=== PATIENT | male | born 1975 | race Caucasian/White ===

== ENCOUNTER 2024-02-27 18:34 | Observation (INO) | payer OTHER, SELFPAY ==
[2024-02-27] VITALS (42 sets, daily range): BP systolic 120–154; BP diastolic 74–106; PULSE 84–116; TEMP 36.8–38.3; O2SAT 2–100; BMI 23.1; BMI 23.2
--- NOTE | 2024-02-27 18:37 | ECG_ITS ---
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
--- NOTE | 2024-02-27 18:37 | XR_ITS ---
The [address] [address] Patient Name: ELLEN HA MRN: [id number] date: 1975 Sex: M Assigned Patient Location: ER Current Patient Location: ED.MAIN Accession/Order Number: [id number] Exam Date: 02/27/2024 19:33 Report Date: 02/27/2024 20:27 At the request of: GEOFF PHELPS Procedure: XR chest 1V CXR HISTORY: Psychiatric clearance COMPARISON: None. TECHNIQUE: 1 view chest submitted for review. FINDINGS: The lungs are adequately expanded without evidence of acute infiltrate or effusion. The cardiac silhouette measures within normal. Pulmonary vascularity is unremarkable. Osseous structures do not demonstrate any acute abnormality. XR/XR chest 1V IMPRESSION: No plain film evidence for acute cardiopulmonary disease. Electronically authenticated by: PROMISE MURRAY Date: 02/27/2024 20:27
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
[2024-02-27 18:50] LABS: Basophils Absolute Auto 0.1 10^3/uL (0.0-0.1); Basophils Percent Auto 0.7 % (0.2-2.0); Eosinophils Absolute Auto 0.1 10^3/uL (0.0-0.7); Eosinophils Percent Auto 1.1 % (0.9-7.0); Hematocrit 42.7 % (42.0-54.0); Hemoglobin 15.2 g/dL (14.0-18.0); Immature Granulocytes Abs Auto 0.04 10^3/uL (0.00-0.03); Immature Granulocytes Pct Auto 0.4 % (0.0-0.5); Lymphocytes Absolute Auto 1.4 10^3/uL (1.2-3.8); Lymphocytes Percent Auto 13.3 % (20.5-60.0); Mean Corpuscular HGB Conc 35.6 g/dL (29.9-35.2); Mean Corpuscular Hemoglobin 31.4 pg (25.9-34.0); Mean Corpuscular Volume 88.2 fL (80.0-94.0); Mean Platelet Volume 9.8 fL (9.5-13.5); Monocytes Absolute Auto 0.8 10^3/uL (0.3-0.8); Monocytes Percent Auto 7.7 % (1.7-12.0); Neutrophils Percent Auto 76.8 % (43.0-75.0); Platelet Count 290 10^3/uL (150-450); Red Blood Count 4.84 10^6/uL (4.70-6.10); Red Cell Distribution Width 12.6 % (11.0-15.0); White Blood Count 10.4 10^3/uL (4.0-11.0)
[2024-02-27 18:59] LABS: Bilirubin Urine NEGATIVE (NEGATIVE); Blood Urine SMALL (NEGATIVE); Clarity Urine CLEAR (CLEAR); Color Urine YELLOW (YELLOW); Glucose Urine UA NEGATIVE (NEGATIVE); Ketones Urine NEGATIVE (NEGATIVE); Leukocyte Esterase Urine NEGATIVE (NEGATIVE); Nitrite Urine NEGATIVE (NEGATIVE); Protein Urine 30 mg/dL (NEG/TRACE); Specific Gravity Urine >=1.030 (1.005-1.025); Urobilinogen Urine 0.2 EU/dL (0.2-1.0)
[2024-02-27] MEDS: ACETAMINOPHEN 650 MG RECTAL SUPPOSITORY PR (19:00)
[2024-02-27] MEDS: 0.9 % SODIUM CHLORIDE 1,000 ML 200 ML IV (19:00)
[2024-02-27] MEDS: ONDANSETRON PF 4 MG/2 ML VIAL IV (19:00)
[2024-02-27 19:07] LABS: Bacteria Urine NONE SEEN #/HPF (NONE SEEN); Cast Seen? SEEN #/LPF (NONE SEEN); Crystals Seen? None Seen #/HPF (None Seen); Hyaline Casts Urine FEW; Mucus Urine MODERATE (NONE SEEN); RBC Urine 0-2 #/HPF (0-2); Squamous Epithelial Cell Urine RARE #/LPF (NONE/RARE); Transitional Epi Cells Urine FEW #/LPF (NONE SEEN)
[2024-02-27 19:08] LABS: Sperm Urine SEEN; Urine Culture Indicated YES
[2024-02-27 19:14] LABS: Amphetamine Screen Urine POSITIVE (NEGATIVE); Barbiturates Screen Urine NEGATIVE (NEGATIVE); Benzodiazepines Screen Urine NEGATIVE (NEGATIVE); Buprenorphine Screen Urine POSITIVE (NEGATIVE); Cannabinoid Screen Urine NEGATIVE (NEGATIVE); Cocaine Screen Urine NEGATIVE (NEGATIVE); Methadone Screen Urine NEGATIVE (NEGATIVE); Methamphetamines Screen Urine POSITIVE (NEGATIVE); Opiate Screen Urine NEGATIVE (NEGATIVE); Oxycodone Screen Urine NEGATIVE (NEGATIVE); Phencyclidine Screen Urine NEGATIVE (NEGATIVE); Tricyclic Antidepressant Urine NEGATIVE (NEGATIVE)
[2024-02-27 19:24] LABS: Alanine Aminotransferase 74 U/L (16-63); Albumin Globulin Ratio 1.1; Alkaline Phosphatase 104 U/L (46-116); Aspartate Amino Transferase 53 U/L (15-37); BUN Creatinine Ratio 16.4; Bilirubin Direct 0.3 mg/dL (0.0-0.2); Bilirubin Total 1.2 mg/dL (0.2-1.0); Calcium 9.5 mg/dL (8.5-10.1); Carbon Dioxide 26.3 mmol/L (21.0-32.0); Chloride 106 mmol/L (98-107); Estimated GFR (African America >60 (>=60); Estimated GFR (Non-African Ame 57 (>=60); Globulin 3.5 g/dL; Glucose 99 mg/dL (74-106); Potassium 3.3 mmol/L (3.5-5.1); Salicylate <2.8 mg/dL (<=19.9); Sodium 141 mmol/L (136-145); Total Protein 7.5 g/dL (6.4-8.2)
[2024-02-27 19:26] LABS: Acetaminophen <2.0 ug/mL (10.0-30.0); Ethanol <3 mg/dL
--- NOTE | 2024-02-27 22:14 | PC.NURSE ---
Patient admitted from the ED department and brought up to the ICU with [address] While moving the patient over into ICU bed he was calm and cooperative. Not answering many questions but following some commands. He does not appear to be a threat to himself or others at this time. Robert, the senior information security architect stated he has been calm for a few hrs now. RN explained to patient that the restraints will be removed for now but if he becomes aggressive or combative the restraints will be reapplied. He said he understood. Removed the nonrebreather and applied 2 lts NC for now, SPO2 @ 99%. Bilat lungs clear. Patient is only alert to name. He denies knowing why he is here and what brought him to the hospital. Reoriented. He will not answer any of my admission questions. His eyes are dilated, equal and reactive. Has weak hand grasp bilaterally. No sores noted on body, covered in tattoos. Jaime in place. IV fluids infusing from ED at 200ml/hr. Call light at hand. bed alarm on. Will continue to monitor. Notified Ruth Alexander NP of current behavior and the removal of 4 point restrains.
[2024-02-27] MEDS: POTASSIUM CHLORIDE IN WATER 10 MEQ/100 ML PREMIX 100 MEQ IV ×2 (22:44→23:50)
[2024-02-28] VITALS (54 sets, daily range): BP systolic 127–134; BP diastolic 68–86; PULSE 69–108; TEMP 36.8–37.2; O2SAT 91–99
[2024-02-28] MEDS: 0.9 % SODIUM CHLORIDE 1,000 ML 200 ML IV ×2 (00:16→05:13)
[2024-02-28 06:27] LABS: Basophils Absolute Auto 0.1 10^3/uL (0.0-0.1); Basophils Percent Auto 0.6 % (0.2-2.0); Eosinophils Absolute Auto 0.2 10^3/uL (0.0-0.7); Hematocrit 39.4 % (42.0-54.0); Hemoglobin 13.6 g/dL (14.0-18.0); Immature Granulocytes Abs Auto 0.03 10^3/uL (0.00-0.03); Immature Granulocytes Pct Auto 0.4 % (0.0-0.5); Lymphocytes Absolute Auto 1.7 10^3/uL (1.2-3.8); Lymphocytes Percent Auto 21.1 % (20.5-60.0); Mean Corpuscular HGB Conc 34.5 g/dL (29.9-35.2); Mean Corpuscular Hemoglobin 31.6 pg (25.9-34.0); Mean Corpuscular Volume 91.6 fL (80.0-94.0); Monocytes Absolute Auto 0.8 10^3/uL (0.3-0.8); Monocytes Percent Auto 9.5 % (1.7-12.0); Neutrophils Absolute Auto 5.2 10^3/uL (1.4-6.5); Neutrophils Percent Auto 66.4 % (43.0-75.0); Platelet Count 226 10^3/uL (150-450); Red Cell Distribution Width 12.9 % (11.0-15.0); White Blood Count 7.9 10^3/uL (4.0-11.0)
[2024-02-28 06:44] LABS: Alanine Aminotransferase 65 U/L (16-63); Albumin Globulin Ratio 1.1; Albumin Level 3.2 g/dL (3.4-5.0); Alkaline Phosphatase 90 U/L (46-116); Anion Gap 12.2; Aspartate Amino Transferase 68 U/L (15-37); BUN Creatinine Ratio 17.2; Bilirubin Total 1.3 mg/dL (0.2-1.0); Calcium 8.4 mg/dL (8.5-10.1); Carbon Dioxide 24.2 mmol/L (21.0-32.0); Chloride 107 mmol/L (98-107); Estimated GFR (African America >60 (>=60); Estimated GFR (Non-African Ame >60 (>=60); Glucose 112 mg/dL (74-106); Magnesium 2.5 mg/dL (1.8-2.4); Potassium 3.4 mmol/L (3.5-5.1); Sodium 140 mmol/L (136-145); Total Protein 6.2 g/dL (6.4-8.2)
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
--- NOTE | 2024-02-28 10:42 | PC.NURSE ---
pt aware of discharge order. iv's discontinued, tolerated well. pt stated he does not have transportation. attempted to call taxi, pt does not have [place] funds to pay for transport. pt stated he does not have his phone and does not recall and friends/family phone numbers. pt ambulated to shower, supplies given. supervisor packing room made aware of having no transportation.
--- OUTSIDE RECORDS SUMMARY | 2024-03-01 08:59 | XMS_ITS | CCD ---
Author Organization [facility] Care Team Providers Care Flower Stripper Name Role Phone No, Physician Unavailable Unavailable JACOB PENG Unavailable Unavailciara mendoza NO, PHYSICIAN Unavailable Unavailable [facility] ([facility] [place]), Other Unav ailable RYNE TAN MD Primary Care Physicia n PROVIDER, UNKNOWN Attending Unavailable PROVIDER, UNKNOWN Admitting Unavailable PAY, DR ARZOLA Attending Unavailable PAY, DR ARZOLA Consulting Unavailable PAY, DR ARZOLA Admitting Unavailable MISC, DR AIKEN Primary Care Unavailable Unavailable Primary Care Provider UnavailTOMASA Khan Attending Unavailable NONE, XXXX Primary Care Physician Unavailab Scooby Gore Attending Unavailable STEPHANE, Scooby Thacker Attending Unavailable Scooby CALDERÓN Attending Unavailable SANNA TAN Admitting Unavailable SANNA TAN Attending Unavailable [facility] ([facility] [place]), Other Prim ollie Care Provider EMILY FENG Attending Unavailable [facility] ([facility] [place] OTHER Prim ollie Care Unavailable RYNE TAN MD Attending Unava ilRYNE Cui MD Primary Care Unava RYNE Woo MD Primary Care Unava ilRYNE Cui MD Attending Unava ilable Allergies Allergy Classification Reported Allergen(s) Allergy Type Date of Onset Reaction(s) Facility (2 sources) *[facility] - FOOD ALLERGY Propensity to adverse reactions to drug 5 Shortness of Breath [facility] Work Phone: (1 source) Food Propensity to adverse reactions to drug 5 Shortness Of Breath [facility] Medications Current Medications Medication Drug Class(es) Dates Sig (Normalized) Sig (Original) amitriptyline hydrochloride 100 mg oral tablet (3 sources) Tricyclic Antidepressant amitriptyline 100 MG Tab Take 50 mg by mouth At bedtime. Active take 1 tablet by mouth once zena y amitriptyline (ELAVIL) 100 MG tablet Take 100 mg by mouth nightly 0 Active betamethasone 0.5 mg/ml / clotrimazole 10 mg/ml topical cream (2 sources) Azole Antifungal, Corticosteroid Start: 03-16-2022 betamethasone-clotrimazole Top 0.05%-1% Crm 15 gram 1 glen, Topical, BID, 45 gram, Refill(s) 0, [email or web address], 185.4, cm, 12/25/21 14:39:00 EDT, Height/Length Dosing, 76.3, kg, 12/25/21 14:39:00 EDT, Weight Dosing Start Date: 03/16/22 Status: Ordered cetirizine hydrochloride 10 mg oral tablet (1 source) Histamine-1 Receptor Antagonist Start: 04-05-2022 take 1 tablet by mouth at bedtime cetirizine 10 mg Tab 10 mg = 1 tab(s), Oral, Bedtime, # 30 tab(s), Refills(s) 0, Pharmacy: [email or web address], 185.4, cm, 12/25/21 14:39:00 EDT, Height/Length Dosing, 76.3, kg, 12/25/21 14:39:00 EDT, Weight Dosing Start Date: 04/05/22 Status: Ordered clobetasol propionate 0.0005 mg/mg topical ointment (2 sources) Corticosteroid Start: 12-29-2021 clobetasol propionate 0.05% top oint 1 glen, Topical, BID, 45 gram, Refill(s) 0, [facility], 185.4, cm, 12/25/21 14:39:00 EDT, Height/Length Dosing, 76.3, kg, 12/25/21 14:39:00 EDT, Weight Dosing Start Date: 12/29/21 Status: Ordered coal tar 0.02 mg/mg topical ointment (2 sources) Start: 04-22-2022 coal tar topical 2% ointment 1 glen, Topical, BID, 120 gram, Refill(s) 0, Apply thin layer to affected are of skin, [facility], 185.4, cm, 12/25/21 14:39:00 EDT, Height/Length Dosing, 76.3, kg, 12/25/21 14:39:00 EDT, Weight Dosing Start Date: 04/22/22 Status: Ordered coal tar (T/GEL) 1 % Sham Apply topically. Active cobicistat 150 mg / elvitegravir 150 mg / emtricitabine 200 mg / tenofovir disoproxil fumarate 300 mg oral tablet (2 sources) Human Immunodeficiency Virus Nucleoside Analog Reverse Transcriptase Inhibitor, Hepatitis B Virus Nucleoside Analog Reverse Transcriptase Inhibitor, Human Immunodeficiency Virus Integrase Strand Transfer Inhibitor, Cytochrome P450 3A Inhibitor take 1 tablet by mouth once daily fdqioocmtqcj-rmqhbxpkpy-aozadaiclnkyd-te nofovir (STRIBILD) [phone] MG tablet Take 1 tablet by mouth daily 0 Active cyclopentolate hydrochloride 10 mg/ml ophthalmic solution (1 source) S t a r t : 0 6 - 1 5 - 2 0 1 6 take 1 drop(s) into the eye(s) twice daily cyclopentolate (CYCLOGYL) 1 % Solution 1 drop by Right Eye route 2 times daily. 1 Bottle 0 11/22/2015 Active darunavir 400 mg oral tablet (3 sources) Protease Inhibitor take 2 tablets by mouth at mealtim e darunavir 400 MG Tab take 800 mg by mout h. take with food Active DARUNAVIR ETHANO LATE PO Take 800 mg by mouth 0 Active dolutegravir 50 mg oral tablet (4 sources) Human Immunodeficiency Virus Integrase Strand Transfer Inhibitor Start: 03-25-2022 take 1 tablet by mouth once daily Tivicay 50 mg oral tablet 50 mg, Oral, Daily, # 30 tab(s), Refills(s) 3, Pharmacy: [facility]/pharmacy #[id number], 185.4, cm, 12/25/21 14:39:00 EDT, Height/Length Dosing, 76.3, kg, 12/25/21 14:39:00 EDT, Weight Dosing Start Date: 03/25/22 Status: Ordered Start: 12-25-2021 take 50 mg by mouth once daily Tivicay 50 mg, Oral, Daily, Refills(s) 0 Start Date: 12/25/21 Status: Ordered take 1 tablet by sha th every twenty-four hours Dolutegravir 50 MG tablet Take 1 tablet by mouth every 24 hours. Active DULoxetine 20 mg delayed release oral capsule (1 source) Serotonin and Norepinephrine Reuptake Inhibitor Start: 03-06-2022 DULoxetine 20 mg Cap-EC See Instructions, 1 cap daily for 7 days then increase to BID., # 60 tab(s), Refills(s) 0, Pharmacy: [email or web address], 185.4, cm, 12/25/21 14:39:00 EDT, Height/Length Dosing, 76.3, kg, 12/25/21 14:39:00 EDT, Weight Dosing Start Date: 03/06/22 Status: Ordered DULoxetine 20 mg Cap-EC (1 source) Start: 03-06-2022 DULoxetine 20 mg Cap-EC See Instructions, 1 cap daily for 7 days then increase to BID., # 60 tab(s), Refills(s) 0, Pharmacy: [email or web address], 185.4, cm, 12/25/21 14:39:00 EDT, Height/Length Dosing, 76.3, kg, 12/25/21 14:39:00 EDT, Weight Dosing Start Date: 03/06/22 Status: Ordered emtricitabine 200 mg / tenofovir alafenamide 25 mg oral tablet (4 sources) Human Immunodeficiency Virus Nucleoside Analog Reverse Transcriptase Inhibitor Start: 03-25-2022 Descovy 200 mg-25 mg oral tablet 1 tab(s), Oral, Daily, 30 tab(s), Refill(s) 3, [facility]/pharmacy #[id number], 185.4, cm, 12/25/21 14:39:00 EDT, Height/Length Dosing, 76.3, kg, 12/25/21 14:39:00 EDT, Weight Dosing Start Date: 03/25/22 Status: Ordered Start: 12-25-2021 take 1 tablet by sha th once daily Descovy 200 mg-25 mg oral tablet 1 tab(s), Oral, Daily, Refill(s) 0 Start Date: 12/25/21 Status: Ordered emtricitabine 200 mg / tenofovir disoproxil fumarate 300 mg oral tablet (2 sources) Human Immunodeficiency Virus Nucleoside Analog Reverse Transcriptase Inhibitor take 1 tablet by mouth once daily emtricitabine-tenofovir (TRUVADA) 200-300 MG per tablet Take 1 tablet by mouth daily 0 Active erythromycin 0.005 mg/mg ophthalmic ointment (2 sources) Macrolide, Macrolide Antimicrobial Start : 11-21 erythromycin 5 MG/GM Ointment Apply to suture line QID 1 Tube 0 11/22/2015 Active erythromycin 5 M G/GM Ointment 1 Application every evening at 6 PM. Active fluocinonide 0.5 mg/ml topical solution (2 sources) Corticosteroid fluocinonide (LI DEX) 0.05 % external solution Apply topically 2 times daily 0 Active FLUoxetine 20 mg oral capsule (2 sources) Serotonin Reuptake Inhibitor take 1 capsule by mouth once daily FLUoxetine (PROZAC) 20 MG capsule Take 20 mg by mouth daily 0 Active hydroxychloroquine sulfate 200 mg oral tablet (3 sources) Antimalarial, Antirheumatic Agent Start: 2021 take 1 tablet by mouth twice daily hydroxychloroquine 200 mg Tab 200 mg = 1 tab(s), Oral, BID, # 60 tab(s), Refills(s) 0, Pharmacy: [email or web address], 185.4, cm, 12/25/21 14:39:00 EDT, Height/Length Dosing, 76.3, kg, 12/25/21 14:39:00 EDT, Weight Dosing Start Date: 03/25/22 Status: Ordered take 1 tablet by mouth once zena y hydroxychloroquine (PLAQUENIL) 200 MG tablet Take 1 tablet by mouth daily 0 Active omeprazole 20 mg delayed release oral capsule (1 source) Proton Pump Inhibitor Start: 04-05-2022 take 1 capsule by mouth once daily omeprazole 20 mg Cap-DR 20 mg = 1 cap(s), Oral, Daily, # 30 cap(s), Refills(s) 0, Pharmacy: [email or web address], 185.4, cm, 12/25/21 14:39:00 EDT, Height/Length Dosing, 76.3, kg, 12/25/21 14:39:00 EDT, Weight Dosing Start Date: 04/05/22 Status: Ordered prednisoLONE acetate 10 mg/ml ophthalmic suspension (1 source) Corticosteroid Start: 12-01-2015 prednisOLOne (PRED FORTE) 1 % Suspension 2 drops by Right Eye route 4 times daily. 4x/day right eye for 1 week, 3x/day for 1 week, 2x/day for 1 week, 1x/day for one week 10 mL 0 12/01/2015 Active predniSONE 20 mg oral tablet (1 source) Start: 04-12-2022 take 3 tablets by mouth once daily, then take 2 tablets by mouth once daily, then take 1 tablet by mouth once daily, then take 0.5 tablet by mouth once daily predniSONE 20 mg Tab See Instructions, 3 PO daily for 5 days, 2 PO daily for 5 days 1 PO daily for 5 days, 1/2 tab PO daily for 6 days, # 33 tab(s), Refills(s) 0, Pharmacy: [email or web address], 185.4, cm, 12/25/21 14:39:00 EDT, Height/Length Dosing, 76.3, kg, 12/25/21 14:39:00 EDT,... Start Date: 04/12/22 Status: Ordered propranolol hydrochloride 20 mg oral tablet (5 sources) beta-Adrenergic Franco Start: 01-23-2022 take 1 tablet by mouth twice daily propranolol 20 mg Tab 20 mg = 1 tab(s), Oral, BID, # 60 tab(s), Refills(s) 0, Pharmacy: [email or web address], 185.4, cm, 12/25/21 14:39:00 EDT, Height/Length Dosing, 76.3, kg, 12/25/21 14:39:00 EDT, Weight Dosing Start Date: 01/23/22 Status: Ordered take 1 tablet by mouth twice chacha ly propranolol (INDERAL) 80 MG tablet Take 80 mg by mouth 2 times daily 0 Active ritonavir 100 mg oral tablet (2 sources) Protease Inhibitor, Cytochrome P450 3A Inhibitor take 1 tablet by mouth twice daily ritonavir (NORVIR) 100 MG tablet Take 100 mg by mouth 2 times daily 0 Active sertraline 50 mg oral tablet (2 sources) Serotonin Reuptake Inhibitor take 1 tablet by mouth once daily sertraline (ZOLOFT) 50 MG tablet Take 50 mg by mouth daily 0 Active Completed/Discontinued Medications Medication Drug Class(es) Dates Sig (Normalized) Sig (Original) Vicodin (1 source) Opioid Agonist Start: 11-13-2008 End: 11-18-2008 Vicodin 1 tab(s), PO, q4hr, 30 tab(s), 0, 0 Start Date: 11/13/08 Stop Date: 11/18/08 Status: Ordered Penicillin (1 source) Start: 11-13-2008 End: 11-20-2008 penicillin 500 mg, PO, TID, 21 tab(s), 0, 0 Start Date: 11/13/08 Stop Date: 11/20/08 Status: Ordered 50 ml sodium chloride 9 mg/ml injection (1 source) Start: 12-21-2021 End: 12-21-2021 0.9 % sodium chloride bolus Problems Active Problems Problem Classification Problem Date Documented Date Episodic/Chronic Anxiety disorders (7 sources) Anxiety disorder, unspecified; Translations: [Other specified anxiety disorders] Onset: 11-02-2021 Chronic Hepatitis (1 source) Chronic hepatitis C Chronic Hepatitis (4 sources) Unspecified viral hepatitis C without hepatic coma; Translations: [Viral hepatitis C] Onset: 11-06-2021 12-25-2021 Episodic HIV infection (7 sources) Human immunodeficiency virus infection; Translations: [Human immunodeficiency virus [HIV] disease] Onset: 11-06-2021 Chronic Other aftercare (1 source) Other chcf (current) drug therapy; Translations: [OTH ALF CURRENT DRUG THERAPY] Onset: 11-06-2021 Episodic Other connective tissue disease (2 sources) Prepatellar bursitis, left knee; Translations: [Prepatellar bursitis, left knee] Onset: 10-13-2017 Episodic Other non-traumatic joint disorders (2 sources) Pain in unspecified knee; Translations: [Pain in unspecified knee] Onset: 10-13-2017 Episodic Other skin disorders (1 source) Disorder of skin; Translations: [Disorder of the skin and subcutaneous tissue, unspecified] Onset: 03-16-2022 Episodic Other skin disorders (2 sources) Skin lesion 03-16-2022 Episodic Poisoning by other medications and drugs (1 source) Sympathomimetic overdose; Translations: [Poisoning by unspecified drugs primarily affecting the autonomic nervous system, undetermined, initial encounter] Episodic Substance-related disorders (2 sources) Opioid dependence, uncomplicated; Translations: [Nicotine dependence, cigarettes, uncomplicated] Onset: 11-06-2021 Chronic Substance-related disorders (1 source) Other psychoactive substance use, unspecified, uncomplicated; Translations: [OTH PSYCHOACTIVE SBSTNC UNS UNCOMP] Onset: 11-06-2021 Episodic Past or Other Problems Problem Classification Problem Date Documented Da te Episodic/Chronic Inflammation; infection of eye (except that caused by tuberculosis or sexually transmitteddisease) (2 sources) Unspecified iridocyclitis; Translations: [Traumatic iritis] Onset: 11-23-2015 11-23-2015 Episodic Open wounds of head; neck; and trunk (2 sources) Laceration of eyelid; Translations: [Laceration of right eyelid] Onset: 11-23-2015 11-23-2015 Episodic Residual codes; unclassified (1 source) History of cholecystectomy; Translations: [Status post cholecystectomy] Onset: 01-13-2015 01-13-2015 Episodic Skull and face fractures (2 sources) Fracture of orbit; Translations: [Fracture of orbit, unspecified, subsequent encounter for fracture with routine healing] Onset: 11-23-2015 11-23-2015 Episodic Superficial injury; contusion (2 sources) Injury of conjunctiva and corneal abrasion without foreign body, right eye, initial encounter; Translations: [Abrasion of cornea of right eye] Onset: 11-23-2015 11-23-2015 Episodic Results Test Name Value Interpretation Reference Range [address] 02-20-2024 % B Cells 16 % Normal 5-25 AP [facility] Comment on above: Performed By: #### A SONJA, RPR, [id number], CBC, CMP, TRIG, CHOL, GFR, ADIFF #### [address] [address] % CD4 Cells 30 % Normal 30-61 AP [facility] Comment on above: Performed By: #### A SONJA, RPR, [id number], CBC, CMP, TRIG, CHOL, GFR, ADIFF #### [facility] [address] [place] [address] % CD56+/16+ 8 % Normal 5-30 AP [facility] Comment on above: Performed By: #### A SONJA, RPR, [id number], CBC, CMP, TRIG, CHOL, GFR, ADIFF #### [address] [address] % CD8 Cells 45 % High 12-42 AP [facility] Comment on above: Performed By: #### A SONJA, RPR, [id number], CBC, CMP, TRIG, CHOL, GFR, ADIFF #### [address] [address] % T Cells 76 % Normal 52-84 AP [facility] Comment on above: Performed By: #### A SONJA, RPR, [id number], CBC, CMP, TRIG, CHOL, GFR, ADIFF #### [address] [address] B Cells (CD 19) 243 /uL Normal 71-567 AP [facility] Comment on above: Performed By: #### A SONJA, RPR, 132963, CBC, CMP, TRIG, CHOL, GFR, ADIFF #### [address] [address] CD4 Cells 575 /uL Normal 401-1532 AP [facility] Comment on above: Performed By: #### A SONJA, RPR, [id number], CBC, CMP, TRIG, CHOL, GFR, ADIFF #### [address] [address] CD4/CD8 Ratio 0.68 ratio Low 0.88-3.84 AP [facility] Comment on above: Performed By: #### A SONJA, RPR, 781069, CBC, CMP, TRIG, CHOL, GFR, ADIFF #### [address] [address] CD56+/16+ NK Cells 120 /uL Normal 80-597 AULTMA N [facility] Comment on above: Performed By: #### A SONJA, RPR, 656878, CBC, CMP, TRIG, CHOL, GFR, ADIFF #### [address] [address] CD8 Cells 850 /uL High 152-838 AP [facility] Comment on above: Performed By: #### A SONJA, RPR, 425734, CBC, CMP, TRIG, CHOL, GFR, ADIFF #### [address] [address] Lymphocytes (Bld) [#/Vol] 1.676 10*3/uL Normal 660-4600 AP [facility] Comment on above: Performed By: #### A SONJA, RPR, 608178, CBC, CMP, TRIG, CHOL, GFR, ADIFF #### [place] [id number] T Cells 1313 /uL Normal 582-1992 [facility] Comment on above: Performed By: #### A SONJA, RPR, 538560, CBC, CMP, TRIG, CHOL, GFR, ADIFF #### [place] [address] HIVLDon 02-18-2024 HIV 1 RNA PCR <20 Normal [facility] Comment on above: Result Comment: HIV- 1 RNA not detected The reportable range for this assay is 20 to 10,000,000 copies HIV-1 RNA/mL. Performed By: #### A SONJA, RPR, [id number], CBC, CMP, TRIG, CHOL, GFR, ADIFF #### [place] [address] log10 HIV1 RNA COMMENT Normal [facility] Comment on above: Result Comment: Unab le to calculate result since non-numeric result obtained for component test. Performed At: [address] [id number] Iván Gaspar MD Ph:[phone] Performed By: #### A SONJA, RPR, [id number], CBC, CMP, TRIG, CHOL, GFR, ADIFF #### [place] [address] TCANCon 02-18-2024 Test cancelled: HELP1 Normal [facility] Comment on above: Order Comment: No al iquot received for HELP1 testing. Performed By: #### T CANC #### [place] [address] RPRon 02-17-2024 Reagin Ab RPR Ql (S) Non-Reactive Normal Non-Reactive [facility] Comment on above: Result Comment: The RPR test is a non-treponemal assay useful as an aid in the diagnosis of primary and secondary syphilis. It converts to positive generally within 2 weeks after the appearance of a lesion. This test is also useful for monitoring response to antibiotic therapy. A positive RPR screening test will be followed by the FTA ABS test. False positive RPR tests may occur in 1) patients with underlying autoimmune disorders, 2) elderly patients, 3) , and 4) other conditions with abnormal serum globulins. Performed By: #### A SONJA, RPR, [id number], CBC, CMP, TRIG, CHOL, GFR, ADIFF #### [address] [address] .Auto Diffon 02-16-2024 Basophil, Absolute 0.1 10 3/mcL Normal 0.0-0.3 [facility]AND[facility] Comment on above: Performed By: #### A SONJA, RPR, 134450, CBC, CMP, TRIG, CHOL, GFR, ADIFF #### [place] [address] Basophils/100 WBC (Bld) 1.1 % Normal 0.0-2.5 [facility] Comment on above: Performed By: #### A SONJA, RPR, 765167, CBC, CMP, TRIG, CHOL, GFR, ADIFF #### [address] [address] Eosinophil, Absolute 0.4 10 3/mcL Normal 0.0-0.7 AU LTMAN [facility] Comment on above: Performed By: #### A SONJA, RPR, 213607, CBC, CMP, TRIG, CHOL, GFR, ADIFF #### [address] [address] Eosinophils/100 WBC (Bld) 8.6 % High 0.0-6.0 [facility] Comment on above: Performed By: #### A SONJA, RPR, 252231, CBC, CMP, TRIG, CHOL, GFR, ADIFF #### [address] [address] Lymphocyte, Absolute 1.5 10 3/mcL Normal 0.9-4.3 AU LTMAN [facility] Comment on above: Performed By: #### A SONJA, RPR, [id number], CBC, CMP, TRIG, CHOL, GFR, ADIFF #### [address] [address] Lymphocytes/100 WBC (Bld) 31.5 % Normal 20.0-40.0 AP [facility] Comment on above: Performed By: #### A SONJA, RPR, 476190, CBC, CMP, TRIG, CHOL, GFR, ADIFF #### [facility] [address] [place] [address] Monocyte, Absolute 0.4 10 3/mcL Normal 0.1-1.4 [facility] Comment on above: Performed By: #### A SONJA, RPR, 530959, CBC, CMP, TRIG, CHOL, GFR, ADIFF #### [place] [id number] [address] [place] [address] Monocytes/100 WBC (Bld) 9.1 % Normal 2.0-13.0 AP [facility] Comment on above: Performed By: #### A SONJA, RPR, 756055, CBC, CMP, TRIG, CHOL, GFR, ADIFF #### [place] [address]30 [address] [place] [address] Neutrophils/100 WBC (Bld) 49.7 % Low 50.0-75.0 [facility] Comment on above: Performed By: #### A SONJA, RPR, 545963, CBC, CMP, TRIG, CHOL, GFR, ADIFF #### [address] [address] .GFRon 02-16-2024 GFR >60 Normal [facility] Comment on above: Result Comment: GFR Population mean for , Non- Americans Ages 20-29 = 116 mL/min/1.73 sq.m. Ages 30-39 = 107 mL/min/1.73 sq.m. Ages 40-49 = 99 mL/min/1.73 sq.m. Ages 50-59 = 93 mL/min/1.73 sq.m. Ages 60-69 = 85 mL/min/1.73 sq.m. Ages 70+ = 75 mL/min/1.73 sq.m. Chronic Kidney Disease: Less than 60 mL/min/1.73 square meters End Stage Renal Disease: Less than 15 mL/min/1.73 square meters Performed By: #### A SONJA, RPR, 392733, CBC, CMP, TRIG, CHOL, GFR, ADIFF #### [address] [address] GFR Non- >60 Normal [facility] Comment on above: Result Comment: GFR Population mean for , Non- Americans Ages 20-29 = 116 mL/min/1.73 sq.m. Ages 30-39 = 107 mL/min/1.73 sq.m. Ages 40-49 = 99 mL/min/1.73 sq.m. Ages 50-59 = 93 mL/min/1.73 sq.m. Ages 60-69 = 85 mL/min/1.73 sq.m. Ages 70+ = 75 mL/min/1.73 sq.m. Chronic Kidney Disease: Less than 60 mL/min/1.73 square meters End Stage Renal Disease: Less than 15 mL/min/1.73 square meters Performed By: #### A SONJA, RPR, 061890, CBC, CMP, TRIG, CHOL, GFR, ADIFF #### [address] [address] .NEUABSon 02-16-2024 Neutrophil, Absolute 2.4 10 3/mcL Normal 2.3-8.1 AU LTMAN [facility] Comment on above: Performed By: #### A SONJA, RPR, 105340, CBC, CMP, TRIG, CHOL, GFR, ADIFF #### [address] [address] CBCon 02-16-2024 Erythrocyte distribution width (RBC) [Ratio] 13.8 % Normal 11.5-15.5 AP [facility] Comment on above: Performed By: #### A SONJA, RPR, 809107, CBC, CMP, TRIG, CHOL, GFR, ADIFF #### [address] [address] Hematocrit (Bld) [Volume fraction] 46.1 % Normal 40.0-52.0 AP [facility] Comment on above: Performed By: #### A SONJA, RPR, 241243, CBC, CMP, TRIG, CHOL, GFR, ADIFF #### [address] [address] Hgb 15.3 G/dL Normal 13.0-17.5 [facility] Comment on above: Performed By: #### A SONJA, RPR, 385000, CBC, CMP, TRIG, CHOL, GFR, ADIFF #### [place] [address] MCH (RBC) [Entitic mass] 31.6 pg Normal 27.0-33.0 AP [facility] Comment on above: Performed By: #### A SONJA, RPR, 293032, CBC, CMP, TRIG, CHOL, GFR, ADIFF #### [place] [address] MCHC 33.3 G/dL Normal 32.0-36.0 [facility] Comment on above: Performed By: #### A SONJA, RPR, 260669, CBC, CMP, TRIG, CHOL, GFR, ADIFF #### [place] [address] MCV (RBC) [Entitic vol] 95.0 fL Normal 81.0-100.0 AP [facility] Comment on above: Performed By: #### A SONJA, RPR, 578907, CBC, CMP, TRIG, CHOL, GFR, ADIFF #### [place] [address] Platelet 209 10 3/mcL Normal 150-450 AP [facility] Comment on above: Performed By: #### A SONJA, RPR, 207291, CBC, CMP, TRIG, CHOL, GFR, ADIFF #### [place] [address] Platelet mean volume (Bld) [Entitic vol] 8.5 fL Normal 6.4-10.5 AP [facility] Comment on above: Performed By: #### A SONJA, RPR, 961372, CBC, CMP, TRIG, CHOL, GFR, ADIFF #### [place] [address] RBC 4.86 10 6/mcL Normal 4.50-6.00 AP [facility] Comment on above: Performed By: #### A SONJA, RPR, 606971, CBC, CMP, TRIG, CHOL, GFR, ADIFF #### [address] [address] WBC 4.9 10 3/mcL Normal 4.5-10.8 AP [facility] Comment on above: Performed By: #### A SONJA, RPR, 600212, CBC, CMP, TRIG, CHOL, GFR, ADIFF #### [address] [address] CHOLon 02-16-2024 Cholesterol [Mass/Vol] 130 mg/dL Normal 50-199 [facility] Comment on above: Result Comment: Chol esterol Reference Interval: Less than 200 Desirable 200-239 Borderline high risk 240 and above High risk Performed By: #### A SONJA, RPR, 970834, CBC, CMP, TRIG, CHOL, GFR, ADIFF #### [address] [address] CMPon 02-16-2024 Albumin Level 3.8 G/dL Normal 3.2-4.8 AP [facility] Comment on above: Performed By: #### A SONJA, RPR, 930139, CBC, CMP, TRIG, CHOL, GFR, ADIFF #### [address] [address] Albumin/Globulin [Mass ratio] 1.3 {ratio} Normal 0.9-1.6 [facility] Comment on above: Performed By: #### A SONJA, RPR, 659851, CBC, CMP, TRIG, CHOL, GFR, ADIFF #### [address] [address] ALP [Catalytic activity/Vol] 106 U/L Normal 38-126 AP [facility] Comment on above: Performed By: #### A SONJA, RPR, 705898, CBC, CMP, TRIG, CHOL, GFR, ADIFF #### [address] [address] ALT [Catalytic activity/Vol] 69 U/L High 12-55 [facility] Comment on above: Performed By: #### A SONJA, RPR, 737047, CBC, CMP, TRIG, CHOL, GFR, ADIFF #### [address] [address] AST [Catalytic activity/Vol] 36 U/L High 8-34 AP [facility] Comment on above: Performed By: #### A SONJA, RPR, 377776, CBC, CMP, TRIG, CHOL, GFR, ADIFF #### [address] [address] Bili Total 0.40 mg/dL Normal 0.20-1.20 AP [facility] Comment on above: Result Comment: Use of this assay is not recommended for patients undergoing treatment with eltrombopag due to the potential for falsely elevated results. Performed By: #### A SONJA, RPR, 276935, CBC, CMP, TRIG, CHOL, GFR, ADIFF #### [place] [id number] BUN/Creatinine Ratio 17.7 ratio Normal 10.0-22.0 [facility] Comment on above: Performed By: #### A SONJA, RPR, 235918, CBC, CMP, TRIG, CHOL, GFR, ADIFF #### [address] [address] Calcium [Mass/Vol] 9.8 mg/dL Normal 8.7-10.4 AULTMA N [facility] Comment on above: Performed By: #### A SONJA, RPR, 052984, CBC, CMP, TRIG, CHOL, GFR, ADIFF #### [address] [address] Chloride [Moles/Vol] 107 mmol/L Normal 98-110 BRANDIN MAN MASSILLON Comment on above: Performed By: #### A SONJA, RPR, [id number], CBC, CMP, TRIG, CHOL, GFR, ADIFF #### [address] [address] CO2 [Moles/Vol] 30 mmol/L Normal 22-32 AP MASSILLON Comment on above: Performed By: #### A SONJA, RPR, [id number], CBC, CMP, TRIG, CHOL, GFR, ADIFF #### [address] [address] Creatinine [Mass/Vol] 0.96 mg/dL Normal 0.60-1.40 AUL TMAN MASSILLON Comment on above: Result Comment: Test ing performed on [email or web address] analyzer using enzymatic creatinine methodology. Performed By: #### A SONJA, RPR, [id number], CBC, CMP, TRIG, CHOL, GFR, ADIFF #### [address] [address] Electrolyte Balance 6.0 mEq/L Normal 4.0-15.0 AULTM AN MASSILLON Comment on above: Performed By: #### A SONJA, RPR, [id number], CBC, CMP, TRIG, CHOL, GFR, ADIFF #### [address] [address] Globulin 3.0 G/dL Normal 1.5-3.8 AP MASSILLON Comment on above: Performed By: #### A SONJA, RPR, [id number], CBC, CMP, TRIG, CHOL, GFR, ADIFF #### [address] [address] Glucose [Mass/Vol] 88 mg/dL Normal 70-110 AULTMA N MASSILLON Comment on above: Performed By: #### A SONJA, RPR, 129083, CBC, CMP, TRIG, CHOL, GFR, ADIFF #### [address] [address] Potassium [Moles/Vol] 4.4 mmol/L Normal 3.5-5.0 AUL TMAN MASSILLON Comment on above: Performed By: #### A SONJA, RPR, 129426, CBC, CMP, TRIG, CHOL, GFR, ADIFF #### [address] [address] Sodium [Moles/Vol] 143 mmol/L Normal 136-145 AULTMA N MASSILLON Comment on above: Performed By: #### A SONJA, RPR, [id number], CBC, CMP, TRIG, CHOL, GFR, ADIFF #### [address] [address] Total Protein 6.8 G/dL Normal 5.7-8.2 AP MASSILLON Comment on above: Result Comment: No te - New Reference Range in effect 19 Performed By: #### A SONJA, RPR, 739340, CBC, CMP, TRIG, CHOL, GFR, ADIFF #### [address] [address] Urea nitrogen [Mass/Vol] 17.0 mg/dL Normal 8.0-22.0 AP MASSILLON Comment on above: Performed By: #### A SONJA, RPR, 620817, CBC, CMP, TRIG, CHOL, GFR, ADIFF #### [address] [address] TRIGon 02-16-2024 Triglyceride [Mass/Vol] 93 mg/dL Normal 3-149 AP MASSILLON Comment on above: Performed By: #### A SONJA, RPR, 254010, CBC, CMP, TRIG, CHOL, GFR, ADIFF #### [address] [address] 36on 02-10-2024 36 Received a message from patient. He indicated that he was not coming to this area and cancelled his appointment with Yoanna for Feb 16. Senior Pl Sql Developer contacted Ava Kilgore, Community Linkage Coordinator at [facility] to make her aware. She will follow up with the patient. Normal [facility] Telephoneon 02-10-2024 Telephone [id number] [place] 1975 M Date Provider Department Center 02/10/2024 LUNA MEADOWS [facility] Chart Close Cosign Required by: Yoanna Wilkinson NP[[id number]] No family history on file Normal [facility] Orders Onlyon 01-23-2024 Orders Only [id number] [place] 1975 M Date Provider Department Center 01/23/2024 77435-GOINNEW WERNER [facility] No family history on file Normal [facility] URINE DRUG SCREEN 10Ordered By: Simran Will on 12-06-2023 Amphetamine+Methamphe tamine Screen (U) [Mass/Vol] Positive Abnormal Cutoff: 500 ng/mL [facility] Barbiturates Ql (U) Not detected Cutoff: 200 ng/mL [facility] Benzodiazepines Ql (U) Not detected Cutoff: 200 ng/mL [facility] Buprenorphine Ql (U) Not detected Cutoff: 5 ng/mL [facility] Cannabinoids Screen Ql (U) Not detected Cutoff: 50 ng/mL [facility] Cocaine Ql (U) Not detected Cutoff: 150 ng/mL [facility] fentaNYL Ql (U) Not detected Cutoff: 1 ng/mL [facility] Interpretation and review of laboratory results Abnormal [facility] Methadone Ql (U) Not detected Cutoff: 300 ng/mL [facility] Opiates Ql (U) Not detected Cutoff: 300 ng/mL [facility] oxyCODONE Ql (U) Not detected Cutoff: 100 ng/mL [facility] For medical purposes only. Positive results are unconfirmed unless otherwise noted. [facility] URINE DRUG SCREEN 12-05 Amphetamine/Methamphe tamine Positive Abnormal Cutoff: 500 ng/mL [facility] Comment on above: Order Comment: For edical purposes only. Positive results are unconfirmed unless otherwise noted. Performed By: #### 1 0DRUG #### [facility] (DEFAULT) [address] [address] Barbiturates Not detected Normal Cutoff: 200 ng/mL [facility] Comment on above: Order Comment: For edical purposes only. Positive results are unconfirmed unless otherwise noted. Performed By: #### 1 0DRUG #### [facility] (DEFAULT) [address] [address] Benzodiazepines Not detected Normal Cutoff: 200 ng/mL [facility] Comment on above: Order Comment: For m edical purposes only. Positive results are unconfirmed unless otherwise noted. Performed By: #### 1 0DRUG #### [facility] (DEFAULT) [address] [address] Buprenorphine Not detected Normal Cutoff: 5 ng/mL [facility] Comment on above: Order Comment: For m edical purposes only. Positive results are unconfirmed unless otherwise noted. Performed By: #### 1 0DRUG #### [facility] (DEFAULT) [address] [address] Cannabinoids Screen Ql (U) Not detected Normal Cutoff: 50 ng/mL [facility] Comment on above: Order Comment: For m edical purposes only. Positive results are unconfirmed unless otherwise noted. Performed By: #### 1 0DRUG #### [facility] (DEFAULT) [address] [address] Cocaine Not detected Normal Cutoff: 150 ng/mL [facility] Comment on above: Order Comment: For m edical purposes only. Positive results are unconfirmed unless otherwise noted. Performed By: #### 1 0DRUG #### [facility] (DEFAULT) [address] [address] Fentanyl Not detected Normal Cutoff: 1 ng/mL [facility] Comment on above: Order Comment: For m edical purposes only. Positive results are unconfirmed unless otherwise noted. Performed By: #### 1 0DRUG #### [facility] (DEFAULT) [address] [address] Methadone Not detected Normal Cutoff: 300 ng/mL [facility] Comment on above: Order Comment: For m edical purposes only. Positive results are unconfirmed unless otherwise noted. Performed By: #### 1 0DRUG #### [facility] (DEFAULT) [address] [address] Opiates Not detected Normal Cutoff: 300 ng/mL [facility] Comment on above: Order Comment: For m edical purposes only. Positive results are unconfirmed unless otherwise noted. Performed By: #### 1 0DRUG #### [facility] (DEFAULT) [address] [address] Oxycodone Not detected Normal Cutoff: 100 ng/mL [facility] Comment on above: Order Comment: For m edical purposes only. Positive results are unconfirmed unless otherwise noted. Performed By: #### 1 0DRUG #### [facility] (DEFAULT) [address] [place] [address] CBC AND ELECTRONIC DIFFon Basophils (Bld) [#/Vol] K/uL 0.00 - 0.09 K/uL [facility] Basophils/100 WBC (Bld) 0.4 % [facility] Differential cell count method Nom (Bld) Electronic Differential [facility] Eosinophils (Bld) [#/Vol] 0.06 10*3/uL 0.00 - 0.48 K/uL [facility] Eosinophils/100 WBC (Bld) 0.8 % [facility] Erythrocyte distribution width (RBC) [Ratio] 13.7 % 10.9 - 14.3 % [facility] Hematocrit (Bld) [Volume fraction] 42.4 % 39.6 - 48.8 % [facility] Hemoglobin (Bld) [Mass/Vol] 14.9 g/dL 13.4 - 16.8 g/dL [facility] Immature granulocytes (Bld) [#/Vol] K/uL NINF - 0.07 K/uL [facility] Immature granulocytes/100 WBC (Bld) 0.3 % [facility] Lymphocytes (Bld) [#/Vol] 2.43 10*3/uL 0.83 - 3.57 K/uL [facility] Lymphocytes/100 WBC (Bld) 31.4 % [facility] MCH (RBC) [Entitic mass] 31.6 pg 26.1 - 33.3 pg [facility] MCHC (RBC) [Mass/Vol] 35.1 g/dL 31.9 - 36.5 g/dL [facility] MCV (RBC) [Entitic vol] 89.8 fL 79.0 - 94.5 fL [facility] Monocytes (Bld) [#/Vol] 0.57 10*3/uL 0.24 - 0.93 K/uL [facility] Monocytes/100 WBC (Bld) 7.4 % [facility] Neutrophils (Bld) [#/Vol] 4.62 10*3/uL 1.57 - 6.19 K/uL [facility] Nucleated RBC/100 WBC (Bld) [Ratio] 0.0 % NINF [facility] Platelet mean volume (Bld) [Entitic vol] 9.3 fL 8.7 - 12.3 fL [facility] Platelets (Bld) [#/Vol] 218 10*3/uL 146 - 337 K/uL [facility] RBC (Bld) [#/Vol] 4.72 10*6/uL [facility] Segmented neutrophils/100 WBC (Bld) 59.7 % [facility] WBC (Bld) [#/Vol] 7.73 10*3/uL 3.73 - 10. 10 K/uL [facility] Abs Baso Auto < Normal 0.00-0.09 [facility] Comment on above: Performed By: #### L [id number] #### [facility] (DEFAULT) [address] [address] Basophils/100 WBC (Bld) 0.4 % Normal [facility] Comment on above: Performed By: #### L [id number] #### [facility] (DEFAULT) [address] [address] DIFF STATUS Electronic Differential Normal [facility] Comment on above: Performed By: #### L [id number] #### [facility] (DEFAULT) [address] [address] Eosinophils (Bld) [#/Vol] 0.06 10*3/uL Normal 0.00-0.48 [facility] Comment on above: Performed By: #### L [id number] #### [facility] (DEFAULT) [address] [address] Eosinophils/100 WBC (Bld) 0.8 % Normal [facility] Comment on above: Performed By: #### L [id number] #### [facility] (DEFAULT) [address] [address] Hematocrit (Bld) [Volume fraction] 42.4 % Normal 39.6-48.8 [facility] Comment on above: Performed By: #### L [id number] #### [facility] (DEFAULT) [address] [address] Hemoglobin (Bld) [Mass/Vol] 14.9 g/dL Normal 13.4-16.8 [facility] Comment on above: Performed By: #### L [id number] #### [facility] (DEFAULT) [address] [address] Immature Grans % 0.3 % Normal [facility] Comment on above: Performed By: #### L [id number] #### [facility] (DEFAULT) [address] [address] Immature Grans Absolute < Normal <=0.07 [facility] Comment on above: Performed By: #### L [id number] #### [facility] (DEFAULT) [address] [address] Lymphocytes (Bld) [#/Vol] 2.43 10*3/uL Normal 0.83-3.57 [facility] Comment on above: Performed By: #### L [id number] #### [facility] (DEFAULT) [address] [address] Lymphocytes/100 WBC (Bld) 31.4 % Normal [facility] Comment on above: Performed By: #### L [id number] #### [facility] (DEFAULT) [address] [address] MCV (RBC) [Entitic vol] 89.8 fL Normal 79.0-94.5 [facility] Comment on above: Performed By: #### L AB980 #### [facility] (DEFAULT) [address] [address] Mean Cell Hgb 31.6 pg Normal 26.1-33.3 [facility] Comment on above: Performed By: #### L AB980 #### [place] (DEFAULT) [address] [address] Mean Cell Hgb Conc 35.1 g/dL Normal 31.9-36.5 [facility] Comment on above: Performed By: #### L AB980 #### [facility] (DEFAULT) [address] [address] Monocytes (Bld) [#/Vol] 0.57 10*3/uL Normal 0.24-0.93 [facility] Comment on above: Performed By: #### L AB980 #### [facility] (DEFAULT) [address] [address] Monocytes/100 WBC (Bld) 7.4 % Normal [facility] Comment on above: Performed By: #### L [id number] #### [facility] (DEFAULT) [address] [address] Nucleated RBC 0.0 /100 WBC Normal <=0.2 [facility] Comment on above: Performed By: #### L [id number] #### [facility] (DEFAULT) [address] [place] [address] Platelet mean volume (Bld) [Entitic vol] 9.3 fL Normal 8.7-12.3 [facility] Comment on above: Performed By: #### L [id number] #### [facility] (DEFAULT) [address] [address] Platelets (Bld) [#/Vol] 218 10*3/uL Normal 146-337 [facility] Comment on above: Performed By: #### L [id number] #### [facility] (DEFAULT) [address] [address] RBC (Bld) [#/Vol] 4.72 10*6/uL Normal 4.38-5.83 [facility] Comment on above: Performed By: #### L [id number] #### [facility] (DEFAULT) [address] [place] [address] RBC Distribution 13.7 % Normal 10.9-14.3 [facility] Comment on above: Performed By: #### L [id number] #### [facility] (DEFAULT) [address] [place] [address] Segs + Bands Auto 59.7 % Normal [facility] Comment on above: Performed By: #### L [id number] #### [facility] (DEFAULT) [address] [place] [address] Segs + Bands,Absolute Auto 4.62 K/uL Normal 1.57-6.19 [facility] Comment on above: Performed By: #### L [id number] #### [facility] (DEFAULT) [address] [address] WBC (Bld) [#/Vol] 7.73 10*3/uL Normal 3.73-10.10 [facility] Comment on above: Performed By: #### L [id number] #### [facility] (DEFAULT) [address] [place] [address] [facility] 7 - EDon 12-05-2023 Anion gap [Moles/Vol] 15 mmol/L 7 - 17 mmol/L [facility] Chloride [Moles/Vol] 108 mmol/L 98 - 10 8 mmol/L [facility] CO2 [Moles/Vol] 21 mmol/L 21 - 31 mmol/L [facility] Creatinine [Mass/Vol] 1.09 mg/dL 0.70 - 1.30 mg/dL [facility] eGFR, CKD-EPI, Male 84 - PINF [facility] Comment on above: Reported eGFR is bas ed on the CKD-EPI 2020 equation using creatinine, age, and sex. Glucose [Mass/Vol] 100 mg/dL High 70 - 99 mg/dL [facility] Interpretation and review of laboratory results Abnormal [facility] Osmolality Calc [Osmolality] 293 [facility] Potassium [Moles/Vol] 4.3 mmol/L 3.5 - 5.0 mmol/L [facility] Sodium [Moles/Vol] 140 mmol/L 135 - 145 mmol/L [facility] Urea nitrogen [Mass/Vol] 13 mg/dL 7 - 25 mg/dL [facility] Urea nitrogen/Creatinine [Mass ratio] 12 mg/mg [facility] Anion gap [Moles/Vol] 15 mmol/L Normal 7-17 [facility] Comment on above: Performed By: #### C 7ED #### [facility] (DEFAULT) [address] [place] [address] Chloride [Moles/Vol] 108 mmol/L Normal 98-108 [facility] Comment on above: Performed By: #### C 7ED #### [facility] (DEFAULT) [address] [place] [address] CO2 [Moles/Vol] 21 mmol/L Normal 21-31 [facility] Comment on above: Performed By: #### C 7ED #### [facility] (DEFAULT) [address] [place] [address] Creatinine [Mass/Vol] 1.09 mg/dL Normal 0.70-1.30 [facility] Comment on above: Performed By: #### C 7ED #### [facility] (DEFAULT) [address] [place] [address] GFR/1.73 sq M.predicted among non-blacks MDRD (S/P/Bld) [Vol rate/Area] 84 mL/min/{1.73_m2} Normal >=60 [facility] Comment on above: Result Comment: Repo rted eGFR is based on the CKD-EPI 2020 equation using creatinine, age, and sex. Performed By: #### C 7ED #### [facility] (DEFAULT) [address] [place] [address] Glucose [Mass/Vol] 100 mg/dL High 70-99 [facility] Comment on above: Performed By: #### C 7ED #### [facility] (DEFAULT) [address] [place] [address] Osmolality [Osmolality] 293 mosm/kg Normal 278-305 [facility] Comment on above: Performed By: #### C 7ED #### [facility] (DEFAULT) [address] [place] [address] Potassium [Moles/Vol] 4.3 mmol/L Normal 3.5-5.0 [facility] Comment on above: Performed By: #### C 7ED #### [facility] (DEFAULT) [address] [place] [address] Sodium [Moles/Vol] 140 mmol/L Normal 135-145 [facility] Comment on above: Performed By: #### C 7ED #### [facility] (DEFAULT) [address] [place] [address] Urea nitrogen [Mass/Vol] 13 mg/dL Normal 7-25 [facility] Comment on above: Performed By: #### C 7ED #### [facility] (DEFAULT) [address] [place] [address] Urea nitrogen/Creatinine [Mass ratio] 12 mg/mg Normal [facility] Comment on above: Performed By: #### C 7ED #### [facility] (DEFAULT) [address] [place] [address] HIGH SENSITIVITY TROPONIN I - SINGLE ORDERon 12-05-2023 Interpretation and review of laboratory results Normal [facility] Troponin I.cardiac High sensitivity method [Mass/Vol] 48 ng/L NINF - 53 ng/L [facility] hs-Troponin I 48 ng/L Normal <53 [facility] Comment on above: Order Comment: Acute Coronary Syndrome (ACS): Initial Evaluation and Management: [email or web address] Performed By: #### L [id number] #### [facility] (DEFAULT) [address] [place] [address] Custodial Documentson 06-25-2022 Custodial Documents [id number] #[id number]:[id number] Normal [facility] .HCV RT-PCR, Quant (Non-Grap h)on 05-08-2022 Diagnostic impression [employer] Tony (Unsp spec) [Interp] COMMENT Invalid Interpretation Code [facility] Comment on above: Result Comment: Test not performed. Insufficient specimen to perform or complete analysis. contacted Merary at your facility on 05-08-2022 Performed at: [facility] [id number] MD Iván Gaspar Performed By: #### 1 [id number], [id number], [id number], [id number], [id number], [id number], [id number], [id number], [id number] #### [facility] [address] [place] [address] HCV RNA RAFAELA+probe Qn COMMENT Invalid Interpretation Code [facility] Comment on above: Result Comment: Test not performed. Insufficient specimen to perform or complete analysis. contacted Merary at your facility on 05-08-2022 Performed By: #### 1 [id number], [id number], [id number], [id number], [id number], [id number], [id number], [id number], [id number] #### [facility] [address] [place] [address] Reference Lab Test Reference Range Comment Invalid Interpretation Code [facility] Comment on above: Result Comment: The quantitative range of this assay is 15 IU/mL to 100 million IU/mL. Performed By: #### 1 [id number], [id number], [id number], [id number], [id number], [id number], [id number], 34210731, 7287250 #### [facility] [address] [place] [address] HCV Antibody RFX to Quant PC David 05-08-2022 HCV Ab Signal/Cutoff IA [Rel units/Vol] {ratio} High 0.0-0.9 [facility] Comment on above: Result Comment: Perf ormed at: [address] [id number] PhD Jaleesa Perez Performed By: #### 1 [id number], [id number], [id number], [id number], [id number], [id number], [id number], [id number], [id number] #### [facility] [address] [place] [address] SPEC. STATUS REPORTon 2021 Specimen Status Report COMMENT Invalid Interpretation Code [facility] Comment on above: Result Comment: Test not performed. Insufficient specimen to perform or complete analysis. TEST: [id number] Hepatitis C Quantitation Panel: [id number] Interpretation: Panel: [id number] adan Reagan at your facility on 05-08-2022 Performed at: [address] [id number] PhD Jaleesa Perez Performed By: #### 1 [id number] #### [facility] [address] [place] [address] Lab Miscellaneous-LCon 05-04 Lab Miscellaneous COMMENT Invalid Interpretation Code [facility] Comment on above: Result Comment: Test Ordered: 000066 RNA, Real Time PCR (Graph) HIV-1 RNA by PCR 40 BN Units of Measure: copies/mL The reportable range for this assay is 20 to 10,000,000 copies HIV-1 RNA/mL. log10 HIV-1 RNA 1.602 BN Units of Measure: shv93hbjx/mL Performed at: [address] [id number] PhD Jaleesa Perez Performed By: #### 1 [id number] #### [facility] [address] [place] [address] .HCV RNA (International Unit s)on 05-03-2022 HCV RNA RAFAELA+probe [Log units/Vol] 7.064 Invalid Interpretation Code [facility] Comment on above: Result Comment: Perf ormed at: [address] [place] [id number] MD Iván Gaspar Performed By: #### 1 [id number], [id number], [id number], [id number], [id number], 68739972, [id number], 52156015, 8690601 #### [facility] [address] [place] [address] HCV RNA RAFAELA+probe Qn [id number] International_Unit/m L Invalid Interpretation Code [facility] Comment on above: Performed By: #### 1 [id number], [id number], [id number], 7299227, [id number], [id number], [id number], 40389589, 1207886 #### [facility] [address] [place] [address] Coding Summary.on 05-03-2022 Coding Summary. CD:[id number] Gh0bWw+PGhlYWQ+PE1FV QQwY28udMUpvQ7XX0yGQ P5IIAYOFLCWLP5DUJ1rw HH4WTccX6YwhoKh AoxrxZQcQJ92ZNg6GZW3 oUiyQTucfB2kaCPlE0n8 BuNcLN83oO61EDqxEECp PzL3GrFjlmfmrKXm L7ajMpIehZOiCfz+PHRh YmxlIHdpZHRoPScxMDAl SfZdlWsjVT4vVh5gQHBb LWNvbGxhcHNlOiBj q0poIXBnHRldMR9tmOka C9LolUX1YYXnl4e7Cp82 dHI+JPEgAPV2lTwvYYed q619IgNsf3auHDQ6 dKAxXSjbMSU0C38vd9M2 CAFuFTDcNSY9vNV4qB4r hGveimtvA7YmdPWtMhB1 DID7mWWvyJ9daEih emeokI5lUab+U57DEG2F OXVXYN7BRtc0F3SuOemc dHI+UP15DUJoDQ84pXIl uOJmd4maiRw2MzGk IMKaAHG6gQziHPent6Wt ZYZwX48zrBXqb6X5ECVb kBmuwJFcTpQagOL7jC8n TOddqagbt4xramia Hjdgl8flus89cX15B29y YXhxLHRsWAI0QWEgHLXq iUnuxh3coV3aQd4+IDxj w1hfm1unsJd2CiOy YXDuyyIftBhtPDI7i7Dv Tm47P6ChtXvps3XxXgt5 rb08sLEpc5R7hZT5JFax XJEmsM5pPZrhZbH1 DWGdMpOqlF26vMJiFQoa Si8mlJeboCgyQH8oHODg jazoHOSaxT7oBYAwqWDy qKgyQN8zJZWoilmw f391McWePJV7FHMvnXYe W8KudQ3aFuCfXNQxGMOq R4BqsKCvDOpsV322FGbw YeW1VGDeaxNhB8Pe PGGavVwbTwA3u2Q8Ua5R w2WmfkhtAHW9PZhoMYRg LhG0FlNaDqI5O5YrOvh5 LFCkhMgeHV7dY4Zp MHSoveyrplmwlNZ5ELHo JIOtgW52bVFdKQitAj9x z2U6t028YFZaRXQpdF39 Md9wwKweIASmfLTW xF4uurbiv8frmuenBvGd OBAdGBq7CWz5IAYmvUmx WhFpHZA5OtB3EEB5yDIv oS5urRsdeansmZ1d Oyc+O46weD0fSRQ0ZTA6 uebsKWEfvwZzAL28YG39 C4UhTozctWCwaFW+PGRp ubTteHimMQ1jDfKr n3rnw2IbJBlmU6YrAXMq SVkgTxm0TLUkBKE4kWU0 bG7bBXQyOYatl2D9oGO0 I9FvmmNupw4ea1iz DNMiDRhfN20vgHBpi2W5 KSNbuVR6SQNyyLiwKmJh hM39Jkm+MTEdlDtec1Hv Xwzpb7uub3ctiDp7 IjMwJSIgdmFsaWduPSJ0 o9LhCr56Y07uMJukZSYe EXZsQJFzYKVauGxovz2m sN9uJv2+PGNvbCB3 hON8sD3lRKRcPwW0WLkf O768ZoQfcXNrAzxpo1lr y8xsuTf2VrCaNYXdyrSu vYsqPJI5t1WoOb47 C27aYBgePDZvGILzGDPk AKMcuDfgzi6rhA7fAv6+ HZ3vp1zevd19tF73oSV+ ANJgBHS8mWfgDNhf DPYwmH2dYMtbErP8GGZr JsImeZ05sYUaVDrhXp5m lVffzZagYZ3bPMPeqnwa k905TlMjt1ybFUCu hAOjXCfwJHA4D75op1C3 VVXyVPMqJRS8hHD1iT8c bGlnbjogbGVmdDsgdmVy jCauVRoiPKstP433 IHRvcDsnPlBhdGllbnQg QcWrCNc4W8AwYed4NACw zHjlDU6thHWgFHueJb3w oOchoBhoHA2xJIXj rsqtq367VkJke9ivEJUu uECbEPecNBZ0E55tz4M7 KFEvBKPuGRL9pWH1vI0x bGlnbjogbGVmdDsg bcZqeQfuWSwbJThaW753 IHRvcDsnPkJpcnRoIERh dJO9UJ83ED90wEBba9Z3 bAY9R5IaUEQvttre mtnwhAH2MMAoJPCcrD62 Ws3zcIrgGc1zDXHiZEP9 QWVtyNLmA6EelO3rNbNo CFUkGLBdX2YjcQLe OCrnH348FKeaRsZ6WUJd urSgA0FnXHBoeXytPsY3 v5B3Sf4JS3K4YG08CB64 mNNeg7A8yBT3W1Dd NCTcdvbxkplprST6VLJz FUIqtN49Ip1wmCpaAp8w KRImLNC9LBXhcRRrN5Xo pQ4sAfIpBPFhONUb W5AdrASvALqeU169VLhh BeU7JVWnleBxR2YcDBDv sPcvBbX4n2Z4Uu7SPAq6 WF24TY67eOXze9G9 qIR0I1PrZUEnnwbucgyx nYR8RGMrEGZejW16Aw5j oBpcOd5cGEIoDWJ1EMZj yLIuR4IanT7bPrFf TWFdDZYcR0EskFGjQWjl K987IPbyQmY3QIFvxsGj I9JiHMAmgEwlKjT9i6R6 Lx5ZTIQpYW62FIT5 qLT9FY85TB10L0FvRgxl dGFibGU+PHRhYmxlIHdp ZHRoPScxMDAlJyBzdHls LP8mLg1tKEOsEFCk bWtojKRbHpZdd6tcFIQj JRsdWE6ubMuwZ1BvvYK5 BJVzg0s8Tg62L81mZ9Xr dXA+EWJaqPJ8bGE7 zX6vMcBrCuV0CQmaM202 EvAfqOAlStwlp7hei4ca fPc0JeR9OYArxbIgdHdx RXK5y0FnDj45J95a IHdpZHRoPSIxNSUiIHZh nGgcyb2jtT0kXl4+PGNv vAZ8mIV8uI7yGqUtXzV8 CGsiJ725UvYlyCLv Lbmdt4pcx9ehlZd8MiEm QKLleeUitOeiMLG6n5Xc Jg95Z4QuoDxep8YgEhd9 uh01vVRzk9I0jAP1 D5VbSCLwiohnsJWumTyg VN5cWWHiscamITOjvF2h CXAoT0s2EwZhJjP1VPhx W7NotmP6DIVqyXKr HDsdLAV2E52sr1R3QVNz VWYqPLQ7oRV4wK1xqXyu bjogbGVmdDsgdmVydGlj CPyyHFxwZ843QIXd iNzkHZHguA9wTHYfbMNn jGahZO9pHYTdenwvSfkQ Y0ZETMpuPJZNVkBSYN31 NZ23oQOvc4E4qSP0 Z3XmKOInkyrcuicprVF3 FDSkUWLwiX38gOItLLjl Ez6po4E9f679GWSuIAQf dO47Ha9mdYkyNNEw wFIZzM8skeqma7ftixrl UfPaIEDpNNe4YBx1RUVl uWnjBqCqRCL2NmV8VLV3 xULivE0atZkxwccn dX6sEfx+MDIvMjQvMTk3 NjwvdGQ+HQUpKLH7uBlv DYfoRDJlmU1wDBMhW8y6 CxPsLgK1FAtdX1Fq QEKifopoTg19jY1aZzUy NuD3EBczH0VftqI2ICLn iYQbNUtwWRU3U52tx6Q5 UKHhFCNxKDW3jAG5 fL6dtRatvmbvtYDysIwx lrVomOyrVWsjCSnjJ323 RIQruQnqOuZ1TRbuBUHm LQ13NT79cPXym3X2 xQO1C1KdIFZrsqwhmotf uPB3GBZvGELzjJ27jJEr JMayBn9wj5J4j543LCUw GCZnuN65Qk8ruXgr AVUhiKXUbU1vkohjk0ct vivcCtGfGJYtMVx9DOb0 XZYsrIssIxUrDAH0NjZ8 BKD6fYMsbY4ntXfo whczrW9qSri+TWFsZTwv dGQ+HEUlTND8nJstZGoa CTMuyV4mUPEuM1o9NjKt WuC6JHpbF4AzJTPr nnthHb97lH3qVcNcTyT6 XNjjD9UdrrW9DLCigEUo NPdiXAR6U13md8Z1AYDg UQMnRAT9hEX8xU9a bGlnbjogbGVmdDsgdmVy gMouBDcbOIsyE632OGYv yRbkRc56nLCkaDyzyyS8 Z6DiYhokkRS+PC90 MEDrHD35kMLroHRge1an yVc5GxLeXDTkDHL9rRft AWulj4YuTUMlQ08zkXUz a1Z3GNCsdVtxlDCx DuStsYQ3tD1pUDhsgsij u2zlpjwtRuzlk5azmg93 lD19B09yNKwuWNOfQBQa CXSoGOQyaFhwto2i cH0oCc6+CEOhmII2lXB8 lP6oYnYrSeW7UAloJ292 XcWngVZpZzihj6yze7ez sHo6GuPvTVCsroZy mZyeABG8b4WwQp09F22k IHdpZHRoPSIyMCUiIHZh yJthwl3bbB0oPv8+PC9j m3rsad87qO85zQW+ XNKbRLL3sJkzGYghEABz dO2xQFisVkJ9FJTnLgPw gP92yGPdBPkgSs8uwYfd gPbiVK5eRIDeqryq h881SzLco9ezDGWcjMRv PLliYXX1L06lu9X6IPLw EGQoMCS1xTW4cI4jiByx bjogbGVmdDsgdmVy aUezABxuGIdhB028HFOp zXidEpPrdARuC1xlnnTJ AD3qJsqvqCA+PHRkIHN0 eGuuHPraQHLxwP2d BKLhV7n9ArDlXrT7NWjb J5IgvjK0OTZqhXKfQJSr pPMOuW1yflehm2zwmerw FdRaJYUtOKk5XCx0 VXVauZbpAxVvZDS6RkY1 NGR4rQKmyU5odLgzcmly uU0bOou+RklOOjwvdGQ+ YKPbCPT9bSyyVEuk NJKvrX0jMIEbK9j4HcVt RuR1SQpgV4EwfhR1DKCd cXDcRAYbwZCMsW7fpjlr g4kggemfZlBjOOYl GVo0IHl9XDKjxAkmVpDs DZL0RnX0DXE0nVKtbH7q jGibqjsagA2pAfd+TVJO OjwvdGQ+PHRkIHN0 kVzsKJcbOSYpyB1tGUGr N1v4YeBhHtF3DWjgE4Wc qhX0GFLkjYKmIAJooWVK zL7jxobat7qkfobb GnMcHBHkSTe8QYd4HXHf nPlwHcHsJXZ7CjQ8LYW4 nWYzrC3mtFerogyyvB4w Oyc+VLC3YJH7HK15 TD22U5LaMycbvRNimGO+ PHRhYmxlIHdpZHRoPScx UUYbKlGdyPhbZD4qVm2d ZGVyLWNvbGxhcHNl OiBj (more content not included)... Normal [facility] HCV RNA by PCR, n x Genjacob n 05-03-2022 HCV genotype RAFAELA+probe Nom Comment Invalid Interpretation Code [facility] Comment on above: Result Comment: To b e performed on this specimen. Performed at: [address] [id number] MD Iván Gaspar Performed By: #### 1 [id number], [id number], [id number], 0031542, 7220823714, 24500975, 4195120934, 90012886, 4702062 #### [facility] [address] [place] [address] Laboratory comment Tony (Report) Comment Invalid Interpretation Code [facility] Comment on above: Result Comment: The quantitative range of this assay is 15 IU/mL to 100 million IU/mL. Performed By: #### 1 [id number], [id number], [id number], 9803851, 6029562178, 59576609, 7933030822, 51420497, 6754074 #### [facility] [address] [place] [address] HCV RNA RAFAELA+probe Qn See Final Results Invalid Interpretation Code [facility] Comment on above: Result Comment: Perf ormed at: [address] [id number] MD Iván Gaspar Performed By: #### 1 [id number], [id number], 5344038259, 9016155, 7007162302, 72560304, 3270902384, 08561583, 9022457 #### [facility] [address] [place] [address] Hepatitis C Genotypeon 05-03 HCV genotype RAFAELA+probe Nom 1a Invalid Interpretation Code [facility] Comment on above: Performed By: #### 1 [id number], [id number], 7478551508, 8882884, 9074656460, 19701955, 1972026397, 21258978, 7773617 #### [facility] [address] [place] [address] Laboratory comment Tony (Report) Comment Invalid Interpretation Code [facility] Comment on above: Result Comment: This test was developed and its performance characteristics determined by [facility]. It has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 DP, TSHX, SALI, CP, TROPI #### [facility] [address] [place] [address] Endoscopy Support Specialist: Ramon Amor MD Eosinophils/100 WBC (Bld) 0 % Normal 0-5 [facility] Comment on above: Performed By: #### C DP, TSHX, SALI, CP, TROPI #### [facility] [address] [place] [address] Endoscopy Support Specialist: Ramon Amor MD Erythrocyte distribution width (RBC) [Ratio] 15.1 % Normal 12.1-15.2 [facility] Comment on above: Performed By: #### C DP, TSHX, SALI, CP, TROPI #### [facility] [address] [place] [phone] Endoscopy Support Specialist: Ramon Amor MD Hematocrit (Bld) [Volume fraction] 47.6 % Normal 41-53 [facility] Comment on above: Performed By: #### C DP, TSHX, SALI, CP, TROPI #### [facility] [address] [place] [phone] Endoscopy Support Specialist: Ramon Amor MD Hemoglobin (Bld) [Mass/Vol] 16.0 g/dL Normal 13.5-17.5 [facility] Comment on above: Performed By: #### C DP, TSHX, SALI, CP, TROPI #### [facility] [address] [place] [address] Endoscopy Support Specialist: Ramon Amor MD Lymphocytes (Bld) [#/Vol] 1.50 10*3/uL Normal 1.0-4.8 [facility] Comment on above: Performed By: #### C DP, TSHX, SALI, CP, TROPI #### [facility] [address] [place] [address] Endoscopy Support Specialist: Ramon Amor MD Lymphocytes/100 WBC (Bld) 11 % Low 13-44 [facility] Comment on above: Performed By: #### C DP, TSHX, SALI, CP, TROPI #### [facility] [address] [place] [address] Endoscopy Support Specialist: Ramon Amor MD MCH (RBC) [Entitic mass] 29.0 pg Normal 26-34 [facility] Comment on above: Performed By: #### C DP, TSHX, SALI, CP, TROPI #### [facility] [address] [place] [phone] Endoscopy Support Specialist: Ramon Amor MD MCHC (RBC) [Mass/Vol] 33.6 g/dL Normal 31-37 [facility] Comment on above: Performed By: #### C DP, TSHX, SALI, CP, TROPI #### [facility] [address] [place] [address] Endoscopy Support Specialist: Ramon Amor MD MCV (RBC) [Entitic vol] 86.4 fL Normal 80-100 [facility] Comment on above: Performed By: #### C DP, TSHX, SALI, CP, TROPI #### [facility] [address] [place] [phone] Endoscopy Support Specialist: Ramon Amor MD Monocytes (Bld) [#/Vol] 0.80 10*3/uL Normal 0.0-1.0 [facility] Comment on above: Performed By: #### C DP, TSHX, SALI, CP, TROPI #### [facility] [address] [place], [place] [phone] Endoscopy Support Specialist: Ramon Amor MD Monocytes/100 WBC (Bld) 6 % Normal 5-9 [facility] Comment on above: Performed By: #### C DP, TSHX, SALI, CP, TROPI #### [facility] [address] [place] [address] Endoscopy Support Specialist: Ramon Amor MD Neutrophil (Seg) 83 % High 39-75 [facility] Comment on above: Performed By: #### C DP, TSHX, SALI, CP, TROPI #### [facility] [address] [place] [phone] Endoscopy Support Specialist: Ramon Amor MD Platelets (Bld) [#/Vol] 341 10*3/uL Normal 140-450 [facility] Comment on above: Performed By: #### C DP, TSHX, SALI, CP, TROPI #### [facility] [address] [place], [place] [phone] Endoscopy Support Specialist: Ramon Amor MD RBC (Bld) [#/Vol] 5.51 10*6/uL Normal 4.5-5.9 [facility] Comment on above: Performed By: #### C DP, TSHX, SALI, CP, TROPI #### [facility] [address] [place], [place] [phone] Endoscopy Support Specialist: Ramon Amor MD WBC (Bld) [#/Vol] 14.3 10*3/uL High 3.5-11.0 [facility] Comment on above: Performed By: #### C DP, TSHX, SALI, CP, TROPI #### [facility] [address] [place] [phone] Endoscopy Support Specialist: Ramon Amor MD Comp Metabolic Profon 2021 Albumin [Mass/Vol] 5.0 g/dL Normal 3.5-5.2 [facility] Comment on above: Performed By: #### C DP, TSHX, SALI, CP, TROPI #### [facility] [address] [place] [phone] Endoscopy Support Specialist: Ramon Amor MD Alkaline Phos 137 U/L High 40-129 [facility] Comment on above: Performed By: #### C DP, TSHX, SALI, CP, TROPI #### [facility] [address] [place] [address] Endoscopy Support Specialist: Ramon Amor MD ALT [Catalytic activity/Vol] 69 U/L High 5-41 [facility] Comment on above: Performed By: #### C DP, TSHX, SALI, CP, TROPI #### [facility] [address] [place] [phone] Endoscopy Support Specialist: Ramon Amor MD Anion gap [Moles/Vol] 32 mmol/L High 9-17 [facility] Comment on above: Performed By: #### C DP, TSHX, SALI, CP, TROPI #### [facility] [address] [place] [address] Endoscopy Support Specialist: Ramon Amor MD AST [Catalytic activity/Vol] 68 U/L High <40 [facility] Comment on above: Performed By: #### C DP, TSHX, SALI, CP, TROPI #### [facility] [address] [place] [phone] Endoscopy Support Specialist: Ramon Amor MD Bilirubin [Mass/Vol] 0.84 mg/dL Normal 0.30-1.20 [facility] Comment on above: Performed By: #### C DP, TSHX, SALI, CP, TROPI #### [facility] [address] [place] [address] Endoscopy Support Specialist: Ramon Amor MD Calcium [Mass/Vol] 10.6 mg/dL High 8.6-10.4 [facility] Comment on above: Performed By: #### C DP, TSHX, SALI, CP, TROPI #### [facility] [address] [place] [address] Endoscopy Support Specialist: Ramon Amor MD Chloride [Moles/Vol] 97 mmol/L Low 98-107 [facility] Comment on above: Performed By: #### C DP, TSHX, SALI, CP, TROPI #### [facility] [address] [place] [address] Endoscopy Support Specialist: Ramon Amor MD CO2 [Moles/Vol] 14 mmol/L Low 20-31 [facility] Comment on above: Performed By: #### C DP, TSHX, SALI, CP, TROPI #### [facility] [address] [place] [address] Endoscopy Support Specialist: Ramon Amor MD Creatinine [Mass/Vol] 1.82 mg/dL High 0.70-1.20 [facility] Comment on above: Performed By: #### C DP, TSHX, SALI, CP, TROPI #### [facility] [address] [place] [address] Endoscopy Support Specialist: Ramon Amor MD GFR, Amer 49 mL/min Low >60 [facility] Comment on above: Performed By: #### C DP, TSHX, SALI, CP, TROPI #### [facility] [address] [place] [address] Endoscopy Support Specialist: Ramon Amor MD GFR,non Amer 40 mL/min Low >60 [facility] Comment on above: Performed By: #### C DP, TSHX, SALI, CP, TROPI #### [facility] [address] [place], [place] [phone] Endoscopy Support Specialist: Ramon Amor MD Glucose [Mass/Vol] 164 mg/dL High 70-99 [facility] Comment on above: Performed By: #### C DP, TSHX, SALI, CP, TROPI #### [facility] [address] [place], [place] [phone] Endoscopy Support Specialist: Ramon Amor MD Potassium [Moles/Vol] 3.4 mmol/L Low 3.7-5.3 [facility] Comment on above: Performed By: #### C DP, TSHX, SALI, CP, TROPI #### [facility] [address] [place], [place] [phone] Endoscopy Support Specialist: Ramon Aomr MD Protein [Mass/Vol] 8.5 g/dL High 6.4-8.3 [facility] Comment on above: Performed By: #### C DP, TSHX, SALI, CP, TROPI #### [facility] [address] [place], [place] [phone] Endoscopy Support Specialist: Ramon Amor MD Sodium [Moles/Vol] 143 mmol/L Normal 135-144 [facility] Comment on above: Performed By: #### C DP, TSHX, SALI, CP, TROPI #### [facility] [address] [place], [place] [phone] Endoscopy Support Specialist: Ramon Amor MD Urea nitrogen [Mass/Vol] 20 mg/dL Normal 6-20 [facility] Comment on above: Performed By: #### C DP, TSHX, SALI, CP, TROPI #### [facility] [address] [place], [place] [phone] Endoscopy Support Specialist: Ramon Amor MD (cont.) [facility] Comment on above: Result Comment: Aver age GFR for 40-49 years old: 99 mL/min/1.73sq m Chronic Kidney Disease: <60 mL/min/1.73sq m Kidney failure: <15 mL/min/1.73sq m eGFR calculated using average adult body mass. Additional eGFR calculator available at: http://www.[employer]/multiple_crcl_2012.htm Performed By: #### C DP, TSHX, SALI, CP, TROPI #### [facility] [address] [place], [place] [address] Endoscopy Support Specialist: Ramon Amor MD Ethanol Alcoholon 12-21-2021 Ethanol [Mass/Vol] mg/dL Normal <10 [facility] Comment on above: Performed By: #### A LCB, ACET #### [facility] [address] [place], [place] [phone] Endoscopy Support Specialist: Ramon Amor MD Ethanol percent <0.010 Normal [facility] Comment on above: Performed By: #### A LCB, ACET #### [facility] [address] [place], [place] [phone] Endoscopy Support Specialist: Ramon Amor MD Salicylateon 12-21-2021 Salicylate <1 Low 3-10 [facility] Comment on above: Performed By: #### C DP, TSHX, SALI, CP, TROPI #### [facility] [address] [place], [place] [phone] Endoscopy Support Specialist: Ramon Amor MD TSH w/reflex to FT4on 2021 Thyroid Stim. Horm. 1.79 uIU/mL Normal 0.30-5.00 [facility] Comment on above: Performed By: #### C DP, TSHX, SALI, CP, TROPI #### [facility] [address] [place], [place] [phone] Endoscopy Support Specialist: Ramon Amor MD Troponinon 12-21-2021 Troponin, High Sens 33 ng/L High 0-22 [facility] Comment on above: Result Comment: High Sensitivity Troponin values cannot be compared with other Troponin methodologies. Patients with high levels of Biotin oral intake (i.e >5mg/day) may have falsely decreased Troponin levels. Samples collected within 8 hours of biotin intake may require additional information for diagnosis. Performed By: #### C DP, SAMMY, DARSHANA KAUFFMAN, [place] #### [facility] [address] [place] [address] Endoscopy Support Specialist: Ramon Amor MD Acetaminophen Levelon 2021 Acetaminophen Level <5 Low 10 - 30 ug/mL [facility] Interpretation and review of laboratory results Abnormal [facility] CBC with Auto Differentialon 12-20-2021 Absolute Eos # 0.00 [facility] Absolute Lymph # 1.50 [facility] Absolute [place] # 0.80 [facility] Basophils (Bld) [#/Vol] 0.00 10*3/uL [facility] Basophils/100 WBC (Bld) 0 % 0 - 2 % [facility] Differential Type YES [facility] Eosinophils/100 WBC (Bld) 0 % 0 - 5 % [facility] Hematocrit (Bld) [Volume fraction] 47.6 % 41 - 53 % [facility] Hemoglobin (Bld) [Mass/Vol] 16.0 g/dL 13.5 - 17.5 g/dL [facility] Interpretation and review of laboratory results Abnormal [facility] Lymphocytes/100 WBC (Bld) 11 % Low 13 - 44 % [facility] MCH (RBC) [Entitic mass] 29.0 pg 26 - 34 pg [facility] MCHC (RBC) [Mass/Vol] 33.6 g/dL 31 - 37 g/dL B ON [facility] MCV (RBC) [Entitic vol] 86.4 fL 80 - 100 fL [facility] Monocytes/100 WBC (Bld) 6 % 5 - 9 % [facility] Platelet distribution width (Bld) [Ratio] 15.1 % 12.1 - 15.2 % [facility] Platelets (Bld) [#/Vol] 341 10*3/uL [facility] RBC (Bld) [#/Vol] 5.51 10*6/uL 4.5 - 5.9 m/uL [facility] Segmented neutrophils/100 WBC (Bld) 83 % High 39 - 75 % [facility] Segs Absolute 11.90 High [facility] WBC (Bld) [#/Vol] 14.3 10*3/uL High [facility] CMPon 12-20-2021 Albumin [Mass/Vol] 5 g/dL 3.5 - 5.2 g/dL [facility] ALP (Bld) [Catalytic activity/Vol] 137 U/L High 40 - 129 U/L [facility] ALT [Catalytic activity/Vol] 69 U/L High 5 - 41 U/L [facility] Anion gap [Moles/Vol] 32 mmol/L High 9 - 17 mmol/L [facility] AST [Catalytic activity/Vol] 68 U/L High NINF - 40 U/L [facility] Bilirubin [Mass/Vol] 0.84 mg/dL 0.3 - 1 .2 mg/dL [facility] Calcium [Mass/Vol] 10.6 mg/dL High 8.6 - 10. 4 mg/dL [facility] Chloride [Moles/Vol] 97 mmol/L Low 98 - 10 7 mmol/L [facility] CO2 [Moles/Vol] 14 mmol/L Low 20 - 31 mmol/L [facility] Creatinine [Mass/Vol] 1.82 mg/dL High 0.7 - 1.2 mg/dL [facility] Free PSA/Total PSA [Mass fraction] 8.5 g/dL High 6.4 - 8.3 g/dL [facility] GFR 49 mL/min Low 60 - PI NF mL/min [facility] GFR Non- 40 mL/min Low 60 - PINF mL/min [facility] GFR/1.73 sq M.predicted MDRD (S/P/Bld) [Vol rate/Area] [facility] Comment on above: Average GFR for 40-4 9 years old: 99 mL/min/1.73sq m Chronic Kidney Disease: <60 mL/min/1.73sq m Kidney failure: <15 mL/min/1.73sq m eGFR calculated using average adult body mass. Additional eGFR calculator available at: http://www.[employer]/multiple_crcl_2012.htm Glucose [Mass/Vol] 164 mg/dL High 70 - 99 mg/dL [facility] Potassium [Moles/Vol] 3.4 mmol/L Low 3.7 - 5.3 mmol/L [facility] Sodium [Moles/Vol] 143 mmol/L 135 - 144 mmol/L [facility] Urea nitrogen (BldV) [Mass/Vol] 20 mg/dL 6 - 20 mg/dL [facility] EKG Rhythm Stripon 2 QRS 0.10 [facility] ETOHon 12-20-2021 Ethanol [Mass/Vol] mg/dL NINF - 10 mg/dL [facility] Ethanol percent <0.010 % [facility] No Panel Informationon 12-20 Interpretation and review of laboratory results Abnormal [facility] Salicylateon 12-20-2021 Salicylate Lvl mg/dL Low 3 - 10 mg/dL [facility] TSH with Reflexon 12-20-2021 TSH Qn 1.79 m[IU]/L [facility] Troponinon 12-20-2021 Interpretation and review of laboratory results Abnormal [facility] Troponin, High Sensitivity 33 ng/L High 0 - 22 ng/L [facility] Comment on above: High Sensitivity Troponin values cannot be compared with other Troponin methodologies. Patients with high levels of Biotin oral intake (i.e >5mg/day) may have falsely decreased Troponin levels. Samples collected within 8 hours of biotin intake may require additional information for diagnosis. [facility] .Auto Diffon 10-01-2021 Basophil, Absolute 0.00 10 3/mcL Normal 0.00-0.27 [facility] ([place]) Comment on above: Performed By: #### P RO, CMP, GFR, RPR, CBC, ADIFF, ANEU, HIVRNA, HELP1, HCQPCR, HEPGEN #### [address] [address] Basophils/100 WBC (Bld) 0.6 % Normal 0.0-2.5 [facility] ([place]) Comment on above: Performed By: #### P RO, CMP, GFR, RPR, CBC, ADIFF, ANEU, HIVRNA, HELP1, HCQPCR, HEPGEN #### [address] [address] Eosinophil, Absolute 0.40 10 3/mcL Normal 0.00-0.65 [facility] ([place]) Comment on above: Performed By: #### P RO, CMP, GFR, RPR, CBC, ADIFF, ANEU, HIVRNA, HELP1, HCQPCR, HEPGEN #### [address] [address] Eosinophils/100 WBC (Bld) 7.5 % High 0.0-6.0 [facility] ([place]) Comment on above: Performed By: #### P RO, CMP, GFR, RPR, CBC, ADIFF, ANEU, HIVRNA, HELP1, HCQPCR, HEPGEN #### [address] [address] Lymphocyte, Absolute 2.50 10 3/mcL Normal 0.90-4.32 [facility] ([place]) Comment on above: Performed By: #### P RO, CMP, GFR, RPR, CBC, ADIFF, ANEU, HIVRNA, HELP1, HCQPCR, HEPGEN #### [address] [address] Lymphocytes/100 WBC (Bld) 43.9 % High 20.0-40.0 [facility] ([place]) Comment on above: Performed By: #### P RO, CMP, GFR, RPR, CBC, ADIFF, ANEU, HIVRNA, HELP1, HCQPCR, HEPGEN #### [address] [address] Monocyte, Absolute 0.40 10 3/mcL Normal 0.09-1.40 [facility] ([place]) Comment on above: Performed By: #### P RO, CMP, GFR, RPR, CBC, ADIFF, ANEU, HIVRNA, HELP1, HCQPCR, HEPGEN #### [address] [address] Monocytes/100 WBC (Bld) 6.5 % Normal 2.0-13.0 [facility] ([place]) Comment on above: Performed By: #### P RO, CMP, GFR, RPR, CBC, ADIFF, ANEU, HIVRNA, HELP1, HCQPCR, HEPGEN #### [address] [address] Neutrophils/100 WBC (Bld) 41.5 % Low 50.0-75.0 [facility] ([place]) Comment on above: Performed By: #### P RO, CMP, GFR, RPR, CBC, ADIFF, ANEU, HIVRNA, HELP1, HCQPCR, HEPGEN #### [address] [address] .GFRon 10-01-2021 GFR >60 Normal [facility] ([place]) Comment on above: Result Comment: GFR Population mean for , Non- Americans Ages 20-29 = 116 mL/min/1.73 sq.m. Ages 30-39 = 107 mL/min/1.73 sq.m. Ages 40-49 = 99 mL/min/1.73 sq.m. Ages 50-59 = 93 mL/min/1.73 sq.m. Ages 60-69 = 85 mL/min/1.73 sq.m. Ages 70+ = 75 mL/min/1.73 sq.m. Chronic Kidney Disease: Less than 60 mL/min/1.73 square meters End Stage Renal Disease: Less than 15 mL/min/1.73 square meters Performed By: #### P RO, CMP, GFR, RPR, CBC, ADIFF, ANEU, HIVRNA, HELP1, HCQPCR, HEPGEN #### [address] [address] GFR Non- >60 Normal [facility] ([place]) Comment on above: Result Comment: GFR Population mean for , Non- Americans Ages 20-29 = 116 mL/min/1.73 sq.m. Ages 30-39 = 107 mL/min/1.73 sq.m. Ages 40-49 = 99 mL/min/1.73 sq.m. Ages 50-59 = 93 mL/min/1.73 sq.m. Ages 60-69 = 85 mL/min/1.73 sq.m. Ages 70+ = 75 mL/min/1.73 sq.m. Chronic Kidney Disease: Less than 60 mL/min/1.73 square meters End Stage Renal Disease: Less than 15 mL/min/1.73 square meters Performed By: #### P RO, CMP, GFR, RPR, CBC, ADIFF, ANEU, HIVRNA, HELP1, HCQPCR, HEPGEN #### [address] [address] .NEUABSon 10-01-2021 Neutrophil, Absolute 2.40 10 3/mcL Normal 2.25-8.10 [facility] [facility] ([place]) Comment on above: Performed By: #### P RO, CMP, GFR, RPR, CBC, ADIFF, ANEU, HIVRNA, HELP1, HCQPCR, HEPGEN #### [place] [address] CBCon 10-01-2021 Erythrocyte distribution width (RBC) [Ratio] 13.6 % Normal 11.5-15.5 [facility] ([place]) Comment on above: Performed By: #### P RO, CMP, GFR, RPR, CBC, ADIFF, ANEU, HIVRNA, HELP1, HCQPCR, HEPGEN #### [place] [address] Hematocrit (Bld) [Volume fraction] 46.3 % Normal 40.0-52.0 [facility] ([place]) Comment on above: Performed By: #### P RO, CMP, GFR, RPR, CBC, ADIFF, ANEU, HIVRNA, HELP1, HCQPCR, HEPGEN #### [place] [address] Hgb 15.6 G/dL Normal 13.0-17.5 [facility] ([place]) Comment on above: Performed By: #### P RO, CMP, GFR, RPR, CBC, ADIFF, ANEU, HIVRNA, HELP1, HCQPCR, HEPGEN #### [place] [id number] MCH (RBC) [Entitic mass] 29.3 pg Normal 27.0-33.0 [facility] ([place]) Comment on above: Performed By: #### P RO, CMP, GFR, RPR, CBC, ADIFF, ANEU, HIVRNA, HELP1, HCQPCR, HEPGEN #### [place] [address] MCHC 33.7 G/dL Normal 32.0-36.0 [facility] ([place]) Comment on above: Performed By: #### P RO, CMP, GFR, RPR, CBC, ADIFF, ANEU, HIVRNA, HELP1, HCQPCR, HEPGEN #### [place] [address] MCV (RBC) [Entitic vol] 86.9 fL Normal 81.0-100.0 [facility] ([place]) Comment on above: Performed By: #### P RO, CMP, GFR, RPR, CBC, ADIFF, ANEU, HIVRNA, HELP1, HCQPCR, HEPGEN #### [place] [address] Platelet 234 10 3/mcL Normal 150-450 [facility] ([place]) Comment on above: Performed By: #### P RO, CMP, GFR, RPR, CBC, ADIFF, ANEU, HIVRNA, HELP1, HCQPCR, HEPGEN #### [place] [address] Platelet mean volume (Bld) [Entitic vol] 7.9 fL Normal 6.4-10.5 [facility] ([place]) Comment on above: Performed By: #### P RO, CMP, GFR, RPR, CBC, ADIFF, ANEU, HIVRNA, HELP1, HCQPCR, HEPGEN #### [place] [address] RBC 5.33 10 6/mcL Normal 4.50-6.00 [facility] ([place]) Comment on above: Performed By: #### P RO, CMP, GFR, RPR, CBC, ADIFF, ANEU, HIVRNA, HELP1, HCQPCR, HEPGEN #### [place] [id number] WBC 5.70 10 3/mcL Normal 4.50-10.80 [facility] ([place]) Comment on above: Performed By: #### P RO, CMP, GFR, RPR, CBC, ADIFF, ANEU, HIVRNA, HELP1, HCQPCR, HEPGEN #### [place] [address] CMPon 10-01-2021 Albumin Level 3.9 G/dL Normal 3.2-4.8 [facility] ([place]) Comment on above: Performed By: #### P RO, CMP, GFR, RPR, CBC, ADIFF, ANEU, HIVRNA, HELP1, HCQPCR, HEPGEN #### [place] [phone] Albumin/Globulin [Mass ratio] 1.3 {ratio} Normal 0.9-1.6 [facility] ([place]) Comment on above: Performed By: #### P RO, CMP, GFR, RPR, CBC, ADIFF, ANEU, HIVRNA, HELP1, HCQPCR, HEPGEN #### [address] [address] ALP [Catalytic activity/Vol] 137 U/L High 38-126 [facility] ([place]) Comment on above: Performed By: #### P RO, CMP, GFR, RPR, CBC, ADIFF, ANEU, HIVRNA, HELP1, HCQPCR, HEPGEN #### [address] [address] ALT [Catalytic activity/Vol] 61 U/L High 12-55 [facility] ([place]) Comment on above: Performed By: #### P RO, CMP, GFR, RPR, CBC, ADIFF, ANEU, HIVRNA, HELP1, HCQPCR, HEPGEN #### [address] [address] AST [Catalytic activity/Vol] 55 U/L High 8-34 [facility] ([place]) Comment on above: Performed By: #### P RO, CMP, GFR, RPR, CBC, ADIFF, ANEU, HIVRNA, HELP1, HCQPCR, HEPGEN #### [address] [address] Bili Total 0.50 mg/dL Normal 0.20-1.20 [facility] ([place]) Comment on above: Result Comment: Use of this assay is not recommended for patients undergoing treatment with eltrombopag due to the potential for falsely elevated results. Performed By: #### P RO, CMP, GFR, RPR, CBC, ADIFF, ANEU, HIVRNA, HELP1, HCQPCR, HEPGEN #### [address] [address] BUN/Creatinine Ratio 15.5 ratio Normal 10.0-22.0 [facility] ([place]) Comment on above: Performed By: #### P RO, CMP, GFR, RPR, CBC, ADIFF, ANEU, HIVRNA, HELP1, HCQPCR, HEPGEN #### [address] [address] Calcium [Mass/Vol] 9.8 mg/dL Normal 8.7-10.4 [facility] ([place]) Comment on above: Result Comment: No te - New Reference Range in effect 19 Performed By: #### P RO, CMP, GFR, RPR, CBC, ADIFF, ANEU, HIVRNA, HELP1, HCQPCR, HEPGEN #### [address] [address] Chloride [Moles/Vol] 110 mmol/L Normal 98-110 [facility] ([place]) Comment on above: Performed By: #### P RO, CMP, GFR, RPR, CBC, ADIFF, ANEU, HIVRNA, HELP1, HCQPCR, HEPGEN #### [address] [address] CO2 [Moles/Vol] 29 mmol/L Normal 22-32 [facility] ([place]) Comment on above: Performed By: #### P RO, CMP, GFR, RPR, CBC, ADIFF, ANEU, HIVRNA, HELP1, HCQPCR, HEPGEN #### [address] [address] Creatinine [Mass/Vol] 1.03 mg/dL Normal 0.60-1.40 [facility] ([place]) Comment on above: Performed By: #### P RO, CMP, GFR, RPR, CBC, ADIFF, ANEU, HIVRNA, HELP1, HCQPCR, HEPGEN #### [address] [address] Electrolyte Balance 0.0 mEq/L Low 4.0-15.0 [facility] ([place]) Comment on above: Performed By: #### P RO, CMP, GFR, RPR, CBC, ADIFF, ANEU, HIVRNA, HELP1, HCQPCR, HEPGEN #### [address] [address] Globulin 3.0 G/dL Normal 1.5-3.8 [facility] ([place]) Comment on above: Performed By: #### P RO, CMP, GFR, RPR, CBC, ADIFF, ANEU, HIVRNA, HELP1, HCQPCR, HEPGEN #### [address] [address] Glucose [Mass/Vol] 94 mg/dL Normal 70-110 [facility] ([place]) Comment on above: Performed By: #### P RO, CMP, GFR, RPR, CBC, ADIFF, ANEU, HIVRNA, HELP1, HCQPCR, HEPGEN #### [address] [address] Potassium [Moles/Vol] 3.7 mmol/L Normal 3.5-5.0 [facility] ([place]) Comment on above: Performed By: #### P RO, CMP, GFR, RPR, CBC, ADIFF, ANEU, HIVRNA, HELP1, HCQPCR, HEPGEN #### [address] [address] Sodium [Moles/Vol] 139 mmol/L Normal 136-145 [facility] ([place]) Comment on above: Performed By: #### P RO, CMP, GFR, RPR, CBC, ADIFF, ANEU, HIVRNA, HELP1, HCQPCR, HEPGEN #### [place] [id number] [address] [place] [address] Total Protein 6.9 G/dL Normal 5.7-8.2 [facility] ([place]) Comment on above: Result Comment: No te - New Reference Range in effect 19 Performed By: #### P RO, CMP, GFR, RPR, CBC, ADIFF, ANEU, HIVRNA, HELP1, HCQPCR, HEPGEN #### [facility] [address] [place] [address] Urea nitrogen [Mass/Vol] 16.0 mg/dL Normal 8.0-22.0 [facility] ([place]) Comment on above: Performed By: #### P RO, CMP, GFR, RPR, CBC, ADIFF, ANEU, HIVRNA, HELP1, HCQPCR, HEPGEN #### [place] [id number] [address] [place] [address] LABORATORYOrdered By: SYSTEM SYSTEM on 10-01-2021 Albumin BCP dye [Mass/Vol] 3.9 G/dL Invalid Interpretation Code 3.2 - 4.8 G/dL ADM SS Albumin/Globulin [Mass ratio] 1.3 {ratio} Invalid Interpretation Code 0.9 - 1.6 ratio AH ADM SS ALP [Catalytic activity/Vol] 137 U/L Invalid Interpretation Code 38 - 126 U/L ADM SS ALT No additional P-5'-P [Catalytic activity/Vol] 61 U/L Invalid Interpretation Code 12 - 55 U/L AH ADM SS AST [Catalytic activity/Vol] 55 U/L Invalid Interpretation Code 8 - 34 U/L AH ADM SS Basophils (Bld) [#/Vol] 0.00 103/mcL Invalid Interpretation Code 0.00 - 0.27 10^3/mcL AH Remisol SS Basophils/100 WBC (Bld) 0.6 % Invalid Interpretation Code 0.0 - 2.5 % AH Remisol SS Bilirubin [Mass/Vol] 0.50 mg/dL Invalid Interpretation Code 0.20 - 1.20 mg/dL AH ADM SS Calcium [Mass/Vol] 9.8 mg/dL Invalid Interpretation Code 8.7 - 10.4 mg/dL AH ADM SS Chloride [Moles/Vol] 110 mmol/L Invalid Interpretation Code 98 - 110 mEq/L AH ADM SS CO2 [Moles/Vol] 29 mmol/L Invalid Interpretation Code 22 - 32 mEq/L AH ADM SS Creatinine [Mass/Vol] 1.03 mg/dL Invalid Interpretation Code 0.60 - 1.40 mg/dL AH ADM SS Electrolyte Balance 0.0 mEq/L Invalid Interpretation Code 4.0 - 15.0 mEq/L AH ADM SS Eosinophils (Bld) [#/Vol] 0.40 103/mcL Invalid Interpretation Code 0.00 - 0.65 10^3/mcL AH Remisol SS Eosinophils/100 WBC (Bld) 7.5 % Invalid Interpretation Code 0.0 - 6.0 % AH Remisol SS Erythrocyte distribution width (RBC) [Ratio] 13.6 % Invalid Interpretation Code 11.5 - 15.5 % AH Remisol SS GFR/1.73 sq M.predicted among blacks MDRD (S/P/Bld) [Vol rate/Area] ml/min/1.73sqm Invalid Interpretation Code AH Chemistry S GFR/1.73 sq M.predicted among non-blacks MDRD (S/P/Bld) [Vol rate/Area] ml/min/1.73sqm Invalid Interpretation Code Chemistry S Globulin 3.0 G/dL Invalid Interpretation Code 1.5 - 3.8 G/dL AH ADM SS Glucose [Mass/Vol] 94 mg/dL Invalid Interpretation Code 70 - 110 mg/dL AH ADM SS Hematocrit (Bld) [Volume fraction] 46.3 % Invalid Interpretation Code 40.0 - 52.0 % AH Remisol SS Hemoglobin (Bld) [Mass/Vol] 15.6 G/dL Invalid Interpretation Code 13.0 - 17.5 G/dL AH Remisol SS Lymphocytes (Bld) [#/Vol] 2.50 103/mcL Invalid Interpretation Code 0.90 - 4.32 10^3/mcL AH Remisol SS Lymphocytes/100 WBC (Bld) 43.9 % Invalid Interpretation Code 20.0 - 40.0 % AH Remisol SS MCH (RBC) [Entitic mass] 29.3 pg Invalid Interpretation Code 27.0 - 33.0 pg AH Remisol SS MCHC (RBC) [Mass/Vol] 33.7 G/dL Invalid Interpretation Code 32.0 - 36.0 G/dL AH Remisol SS MCV (RBC) [Entitic vol] 86.9 fL Invalid Interpretation Code 81.0 - 100.0 fL AH Remisol SS Monocytes (Bld) [#/Vol] 0.40 103/mcL Invalid Interpretation Code 0.09 - 1.40 10^3/mcL AH Remisol SS Monocytes/100 WBC (Bld) 6.5 % Invalid Interpretation Code 2.0 - 13.0 % AH Remisol SS Neutrophils (Bld) [#/Vol] 2.40 103/mcL Invalid Interpretation Code 2.25 - 8.10 10^3/mcL AH Remisol SS Neutrophils/100 WBC (Bld) 41.5 % Invalid Interpretation Code 50.0 - 75.0 % AH Remisol SS Platelet mean volume (Bld) [Entitic vol] 7.9 fL Invalid Interpretation Code 6.4 - 10.5 fL AH Remisol SS Platelets (Bld) [#/Vol] 234 103/mcL Invalid Interpretation Code 150 - 450 10^3/mcL AH Remisol SS Potassium [Moles/Vol] 3.7 mmol/L Invalid Interpretation Code 3.5 - 5.0 mEq/L AH ADM SS Protein [Mass/Vol] 6.9 G/dL Invalid Interpretation Code 5.7 - 8.2 G/dL AH ADM SS RBC (Bld) [#/Vol] 5.33 106/mcL Invalid Interpretation Code 4.50 - 6.00 10^6/mcL AH Remisol SS Sodium [Moles/Vol] 139 mmol/L Invalid Interpretation Code 136 - 145 mEq/L AH ADM SS Urea nitrogen [Mass/Vol] 16.0 mg/dL Invalid Interpretation Code 8.0 - 22.0 mg/dL AH ADM SS Urea nitrogen/Creatinine [Mass ratio] 15.5 ratio Invalid Interpretation Code 10.0 - 22.0 ratio AH ADM SS WBC (Bld) [#/Vol] 5.70 103/mcL Invalid Interpretation Code 4.50 - 10.80 10^3/mcL AH Remisol SS Fibrosureon 09-18-2021 Alpha2 Macroglobulin 295 mg/dL High 106-279 [facility] ([place]) Comment on above: Performed By: #### P RO, CMP, GFR, RPR, CBC, ADIFF, ANEU, HIVRNA, HELP1, HCQPCR, HEPGEN #### [place] [address] ALT [Catalytic activity/Vol] 69 U/L High 9-46 [facility] ([place]) Comment on above: Performed By: #### P RO, CMP, GFR, RPR, CBC, ADIFF, ANEU, HIVRNA, HELP1, HCQPCR, HEPGEN #### [place] [address] Apolipoprotein A1 127 mg/dL Normal 94-176 [facility] ([place]) Comment on above: Performed By: #### P RO, CMP, GFR, RPR, CBC, ADIFF, ANEU, HIVRNA, HELP1, HCQPCR, HEPGEN #### [place] [address] Bilirubin [Mass/Vol] 0.6 mg/dL Normal 0.2-1.2 [facility] ([place]) Comment on above: Performed By: #### P RO, CMP, GFR, RPR, CBC, ADIFF, ANEU, HIVRNA, HELP1, HCQPCR, HEPGEN #### [place] [address] Fibrosis Interp SEE NOTE Normal [facility] ([place]) Comment on above: Result Comment: mini [facility] fibrosis Fibro Test Score (f) Metavir Score f>=0 and f<=0.21 : F0 (no fibrosis) f>0.21 and f<=0.27 : F0-F1 (no fibrosis) f>0.27 and f<=0.31 : F1 (minimal fibrosis) f>0.31 and f<=0.48 : F1-F2 (minimal fibrosis) f>0.48 and f<=0.58 : F2 (moderate fibrosis) f>0.58 and f<=0.72 : F3 (advanced fibrosis) f>0.72 and f<=0.74 : F3-F4 (advanced fibrosis) f>0.74 and f<=1.00 : F4 (severe fibrosis) Performed By: #### P RO, CMP, GFR, RPR, CBC, ADIFF, ANEU, HIVRNA, HELP1, HCQPCR, HEPGEN #### [place] [address] Fibrosis Score 0.41 Normal [facility] ([place]) Comment on above: Performed By: #### P RO, CMP, GFR, RPR, CBC, ADIFF, ANEU, HIVRNA, HELP1, HCQPCR, HEPGEN #### [facility] [address] [place] [address] Fibrosis Stage F1-F2 Normal [facility] ([place]) Comment on above: Performed By: #### P RO, CMP, GFR, RPR, CBC, ADIFF, ANEU, HIVRNA, HELP1, HCQPCR, HEPGEN #### [facility] [address] [place] [address] Footnote SEE NOTE Normal [facility] ([place]) Comment on above: Result Comment: The reliability of results is dependent on compliance with the preanalytical and analytical conditions recommended by [employer]. The tests have to be deferred for: acute hemolysis, acute hepatitis, acute inflammation, extra hepatic cholestasis. The advice of a specialist should be sought for interpretation in chronic hemolysis and Gilbert's syndrome. The test interpretation is not validated in liver transplant patients. Isolated extreme values of one of the components should lead to caution in interpreting the results. In case of discordance between a biopsy result and a test, it is recommended to seek the advice of a specialist. The causes of these discordances could be due to a flaw of the test or to a flaw in the biopsy: i.e. a liver biopsy has a 33% variability rate for one fibrosis stage. FibroTest is interpretable for chronic hepatitis B and C, alcoholic and non alcoholic steatosis. ActiTest is interpretable for chronic hepatitis B and C. The performance characteristics have been determined by [facility]. It has not been cleared or approved by the U.S. Food and Drug Administration. Performance characteristics refer to the analytical performance of the test. [employer] the associated logo, [employer] and all associated [employer] ro[employer]z are the registered trademarks of [employer]. All third green party rodriguez - (R) and (TM) - are the property of their respective owners. (C) [id number] [employer]. All rights reserved. TEST PERFORMED AT: [id number] [employer] [address] [facility] [place] [address] Sanitary Napkin Machine Tender: Mili Sullivan MD, PhD, CYN Performed By: #### P RO, CMP, GFR, RPR, CBC, ADIFF, ANEU, HIVRNA, HELP1, HCQPCR, HEPGEN #### [place] [address] GGT Lvl 16 U/L Normal 3-95 [facility] ([place]) Comment on above: Performed By: #### P RO, CMP, GFR, RPR, CBC, ADIFF, ANEU, HIVRNA, HELP1, HCQPCR, HEPGEN #### [place] [address] Haptoglobin Lvl 98 mg/dL Normal 43-212 [facility] ([place]) Comment on above: Performed By: #### P RO, CMP, GFR, RPR, CBC, ADIFF, ANEU, HIVRNA, HELP1, HCQPCR, HEPGEN #### [place] [address] NecroinflamAct Grade A1-A2 Normal [facility] ([place]) Comment on above: Performed By: #### P RO, CMP, GFR, RPR, CBC, ADIFF, ANEU, HIVRNA, HELP1, HCQPCR, HEPGEN #### [place] [address] NecroinflamAct Score 0.45 Normal [facility] ([place]) Comment on above: Performed By: #### P RO, CMP, GFR, RPR, CBC, ADIFF, ANEU, HIVRNA, HELP1, HCQPCR, HEPGEN #### [place] [address] Necroinflamm Interp SEE NOTE Normal [facility] ([place]) Comment on above: Result Comment: mini mal activity ActiTest Score (a) Metavir Score a>=0 and a<=0.17 : A0 (no activity) a>0.17 and a<=0.29 : A0-A1 (no activity) a>0.29 and a<=0.36 : A1 (minimal activity) a>0.36 and a<=0.52 : A1-A2 (minimal activity) a>0.52 and a<=0.60 : A2 (significant activity) a>0.60 and a<=0.62 : A2-A3 (significant activity) a>0.62 and a<=1.00 : A3 (severe activity) Performed By: #### P RO, CMP, GFR, RPR, CBC, ADIFF, ANEU, HIVRNA, HELP1, HCQPCR, HEPGEN #### [place] [address] Reference ID [id number] Normal [facility] ([place]) Comment on above: Performed By: #### P RO, CMP, GFR, RPR, CBC, ADIFF, ANEU, HIVRNA, HELP1, HCQPCR, HEPGEN #### [place] [address] HCGENon 09-04-2021 Hepatitis C Genotype Genotype 1a Abnormal [facility] ([place]) Comment on above: Result Comment: Perf ormed By: [facility] [address] [place] [address] Endoscopy Support Specialist: Lizzy Sun III#: [id number] Performed By: #### P RO, CMP, GFR, RPR, CBC, ADIFF, ANEU, HIVRNA, HELP1, HCQPCR, HEPGEN #### [place] [address] .Auto Diffon 08-29-2021 Basophil, Absolute 0.10 10 3/mcL Normal 0.00-0.27 [facility] ([place]) Comment on above: Performed By: #### P RO, CMP, GFR, RPR, CBC, ADIFF, ANEU, HIVRNA, HELP1, HCQPCR, HEPGEN #### [place] [address] Basophils/100 WBC (Bld) 0.8 % Normal 0.0-2.5 [facility] ([place]) Comment on above: Performed By: #### P RO, CMP, GFR, RPR, CBC, ADIFF, ANEU, HIVRNA, HELP1, HCQPCR, HEPGEN #### [facility] [address] [place], [place] [address] Eosinophil, Absolute 0.80 10 3/mcL High 0.00-0.65 A [facility] ([place]) Comment on above: Performed By: #### P RO, CMP, GFR, RPR, CBC, ADIFF, ANEU, HIVRNA, HELP1, HCQPCR, HEPGEN #### [address] [address] Eosinophils/100 WBC (Bld) 10.6 % High 0.0-6.0 [facility] ([place]) Comment on above: Performed By: #### P RO, CMP, GFR, RPR, CBC, ADIFF, ANEU, HIVRNA, HELP1, HCQPCR, HEPGEN #### [address] [address] Lymphocyte, Absolute 2.30 10 3/mcL Normal 0.90-4.32 A [facility] ([place]) Comment on above: Performed By: #### P RO, CMP, GFR, RPR, CBC, ADIFF, ANEU, HIVRNA, HELP1, HCQPCR, HEPGEN #### [address] [address] Lymphocytes/100 WBC (Bld) 31.3 % Normal 20.0-40.0 [facility] ([place]) Comment on above: Performed By: #### P RO, CMP, GFR, RPR, CBC, ADIFF, ANEU, HIVRNA, HELP1, HCQPCR, HEPGEN #### [address] [address] Monocyte, Absolute 0.40 10 3/mcL Normal 0.09-1.40 [facility] ([place]) Comment on above: Performed By: #### P RO, CMP, GFR, RPR, CBC, ADIFF, ANEU, HIVRNA, HELP1, HCQPCR, HEPGEN #### [address] [address] Monocytes/100 WBC (Bld) 5.1 % Normal 2.0-13.0 [facility] ([place]) Comment on above: Performed By: #### P RO, CMP, GFR, RPR, CBC, ADIFF, ANEU, HIVRNA, HELP1, HCQPCR, HEPGEN #### [address] [address] Neutrophils/100 WBC (Bld) 52.2 % Normal 50.0-75.0 [facility] ([place]) Comment on above: Performed By: #### P RO, CMP, GFR, RPR, CBC, ADIFF, ANEU, HIVRNA, HELP1, HCQPCR, HEPGEN #### [address] [address] .NEUABSon 08-29-2021 Neutrophil, Absolute 52.20 10 3/mcL High 2.25-8.10 [facility] ([place]) Comment on above: Performed By: #### P RO, CMP, GFR, RPR, CBC, ADIFF, ANEU, HIVRNA, HELP1, HCQPCR, HEPGEN #### [address] [address] CBCon 08-29-2021 Erythrocyte distribution width (RBC) [Ratio] 13.7 % Normal 11.5-15.5 [facility] ([place]) Comment on above: Performed By: #### P RO, CMP, GFR, RPR, CBC, ADIFF, ANEU, HIVRNA, HELP1, HCQPCR, HEPGEN #### [place] [id number] Hematocrit (Bld) [Volume fraction] 44.5 % Normal 40.0-52.0 [facility] ([place]) Comment on above: Performed By: #### P RO, CMP, GFR, RPR, CBC, ADIFF, ANEU, HIVRNA, HELP1, HCQPCR, HEPGEN #### [address] [address] Hgb 15.3 G/dL Normal 13.0-17.5 [facility] ([place]) Comment on above: Performed By: #### P RO, CMP, GFR, RPR, CBC, ADIFF, ANEU, HIVRNA, HELP1, HCQPCR, HEPGEN #### [address] [address] MCH (RBC) [Entitic mass] 29.8 pg Normal 27.0-33.0 [facility] ([place]) Comment on above: Performed By: #### P RO, CMP, GFR, RPR, CBC, ADIFF, ANEU, HIVRNA, HELP1, HCQPCR, HEPGEN #### [place] [id number] MCHC 34.4 G/dL Normal 32.0-36.0 [facility] ([place]) Comment on above: Performed By: #### P RO, CMP, GFR, RPR, CBC, ADIFF, ANEU, HIVRNA, HELP1, HCQPCR, HEPGEN #### [place] [address] MCV (RBC) [Entitic vol] 86.5 fL Normal 81.0-100.0 [facility] ([place]) Comment on above: Performed By: #### P RO, CMP, GFR, RPR, CBC, ADIFF, ANEU, HIVRNA, HELP1, HCQPCR, HEPGEN #### [place] [address] Platelet 276 10 3/mcL Normal 150-450 [facility] ([place]) Comment on above: Performed By: #### P RO, CMP, GFR, RPR, CBC, ADIFF, ANEU, HIVRNA, HELP1, HCQPCR, HEPGEN #### [place] [id number] Platelet mean volume (Bld) [Entitic vol] 8.4 fL Normal 6.4-10.5 [facility] ([place]) Comment on above: Performed By: #### P RO, CMP, GFR, RPR, CBC, ADIFF, ANEU, HIVRNA, HELP1, HCQPCR, HEPGEN #### [place] [id number] RBC 5.15 10 6/mcL Normal 4.50-6.00 [facility] ([place]) Comment on above: Performed By: #### P RO, CMP, GFR, RPR, CBC, ADIFF, ANEU, HIVRNA, HELP1, HCQPCR, HEPGEN #### [place] [address] WBC 7.30 10 3/mcL Normal 4.50-10.80 [facility] ([place]) Comment on above: Performed By: #### P RO, CMP, GFR, RPR, CBC, ADIFF, ANEU, HIVRNA, HELP1, HCQPCR, HEPGEN #### [address] [address] HCQPCRon 08-29-2021 HCQPCR Quant Log Value 6.60 LogCopies/mL [facility] ([place]) Comment on above: Result Comment: The Linear Range of this assay is 15 IU/ml to 100,000,000 IU/ml Performed By: [place] [id number] Endoscopy Support Specialist: Corky Guzman III, M.D. CLIA#: [id number] Performed By: #### P RO, CMP, GFR, RPR, CBC, ADIFF, ANEU, HIVRNA, HELP1, HCQPCR, HEPGEN #### [place] [address] HCV RNA (IU/mL) [id number] IU/mL [facility] ([place]) Comment on above: Result Comment: Perf ormed By: [place] [address] Endoscopy Support Specialist: Corky Guzman III, M.D. CLIA#: [id number] Performed By: #### P RO, CMP, GFR, RPR, CBC, ADIFF, ANEU, HIVRNA, HELP1, HCQPCR, HEPGEN #### [place] [address] Hepatitis C RNA Detected Abnormal See Comment [facility] ([place]) Comment on above: Result Comment: Perf ormed By: [place] [id number] Endoscopy Support Specialist: Corky Guzman III, M.D. CLIA#: [id number] Reference Range: HCV RNA not detected by PCR. Performed By: #### P RO, CMP, GFR, RPR, CBC, ADIFF, ANEU, HIVRNA, HELP1, HCQPCR, HEPGEN #### [address] [address] THGO4vg 08-29-2021 % B Cells 23 % Normal 5-25 [facility] ([place]) Comment on above: Performed By: #### P RO, CMP, GFR, RPR, CBC, ADIFF, ANEU, HIVRNA, HELP1, HCQPCR, HEPGEN #### [address] [address] % CD4 Cells 31 % Normal 30-61 [facility] ([place]) Comment on above: Performed By: #### P RO, CMP, GFR, RPR, CBC, ADIFF, ANEU, HIVRNA, HELP1, HCQPCR, HEPGEN #### [address] [address] % CD56+/16+ 4 % Low 5-30 [facility] ([place]) Comment on above: Performed By: #### P RO, CMP, GFR, RPR, CBC, ADIFF, ANEU, HIVRNA, HELP1, HCQPCR, HEPGEN #### [address] [address] % CD8 Cells 42 % Normal 12-42 [facility] ([place]) Comment on above: Performed By: #### P RO, CMP, GFR, RPR, CBC, ADIFF, ANEU, HIVRNA, HELP1, HCQPCR, HEPGEN #### [address] [address] % T Cells 74 % Normal 52-84 [facility] ([place]) Comment on above: Performed By: #### P RO, CMP, GFR, RPR, CBC, ADIFF, ANEU, HIVRNA, HELP1, HCQPCR, HEPGEN #### [address] [address] B Cells (CD 19) 456 /uL Normal 71-567 [facility] ([place]) Comment on above: Performed By: #### P RO, CMP, GFR, RPR, CBC, ADIFF, ANEU, HIVRNA, HELP1, HCQPCR, HEPGEN #### [address] [address] CD4 Cells 630 /uL Normal 401-1532 [facility] ([place]) Comment on above: Performed By: #### P RO, CMP, GFR, RPR, CBC, ADIFF, ANEU, HIVRNA, HELP1, HCQPCR, HEPGEN #### [address] [address] CD4/CD8 Ratio 0.75 ratio Low 0.88-3.84 [facility] ([place]) Comment on above: Performed By: #### P RO, CMP, GFR, RPR, CBC, ADIFF, ANEU, HIVRNA, HELP1, HCQPCR, HEPGEN #### [address] [address] CD56+/16+ NK Cells 86 /uL Normal 80-597 [facility] ([place]) Comment on above: Performed By: #### P RO, CMP, GFR, RPR, CBC, ADIFF, ANEU, HIVRNA, HELP1, HCQPCR, HEPGEN #### [address] [address] CD8 Cells 838 /uL Normal 152-838 [facility] ([place]) Comment on above: Performed By: #### P RO, CMP, GFR, RPR, CBC, ADIFF, ANEU, HIVRNA, HELP1, HCQPCR, HEPGEN #### [address] [address] Lymphocytes (Bld) [#/Vol] 2.03 10*3/uL Normal 660-4600 [facility] ([place]) Comment on above: Performed By: #### P RO, CMP, GFR, RPR, CBC, ADIFF, ANEU, HIVRNA, HELP1, HCQPCR, HEPGEN #### [address] [address] T Cells 1488 /uL Normal 582-1992 [facility] ([place]) Comment on above: Performed By: #### P RO, CMP, GFR, RPR, CBC, ADIFF, ANEU, HIVRNA, HELP1, HCQPCR, HEPGEN #### [address] [address] HIVLDon 08-29-2021 HIV RNA (log copies/mL) 1.45 LogCopies/mL High [facility] ([place]) Comment on above: Result Comment: Line ar range of assay: 20 copies/mL to 10,000,000 copies/mL. HIV Information: [place] Rev. Code 3701.243(E): This information has been disclosed to you from confidential records protected from disclosure by state law. You shall make no further disclosure of this information without the specific, written, and informed release of the individual to whom it pertains, or as otherwise permitted by state law. A general authorization for the release of medical or other information is not sufficient for the purpose of the release of HIV test results or diagnoses. Performed By: [place] [address] Endoscopy Support Specialist: Corky Guzman III, M.D. CLIA#: [id number] Performed By: #### P RO, CMP, GFR, RPR, CBC, ADIFF, ANEU, HIVRNA, HELP1, HCQPCR, HEPGEN #### [place] [address] HIV RNA Detection Quantitative 28.2 COPIES/ML [facility] ([place]) Comment on above: Result Comment: Posi tive for HIV-1 RNA by PCR Performed By: [place] [address] Endoscopy Support Specialist: Corky Guzman III, M.D. CLIA#: [id number] Performed By: #### P RO, CMP, GFR, RPR, CBC, ADIFF, ANEU, HIVRNA, HELP1, HCQPCR, HEPGEN #### [place] [id number] HIV RNA Qual Detected Abnormal See Comment [facility] ([place]) Comment on above: Result Comment: Perf ormed By: [facility] Flotype [address] [place] [address] Endoscopy Support Specialist: Corky Guzman III, M.D. CLIA#: [id number] Reference Range: HIV-1 RNA not detected by PCR. Performed By: #### P RO, CMP, GFR, RPR, CBC, ADIFF, ANEU, HIVRNA, HELP1, HCQPCR, HEPGEN #### [place] [id number] .GFRon 08-28-2021 GFR >60 Normal [facility] ([place]) Comment on above: Result Comment: GFR Population mean for , Non- Americans Ages 20-29 = 116 mL/min/1.73 sq.m. Ages 30-39 = 107 mL/min/1.73 sq.m. Ages 40-49 = 99 mL/min/1.73 sq.m. Ages 50-59 = 93 mL/min/1.73 sq.m. Ages 60-69 = 85 mL/min/1.73 sq.m. Ages 70+ = 75 mL/min/1.73 sq.m. Chronic Kidney Disease: Less than 60 mL/min/1.73 square meters End Stage Renal Disease: Less than 15 mL/min/1.73 square meters Performed By: #### P RO, CMP, GFR, RPR, CBC, ADIFF, ANEU, HIVRNA, HELP1, HCQPCR, HEPGEN #### [address] [address] GFR Non- >60 Normal [facility] ([place]) Comment on above: Result Comment: GFR Population mean for , Non- Americans Ages 20-29 = 116 mL/min/1.73 sq.m. Ages 30-39 = 107 mL/min/1.73 sq.m. Ages 40-49 = 99 mL/min/1.73 sq.m. Ages 50-59 = 93 mL/min/1.73 sq.m. Ages 60-69 = 85 mL/min/1.73 sq.m. Ages 70+ = 75 mL/min/1.73 sq.m. Chronic Kidney Disease: Less than 60 mL/min/1.73 square meters End Stage Renal Disease: Less than 15 mL/min/1.73 square meters Performed By: #### P RO, CMP, GFR, RPR, CBC, ADIFF, ANEU, HIVRNA, HELP1, HCQPCR, HEPGEN #### [address] [address] [facility] Albumin Level 3.7 G/dL Normal 3.2-4.8 [facility] ([place]) Comment on above: Performed By: #### P RO, CMP, GFR, RPR, CBC, ADIFF, ANEU, HIVRNA, HELP1, HCQPCR, HEPGEN #### [address] [address] Albumin/Globulin [Mass ratio] 1.3 {ratio} Normal 0.9-1.6 [facility] ([place]) Comment on above: Performed By: #### P RO, CMP, GFR, RPR, CBC, ADIFF, ANEU, HIVRNA, HELP1, HCQPCR, HEPGEN #### [address] [address] ALP [Catalytic activity/Vol] 102 U/L Normal 38-126 [facility] ([place]) Comment on above: Performed By: #### P RO, CMP, GFR, RPR, CBC, ADIFF, ANEU, HIVRNA, HELP1, HCQPCR, HEPGEN #### [address] [address] ALT [Catalytic activity/Vol] 94 U/L High 12-55 [facility] ([place]) Comment on above: Performed By: #### P RO, CMP, GFR, RPR, CBC, ADIFF, ANEU, HIVRNA, HELP1, HCQPCR, HEPGEN #### [address] [address] AST [Catalytic activity/Vol] 74 U/L High 8-34 [facility] ([place]) Comment on above: Performed By: #### P RO, CMP, GFR, RPR, CBC, ADIFF, ANEU, HIVRNA, HELP1, HCQPCR, HEPGEN #### [address] [address] Bili Total 0.40 mg/dL Normal 0.20-1.20 [facility] ([place]) Comment on above: Result Comment: Use of this assay is not recommended for patients undergoing treatment with eltrombopag due to the potential for falsely elevated results. Performed By: #### P RO, CMP, GFR, RPR, CBC, ADIFF, ANEU, HIVRNA, HELP1, HCQPCR, HEPGEN #### [address] [address] BUN/Creatinine Ratio 19.5 ratio Normal 10.0-22.0 [facility] ([place]) Comment on above: Performed By: #### P RO, CMP, GFR, RPR, CBC, ADIFF, ANEU, HIVRNA, HELP1, HCQPCR, HEPGEN #### [address] [address] Calcium [Mass/Vol] 9.5 mg/dL Normal 8.7-10.4 [facility] ([place]) Comment on above: Result Comment: No te - New Reference Range in effect 19 Performed By: #### P RO, CMP, GFR, RPR, CBC, ADIFF, ANEU, HIVRNA, HELP1, HCQPCR, HEPGEN #### [address] [address] Chloride [Moles/Vol] 108 mmol/L Normal 98-110 [facility] ([place]) Comment on above: Performed By: #### P RO, CMP, GFR, RPR, CBC, ADIFF, ANEU, HIVRNA, HELP1, HCQPCR, HEPGEN #### [address] [address] CO2 [Moles/Vol] 26 mmol/L Normal 22-32 [facility] ([place]) Comment on above: Performed By: #### P RO, CMP, GFR, RPR, CBC, ADIFF, ANEU, HIVRNA, HELP1, HCQPCR, HEPGEN #### [address] [address] Creatinine [Mass/Vol] 1.23 mg/dL Normal 0.60-1.40 [facility] ([place]) Comment on above: Performed By: #### P RO, CMP, GFR, RPR, CBC, ADIFF, ANEU, HIVRNA, HELP1, HCQPCR, HEPGEN #### [address] [address] Electrolyte Balance 6.0 mEq/L Normal 4.0-15.0 [facility] ([place]) Comment on above: Performed By: #### P RO, CMP, GFR, RPR, CBC, ADIFF, ANEU, HIVRNA, HELP1, HCQPCR, HEPGEN #### [address] [address] Globulin 2.9 G/dL Normal 1.5-3.8 [facility] ([place]) Comment on above: Performed By: #### P RO, CMP, GFR, RPR, CBC, ADIFF, ANEU, HIVRNA, HELP1, HCQPCR, HEPGEN #### [address] [address] Glucose [Mass/Vol] 83 mg/dL Normal 70-110 [facility] ([place]) Comment on above: Performed By: #### P RO, CMP, GFR, RPR, CBC, ADIFF, ANEU, HIVRNA, HELP1, HCQPCR, HEPGEN #### [address] [address] Potassium [Moles/Vol] 4.5 mmol/L Normal 3.5-5.0 [facility] ([place]) Comment on above: Result Comment: Spec imen slightly hemolyzed. Performed By: #### P RO, CMP, GFR, RPR, CBC, ADIFF, ANEU, HIVRNA, HELP1, HCQPCR, HEPGEN #### [address] [address] Sodium [Moles/Vol] 140 mmol/L Normal 136-145 [facility] ([place]) Comment on above: Performed By: #### P RO, CMP, GFR, RPR, CBC, ADIFF, ANEU, HIVRNA, HELP1, HCQPCR, HEPGEN #### [address] [address] Total Protein 6.6 G/dL Normal 5.7-8.2 [facility] ([place]) Comment on above: Result Comment: No te - New Reference Range in effect 19 Performed By: #### P RO, CMP, GFR, RPR, CBC, ADIFF, ANEU, HIVRNA, HELP1, HCQPCR, HEPGEN #### [address] [address] Urea nitrogen [Mass/Vol] 24.0 mg/dL High 8.0-22.0 [facility] ([place]) Comment on above: Performed By: #### P RO, CMP, GFR, RPR, CBC, ADIFF, ANEU, HIVRNA, HELP1, HCQPCR, HEPGEN #### [place] [id number] [address] [place] [address] RPRon 08-28-2021 Reagin Ab RPR Ql (S) Non-Reactive Normal Non-Reactive [facility] ([place]) Comment on above: Result Comment: The RPR test is a non-treponemal assay useful as an aid in the diagnosis of primary and secondary syphilis. It converts to positive generally within 2 weeks after the appearance of a lesion. This test is also useful for monitoring response to antibiotic therapy. A positive RPR screening test will be followed by the FTA ABS test. False positive RPR tests may occur in 1) patients with underlying autoimmune disorders, 2) elderly patients, 3) , and 4) other conditions with abnormal serum globulins. Performed By: #### P RO, CMP, GFR, RPR, CBC, ADIFF, ANEU, HIVRNA, HELP1, HCQPCR, HEPGEN #### [address] [address] PROon 08-27-2021 INR Coag (PPP) [Relative time] 1.0 {INR} Normal [facility] ([place]) Comment on above: Result Comment: The [employer] (CHEST, 1992, 102:312S-25S) recommended therapeutic range for oral anticoagulant therapy is: LOW RISK: Prophylaxis of venous thrombosis INR: 2.0-3.0 Treatment of pulmonary embolism 2.0-3.0 Prevention of systemic embolism 2.0-3.0 HIGH RISK: Mechanical prosthetic valves 2.5-3.5 Performed By: #### P RO, CMP, GFR, RPR, CBC, ADIFF, ANEU, HIVRNA, HELP1, HCQPCR, HEPGEN #### [facility] [address] [place] [address] PT Coag (PPP) [Time] 11.8 s Normal 9.0-14.9 [facility] ([place]) Comment on above: Result Comment: Effe ctive 12/22/07, Protime results may be affected by some antibiotics (i.e. Ciprofloxacin, Azithromycin, Bactrim) which may potentiate the action of oral anticoagulants, with further increases in Protime/INR. Performed By: #### P RO, CMP, GFR, RPR, CBC, ADIFF, ANEU, HIVRNA, HELP1, HCQPCR, HEPGEN #### [place] [id number] [address] [place] [address] Lavender Topon 10-13-2017 Extra Tube Hold for add-ons. Invalid Interpretation Code [facility] [place] Drawon 10-13-2017 Creatinine The following orders were created for panel order [place] Draw. Procedure Abnormality Status --------- ------ Lavender Top[[id number]] Final result Mint Green Top[[id number]] Final result Gold Top[[id number]] Final result Light Blue Top[[id number]] Final result Please view results for these tests on the individual orders. Invalid Interpretation Code [facility] US DUPLEX VENOUS LEG LEFTon 10-13-2017 US DUPLEX VENOUS LEG LEFT EXAMINATION:US DUPLEX VENOUS LEG LEFTHISTORY:Left lower extremity pain.COMPARISON:None .TECHNIQUE:Venous duplex examination performed using B-mode, color flow and spectral analysis.FINDINGS:Ap propriate venous waveforms, compressibility and augmentation with compression are noted within the left lower extremity venous system.No evidence of DVT within the left lower extremity.[employer] kstation ID: [id number] Normal [facility] US DUPLEX VENOUS LEG LEFT EXAMINATION:US DUPLEX VENOUS LEG LEFTHISTORY:Left lower extremity pain.COMPARISON:None .TECHNIQUE:Venous duplex examination performed using B-mode, color flow and spectral analysis.FINDINGS:Ap propriate venous waveforms, compressibility and augmentation with compression are noted within the left lower extremity venous system.IMPRESSION:No evidence of DVT within the left lower extremity.[employer] kstation ID: [id number] ed by: HAI BUNN on FriOctober 13, 2017 4:17:00 PM EDTTranscribed by: SHILPI AGUILA IN [employer] on FriOctober 13, 2017 4:26:43 PM EDTFinalized by: HAI BUNN on FriOctober 13, 2017 4:26:43 PM EDT Normal [facility] Ultrasound Duplex Venous Leg LEFTon 10-13-2017 Ultrasound Duplex Venous Leg LEFT No evidence of DVT within the left lower extremity. [employer] Workstation ID: [id number] Invalid Interpretation Code [facility] Ultrasound Duplex Venous Leg LEFT EXAMINATION: US DUPLEX VENOUS LEG LEFT HISTORY: Left lower extremity pain. COMPARISON: None. TECHNIQUE: Venous duplex examination performed using B-mode, color flow and spectral analysis. FINDINGS: Appropriate venous waveforms, compressibility and augmentation with compression are noted within the left lower extremity venous system. Invalid Interpretation Code [facility] Ultrasound Duplex Venous Leg LEFT Interface, Rad In Billy Speechq - 10/13/2017 4:29 PM EDT EXAMINATION: US DUPLEX VENOUS LEG LEFT HISTORY: Left lower extremity pain. COMPARISON: None. TECHNIQUE: Venous duplex examination performed using B-mode, color flow and spectral analysis. FINDINGS: Appropriate venous waveforms, compressibility and augmentation with compression are noted within the left lower extremity venous system. IMPRESSION: No evidence of DVT within the left lower extremity. TJL/jcw Workstation ID: [id number] Invalid Interpretation Code [facility] XR KNEE LEFT 2 VIEWS ([address] RD)on 10-13-2017 XR KNEE LEFT 2 VIEWS (STANDARD) EXAMINATION:XR KNEE LEFT 2 VIEWS (STANDARD)HISTORY:OR DERING SYSTEM PROVIDED HISTORY: left knee pain, TECHNOLOGIST PROVIDED HISTORY: Reason for exam: lt knee pain and swelling x 3 weeksInjury/TraumaCa ncer History: nSurgery, RadiationHistory: nEncounter Type: InitialMechanism of injury: hurt playing ballCOMPARISON:None. FINDINGS:AP and cross-table lateral views of the left knee were obtained. No acute fracture or dislocation. Osseous structures are well mineralized. No suprapatellar joint effusion. There is mild prepatellar soft tissue swelling.IMPRESSION: 1. No acute fracture or dislocation.2. Mild prepatellar soft tissue swelling may indicate prepatellar bursitis.RPS/trwWork station ID: [id number] by: DANG HERNANDEZ on FriOctober 13, 2017 3:15:53 PM EDTTranscribed by: GAMA GREENE on FriOctober 13, 2017 3:32:09 PM EDTFinalized by: DANG HERNANDEZ on FriOctober 13, 2017 10:34:04 PM EDT Normal [facility] Comment on above: Order Comment: Reaso n for exam?:lt knee pain and swelling x 3 weeksInjury/Trauma or Illness?:Injury/TraumaHow long have you had these symptoms (acute/chronic)?:AcuteHistory of cancer?:nSurgeries, chemotherapy, or radiation?:nType of Exam?:InitialMechanism of injury?:hurt playing ball Vital Signs Date Time Vital Sign Value Performing Clinician Silvestre long 12-05-2023 23:00-0400 Diastolic blood pressure 88 mm[Hg] Jasson Abernathy MD Work Phone: [facility] 12-05-2023 23:00-0400 Heart rate 79 /min Jasson Abernathy MD Work Phone: [facility] 12-05-2023 23:00-0400 SaO2% (BldA) [Mass fraction] 100 % Jasson Abernathy MD Work Phone: [facility] 12-05-2023 23:00-0400 Systolic blood pressure 147 mm[Hg] Jasson Abernathy MD Work Phone: [facility] 12-05-2023 18:02-0400 Body height 188 cm Jasson Abernathy MD Work Phone: [facility] 12-05-2023 18:01-0400 Body temperature 99.81 [degF] Jasson Abernathy MD Work Phone: [facility] 12-05-2023 18:01-0400 Respiratory rate 16 /min Jasson Abernathy MD Work Phone: [facility] 03-16-2022 11:51-0400 Body temperature 97.34 [degF] Scooby CALDERÓN [facility] 03-16-2022 11:51-0400 Diastolic blood pressure 86 mm[Hg] Scooby CALDERÓN [facility] 03-16-2022 11:51-0400 Heart rate 55 /min Scooby CALDERÓN [facility] 03-16-2022 11:51-0400 Mean blood pressure 97 mm[Hg] Scooby CALDERÓN [facility] 03-16-2022 11:51-0400 SaO2% (BldA) [Mass fraction] 96 % Scooby CALDERÓN [facility] 03-16-2022 11:51-0400 Systolic blood pressure 119 mm[Hg] Scooby CALDERÓN [facility] 12-25-2021 14:37-0400 Blood Pressure Location Scooby CALDERÓN [facility] 12-25-2021 14:37-0400 Body temperature 97.16 [degF] [facility] 12-25-2021 14:37-0400 Diastolic blood pressure 83 mm[Hg] Scooby CALDERÓN [facility] 12-25-2021 14:37-0400 Heart rate 77 /min cSooby CALDERÓN [facility] 12-25-2021 14:37-0400 Respiratory rate 14 /min Scooby CALDERÓN [facility] 12-25-2021 14:37-0400 SaO2% (BldA) [Mass fraction] 99 % Scooby CALDERÓN [facility] 12-25-2021 14:37-0400 Systolic blood pressure 115 mm[Hg] Scooby CALDERÓN [facility] 12-21-2021 01:39-0400 Body temperature 98.91 [degF] Tomasa Deleon MD Work Phone: [facility] 12-21-2021 01:39-0400 Diastolic blood pressure 74 mm[Hg] Tomasa Deleon MD Work Phone: [facility] 12-21-2021 01:39-0400 Heart rate 100 /min Tomasa Deleon MD Work Phone: [facility] 12-21-2021 01:39-0400 Respiratory rate 20 /min Tomasa Deleon MD Work Phone: [facility] 12-21-2021 01:39-0400 SaO2% (BldA) [Mass fraction] 96 % Tomasa Deleon MD Work Phone: [facility] 12-21-2021 01:39-0400 Systolic blood pressure 120 mm[Hg] Tomasa Deleon MD Work Phone: [facility] 12-20-2021 22:44-0400 Body height 182.9 cm Tomasa Deleon MD Work Phone: [facility] 12-20-2021 22:44-0400 Body mass index (BMI) [Ratio] 23.06 kg/m2 Tomasa Deleon MD Work Phone: [facility] 12-20-2021 22:44-0400 Body weight 77.11 kg Tomasa Deleon MD Work Phone: [email or web address]ENTER[facility]ov[facility]hel[facility] 10-13-2017 16:00-0400 BP Diastolic 80 mm[Hg] Jacob Peng [facility] 10-13-2017 16:00-0400 BP Systolic 123 mm[Hg] Jacob Peng [facility] 10-13-2017 16:00-0400 Pulse (Heart Rate) 54 /min Jacob Peng [facility] 10-13-2017 16:00-0400 Pulse Oximetry 97 % Jacob Peng [facility] 10-13-2017 16:00-0400 Respiratory Rate 18 /min Jacob Peng [facility] 10-13-2017 14:25-0400 BMI (Body Mass Index) 23.06 kg/m2 Jacob Peng [facility] 10-13-2017 14:25-0400 Body Temperature 98.2 [degF] Jacob Peng [facility] 10-13-2017 14: Height 182.9 cm Jacob Peng [facility] 10-13-2017 14: Weight 77.11 kg Jacob Peng [facility] Encounters Encounter Date Encounter Type Care Provider Facility Start: 02-19-2024 End: 02-19-2024 ambulatory RYNE TAN MD Facility:A Start: 02-16-2024 End: 02-16-2024 ambulatory RYNE TAN MD Facility:A Start: 12-05-2023 End: 12-06-2023 Emergency department patient visit Jasson Abernathy MD Work Phone: [facility] Start: 04-30-2022 End: 05-01-2022 ambulatory SANNA TAN Facility:[facility] [place] [place] Start: 04-30-2022 End: 04-30-2022 Patient encounter procedure SANNA TAN [facility] Start: 04-05-2022 End: 04-06-2022 ambulatory Scooby CALDERÓN Facility[facility] Start: 03-16-2022 End: 03-17-2022 ambulatory Scooby CALDERÓN Facility:[facility] Start: 03-16-2022 End: 03-16-2022 Off-Site Sc[facility] CALDER[facility]N [facility] Start: 12-25-2021 End: 12-26-2021 ambulatory Scooby CALDERÓN Facility:[facility] Start: 12-25-2021 End: 12-25-2021 Off-Site Scooby CALDERÓN [facility] Start: 12-21-2021 ambulatory Scooby CALDERÓN Facility:[facility] Start: 12-21-2021 End: 12-21-2021 Emergency department patient visit TOMASA DELEON [facility] Start: 12-20-2021 End: 12-21-2021 Emergency department patient visit Tomasa Deleon MD Work Phone: [facility] ED Comment on above: Overdose of sympatho mimetic agent, undetermined intent, initial encounter (Primary Dx); History of HIV infection (HCC) Start: 11-02-2021 End: 11-02-[address] DARIUSZ HOLGUIN Facility: Start: 10-24-2021 End: 10-25-2021 ambulatory UNKNOWN PROVIDER Facility:[facility] Start: 10-01-2021 End: 10-01-2021 Patient encounter procedure CYNTHIA DUPREE PA-C [facility] Start: 04-29-2018 End: 04-29-2018 Office outpatient visit 25 minutes Piotr Nava Work Phone: [facility] Comment on above: HIV (human immunodef iciency virus infection) (Primary Dx); Hep C w/o coma, chronic Start: 10-13-2017 End: 10-13-2017 Emergency department patient visit JACOB UGARTEEN PENG [facility] Start: 10-13-2017 End: 10-13-2017 Emergency department patient visit Jacob Peng Work Phone: [facility] Emergency Department Procedures Date Procedure Procedure Detail Performing Clinician Start: 12-06-2023 Drug tst prsmv instrmnt chem analyzers pr date Linwood Givens MD Work Phone: Start: 12-05-2023 CBC AND ELECTRONIC DIFF Linwood merlos MD Work Phone: Start: 12-05-2023 Complete blood count with white cell differential, automated Linwood Givens MD Work Phone: Start: 12-05-2023 Creatinine blood Linwood Givens MD Work Phone: Start: 12-20-2021 Assay of acetaminophen Tomasa ricketts MD Work Phone: Start: 12-20-2021 Assay of ethanol Tomasa Deleon MD Work Phone: Start: 12-20-2021 Assay of salicylate Tomasa Deleon MD Work Phone: Start: 12-20-2021 Comprehensive metabolic panel Tomasa Deleon MD Work Phone: Start: 12-20-2021 End: 12-20-2021 Ecg routine ecg w/least 12 lds w/i&r Tomasa Deleon MD Work Phone: Start: 01-13-2015 History of cholecystectomy Status post cholecystectomy Jasson Abernathy MD Work Phone: Plan of Treatment Date Care Activity Detail Author Start: 02-08-2024 Influenza vaccination INFLUENZ A VACCINE (Season Ended) [facility] Start: 02-07-2022 Influenza vaccination Flu vaccine (# 1) [facility] Start: 2020 Screening for malign ant neoplasm of colon COLORECTAL CANCER SCREENING DISCUSSION [facility] Start: 02-07-2018 Influenza vaccination [facility] Start: 2015 Fasting lipid profile LIPID SCREENIN [facility] Work Phone: Start: 2015 Lipid panel LIPID SCREENING [facility] Start: 1994 DTaP/Tdap/Td vaccine (1 - Tdap) DTaP/Tdap/Td vaccine (1 - Tdap) [facility] Start: 1994 Hepatitis B vaccination HEP B VACCINE (1 of 3 - 19+ 3-dose series) [facility] Start: 1994 Third diphtheria, tetanus and acellular pertussis (DTaP) vaccination TDAP (ADULT) [facility] Start: 1994 Zoster vaccine hzv l rocael for subcutaneous use ZOSTER (SHINGLES) VACCINE (1 of 2) [facility] Start: 1993 Tetanus vaccination TETANUS [facility] Work Phone: Start: 1981 PNEUMOCOCCAL VACCINE SERIES (1 of 2 - PCV) PNEUMOCOCCAL VACCINE SERIES (1 of 2 - PCV) [facility] Start: 1980 COVID-19 Vaccine (#1) COVID-19 Vacci ne (#1) [facility] Start: 1975 Hepatitis C screening HEPATITI S C VIRUS SCREENING [facility] Start: 1975 Tetanus vaccination [facility] End: 12-20-2021 Drug screen multi urine Drug screen multi urine Lab STAT One Time for 1 Occurrences starting 12/20/2021 until 12/20/2021 [employer] Phone: Comment on above: One Time for 1 Occur rences starting 12/20/2021 until 12/20/2021 EKG 12 Lead EKG 12 Lead ECG STAT 12/20/2021 10:52 PM EDT [employer] Work Phone: End: 12-20-2021 Oxygen therapy [Minimum Data Set] Initiate Oxygen Therapy Protocol Respiratory Care STAT One Time for 1 Occurrences starting 12/20/2021 until 12/20/2021 [employer] Phone: Comment on above: One Time for 1 Occur rences starting 12/20/2021 until 12/20/2021 End: 12-05-2023 Standard ECG [facility] Comment on above: One Time for 1 Occur rences starting 12/05/2023 until 12/05/2023 XR Knee Left 2 Views (Standard) XR Knee Left 2 Views (Standard) AILEEN 10/13/2017 3:04 PM EDT [facility] Immunizations Immunization Date Immunization Notes Care Provider Maryanne pina 03-08-2021 influenza virus vaccine, unspecified formulation Scooby CALDERÓN [facility] 10-10-2020 SARS-CoV-2 (COVID-19 ) mRNA-1273 vaccine Scooby CALDERÓN [facility] 09-04-2020 SARS-CoV-2 (COVID-19 ) mRNA-1273 vaccine Scooby CALDERÓN [facility] Payers Date Payer Category Payer Unknown [id number] 2022 Unknown [id number] 1975 Unknown [id number] 1975 Unknown [id number] 1975 Unknown [id number] 1975 Unknown [id number] 1975 Unknown [id number] 1975 Unknown [id number] 1975 Unknown [id number] 1959 Medicaid [id number] Unknown [facility] [id number] Effective for all dates [phone] [facility] [address] [place] [address] [id number] Unknown [id number] Social History Date Type Detail Facility Start: 11-22-2015 End: 10-13-2017 Tobacco smoking status MNIS Former smoker [facility] Start: 1975 [facility] End: 06-15-2014 History of tobacco use Current smoker [facility] Work Phone: End: 06-15-2014 History of tobacco use Cigarette Smoker [facility] Work Phone: Start: 12-01-2015 End: 12-05-2023 Cigarettes smoked current (pack per day) - Reported [facility] Work Phone: Sex Assigned At [facility] Start: 12-20-2021 Tobacco smoking stat [facility] Tobacco smoking consumption unknown [facility] Work Phone: Start: 12-10-2021 End: 12-21-2021 Exposure to SARS-CoV-2 (event) Unable to assess ASHLIE DUTTA [employer] Work Phone: Start: 12-25-2021 Tobacco smoking status [facility] t [facility] (finding[facility] Comment on above: STATES HE QUIT FOR 9 YEARS DUE TO BEING IN DETENTION AND HAS BEEN SMOKING AGAIN FOR THE PAST 4 MONTHS Start: 12-05-2023 Sex Assigned At Male [facility] [employer] Start: 12-05-2023 Alcoholic beverage intake Current non-drinker of alcohol (finding) [facility] Start: 07-11-2017 Gender identity Identifies as male gender (finding) [facility] Functional Status Date Assessment Result Facility 12-25-2021 Functional Status N/A [facility] Custodial Clinical Notes 12-21-2021 to 12-06-2023 Starr Hodge, DO - 12/06/2023 2:34 AM Radha Hodge, DO - 12/06/2023 2:34 AM Claudette Abernathy MD - 12/05/2023 10:53 PM Rah Givens MD - 12/05/2023 9:31 PM EDTRadiology Note Date & Type Note Facility 12-06-2023 Physician Emergency department Note ED Interval Note: The patient received in sign-out from the outgoing ED resident. This is a 40-year-old man with past medical history for schizophrenia, PTSD, and underlying mood disorder who presents with multiple panic attacks. Currently, we will be waiting for lab results to determine if any underlying medical issue. The patient has been taking antipsychotic at facility per prior ED resident. Laboratory results with no significant abnormalities. UDS noted to be positive for amphetamines. UDS would indicate recent usage of medications and possible explanation for underlying increased anxiety/panic attacks. No current signs of intoxication or elevated sympathetic tone. Would continue taking psychiatric medication at facility and would be appropriate for discharge back to facility. Impression: -Anxiety -Possible Amphetamine Use Disposition: -Discharge Starr Hodge DO Resident 12/06/236 [facility] 12-06-2023 Emergency department Note ED Interval Note: The patient received in sign-out from the outgoing ED resident. This is a 40-year-old man with past medical history for schizophrenia, PTSD, and underlying mood disorder who presents with multiple panic attacks. Currently, we will be waiting for lab results to determine if any underlying medical issue. The patient has been taking antipsychotic at facility per prior ED resident. Laboratory results with no significant abnormalities. UDS noted to be positive for amphetamines. UDS would indicate recent usage of medications and possible explanation for underlying increased anxiety/panic attacks. No current signs of intoxication or elevated sympathetic tone. Would continue taking psychiatric medication at facility and would be appropriate for discharge back to facility. Impression: -Anxiety -Possible Amphetamine Use Disposition: -Discharge Starr Hodge DO Resident 12/06/23235 ED Attending Chief Complaint Patient presents with Anxiety Past Medical History: Diagnosis Date Depressive disorder, not elsewhere classified Hepatitis HIV (human immunodeficiency virus infection) Orbit fracture Rigoberto Ha Jr. is a 48 y.o. male. Concern for panic vs poisoning [facility]; no other inmates with sx's; missed psych meds. BP 160/89 Pulse 90 Temp 99.8 F (37.7 C) (Oral) Resp 16 Ht 1.88 m (6' 2 ) SpO2 96% Smoking Status Former Nad;nontoxic; cta; rrr; no toxidrome. Medical Decision Making Amount and/or Complexity of Data Reviewed Labs: ordered. ECG/medicine tests: ordered. On 12/05/2023 I saw and examined the patient. I discussed the history and examination with the resident and agree with the plan of care. Jasson Abernathy MD 12/05/23 7173 EMERGENCY DEPARTMENT ENCOUNTER CHIEF COMPLAINT Chief Complaint Patient presents with Anxiety HPI Rigoberto Ha Jr. is a 48 y.o. male with history significant for schizophrenia, PTSD who presents with panic attack. Patient states around 1600 this afternoon he was getting a drink of water when he had thoughts that someone may have poisoned his water and he developed sudden onset of tachycardia, tachypnea, and feelings of impending doom. He states this lasted approximately 10 minutes before resolving without intervention. A little while later, he was offered water by the credit control officer and again had similar thoughts. He developed another brief 5-10 minute episode of rapid heart rate, tachypnea, and feelings of impending doom. No meds given. No prior history of panic attacks. He does endorse a history of schizophrenia, PTSD and has been admitted for it. He states he is currently taking Risperdal and bupropion. He states that he did miss his last 2 days of doses. He does endorse worsening paranoia and intrusive thoughts that has worsened since he stopped taking his medication. No SI or HI. REVIEW OF SYSTEMS Negative except as noted above in HPI. PAST MEDICAL HISTORY Past Medical History: Diagnosis Date Depressive disorder, not elsewhere classified Hepatitis HIV (human immunodeficiency virus infection) Orbit fracture SURGICAL HISTORY No past surgical history on file. CURRENT MEDICATIONS Current Outpatient Medications Medication Sig amitriptyline 100 MG Tab Take 50 mg by mouth At bedtime. darunavir 400 MG Tab take 800 mg by mouth. take with food Dolutegravir 50 MG tablet Take 1 tablet by mouth every 24 hours. emtricitabine-tenofovir AF 200-25 MG tablet Take 1 tablet by mouth daily. Propranolol 20 MG tablet Take 1 tablet by mouth at bedtime. ALLERGIES Allergies Allergen Reactions Peas [*Peas - Food Allergy] Shortness of Breath FAMILY HISTORY History reviewed. No pertinent family history. SOCIAL HISTORY Social History Socioeconomic History Marital status: Single Spouse name: Not on file Number of children: Not on file Years of education: Not on file Highest education level: Not on file Occupational History Not on file Tobacco Use Smoking status: Former Current packs/day: 0.00 Types: Cigarettes Quit date: 06/15/2014 Years since quittin.4 Smokeless tobacco: Not on file Substance and Sexual Activity Alcohol use: No Drug use: No Sexual activity: Not on file Other Topics Concern Not on file Social History Narrative Merged History Encounter Social Determinants of Health Financial Resource Strain: Not on file Food Insecurity: Not on file Transportation Needs: Not on file Physical Activity: Not on file Stress: Not on file Social Connections: Not on file Intimate Partner Violence: Not on file Housing Stability: Not on file PHYSICAL EXAM Vital Signs:BP 160/89 Pulse 90 Temp 99.8 F (37.7 C) (Oral) Resp 16 Ht 1.88 m (6' 2 ) SpO2 96% Smoking Status Former Physical Exam Constitutional: General: He is not in acute distress. Appearance: Normal appearance. He is normal weight. He is not ill-appearing, toxic-appearing or diaphoretic. HENT: Head: Normocephalic and atraumatic. Right Ear: External ear normal. Left Ear: External ear normal. Nose: Nose normal. Mouth/Throat: Mouth: Mucous membranes are moist. Pharynx: Oropharynx is clear. Eyes: General: Right eye: No discharge. Left eye: No discharge. Extraocular Movements: Extraocular movements intact. Conjunctiva/sclera: Conjunctivae normal. Pupils: Pupils are equal, round, and reactive to light. Cardiovascular: Rate and Rhythm: Normal rate and regular rhythm. Pulses: Normal pulses. Heart sounds: Normal heart sounds. No murmur heard. No friction rub. No gallop. Pulmonary: Effort: Pulmonary effort is normal. No respiratory distress. Breath sounds: No wheezing, rhonchi or rales. Abdominal: General: Abdomen is flat. There is no distension. Palpations: Abdomen is soft. Tenderness: There is no abdominal tenderness. There is no guarding or rebound. Musculoskeletal: Right lower leg: No edema. Left lower leg: No edema. Skin: General: Skin is warm and dry. Neurological: General: No focal deficit present. Mental Status: He is alert. Mental status is at baseline. Cranial Nerves: No cranial nerve deficit. Sensory: No sensory deficit. Motor: No weakness. Psychiatric: Attention and Perception: Attention normal. He does not perceive auditory or visual hallucinations. Mood and Affect: Mood and affect normal. Speech: Speech normal. Behavior: Behavior normal. Behavior is not agitated or aggressive. Behavior is cooperative. Thought Content: Thought content is paranoid. Thought content does not include homicidal or suicidal ideation. Thought content does not include homicidal or suicidal plan. ECG: NSR, no ST changes c/f acute ischemia. No prior to compare. Labs: No results found for this visit on 12/05/23. Radiology: No orders to display ED COURSE & MEDICAL DECISION MAKING Assessment: Rigoberto Ha Jr. is a 48 y.o. male who presents with paranoia and panic attack. DDx includes but not limited to: Schizophrenia, paranoia, medication noncompliance, substance use or withdrawal, electrolyte abnormality, dysrhythmia ED Course: MDM: At this time, patient hemodynamically stable, afebrile, non tachypneic and saturating well on room air. I reviewed previous records, examined and spoke to the patient, and ordered the above labs, imaging, therapeutics, and consultations. I have discussed the patient with the attending physician and they agree with the work up and plan. Overall, this appears to be consistent with schizophrenia due to ongoing paranoid thoughts that are worsened after missing several medication doses. He has not have any other medical history that might point towards significant cardiac problem. We will obtain a EKG, tropes, electrolytes to evaluate for possible electrolyte derangement or dysrhythmia. We will also obtain a UDS. Anticipate discharge back to facility and recommendations that he continued to take his psychiatric medications. Medical Decision Making Amount and/or Complexity of Data Reviewed Labs: ordered. ECG/medicine tests: ordered. Impression: Panic attack, paranoia Disposition: Discharge pending at signout This note was dictated with M-Modal dictation software. Every effort was made to correct edits but please excuse any incorrections. I discussed the patient with the attending physician, Dr. Abernathy. Linwood Givens MD Resident 12/05/23 5243 C/o panic attack. Per pt, had panic attack then drank water, then had another panic attack due to believing someone put something in the water. Pt has had similar beliefs in the past. Per report pt has multiple mental health Dx. RR even/unlabored at this time. NAD noted. Patient is coming from [facility] for anxiety. Per RN patient is having a panic attack. documented in this encounter [facility] 12-06-2023 Hospital Discharg e instructions Starr Hodge DO - 12/06/2023 2:34 AM EDT You were seen & underwent evaluation in the ED. Symptoms appear to be underlying panic attack & increased anxiety. Next Step: -Would continue prescribed medication at facility Please return to the ED if change in mentation, focal neurological changes, fever, or worsening psychosis as you may need further work-up & mangement documented in this encounter [facility] 12-05-2023 Note Acute Coronary Syndr ome (ACS): Initial Evaluation and Management: [email or web address] [facility] 12-05-2023 Physician Emergency department Note ED Attending Chief Complaint Patient presents with Anxiety Past Medical History: Diagnosis Date Depressive disorder, not elsewhere classified Hepatitis HIV (human immunodeficiency virus infection) Orbit fracture Rigoberto Ha Jr. is a 48 y.o. male. Concern for panic vs poisoning [facility] at [facility]; no other inmates with sx's; missed psych meds. BP 160/89 Pulse 90 Temp 99.8 F (37.7 C) (Oral) Resp 16 Ht 1.88 m (6' 2 ) SpO2 96% Smoking Status Former Nad;nontoxic; cta; rrr; no toxidrome. Medical Decision Making Amount and/or Complexity of Data Reviewed Labs: ordered. ECG/medicine tests: ordered. On 12/05/2023 I saw and examined the patient. I discussed the history and examination with the resident and agree with the plan of care. Jasson Abernathy MD 12/05/23 2006 [facility] Work Phone: 12-05-2023 Physician Emergency department Note EMERGENCY DEPARTMENT ENCOUNTER CHIEF COMPLAINT Chief Complaint Patient presents with Anxiety HPI Rigoberto Ha Jr. is a 48 y.o. male with history significant for schizophrenia, PTSD who presents with panic attack. Patient states around 1600 this afternoon he was getting a drink of water when he had thoughts that someone may have poisoned his water and he developed sudden onset of tachycardia, tachypnea, and feelings of impending doom. He states this lasted approximately 10 minutes before resolving without intervention. A little while later, he was offered water by the credit control officer and again had similar thoughts. He developed another brief 5-10 minute episode of rapid heart rate, tachypnea, and feelings of impending doom. No meds given. No prior history of panic attacks. He does endorse a history of schizophrenia, PTSD and has been admitted for it. He states he is currently taking Risperdal and bupropion. He states that he did miss his last 2 days of doses. He does endorse worsening paranoia and intrusive thoughts that has worsened since he stopped taking his medication. No SI or HI. REVIEW OF SYSTEMS Negative except as noted above in HPI. PAST MEDICAL HISTORY Past Medical History: Diagnosis Date Depressive disorder, not elsewhere classified Hepatitis HIV (human immunodeficiency virus infection) Orbit fracture SURGICAL HISTORY No past surgical history on file. CURRENT MEDICATIONS Current Outpatient Medications Medication Sig amitriptyline 100 MG Tab Take 50 mg by mouth At bedtime. darunavir 400 MG Tab take 800 mg by mouth. take with food Dolutegravir 50 MG tablet Take 1 tablet by mouth every 24 hours. emtricitabine-tenofovir AF 200-25 MG tablet Take 1 tablet by mouth daily. Propranolol 20 MG tablet Take 1 tablet by mouth at bedtime. ALLERGIES Allergies Allergen Reactions Peas [*Peas - Food Allergy] Shortness of Breath FAMILY HISTORY History reviewed. No pertinent family history. SOCIAL HISTORY Social History Socioeconomic History Marital status: Single Spouse name: Not on file Number of children: Not on file Years of education: Not on file Highest education level: Not on file Occupational History Not on file Tobacco Use Smoking status: Former Current packs/day: 0.00 Types: Cigarettes Quit date: 06/15/2014 Years since quittin.4 Smokeless tobacco: Not on file Substance and Sexual Activity Alcohol use: No Drug use: No Sexual activity: Not on file Other Topics Concern Not on file Social History Narrative Merged History Encounter Social Determinants of Health Financial Resource Strain: Not on file Food Insecurity: Not on file Transportation Needs: Not on file Physical Activity: Not on file Stress: Not on file Social Connections: Not on file Intimate Partner Violence: Not on file Housing Stability: Not on file PHYSICAL EXAM Vital Signs:BP 160/89 Pulse 90 Temp 99.8 F (37.7 C) (Oral) Resp 16 Ht 1.88 m (6' 2 ) SpO2 96% Smoking Status Former Physical Exam Constitutional: General: He is not in acute distress. Appearance: Normal appearance. He is normal weight. He is not ill-appearing, toxic-appearing or diaphoretic. HENT: Head: Normocephalic and atraumatic. Right Ear: External ear normal. Left Ear: External ear normal. Nose: Nose normal. Mouth/Throat: Mouth: Mucous membranes are moist. Pharynx: Oropharynx is clear. Eyes: General: Right eye: No discharge. Left eye: No discharge. Extraocular Movements: Extraocular movements intact. Conjunctiva/sclera: Conjunctivae normal. Pupils: Pupils are equal, round, and reactive to light. Cardiovascular: Rate and Rhythm: Normal rate and regular rhythm. Pulses: Normal pulses. Heart sounds: Normal heart sounds. No murmur heard. No friction rub. No gallop. Pulmonary: Effort: Pulmonary effort is normal. No respiratory distress. Breath sounds: No wheezing, rhonchi or rales. Abdominal: General: Abdomen is flat. There is no distension. Palpations: Abdomen is soft. Tenderness: There is no abdominal tenderness. There is no guarding or rebound. Musculoskeletal: Right lower leg: No edema. Left lower leg: No edema. Skin: General: Skin is warm and dry. Neurological: General: No focal deficit present. Mental Status: He is alert. Mental status is at baseline. Cranial Nerves: No cranial nerve deficit. Sensory: No sensory deficit. Motor: No weakness. Psychiatric: Attention and Perception: Attention normal. He does not perceive auditory or visual hallucinations. Mood and Affect: Mood and affect normal. Speech: Speech normal. Behavior: Behavior normal. Behavior is not agitated or aggressive. Behavior is cooperative. Thought Content: Thought content is paranoid. Thought content does not include homicidal or suicidal ideation. Thought content does not include homicidal or suicidal plan. ECG: NSR, no ST changes c/f acute ischemia. No prior to compare. Labs: No results found for this visit on 12/05/23. Radiology: No orders to display ED COURSE & MEDICAL DECISION MAKING Assessment: Rigoberto Ha Jr. is a 48 y.o. male who presents with paranoia and panic attack. DDx includes but not limited to: Schizophrenia, paranoia, medication noncompliance, substance use or withdrawal, electrolyte abnormality, dysrhythmia ED Course: MDM: At this time, patient hemodynamically stable, afebrile, non tachypneic and saturating well on room air. I reviewed previous records, examined and spoke to the patient, and ordered the above labs, imaging, therapeutics, and consultations. I have discussed the patient with the attending physician and they agree with the work up and plan. Overall, this appears to be consistent with schizophrenia due to ongoing paranoid thoughts that are worsened after missing several medication doses. He has not have any other medical history that might point towards significant cardiac problem. We will obtain a EKG, tropes, electrolytes to evaluate for possible electrolyte derangement or dysrhythmia. We will also obtain a UDS. Anticipate discharge back to facility and recommendations that he continued to take his psychiatric medications. Medical Decision Making Amount and/or Complexity of Data Reviewed Labs: ordered. ECG/medicine tests: ordered. Impression: Panic attack, paranoia Disposition: Discharge pending at signout This note was dictated with M-Modal dictation software. Every effort was made to correct edits but please excuse any incorrections. I discussed the patient with the attending physician, Dr. Abernathy. Linwood Givens MD Resident 12/05/23 0062 [facility] Work Phone: 12-05-2023 Emergency department Note C/o panic attack. Per pt, had panic attack then drank water, then had another panic attack due to believing someone put something in the water. Pt has had similar beliefs in the past. Per report pt has multiple mental health Dx. RR even/unlabored at this time. NAD noted. [facility] 12-05-2023 Emergency department Note Patient is coming from [facility] for anxiety. Per RN patient is having a panic attack. [facility] 04-30-2022 Evaluation + Plan note Diagnostic Tests PendingHCV RNA by PCR, Qn Rfx Hetal 04/30/22HCV Antibody RFX to Quant PCR 04/30/22 [facility] 12-21-2021 History of Presen t illness Narrative Patient in bed with eyes open, takes oral fluids without c/o, talking in full sentences Patient resting with eyes closed, resp regular and unlabored documented in this encounter [email or web address] Phone: Evaluation + Plan note Future Appointments Appointment Date:10/11/2021 10:00:00 AM Scheduled Provider: Location:[facility] Appointment Type:US Elastography Liver w/ABD Complete Diagnostic Tests PendingTB Quantiferon, Incubated 10/01/21 Future Scheduled TestsUS Elastography Liver w/ABD Complete 09/20/21 [facility] Evaluation note Diagnosis Overdose of sympathomimetic agent, undetermined intent, initial encounter- Primary History of HIV infection (HCC) Personal history of other infectious and parasitic disease documented in this encounter [email or web address] Phone: evaluation note* Diagnosis Anxiety- Primary Anxiety state, unspecified [facility] N[facility] No data available for this section [facility] Hospital Discharge instructions No data available for this section [facility] Progress note No data available for this section [facility] Discharge Instructions The following attachments cannot be sent through Care Everywhere. * Knee Pain or Injury (Bots[place]an) * Bursitis ([place]an) * Kneecap Bursitis ([place]an) in this encounter Assessments Diagnosis Prepatellar bursitis of left knee - Primary Knee pain, unspecified chron icity, unspecified laterality Diagnosis HIV (human immunodeficiency virus infection) - Primary Asymptomatic human immunodeficiency virus (HIV) infection status Hep C w/o coma, chronic Chronic hepatitis C without mention of hepatic coma Summary Purpose Family History No Family History Records FoundNo Family History Records FoundNo Family History Records FoundNo Family History Records FoundNo Family History Records FoundNo Family History Records FoundNo Family History Records FoundNo Family History Records FoundNo Family History Records Found Advance Directives No Advanced Directives Records FoundNo Advanced Directives Records FoundNo Advanced Directives Records FoundNo Advanced Directives Records FoundNo Advanced Directives Records FoundNo Advanced Directives Records FoundNo Advanced Directives Records FoundNo Advanced Directives Records FoundNo Advanced Directives Records Found History of Present Illness * Piotr Nava MD, PhD - 04/29/2018 1:45 PM EST This patient is being seen as a follow up patient for HIV infection in [facility]. Pt was last seen by Dr. Nava in October 2017 and HIV antiretroviral therapy (ART) is genvoya switched from truvada + shade/r in early August. He stopped ART about 4 weeks ago because he doesn't feel good on it and he thinks it may be contributing to his rash. Pts latest CD4 count was 375 (26.8%) (Apr-2018) with viral load of 5050. Pt has worsenign psoriatic like rash on multiple parts of body. Wasstarted on methotrexate about a week ago. Has not seen Derm or Rheum. The pt has no other complaints and his multisystem 13-point ROS are unremarkable. Pt appears well on camera. PE: as performed per nursing staff. VS: Stable Afebrile HEENT: unremarkable Chest: clear CV: normal S1S2 Abdomen: soft, nontender Ext: unremarkable Skin: no rash. Tattoos. Psoriatic like patches on legs back arms and buttocks. Neuro: no focal findings Labs: as above, WBC-4.5 ALT/AST-86/63 Cr-1.12 IMP: 1) HIV now off of ART, 2) Hep C, 3) rash (looks like psoriasis) Plan: -Continue ART; urged him to continue. -Pt needs a Derm and or Rheum consult for management of what looks like psoriasis. -Repeat CBC, chemistry 6 panel, hepatic panel, HIV viral load, CD4 counts, and fasting lipids in 2-3 months -Return to [facility] telemedicine clinic in 4-5 months with labs available at least one day prior to appt. in this encounter Reason for Referral Specialty Diagnoses / Procedures Referred By Contac t Referred To Contact Procedures ECG Jasson Abernathy MD [address] [place] [address] Referral ID Status Reason Start Date Expiration Date V isits Requested Visits Authorized [id number] New Request 12/05/2023 12/29/2024 1 1 Additional Source Comments ED Notes - Valerie Singh RN - 10/13/2017 2:21 PM EDTED Notes - Simran Meza RN - 10/13/2017 2:21 PM EDT Miscellaneous Notes (unrecog nized section and content) Patient arrived via van with CO from [facility]. Patient states he fell a few weeks ago and his leg has been hurting since. Patient had a D-Dimer drawn on Friday and it was elevated so [employer]BER wanted him seen to R/O blood clot. Bed: 16 Expected date: Expected time: Means of arrival: Comments: mciin this encounter (unrecognized sect ion and content) No Status Records FoundNo Status Records FoundNo Status Records FoundNo Status Records FoundNo Status Records FoundNo Status Records FoundNo Status Records FoundNo Status Records FoundNo Status Records Found INFORMATION SOURCE (unrecogn ized section and content) DATE CREATED AUTHOR 11/27/2017 [facility] DATE CREATED AUTHOR AUTHOR'S ORGANIZ ATION 10/04/2021 [facility] ([place]) DATE CREATED AUTHOR AUTHOR'S ORGANIZ ATION 10/26/2021 [facility] DATE CREATED AUTHOR AUTHOR'S ORGANIZ ATION 11/06/2021 [facility] DATE CREATED AUTHOR AUTHOR'S ORGANIZ ATION 12/27/2021 [facility] DATE CREATED AUTHOR AUTHOR'S ORGANIZ ATION 06/26/2022 Lenard Nolasco [facility] DATE CREATED AUTHOR AUTHOR'S ORGANIZ ATION 12/11/2023 [facility] DATE CREATED AUTHOR AUTHOR'S ORGANIZ ATION 02/11/2024 [facility] DATE CREATED AUTHOR AUTHOR'S ORGANIZ ATION 02/22/2024 APJOSÉ REDJASON El Reason for Visit (unrecogniz ed section and content) Reason Comments [facility] Reason Comments Drug Overdose EMS is called out to night for patient c/o chest pain and having aggressive behavior at [place]. Patient arrives in ambulance combative and spitting in EMS face. Patient is physically restrained by 3 EMS, 1 police justice, and 2 healthcare providers. Aggressive Behavior Reason Comments Anxiety Care Team (unrecognized sect ion and content) Flower Stripper Relationship Specialty Start Date End Date [facility] Other [address] [place] [address] PCP - General Other 01/13/15 Scheduled Active and Recently Administ ered Medications (unrecognized section and content) Medication Order 12/19/2021 12/20/2021 12/21/2021 0.9 % sodium chloride bolus (COMPLETED) 1,000 mL (13 mL/kg), IntraVENous, at 983.6 mL/hr, Administer over 61 Minutes, ONCE, On Fri12/21/21 at 0100, For 1 dose 0056 (New Bag - Prov ider: Matt Esteban RN)0155 (Stopped - Provider: Rakan Vera RN) FOR RECORDS PERTAINING TO PATIENTS WHO ARE OR HAVE BEEN ENROLLED IN A CHEMICAL DEPENDENCY/SUBSTANCEABUSE PROGRAM, SOME INFORMATION MAY BE OMITTED. This clinical summary was aggregated from multiple sources. Caution should be exercised in using it in the provision of clinical care. This summary normalizes information from multiple sources, and as a consequence, information in this document may materially change the coding, format and clinical context of patient data. In addition, data may be omitted in some cases. CLINICAL DECISIONS SHOULD BE BASED ON THE PRIMARY CLINICAL RECORDS. [facility] [employer] [facility]. provides no warranty or guarantee of the accuracy or completeness of information in this document.
--- NOTE | 2024-03-01 13:49 | CM.DCFOLLOWU ---
phone number is disconnected, no other number listed 03/01/24
== END 2024-02-28 12:11 | disposition home or self-care (01) ==
LOC: ER 20:12 → ICU 21:49
PROVIDERS: Emergency Medicine; Registered Nurse; Admitting Provider Internal Medicine; Emergency Provider Internal Medicine; Visit Provider Internal Medicine
DX: F15.951 Other stimulant use, unspecified with stimulant-induced psychotic disorder with hallucinations (principal); F20.0 Paranoid schizophrenia; F11.91 Opioid use, unspecified, in remission; L40.9 Psoriasis, unspecified; R74.01 Elevation of levels of liver transaminase levels; B18.2 Chronic viral hepatitis C; Z79.899 Other long term (current) drug therapy; F17.200 Nicotine dependence, unspecified, uncomplicated
CPT/HCPCS: 36415; 51702; 71045; 80048; 80053; 80076; 80179; 80307; 80320; 80329; 81001; 83735; 85025; 87086; 93005; 94761; 96365; 96366; 96375; 99285; G0378; J2405; J3480

== ENCOUNTER 2024-03-03 04:28 | Emergency (ER) | payer OTHER, SELFPAY ==
[2024-03-03 04:28] VITALS: BP 160/100; PULSE 100; TEMP 37.2; O2SAT 96; BMI 22.5
--- NOTE | 2024-03-03 04:41 | ECG_ITS ---
[facility] Test Date: 2024-03-03 Pat Name: ELLEN HA Department: Room: - Gender: Male [employer] Developer: : 1975 Requested By: [id number] Order Number: [id number] Reading MD: MELONY BARBER Measurements Intervals Evangeline Rate: 98 P: 68 UT: 128 QRS: 85 QRSD: 94 T: 52 QT: 352 QTc: 407 Interpretive Statements 1100 Sinus rhythm 4068 Nonspecific Twave abnormality 9130 borderline ECG Compared to ECG 02/27/2024 18:47:43 Sinus tachycardia no longer present Electronically Signed On 03-03-2024 6:48:26 EDT by MELONY BARBER
--- NOTE | 2024-03-03 04:44 | ED.GENADUL1 ---
HPI HPI - General Adult General Chief complaint: Psychiatric Symptoms Stated complaint: other Time Seen by Provider: 03/03/24 04:36 Source: patient Mode of arrival: ambulance Limitations: altered mental status History of Present Illness HPI narrative: 48-year-old male presented to the emergency department for evaluation. He does not seem to have any physical complaints now. He reports that he was doing drugs all day, specifically methamphetamine. Apparently he called the paramedics but when they arrived he was not there. Eventually he was located and he was transported here by police and paramedics he has no chest pain and has had no trauma. He is not short of breath. He complains of a pain on the left side of his abdomen but gives no trauma. Related Data Home Medications ?Medication ?Instructions ?Recorded ?Confirmed risperidone 2 mg tablet (Risperdal) 2 mg PO DAILY 03/03/24 03/03/24 Previous Rx's ?Medication ?Instructions ?Recorded buspirone 15 mg tablet 15 mg PO BID #60 tabs 02/28/24 triamcinolone acetonide 0.1 % 1 applic topical BID #15 grams 02/28/24 topical cream Allergies Allergy/AdvReac Type Severity Reaction Status Date / Time No Known Drug Allergies Allergy Verified 03/03/24 04:35 Opioid HPI Opioid Management Most Recent Opioid Data: Last Pain Assessment 02/28/24 11:00 Last ORT Total Score 4 02/27/24 21:58 Last ORT Risk Category Moderate Risk 02/27/24 21:58 Ur Phencyclidine Scrn Negative (NEGATIVE) 02/27/24 18:50 Review of Systems ROS Narrative A ten point review of systems is negative except as noted above. [facility] Medical History (Updated 03/03/24 @ 05:02 by Brayden Barrientos MD) Psoriasis ?L40.9 - Psoriasis, unspecified (ICD-10) Paranoid type schizophrenia ?F20.0 - Paranoid schizophrenia (ICD-10) Opioid use disorder in remission ?F11.91 - Opioid use, unspecified, in remission (ICD-10) Released from shelter Schizo-affective schizophrenia, chronic condition ?F25.9 - Schizoaffective disorder, unspecified (ICD-10) Bipolar 1 disorder, depressed ?F31.9 - Bipolar disorder, unspecified (ICD-10) Hep C w/o coma, chronic ?B18.2 - Chronic viral hepatitis C (ICD-10) HIV (human immunodeficiency virus infection) ?Z21 - Asymptomatic human immunodeficiency virus [HIV] infection status (ICD-10) Panic attack ?F41.0 - Panic disorder [episodic paroxysmal anxiety] (ICD-10) Social History (Updated 02/28/24 @ 11:04 by Shaikh Naren MD) Within the past year, how often did you have a drink containing alcohol: monthly or less Within the past year, how many standard drinks containing alcohol did you have on a typical day: 1 or 2 Within the past year, how often did you have six or more drinks on one occasion: never Total score: 0 Score interpretation: A score less than 4 is consistent with normal alcohol consumption. Smoking status: Current every day smoker Non-prescribed substance use: former substance user Exam Narrative Exam Narrative: Nurses note and vital signs reviewed and patient is not hypoxic. General: The patient appears in no apparent distress. Patient is resting comfortably on cart. Skin: Warm, dry, no pallor noted. There is no rash noted. Head: Normocephalic, atraumatic Eye: Normal conjunctiva, no drainage Ears, Nose, Mouth, and Throat: oral mucosa is moist. Nares patent. Cardiovascular: Regular Rate and Rhythm Respiratory: Patient is in no distress, no accessory muscle use, lungs are clear to auscultation, no wheezing, rales or rhonchi Back: non-tender GI: no tenderness to palpation except in a small focal area on the left side of his abdomen laterally. No bruise or rash in that area., no masses appreciated. No rebound, guarding, or rigidity noted. Musculoskeletal: The patient has no evidence of calf tenderness, no pitting edema, symmetrical pulses noted bilaterally Neurological: A&O x4, normal speech Psychiatric: Cooperative, does not make eye contact Constitutional Vital Signs, click to edit/add: Last Vital Signs Temp 98.9 F 03/03/24 04:28 Pulse 100 H 03/03/24 04:28 Resp 20 03/03/24 04:28 BP 160/100 H 03/03/24 04:28 Pulse Ox 96 03/03/24 04:28 O2 Del Method Room Air 03/03/24 04:28 Course Vital Signs Vital signs: Vital Signs Temperature 98.9 F 03/03/24 04:28 Pulse Rate 100 H 03/03/24 04:28 Respiratory Rate 20 03/03/24 04:28 Blood Pressure 160/100 H 03/03/24 04:28 Pulse Oximetry 96 03/03/24 04:28 Oxygen Delivery Method Room Air 03/03/24 04:28 Temperature 98.9 F 03/03/24 04:28 Pulse Rate 100 H 03/03/24 04:28 Respiratory Rate 20 03/03/24 04:28 Blood Pressure 160/100 H 03/03/24 04:28 Pulse Oximetry 96 03/03/24 04:28 Oxygen Delivery Method Room Air 03/03/24 04:28 Medical Decision Making MDM Narrative Medical decision making narrative: The intention was to run a series of tests on the patient but he is refusing to have blood drawn or to have an x-ray performed. An EKG was done which is normal. He does not want any more treatment and he is being discharged. He is not suicidal and he is fully able to make medical decisions for himself. Differential Diagnosis Differential Diagnosis: Substance abuse, paranoia ECG Data Attestation: I personally reviewed and interpreted this ECG as follows: (EKG on my interpretation shows sinus rhythm with a rate of 98 and no acute findings.) Discharge Plan Discharge Chief Complaint: Psychiatric Symptoms Clinical Impression: Substance abuse Patient Disposition: Home, Self-Care Time of Disposition Decision: 05:01 Condition: Good Mode of Transportation: Private Vehicle Prescriptions / Home Meds: No Action buspirone 15 mg tablet 15 mg PO BID Qty: 60 0RF triamcinolone acetonide 0.1 % cream 1 applic topical BID Qty: 15 0RF risperidone [Risperdal] 2 mg tablet 2 mg PO DAILY Print Language: Slovak Instructions: Polysubstance Use Disorder (ED) Referrals: Physician,Non-Staff, MD [Primary Care Provider] - 1 week
--- OUTSIDE RECORDS SUMMARY | 2024-03-03 05:02 | XMS_ITS | CCD ---
Author Organization [facility] Care Team Providers Care Crts Name Role Phone No, Physician Unavailable Unavailable JACOB PENG Unavailable Unavailciara mendoza NO, PHYSICIAN Unavailable Unavailable [facility] ([facility]), Other Unav ailable RYNE TAN MD Primary [...] TAN Admitting Unavailable SANNA TAN Attending Unavailable [facility] ([facility]), Other Prim ollie Care Provider EMILY FENG Attending Unavailable [facility] [place] [place] OTHER Prim ollie Care Unavailable RYNE TAN MD Attending Unava ilRYNE Cui MD Primary Care Unava RYNE Woo MD Primary Care Unava ilRYNE Cui MD Attending Unava ilable Allergies Allergy Classification Reported Allergen(s) Allergy Type Date of Onset Reaction(s) Facility (2 sources) *PEAS - FOOD ALLERGY Propensity to adverse reactions to drug 5 Shortness of Breath [facility] Work Phone: (1 source) Food Propensity to adverse reactions to drug 5 Shortness Of Breath [facility] Medications Current Medications Medication Drug Class(es) Dates [...] glen, Topical, BID, 45 gram, Refill(s) 0, [facility], 185.4, cm, 12/25/21 14:39:00 EDT, Height/Length Dosing, 76.3, kg, 12/25/21 14:39:00 EDT, Weight Dosing Start Date: 03/16/22 Status: Ordered cetirizine hydrochloride 10 mg oral tablet (1 source) Histamine-1 Receptor Antagonist Start: 04-05-2022 take 1 tablet by mouth at bedtime cetirizine 10 mg Tab 10 mg = 1 tab(s), Oral, Bedtime, # 30 tab(s), Refills(s) 0, Pharmacy: [facility], 185.4, cm, 12/25/21 14:39:00 EDT, Height/Length Dosing, 76.3, kg, 12/25/21 14:39:00 EDT, Weight Dosing Start Date: 04/05/22 Status: Ordered clobetasol propionate 0.0005 mg/mg topical ointment (2 sources) Corticosteroid Start: 12-29-2021 clobetasol propionate 0.05% top oint 1 glen, Topical, BID, 45 gram, Refill(s) 0, [facility], 185.4, cm, 12/25/21 14:39:00 EDT, Height/Length Dosing, 76.3, kg, 12/25/21 14:39:00 EDT, Weight Dosing Start Date: 12/29/21 Status: Ordered coal tar 0.02 mg/mg topical ointment (2 sources) Start: 04-22-2022 coal tar topical 2% ointment 1 glen, Topical, BID, 120 gram, Refill(s) 0, Apply thin layer to affected are of skin, [facility], 185.4, cm, 12/25/21 14:39:00 [...] take 1 tablet by mouth once daily szbqpeviuxup-fkrzydtsuu-vxinecactytsz-te nofovir (STRIBILD) [id number] MG tablet Take 1 tablet by mouth [...] Daily, # 30 tab(s), Refills(s) 3, Pharmacy: [facility]/pharmacy #[id number], 185.4, cm, 12/25/21 14:39:00 EDT, Height/Length [...] BID., # 60 tab(s), Refills(s) 0, Pharmacy: [facility], 185.4, cm, 12/25/21 14:39:00 EDT, Height/Length Dosing, 76.3, kg, 12/25/21 14:39:00 EDT, Weight Dosing Start Date: 03/06/22 Status: Ordered DULoxetine 20 mg Cap-EC (1 source) Start: 03-06-2022 DULoxetine 20 mg Cap-EC See Instructions, 1 cap daily for 7 days then increase to BID., # 60 tab(s), Refills(s) 0, Pharmacy: [facility], 185.4, cm, 12/25/21 14:39:00 EDT, Height/Length Dosing, 76.3, kg, 12/25/21 14:39:00 EDT, Weight Dosing Start Date: 03/06/22 Status: Ordered emtricitabine 200 mg / tenofovir alafenamide 25 mg oral tablet (4 sources) Human Immunodeficiency Virus Nucleoside Analog Reverse Transcriptase Inhibitor Start: 03-25-2022 Descovy 200 mg-25 mg oral tablet 1 tab(s), Oral, Daily, 30 tab(s), Refill(s) 3, [facility]/pharmacy #[id number], 185.4, cm, 12/25/21 14:39:00 EDT, Height/Length [...] BID, # 60 tab(s), Refills(s) 0, Pharmacy: [facility], 185.4, cm, 12/25/21 14:39:00 EDT, Height/Length Dosing, [...] Daily, # 30 cap(s), Refills(s) 0, Pharmacy: [facility], 185.4, cm, 12/25/21 14:39:00 EDT, Height/Length Dosing, [...] days, # 33 tab(s), Refills(s) 0, Pharmacy: [facility], 185.4, cm, 12/25/21 14:39:00 EDT, Height/Length Dosing, 76.3, kg, 12/25/21 14:39:00 EDT,... Start Date: 04/12/22 Status: Ordered propranolol hydrochloride 20 mg oral tablet (5 sources) beta-Adrenergic Franco Start: 01-23-2022 take 1 tablet by mouth twice daily propranolol 20 mg Tab 20 mg = 1 tab(s), Oral, BID, # 60 tab(s), Refills(s) 0, Pharmacy: [facility], 185.4, cm, 12/25/21 14:39:00 EDT, Height/Length Dosing, [...] 11-06-2021 Chronic Other aftercare (1 source) Other nursing home (current) drug therapy; Translations: [OTH [facility] CURRENT DRUG THERAPY] Onset: 11-06-2021 Episodic Other [...] Results Test Name Value Interpretation Reference Range [address] 02-20-2024 % B Cells 16 % Normal 5-25 [facility] Comment on above: Performed By: #### A SONJA, RPR, [id number], CBC, CMP, TRIG, CHOL, GFR, ADIFF #### [address] [address] % CD4 Cells 30 % Normal 30-61 [facility] Comment on above: Performed By: #### A SONJA, RPR, [id number], CBC, CMP, TRIG, CHOL, GFR, ADIFF #### [facility] [address] [place] [address] % CD56+/16+ 8 % Normal 5-30 [facility] Comment on above: Performed By: #### A SONJA, RPR, 891045, CBC, CMP, TRIG, CHOL, GFR, ADIFF #### [address] [address] % CD8 Cells 45 % High 12-42 [facility] Comment on above: Performed By: #### A SONJA, RPR, 945118, CBC, CMP, TRIG, CHOL, GFR, ADIFF #### [address] [address] % T Cells 76 % Normal 52-84 [facility] Comment on above: Performed By: #### A SONJA, RPR, 211372, CBC, CMP, TRIG, CHOL, GFR, ADIFF #### [address] [address] B Cells (CD 19) 243 /uL Normal 71-567 [facility] Comment on above: Performed By: #### A SONJA, RPR, 918084, CBC, CMP, TRIG, CHOL, GFR, ADIFF #### [address] [address] CD4 Cells 575 /uL Normal 401-1532 [facility] Comment on above: Performed By: #### A SONJA, RPR, 803798, CBC, CMP, TRIG, CHOL, GFR, ADIFF #### [address] [address] CD4/CD8 Ratio 0.68 ratio Low 0.88-3.84 [facility] Comment on above: Performed By: #### A SONJA, RPR, 300349, CBC, CMP, TRIG, CHOL, GFR, ADIFF #### [address] [address] CD56+/16+ NK Cells 120 /uL Normal 80-597 AULTMA N [facility] Comment on above: Performed By: #### A SONJA, RPR, 175121, CBC, CMP, TRIG, CHOL, GFR, ADIFF #### [address] [address] CD8 Cells 850 /uL High 152-838 [facility] Comment on above: Performed By: #### A SONJA, RPR, 693880, CBC, CMP, TRIG, CHOL, GFR, ADIFF #### [address] [address] Lymphocytes (Bld) [#/Vol] 1.676 10*3/uL Normal 660-4600 [facility] Comment on above: Performed By: #### A SONJA, RPR, 574303, CBC, CMP, TRIG, CHOL, GFR, ADIFF #### [place] [id number] T Cells 1313 /uL Normal 582-1992 [facility] Comment on above: Performed By: #### A SONJA, RPR, 140186, CBC, CMP, TRIG, CHOL, GFR, ADIFF #### [place] [address] HIVLDon 02-18-2024 HIV 1 RNA PCR <20 Normal [facility] Comment on above: Result Comment: HIV- 1 RNA not detected The reportable range for this assay is 20 to 10,000,000 copies HIV-1 RNA/mL. Performed By: #### A SONJA, RPR, 236073, CBC, CMP, TRIG, CHOL, GFR, ADIFF #### [place] [address] log10 HIV1 RNA COMMENT Normal [facility] Comment on above: Result Comment: Unab le to calculate result since non-numeric result obtained for component test. Performed At: [address] [id number] Iván Gaspar MD Ph:[phone] Performed By: #### A SONJA, RPR, 410773, CBC, CMP, TRIG, CHOL, GFR, ADIFF #### [place] [address] TCANCon 02-18-2024 Test cancelled: HELP1 Normal [facility] Comment on above: Order Comment: No al iquot received for HELP1 testing. Performed By: #### T CANC #### [place] [address] RPRon 02-17-2024 Reagin Ab RPR Ql (S) Non-Reactive Normal Non-Reactive [facility] Comment on above: Result Comment: The [...] globulins. Performed By: #### A SONJA, RPR, 369686, CBC, CMP, TRIG, CHOL, GFR, ADIFF #### [address] [address] .Auto Diffon 02-16-2024 Basophil, Absolute 0.1 10 3/mcL Normal 0.0-0.3 BRANDIN MAN [facility] Comment on above: Performed By: #### A SONJA, RPR, 591140, CBC, CMP, TRIG, CHOL, GFR, ADIFF #### [place] [address] Basophils/100 WBC (Bld) 1.1 % Normal 0.0-2.5 [facility] Comment on above: Performed By: #### A SONJA, RPR, 557171, CBC, CMP, TRIG, CHOL, GFR, ADIFF #### [address] [address] Eosinophil, Absolute 0.4 10 3/mcL Normal 0.0-0.7 AU LTMAN [facility] Comment on above: Performed By: #### A SONJA, RPR, 089259, CBC, CMP, TRIG, CHOL, GFR, ADIFF #### [address] [address] Eosinophils/100 WBC (Bld) 8.6 % High 0.0-6.0 [facility] Comment on above: Performed By: #### A SONJA, RPR, 192777, CBC, CMP, TRIG, CHOL, GFR, ADIFF #### [address] [address] Lymphocyte, Absolute 1.5 10 3/mcL Normal 0.9-4.3 AU LTMAN [facility] Comment on above: Performed By: #### A SONJA, RPR, 593911, CBC, CMP, TRIG, CHOL, GFR, ADIFF #### [address] [address] Lymphocytes/100 WBC (Bld) 31.5 % Normal 20.0-40.0 [facility] Comment on above: Performed By: #### A SONJA, RPR, 168580, CBC, CMP, TRIG, CHOL, GFR, ADIFF #### [facility] [address] [place] [address] Monocyte, Absolute 0.4 10 3/mcL Normal 0.1-1.4 [facility] Comment on above: Performed By: #### A SONJA, RPR, 615004, CBC, CMP, TRIG, CHOL, GFR, ADIFF #### [place] [address] [place] [address] Monocytes/100 WBC (Bld) 9.1 % Normal 2.0-13.0 [facility] Comment on above: Performed By: #### A SONJA, RPR, 522010, CBC, CMP, TRIG, CHOL, GFR, ADIFF #### [place] [address] [place] [address] Neutrophils/100 WBC (Bld) 49.7 % Low 50.0-75.0 [facility] Comment on above: Performed By: #### A SONJA, RPR, 930287, CBC, CMP, TRIG, CHOL, GFR, ADIFF #### [address] [address] .GFRon 02-16-2024 GFR >60 Normal BRANDIN MAN [...] meters Performed By: #### A SONJA, RPR, 705442, CBC, CMP, TRIG, CHOL, GFR, ADIFF #### [address] [address] GFR Non- >60 Normal [facility] Comment [...] meters Performed By: #### A SONJA, RPR, 250590, CBC, CMP, TRIG, CHOL, GFR, ADIFF #### [address] [address] .NEUABSon 02-16-2024 Neutrophil, Absolute 2.4 10 3/mcL Normal 2.3-8.1 AU LTMAN [facility] Comment on above: Performed By: #### A SONJA, RPR, 544450, CBC, CMP, TRIG, CHOL, GFR, ADIFF #### [address] [address] CBCon 02-16-2024 Erythrocyte distribution width (RBC) [Ratio] 13.8 % Normal 11.5-15.5 [facility] Comment on above: Performed By: #### A SONJA, RPR, 441132, CBC, CMP, TRIG, CHOL, GFR, ADIFF #### [address] [address] Hematocrit (Bld) [Volume fraction] 46.1 % Normal 40.0-52.0 [facility] Comment on above: Performed By: #### A SONJA, RPR, 873105, CBC, CMP, TRIG, CHOL, GFR, ADIFF #### [address] [address] Hgb 15.3 G/dL Normal 13.0-17.5 [facility] Comment on above: Performed By: #### A SONJA, RPR, 961146, CBC, CMP, TRIG, CHOL, GFR, ADIFF #### [place] [address] MCH (RBC) [Entitic mass] 31.6 pg Normal 27.0-33.0 [facility] Comment on above: Performed By: #### A SONJA, RPR, 212881, CBC, CMP, TRIG, CHOL, GFR, ADIFF #### [place] [address] MCHC 33.3 G/dL Normal 32.0-36.0 [facility] Comment on above: Performed By: #### A SONJA, RPR, 983786, CBC, CMP, TRIG, CHOL, GFR, ADIFF #### [place] [address] MCV (RBC) [Entitic vol] 95.0 fL Normal 81.0-100.0 [facility] Comment on above: Performed By: #### A SONJA, RPR, 658899, CBC, CMP, TRIG, CHOL, GFR, ADIFF #### [place] [address] Platelet 209 10 3/mcL Normal 150-450 [facility] Comment on above: Performed By: #### A SONJA, RPR, 970242, CBC, CMP, TRIG, CHOL, GFR, ADIFF #### [place] [address] Platelet mean volume (Bld) [Entitic vol] 8.5 fL Normal 6.4-10.5 [facility] Comment on above: Performed By: #### A SONJA, RPR, 593284, CBC, CMP, TRIG, CHOL, GFR, ADIFF #### [place] [address] RBC 4.86 10 6/mcL Normal 4.50-6.00 [facility] Comment on above: Performed By: #### A SONJA, RPR, 474125, CBC, CMP, TRIG, CHOL, GFR, ADIFF #### [address] [address] WBC 4.9 10 3/mcL Normal 4.5-10.8 [facility] Comment on above: Performed By: #### A SONJA, RPR, 817152, CBC, CMP, TRIG, CHOL, GFR, ADIFF #### [address] [address] CHOLon 02-16-2024 Cholesterol [Mass/Vol] 130 mg/dL Normal 50-199 [facility] Comment on above: Result Comment: Chol esterol Reference Interval: Less than 200 Desirable 200-239 Borderline high risk 240 and above High risk Performed By: #### A SONJA, RPR, 347616, CBC, CMP, TRIG, CHOL, GFR, ADIFF #### [address] [address] CMPon 02-16-2024 Albumin Level 3.8 G/dL Normal 3.2-4.8 [facility] Comment on above: Performed By: #### A SONJA, RPR, 614740, CBC, CMP, TRIG, CHOL, GFR, ADIFF #### [address] [address] Albumin/Globulin [Mass ratio] 1.3 {ratio} Normal 0.9-1.6 [facility] Comment on above: Performed By: #### A SONJA, RPR, 960115, CBC, CMP, TRIG, CHOL, GFR, ADIFF #### [address] [address] ALP [Catalytic activity/Vol] 106 U/L Normal 38-126 [facility] Comment on above: Performed By: #### A SONJA, RPR, 490927, CBC, CMP, TRIG, CHOL, GFR, ADIFF #### [address] [address] ALT [Catalytic activity/Vol] 69 U/L High 12-55 [facility] Comment on above: Performed By: #### A SONJA, RPR, 386186, CBC, CMP, TRIG, CHOL, GFR, ADIFF #### [address] [address] AST [Catalytic activity/Vol] 36 U/L High 8-34 [facility] Comment on above: Performed By: #### A SONJA, RPR, 208270, CBC, CMP, TRIG, CHOL, GFR, ADIFF #### [address] [address] Bili Total 0.40 mg/dL Normal 0.20-1.20 [facility] Comment on above: Result Comment: Use of this assay is not recommended for patients undergoing treatment with eltrombopag due to the potential for falsely elevated results. Performed By: #### A SONJA, RPR, 762326, CBC, CMP, TRIG, CHOL, GFR, ADIFF #### [place] [id number] BUN/Creatinine Ratio 17.7 ratio Normal 10.0-22.0 BR[facility] Comment on above: Performed By: #### A SONJA, RPR, 727096, CBC, CMP, TRIG, CHOL, GFR, ADIFF #### [address] [address] Calcium [Mass/Vol] 9.8 mg/dL Normal 8.7-10.4 AULTMA N [facility] Comment on above: Performed By: #### A SONJA, RPR, 274305, CBC, CMP, TRIG, CHOL, GFR, ADIFF #### [address] [address] Chloride [Moles/Vol] 107 mmol/L Normal 98-110 BRANDIN MAN [facility] Comment on above: Performed By: #### A SONJA, RPR, 994023, CBC, CMP, TRIG, CHOL, GFR, ADIFF #### [address] [address] CO2 [Moles/Vol] 30 mmol/L Normal 22-32 [facility] Comment on above: Performed By: #### A SONJA, RPR, 480700, CBC, CMP, TRIG, CHOL, GFR, ADIFF #### [address] [address] Creatinine [Mass/Vol] 0.96 mg/dL Normal 0.60-1.40 AUL TMAN [facility] Comment on above: Result Comment: Test ing performed on [employer] analyzer using enzymatic creatinine methodology. Performed By: #### A SONJA, RPR, 235972, CBC, CMP, TRIG, CHOL, GFR, ADIFF #### [address] [address] Electrolyte Balance 6.0 mEq/L Normal 4.0-15.0 AULTM AN [facility] Comment on above: Performed By: #### A SONJA, RPR, 411251, CBC, CMP, TRIG, CHOL, GFR, ADIFF #### [address] [address] Globulin 3.0 G/dL Normal 1.5-3.8 [facility] Comment on above: Performed By: #### A SONJA, RPR, 620141, CBC, CMP, TRIG, CHOL, GFR, ADIFF #### [address] [address] Glucose [Mass/Vol] 88 mg/dL Normal 70-110 AULTMA N [facility] Comment on above: Performed By: #### A SONJA, RPR, 385077, CBC, CMP, TRIG, CHOL, GFR, ADIFF #### [address] [address] Potassium [Moles/Vol] 4.4 mmol/L Normal 3.5-5.0 AUL TMAN [facility] Comment on above: Performed By: #### A SONJA, RPR, 403581, CBC, CMP, TRIG, CHOL, GFR, ADIFF #### [address] [address] Sodium [Moles/Vol] 143 mmol/L Normal 136-145 AULTMA N [facility] Comment on above: Performed By: #### A SONJA, RPR, 952654, CBC, CMP, TRIG, CHOL, GFR, ADIFF #### [address] [address] Total Protein 6.8 G/dL Normal 5.7-8.2 [facility] Comment on above: Result Comment: No te - New Reference Range in effect 19 Performed By: #### A SONJA, RPR, 788228, CBC, CMP, TRIG, CHOL, GFR, ADIFF #### [address] [address] Urea nitrogen [Mass/Vol] 17.0 mg/dL Normal 8.0-22.0 [facility] Comment on above: Performed By: #### A SONJA, RPR, 691104, CBC, CMP, TRIG, CHOL, GFR, ADIFF #### [address] [address] TRIGon 02-16-2024 Triglyceride [Mass/Vol] 93 mg/dL Normal 3-149 [facility] Comment on above: Performed By: #### A SONJA, RPR, 384015, CBC, CMP, TRIG, CHOL, GFR, ADIFF #### [address] [address] 36on 02-10-2024 36 Received a message from patient. He indicated that he was not coming to this area and cancelled his appointment with Yoanna for Feb 16. Stull Installer contacted Ava Kilgore, Community Linkage Coordinator at [facility] to make her aware. She will follow up with the patient. Normal [facility] Telephoneon 02-10-2024 Telephone [phone] [place]ro[place] 1975 M Date Provider Department Center 02/10/2024 LUNA MEADOWS [facility] Chart Close Cosign Required by: Yoanna Wilkinson NP[[id number]] No family history on file Normal [facility] Orders Onlyon 01-23-2024 Orders Only [id number] ChinyereSeabrook 1975 M Date Provider Department Center 01/23/2024 [id number] WERNER [facility] No family history on file Normal [facility] URINE DRUG SCREEN 10Ordered By: Simran Will on 12-06-2023 Amphetamine+Methamphe tamine Screen (U) [Mass/Vol] Positive Abnormal Cutoff: 500 ng/mL [facility] Barbiturates Ql (U) Not detected Cutoff: 200 ng/mL [facility] Benzodiazepines Ql (U) Not detected Cutoff: 200 ng/mL [facility] Buprenorphine Ql (U) Not detected Cutoff: 5 ng/mL [facility] Cannabinoids Screen Ql (U) Not detected Cutoff: 50 ng/mL [facility] Cocaine Ql (U) Not detected Cutoff: 150 ng/mL [facility] fentaNYL Ql (U) Not detected Cutoff: 1 ng/mL [facility] Interpretation and review of laboratory results Abnormal [facility] Methadone Ql (U) Not detected Cutoff: 300 ng/mL [facility] Opiates Ql (U) Not detected Cutoff: 300 ng/mL [facility] oxyCODONE Ql (U) Not detected Cutoff: 100 ng/mL [facility] For medical purposes only. Positive results are unconfirmed unless otherwise noted. [facility] URINE DRUG SCREEN 12-05 Amphetamine/Methamphe tamine Positive Abnormal Cutoff: 500 ng/mL [facility] Comment on above: Order Comment: For edical purposes only. Positive results are unconfirmed unless otherwise noted. Performed By: #### 1 0DRUG #### [facility] (DEFAULT) [address] [address] Barbiturates Not detected Normal Cutoff: 200 ng/mL [facility] Comment on above: Order Comment: For edical purposes only. Positive results are unconfirmed unless otherwise noted. Performed By: #### 1 0DRUG #### [facility] (DEFAULT) [address] [address] Benzodiazepines Not detected Normal Cutoff: 200 ng/mL [facility] Comment on above: Order Comment: For m edical purposes only. Positive results are unconfirmed unless otherwise noted. Performed By: #### 1 0DRUG #### [facility] (DEFAULT) [address] [address] Buprenorphine Not detected Normal Cutoff: 5 ng/mL [facility] Comment on above: Order Comment: For m edical purposes only. Positive results are unconfirmed unless otherwise noted. Performed By: #### 1 0DRUG #### [facility] (DEFAULT) [address] [address] Cannabinoids Screen Ql (U) Not detected Normal Cutoff: 50 ng/mL [facility] Comment on above: Order Comment: For m edical purposes only. Positive results are unconfirmed unless otherwise noted. Performed By: #### 1 0DRUG #### [facility] (DEFAULT) [address] [address] Cocaine Not detected Normal Cutoff: 150 ng/mL [facility] Comment on above: Order Comment: For m edical purposes only. Positive results are unconfirmed unless otherwise noted. Performed By: #### 1 0DRUG #### [facility] (DEFAULT) [address] [address] Fentanyl Not detected Normal Cutoff: 1 ng/mL [facility] Comment on above: Order Comment: For m edical purposes only. Positive results are unconfirmed unless otherwise noted. Performed By: #### 1 0DRUG #### [facility] (DEFAULT) [address] [address] Methadone Not detected Normal Cutoff: 300 ng/mL [facility] Comment on above: Order Comment: For m edical purposes only. Positive results are unconfirmed unless otherwise noted. Performed By: #### 1 0DRUG #### [facility] (DEFAULT) [address] [address] Opiates Not detected Normal Cutoff: 300 ng/mL [facility] Comment on above: Order Comment: For m edical purposes only. Positive results are unconfirmed unless otherwise noted. Performed By: #### 1 0DRUG #### [facility] (DEFAULT) [address] [address] Oxycodone Not detected Normal Cutoff: 100 ng/mL [facility] Comment on above: Order Comment: For m edical purposes only. Positive results are unconfirmed unless otherwise noted. Performed By: #### 1 0DRUG #### [facility] (DEFAULT) [address] [place] [address] CBC AND ELECTRONIC DIFFon Basophils (Bld) [#/Vol] K/uL 0.00 - 0.09 K/uL [facility] Basophils/100 WBC (Bld) 0.4 % [facility] Differential cell count method Nom (Bld) Electronic Differential [facility] Eosinophils (Bld) [#/Vol] 0.06 10*3/uL 0.00 - 0.48 K/uL [facility] Eosinophils/100 WBC (Bld) 0.8 % [facility] Erythrocyte distribution width (RBC) [Ratio] 13.7 % 10.9 - 14.3 % [facility] Hematocrit (Bld) [Volume fraction] 42.4 % 39.6 - 48.8 % [facility] Hemoglobin (Bld) [Mass/Vol] 14.9 g/dL 13.4 - 16.8 g/dL [facility] Immature granulocytes (Bld) [#/Vol] K/uL NINF - 0.07 K/uL [facility] Immature granulocytes/100 WBC (Bld) 0.3 % [facility] Lymphocytes (Bld) [#/Vol] 2.43 10*3/uL 0.83 - 3.57 K/uL [facility] Lymphocytes/100 WBC (Bld) 31.4 % [facility] MCH (RBC) [Entitic mass] 31.6 pg 26.1 - 33.3 pg [facility] MCHC (RBC) [Mass/Vol] 35.1 g/dL 31.9 - 36.5 g/dL [facility] MCV (RBC) [Entitic vol] 89.8 fL 79.0 - 94.5 fL [facility] Monocytes (Bld) [#/Vol] 0.57 10*3/uL 0.24 - 0.93 K/uL [facility] Monocytes/100 WBC (Bld) 7.4 % [facility] Neutrophils (Bld) [#/Vol] 4.62 10*3/uL 1.57 - 6.19 K/uL [facility] Nucleated RBC/100 WBC (Bld) [Ratio] 0.0 % NINF [facility] Platelet mean volume (Bld) [Entitic vol] 9.3 fL 8.7 - 12.3 fL [facility] Platelets (Bld) [#/Vol] 218 10*3/uL 146 - 337 K/uL [facility] RBC (Bld) [#/Vol] 4.72 10*6/uL [facility] Segmented neutrophils/100 WBC (Bld) 59.7 % [facility] WBC (Bld) [#/Vol] 7.73 10*3/uL 3.73 - 10. 10 K/uL [facility] Abs Baso Auto < Normal 0.00-0.09 [facility] Comment on above: Performed By: #### L [id number] #### [facility] (DEFAULT) [address] [address] Basophils/100 WBC (Bld) 0.4 % Normal [facility] Comment on above: Performed By: #### L [id number] #### [facility] (DEFAULT) [address] [address] DIFF STATUS Electronic Differential Normal [facility] Comment on above: Performed By: #### L [id number] #### [facility] (DEFAULT) [address] [address] Eosinophils (Bld) [#/Vol] 0.06 10*3/uL Normal 0.00-0.48 [facility] Comment on above: Performed By: #### L [id number] #### [facility] (DEFAULT) [address] [address] Eosinophils/100 WBC (Bld) 0.8 % Normal [facility] Comment on above: Performed By: #### L [id number] #### [facility] (DEFAULT) [address] [address] Hematocrit (Bld) [Volume fraction] 42.4 % Normal 39.6-48.8 [facility] Comment on above: Performed By: #### L [id number] #### [facility] (DEFAULT) [address] [address] Hemoglobin (Bld) [Mass/Vol] 14.9 g/dL Normal 13.4-16.8 [facility] Comment on above: Performed By: #### L [id number] #### [facility] (DEFAULT) [address] [address] Immature Grans % 0.3 % Normal [facility] Comment on above: Performed By: #### L [id number] #### [facility] [facility] (DEFAULT) [address] [address] Immature Grans Absolute < Normal <=0.07 [facility] Comment on above: Performed By: #### L [id number] #### [facility] (DEFAULT) [address] [address] Lymphocytes (Bld) [#/Vol] 2.43 10*3/uL Normal 0.83-3.57 [facility] Comment on above: Performed By: #### L [id number] #### [facility] (DEFAULT) [address] [address] Lymphocytes/100 WBC (Bld) 31.4 % Normal [facility] Comment on above: Performed By: #### L [id number] #### [facility] (DEFAULT) [address] [address] MCV (RBC) [Entitic vol] 89.8 fL Normal 79.0-94.5 [facility] Comment on above: Performed By: #### L [id number] #### [facility] (DEFAULT) [address] [address] Mean Cell Hgb 31.6 pg Normal 26.1-33.3 [facility] Comment on above: Performed By: #### L [id number] #### [facility] (DEFAULT) [address] [address] Mean Cell Hgb Conc 35.1 g/dL Normal 31.9-36.5 [facility] Comment on above: Performed By: #### L [id number] #### [facility] (DEFAULT) [address] [address] Monocytes (Bld) [#/Vol] 0.57 10*3/uL Normal 0.24-0.93 [facility] Comment on above: Performed By: #### L [id number] #### [facility] (DEFAULT) [address] [address] Monocytes/100 WBC (Bld) 7.4 % Normal [facility] Comment on above: Performed By: #### L [id number] #### [facility] (DEFAULT) [address] [address] Nucleated RBC 0.0 /100 WBC Normal <=0.2 [facility] Comment on above: Performed By: #### L [id number] #### [facility] (DEFAULT) [address] [place] [address] Platelet mean volume (Bld) [Entitic vol] 9.3 fL Normal 8.7-12.3 [facility] Comment on above: Performed By: #### L [id number] #### [facility] (DEFAULT) [address] [address] Platelets (Bld) [#/Vol] 218 10*3/uL Normal 146-337 [facility] Comment on above: Performed By: #### L [id number] #### [facility] (DEFAULT) [address] [address] RBC (Bld) [#/Vol] 4.72 10*6/uL Normal 4.38-5.83 [facility] Comment on above: Performed By: #### L [id number] #### [facility] (DEFAULT) [address] [place] [address] RBC Distribution 13.7 % Normal 10.9-14.3 [facility] Comment on above: Performed By: #### L AB980 #### [facility] (DEFAULT) [address] [place] [address] Segs + Bands Auto 59.7 % Normal [facility] Comment on above: Performed By: #### L [id number] #### [facility] (DEFAULT) [address] [place] [address] Segs + Bands,Absolute Auto 4.62 K/uL Normal 1.57-6.19 [facility] Comment on above: Performed By: #### L [id number] #### [facility] (DEFAULT) [address] [address] WBC (Bld) [#/Vol] 7.73 10*3/uL Normal 3.73-10.10 [facility] Comment on above: Performed By: #### L [id number] #### [facility] (DEFAULT) [address] [place] [address] [facility] 7 - EDon 12-05-2023 Anion gap [Moles/Vol] 15 mmol/L 7 - 17 mmol/L [facility] Chloride [Moles/Vol] 108 mmol/L 98 - 10 8 mmol/L [facility] CO2 [Moles/Vol] 21 mmol/L 21 - 31 mmol/L [facility] Creatinine [Mass/Vol] 1.09 mg/dL 0.70 - 1.30 mg/dL [facility] eGFR, CKD-EPI, Male 84 - PINF [facility] Comment on above: Reported eGFR is bas ed on the CKD-EPI 2020 equation using creatinine, age, and sex. Glucose [Mass/Vol] 100 mg/dL High 70 - 99 mg/dL [facility] Interpretation and review of laboratory results Abnormal [facility] Osmolality Calc [Osmolality] 293 [facility] Potassium [Moles/Vol] 4.3 mmol/L 3.5 - 5.0 mmol/L [facility] Sodium [Moles/Vol] 140 mmol/L 135 - 145 mmol/L [facility] Urea nitrogen [Mass/Vol] 13 mg/dL 7 - 25 mg/dL [facility] Urea nitrogen/Creatinine [Mass ratio] 12 mg/mg [facility] Anion gap [Moles/Vol] 15 mmol/L Normal 7-17 [facility] Comment on above: Performed By: #### C 7ED #### [facility] (DEFAULT) [address] [place] [address] Chloride [Moles/Vol] 108 mmol/L Normal 98-108 [facility] Comment on above: Performed By: #### C 7ED #### [facility] (DEFAULT) [address] [place] [address] CO2 [Moles/Vol] 21 mmol/L Normal 21-31 [facility] Comment on above: Performed By: #### C 7ED #### [facility] (DEFAULT) [address] [place] [address] Creatinine [Mass/Vol] 1.09 mg/dL Normal 0.70-1.30 [facility] Comment on above: Performed By: #### C 7ED #### [facility] (DEFAULT) [address] [place] [address] GFR/1.73 sq M.predicted among non-blacks MDRD (S/P/Bld) [Vol rate/Area] 84 mL/min/{1.73_m2} Normal >=60 [facility] Comment on above: Result Comment: Repo rted eGFR is based on the CKD-EPI 2020 equation using creatinine, age, and sex. Performed By: #### C 7ED #### [facility] (DEFAULT) [address] [place] [address] Glucose [Mass/Vol] 100 mg/dL High 70-99 [facility] Comment on above: Performed By: #### C 7ED #### [facility] (DEFAULT) [address] [place] [address] Osmolality [Osmolality] 293 mosm/kg Normal 278-305 [facility] Comment on above: Performed By: #### C 7ED #### [facility] (DEFAULT) [address] [place] [address] Potassium [Moles/Vol] 4.3 mmol/L Normal 3.5-5.0 [facility] Comment on above: Performed By: #### C 7ED #### [facility] (DEFAULT) [address] [place] [address] Sodium [Moles/Vol] 140 mmol/L Normal 135-145 [facility] Comment on above: Performed By: #### C 7ED #### [facility] (DEFAULT) [address] [place] [address] Urea nitrogen [Mass/Vol] 13 mg/dL Normal 7-25 [facility] Comment on above: Performed By: #### C 7ED #### [facility] (DEFAULT) [address] [place] [address] Urea nitrogen/Creatinine [Mass ratio] 12 mg/mg Normal [facility] Comment on above: Performed By: #### C 7ED #### [facility] (DEFAULT) [address] [place] [address] HIGH SENSITIVITY TROPONIN I - SINGLE ORDERon 12-05-2023 Interpretation and review of laboratory results Normal [facility] Troponin I.cardiac High sensitivity method [Mass/Vol] 48 ng/L NINF - 53 ng/L [facility] hs-Troponin I 48 ng/L Normal <53 [facility] Comment on above: Order Comment: Acute Coronary Syndrome (ACS): Initial Evaluation and Management: [email or web address] Performed By: #### L [id number] #### [facility] (DEFAULT) [address] [place] [address] Intermediate Documentson 06-25-2022 Intermediate Documents [id number] #[id number]:127 Normal [facility] .HCV RT-PCR, Quant (Non-Grap h)on 05-08-2022 Diagnostic impression Molgen Tony (Unsp spec) [Interp] COMMENT Invalid Interpretation Code [facility] Comment on above: Result Comment: Test not performed. Insufficient specimen to perform or complete analysis. contacted Merary at your facility on 05-08-2022 Performed at: [facility] [id number] MD Iván Gaspar Performed By: #### 1 [id number], [id number], [id number], [id number], [id number], [id number], [id number], [id number], [id number] #### [facility] Laboratory [address] [place] [address] HCV RNA RAFAELA+probe Qn COMMENT Invalid Interpretation Code [facility] Comment on above: Result Comment: Test not performed. Insufficient specimen to perform or complete analysis. contacted Merary at your facility on 05-08-2022 Performed By: #### 1 [id number], [id number], [id number], [id number], [id number], 09068377, [id number], 49020889, 9498451 #### [facility] Laboratory [address] [place] [address] Reference Lab Test Reference Range Comment Invalid Interpretation Code [facility] Comment on above: Result Comment: The quantitative range of this assay is 15 IU/mL to 100 million IU/mL. Performed By: #### 1 [id number], [id number], [id number], [id number], [id number], 91248910, 1789160537, 21196392, 3076821 #### [facility] Laboratory [address] [place] [address] HCV Antibody RFX to Quant PC David 05-08-2022 HCV Ab Signal/Cutoff IA [Rel units/Vol] {ratio} High 0.0-0.9 [facility] Comment on above: Result Comment: Perf ormed at: [address] [id number] PhD Jaleesa Perez Performed By: #### 1 [id number], [id number], [id number], [id number], [id number], 20430462, 2169451504, 54654986, [id number] #### [facility] Laboratory [address] [place] [address] SPEC. STATUS REPORTon 2021 Specimen Status Report COMMENT Invalid Interpretation Code [facility] Comment on above: Result Comment: Test not performed. Insufficient specimen to perform or complete analysis. TEST: 213100 Hepatitis C Quantitation Panel: [id number] Interpretation: Panel: [id number] adan Reagan at your facility on 05-08-2022 Performed at: [address] [id number] PhD Jaleesa Perez Performed By: #### 1 [id number] #### [facility] Laboratory [address] [place] [address] Lab Miscellaneous-LCon 05-04 Lab Miscellaneous COMMENT Invalid Interpretation Code [facility] Comment on above: Result Comment: Test Ordered: [id number] RNA, Real Time PCR (Graph) HIV-1 RNA by PCR 40 BN Units of Measure: copies/mL The reportable range for this assay is 20 to 10,000,000 copies HIV-1 RNA/mL. log10 HIV-1 RNA 1.602 BN Units of Measure: zyg85qzun/mL Performed at: [address] [id number] PhD Jaleesa Perez Performed By: #### 1 [id number] #### [facility] Laboratory [address] [place] [address] .HCV RNA (International Unit s)on 05-03-2022 HCV RNA RAFAELA+probe [Log units/Vol] 7.064 Invalid Interpretation Code [facility] Comment on above: Result Comment: Perf ormed at: [address] [place] [id number] MD Iván Gaspar Performed By: #### 1 [id number], [id number], [id number], [id number], [id number], 37646975, [id number], 62227326, 0756939 #### [facility] Laboratory [address] [place] [address] HCV RNA RAFAELA+probe Qn [id number] International_Unit/m L Invalid Interpretation Code [facility] Comment on above: Performed By: #### 1 [id number], [id number], [id number], [id number], [id number], 48750385, 5015014540, 44800466, 8404593 #### [facility] Laboratory [address] [place] [address] Coding Summary.on 05-03-2022 Coding Summary. CD:[id number] Gh0bWw+PGhlYWQ+PE1FV KNrO12qgWXkeI8XV8bSN E3YWHAPKRDVWK4YVQ0ap RU0PWfjL8PpqeIn ImomfMPuMW59AAc4VDL5 hPilJPuqiZ2ntUZpH1a7 UnXfLZ38yN10WXxuZWGx SeX3PzSfydzinMPi F1fgVsQifDSuHvl+PHRh YmxlIHdpZHRoPScxMDAl LtEviSqhQN1mZi3nEMAi LWNvbGxhcHNlOiBj x4vxKQUtYPgoQH1fzEnk E8FitKS6QKOrj6b4Ni33 dHI+MZZpYOJ7lSlaBFwi e681JtTit6wdSNM9 pOCqUIleMCN9L21vm6C1 YNGpYSTdCPX0cJZ7nM6z hLzqhtbhG1YzkSZgSkK2 TNY1gTQzaV2pxNnn kdkqqZ7sOrj+O45SID1V YPMVUS7TBis2Q3FfKnsi dHI+XG35HNSwFK39iNRk bJSue7oihNk9XgMb PHVdWFM8zZfvBFqcg4Lb NMNpN64tlBJgd3W7TXJg tFazsSRfCtHlzPD8cF9j GXvpabkio6vsglzw Qxlip0jqtk76oD90V87k XXnoQAHbRPQ0VGWeQMZf fRfcbg7owK7pZy1+IDxj n7rvp7nseTo1UjKz JIJeigVlpEkaHNF7w3Cf Kk01T3EueKoit7HbVcg5 ee89cEXrk6E0hAF6JYze SCBrzM1zUMljPfF7 YLRuAzUxcW30nAKpYNvs Se3cgUbtyNzoEI5oJQVh oaeiWNHtiT6tPBOzmWLy aFmgCR7hVAQefxbb r959JjPwQBN3MVTrcQUj M1XgeP3dWqFxNFWqMBHz R4LpwMXfZUrpO775NQdi VfA5YHMzixObY5Ki HCKmbUwkQgP1r4G6Qo3G e4NtooyuOSK9QYpvRWPr AaW5PdFjGsV0D5EoTpp5 XPQkmRrgTC0iY2Bo EHHyczwymonvtVU7VEYx GMGedD78pTBhBWaqUd7r a6S5k788VMWxYJMlqM75 Oi6jwJyoEVZzeZJP bD5ajqhvx1gvrszfDiRv VQRgWSm3VDg9YOBzkWgq IhHvAYY0KcL8NGV6nMLv mL1kgYyfrkfwdL7h Oyc+O48hdO3gEVA6LUM0 whjiMWGfshXvVE67ZK54 A6UeUjalvJJpmNA+PGRp hhEzgKhhKA6vRtVo g7rmn5NgITskS0JdDXWc WHzoXcc2UTHlRSJ7hXQ8 sF6dXRKsXGxtv3B6fXM5 Y8TmuwRxpq1yx6yg CRNuOUtcT87orWVbm5D9 VJMtjZW2XNRvpTbfPoIf iF45Tvh+WSEtiJuvz9Hp Zvyzg1cnn7giuFj3 IjMwJSIgdmFsaWduPSJ0 j5OiHi59U50nQZlzQWFs QLFhPCToZRIzjIpjcg1s zF4rQx0+PGNvbCB3 zBH1fL1qGTLmAqJ2BVpt O832MvUflMKkBmgor9ek m6clyTl0NbJgUPZwalDi wPbzECA3q0ZsGo58 V44bLRbmGMBtIAXpRJAt TEVzqJtzah8txS3qGk2+ GS2ip3btwa53uY88bXW+ ERVzNIW6uHvjLGgu KEPlaD4xOVltQjW3DEXr DbSyoE81eTEpQTvlYb4t bDjppExsIO0lZGWelbhn o748YeZdy5hiCCTp yDCeMJlsJJF5Z23eb4Z6 JRUmWPOeAFN7zQT5dL8k bGlnbjogbGVmdDsgdmVy sPpdYIghOVbgI933 IHRvcDsnPlBhdGllbnQg GpGdHNu2A3QvZlf7DQAe xFxrYG1vqAScSEngPx9m nDklpGsaOQ8hARVu ryjwu673PnHic3esNYUl hALuHMqaFJP7Y42gh2H1 DHHdSPPmVJT1dIL2wC7x bGlnbjogbGVmdDsg klYsrDavLLmyYFbhI232 IHRvcDsnPkJpcnRoIERh bSU4JW55QQ41hRUsn8W0 oRA2J4HmDYNcncjq suylkYL8NGXfWELdlW06 Iz7wiBtlLk0eCNXmGSI9 WADkoBSnL7EzbH6rFhFa FIOpOWErG6RlwRUo SCglN438IZjnEuP2QMPp gbWqP4LsRCIgmIheXuJ1 c9P1Dt9FF3W7BH60XE42 dKWbh1M7gKF1K8Bk RZMamdlpyrpyqAC3OZVb UINkrZ45Uc0crSkaNl5s IMEdCUQ6JOOiaGMhJ8Ua xB4sDdHbDYPcWNCi Z2OrdDPaJXlnX883OSmx JaG0UMLocnClX1AwDSJc dExnXbA1s1D9Bv3QPEr0 AM74DQ33gSYfn5N9 dGN8R7OyGPDhrtelyvkx nVM2WHWxOYAsmW87Rm7w fMejLp6eREXsYIV3LCXs qCSyQ4PswY9xZoGv BFCqEBZuE7GftHIxAFar E964PMoqNlR2EHCgkwAt C5ZsDIFfpJbrUqB6f4L7 Io2GINPsPK39MCL0 uPW5OJ32FM45I3KrRpuz dGFibGU+PHRhYmxlIHdp ZHRoPScxMDAlJyBzdHls RI5lEm4mEXYeQVNz xLyggEJwMmPfj2loAPHv UTtjVP0ccCouW9JsiCV8 OQOnt2w7Vp73E99cT7Uw dXA+BTQnmKE6hME0 oX3cEsAfQsM4XIwkT850 ThMfpYHvQngoh7eda6ry hLg9PrJ4PLDhdpCzwBbx ZHD7s1WdOu21G02b IHdpZHRoPSIxNSUiIHZh zBzuka9hlF8fCk4+PGNv iWR0uJG2qG9vCqAnCtL6 EFfuQ095GwLluILy Iemke2vui7vtzKu0IuAr GJFpdvNkhLpnPDF2l6Oh Sz07I0RxqWomv9BpMkv9 id57dSZlk1T3tAY0 E9DoUQTzpgvooMAbaSvu CD3sPUCcmuspQEPyrZ1e SXSdB1v8WsVqYkC0IDci L4LrahT9MNPvwCTb XHmkQPH3F11yh1Q9GFHn ZRIcCQW1eST4nT8ffJtk bjogbGVmdDsgdmVydGlj TNjzBQtdP660JDOc lTorWWLrcW6aDEJiaYSx tHpkPW1vAUGmdzmbQuhW E0TYRKqzZMZUQqYORL10 NO84zZYfk1P3ePG2 X1TdIUQcxrkfebwkmVG1 ALUtVFYnkP54rWPrRTgk Km1am9S5y830PNGwAEAf eO88Hd5hfEliIMMo hXRTxD8xsksds0tpkfxf WoLxKAFwYPz2ZWf3SBKl dJsqPeYtEBX0XqP1QTD3 iJVweN2pzIdotjdi tN5lLnh+MDIvMjQvMTk3 NjwvdGQ+YZGyTIE0iOpw UAzlIZYvjB8dKDEcZ1y0 RxDwAsQ1MZwwY3Uw EVZknaadFa04qY3eNwVk GpR5LKynQ9YlhqE2GQVw bMJtSSseHEU4D89xy7M3 RXRkYUKjGXQ8qMD7 aF9ihUzbbxznvJUklMrs uhIhwZhlCWowAVntK288 OWVtkKjsBgZ5IXrgYUYx GS11YD17jVKlv0X0 bMD4T7CiMRPjgxivfswm rPB6TYVwNXYyzY92jUYx BWcwCp0vp4U6l711AYTo ADFyiT19Zs7ofEyf VBKtfKPLiO8ayronv0cu owpsSeFnTGQeZKk6FVt8 MSUfsQxfNhTvZEY0VaA9 IRG5hQFwzV8guQqc wrqafN7zGoa+TWFsZTwv dGQ+FHXaWOS6wFulWTuq ORZqyM6vCNArZ6j1IkEl ItG3XTcmL0QdBIGf etfgUk31eQ7bJrSeOpL0 VYfsT8KyihQ9FJDrqHMs BJbmECK9Z03sv8I3REUx JCByQLM9jJO8nS5m bGlnbjogbGVmdDsgdmVy dRpkTJsuDNdoR303CDLa vVnhVn11kOUmfAmesrJ8 M7CaFhbnbRD+PC90 GKAiGF61hWSviSLyz6io rPn6UaZbJVMuNUG2kJqj ODrji7YyQLTkP04xfQQh f8V5EZAhsXosrHBg DnPblQN2lJ7jWVvlshzo j7gtkytlMqbhb2awxb00 bR74K89yKZcvJSApCADg QOSwOKAniFqacz8j rE0lDy5+EGIxmSZ5pMZ3 aA0nObBtZhC7LIrzY835 EsKqbSIzAhofz1ptu4nv iWy3YhPhGIIievKg lXccPZU5x6LkSr44A73r IHdpZHRoPSIyMCUiIHZh iZckyu6tnH6oGq4+PC9j f6bcak22oH61wTZ+ DCXySMG6dXlfRUkuDWPg rA6gEQjdBbC3AZIpIjRc rE41pIJqXZjxNf1fcVph gVfuTV3fEFIgexhm k488BlErx6reZEEerPFk BSpcMGW9Z03be0Z1RVUe ZXXvZGS0bIU6pU1izNid bjogbGVmdDsgdmVy wVtaALhaFIznP369NDIz iVpuGqOltBJmC9rrzvEX DP6oCnrmsIB+PHRkIHN0 kRrzJSzlPJIbhH9f WATtG7o7GbJwQuF4SBxc H6HgujB5CJWkbKEgNFFc kSCMnN1nmbirl4lraxtt IsAbUNRnGIx8DEd1 DYAmtSukFuNgSKP7BiQ5 ANO8cOOzgM7fmNugfymo xX3bCrx+RklOOjwvdGQ+ AAVtXTG5vRbhQUqt TZIczZ6iJPQmF0x6NgRr OmC4NMqqZ0NhrxK5TUFr rAGdOTOybDBQdP9iwmek i5njenqpTkQlIKWp AZr9JSb8QGNhiMhoPeBp UFU9WxW8OKI0lFLvmC2i kEfcnlcroF5mOvs+TVJO OjwvdGQ+PHRkIHN0 pPbgXIwlIOWcmM6jSYYi X4v9VpTbApE9TEpkH0Si xzU6ONJerWXjBEPhaNWZ fX2vyeupj2wxnyat NnJqEXBfMAe3RZj4YIVx qKzwCyHoQSQ3TxK3CCB9 tKYjkH6sjTowhsmvuC4b Oyc+UXW3SHP7BU31 WK19K7NwLvogkGDqgRC+ PHRhYmxlIHdpZHRoPScx FZMwCyCauIgwFW8iMp9n ZGVyLWNvbGxhcHNl OiBj (more content not included)... Normal [facility] HCV RNA by PCR, n x Genjacob n 05-03-2022 HCV genotype RAFAELA+probe Nom Comment Invalid Interpretation Code [facility] Comment on above: Result Comment: To b e performed on this specimen. Performed at: [address] [id number] MD Iván Gaspar Performed By: #### 1 [id number], [id number], [id number], 3091406, [id number], 25532605, [id number], 64613632, [id number] #### [facility] Laboratory [address] [place] [address] Laboratory comment Tony (Report) Comment Invalid Interpretation Code [facility] Comment on above: Result Comment: The quantitative range of this assay is 15 IU/mL to 100 million IU/mL. Performed By: #### 1 [id number], [id number], [id number], 0757837, 7575636064, 00088031, 8691470746, 63363694, [id number] #### [facility] Laboratory [address] [place] [address] HCV RNA RAFAELA+probe Qn See Final Results Invalid Interpretation Code [facility] Comment on above: Result Comment: Perf ormed at: [address] [id number] [id number] MD Iván Gaspar Performed By: #### 1 [id number], [id number], [id number], 3751111, 1778790331, 70473377, 0184944569, 23687916, 0788009 #### [facility] Laboratory [address] [place] [address] Hepatitis C Genotypeon 05-03 HCV genotype RAFAELA+probe Nom 1a Invalid Interpretation Code [facility] Comment on above: Performed By: #### 1 [id number], [id number], [id number], 6964977, 4036847749, 76644261, 3905054219, 35359441, 5607945 #### [facility] Laboratory [address] [place] [address] Laboratory comment Tony (Report) Comment Invalid Interpretation Code [facility] Comment on above: Result Comment: This test was developed and its performance characteristics determined by [facility]. It has not been cleared or approved by the U.S. Food and Drug Administration. The FDA has determined that such clearance or approval is not necessary. This test is used for clinical purposes. It should not be regarded as investigational or for research. Performed at: [address] [id number] [id number] MD Iván Gaspar Performed By: #### 1 [id number], [id number], [id number], [id number], [id number], 02549545, 6468434584, 25797207, 8442878 #### [facility] Laboratory [address] [place] [address] Lab Miscellaneous-LCon 05-02 Lab Miscellaneous COMMENT Invalid Interpretation Code [facility] Comment on above: Result Comment: Test Ordered: [id number] T-Lymphocyte [place]/Suppressor Absolute CD 3 1227 /uL CB Reference Range: 622-2402 Absolute CD 4 [place] 386 /uL CB Reference Range: 359-1519 Abs. [...] Reference Range: 0.0-0.1 Performed at: [facility] [address] [id number] PhD Jaleesa Perez Performed By: #### 1 [id number] #### [facility] [address] [place] [address] CHEMISTRYOrdered By: SYSTEM SYSTEM on 04-30-2022 Albumin [...] 1.3 mg/dL Normal 0.5 - 1.3 mg/dL [facility] Remisol GFR/1.73 sq M.predicted among blacks MDRD (S/P/Bld) [Vol rate/Area] mL/min/1.73 m2 Normal >=59mL/min/1. 73 m2 [facility] Chem S GFR/1.73 sq M.predicted among non-blacks MDRD (S/P/Bld) [Vol rate/Area] 59 mL/min/1.73 m2 Normal >=59mL/min/1. 73 m2 [facility] Chem S Globulin (S) [Mass/Vol] 3.4 g/dL Normal 1.4 - 4.0 gm/dL [facility] Remisol Glucose [Mass/Vol] 107 mg/dL Normal 55 - 199 mg/dL [facility] Remisol Potassium [Moles/Vol] 4.3 mmol/L Normal 3.5 - 5.3 mmol/L [facility] Remisol Protein [Mass/Vol] 7.6 g/dL Normal 6.0 - 7.8 gm/dL [facility] Sodium [Moles/Vol] 137 mmol/L Normal 135 - 145 mmol/L [facility] Triglyceride [Mass/Vol] 135 mg/dL Normal <=149mg/dL [facility] Urea nitrogen [Mass/Vol] 15 mg/dL Normal 5 - 21 mg/dL [facility] [place] Remisol Urea nitrogen/Creatinine [Mass ratio] 12 mg/mg Normal 10 - 20 [facility] [place] Remisol CMPon 04-30-2022 Albumin [Mass/Vol] 4.2 g/dL Normal 3.3-5.0 [facility] [place] Comment on above: Performed By: #### 1 [id number], [id number], [id number], [id number], [id number], [id number], [id number], [id number], [id number] #### [facility] [place] [facility] [address] [place] [address] Albumin/Globulin (S) [Mass conc ratio] 1.2 Normal 1.1-2.2 [facility] [place] Comment on above: Performed By: #### 1 [id number], [id number], [id number], [id number], [id number], [id number], [id number], [id number], [id number] #### [facility] [place] [facility] [address] [place] [address] ALP [Catalytic activity/Vol] 74 Int._Unit/L Normal 21-98 [facility] [place] Comment on above: Performed By: #### 1 [id number], [id number], [id number], [id number], [id number], [id number], [id number], [id number], [id number] #### [facility] [place] [facility] [address] [place] [address] ALT No additional P-5'-P [Catalytic activity/Vol] 83 Int._Unit/L High 6-46 [facility] [place] Comment on above: Performed By: #### 1 [id number], [id number], [id number], [id number], [id number], [id number], [id number], [id number], [id number] #### [facility] [place] [facility] [address] [place] [address] Anion gap [Moles/Vol] 9 mmol/L Normal 6-16 [facility] Comment on above: Performed By: #### 1 [id number], [id number], [id number], [id number], [id number], 20534525, [id number], 54259614, [id number] #### [facility] [place] [facility] [address] [place] [address] AST [Catalytic activity/Vol] 44 Int._Unit/L High 5-43 [facility] [place] Comment on above: Performed By: #### 1 [id number], [id number], [id number], [id number], [id number], [id number], [id number], [id number], [id number] #### [facility] [place] [facility] [address] [place] [address] Bilirubin [Mass/Vol] 0.7 mg/dL Normal 0.0-1.1 [facility] Comment on above: Performed By: #### 1 [id number], [id number], [id number], [id number], [id number], 57977926, [id number], [id number], [id number] #### [facility] [place] [facility] [address], [place] [address] Calcium [Mass/Vol] 9.4 mg/dL Normal 8.9-11.1 [facility] Comment on above: Performed By: #### 1 [id number], [id number], [id number], 6531838, 9196273628, 24021328, 5779756988, 76057519, 7476702 #### [facility] Laboratory [address] [place] [address] Chloride [Moles/Vol] 103 mmol/L Normal 101-111 [facility] Comment on above: Performed By: #### 1 [id number], [id number], 4230394823, 1340596, 5086705958, 06949143, 2349099930, 08633225, 1065433 #### [facility] Laboratory [address] [place] [address] CO2 [Moles/Vol] 29 mmol/L Normal 21-31 [facility] Comment on above: Performed By: #### 1 [id number], [id number], 8318735675, 5344318, 9924806207, 94878573, 4457818514, 59736852, 1266702 #### [facility] Laboratory [address] [place] [address] Creatinine [Mass/Vol] 1.3 mg/dL Normal 0.5-1.3 [facility] Comment on above: Performed By: #### 1 [id number], [id number], 8305547611, 3039416, 3132211639, 33538416, 1320997854, 22563122, 6890354 #### [facility] Laboratory [address] [place] [address] Globulin (S) [Mass/Vol] 3.4 g/dL Normal 1.4-4.0 [facility] Comment on above: Performed By: #### 1 [id number], 0931757792, 2346616894, 5125955, 0567768404, 19996257, 8927197797, 36244677, 7397404 #### [facility] Laboratory [address] [place] [address] Glucose [Mass/Vol] 107 mg/dL Normal 55-199 [facility] Comment on above: Result Comment: If t his glucose result represents a fasting glucose, interpretation should refer to the following reference range: 55-99 mg/dL Performed By: #### 1 [id number], 7971742961, 9693709918, 8347695, 2996354961, 70979039, 9285915209, 46708728, 7735505 #### [facility] Laboratory [address] [place] [address] Potassium [Moles/Vol] 4.3 mmol/L Normal 3.5-5.3 [facility] Comment on above: Performed By: #### 1 [id number], 3755792126, 2819952134, 9397204, 2587861106, 64702080, 1351371188, 60320910, 3149022 #### [facility] Laboratory [address] [place] [address] Protein [Mass/Vol] 7.6 g/dL Normal 6.0-7.8 [facility] Comment on above: Performed By: #### 1 [id number], 7579344838, 2021067635, 6979568, 5482603320, 97847296, 0619236570, 09287001, 0809862 #### [facility] Laboratory [address] [place] [address] Sodium [Moles/Vol] 137 mmol/L Normal 135-145 [facility] Comment on above: Performed By: #### 1 [id number], 1130845081, 3911918569, 2029135, 9338259175, 17829221, 4737977345, 88421339, 1352863 #### [facility] Laboratory [address] [place] [address] Urea nitrogen [Mass/Vol] 15 mg/dL Normal 5-21 [facility] Comment on above: Performed By: #### 1 [id number], 3859958245, 3385743530, 3745021, 1191526929, 53043065, 8488315802, 94444205, 9441464 #### [facility] Laboratory [address] [place] [address] Urea nitrogen/Creatinine [Mass ratio] 12 No Units Normal 10-20 [facility] Comment on above: Performed By: #### 1 [id number], 6951301885, 4217590223, 5116918, 6352825545, 35872186, 5083183333, 11448530, 7085356 #### [facility] Laboratory [address] [place] [address] Consent for Treatmenton 04-10 Consent for Treatment [id number] #1.00CD:127 Normal [facility] Lab Miscellaneous-LCon 04-30 Test Code 310700 Invalid Interpretation Code [facility] Comment on above: Performed By: #### 1 [id number] #### [facility] Laboratory [address] [place] [address] Test Code 708608 Invalid Interpretation Code [facility] Comment on above: Performed By: #### 1 [id number] #### [facility] Laboratory [address] [place] [address] Test Name T-Lymphocyte Invalid Interpretation Code [facility] Comment on above: Performed By: #### 1 [id number] #### [facility] Laboratory [address] [place] [address] Test Name HIV VIral Load Invalid Interpretation Code [facility] Comment on above: Performed By: #### 1 [id number] #### [facility] [address] [place] [address] Lipid Panelon 04-30-2022 Cholesterol [Mass/Vol] 181 mg/dL Normal 120-200 [facility] Comment on above: Performed By: #### 1 [id number], 4420509228, 4382013271, 4007262, 0053899728, 51297578, 5501863770, 49945585, 3794077 #### [facility] [address] [place] [address] Cholesterol in HDL [Mass/Vol] 39 mg/dL Invalid Interpretation Code [facility] Comment on above: Result Comment: HDL > or equal to 60 mg/dL: Low cardiovascular risk HDL < 40 mg/dL : High cardiovascular risk Performed By: #### 1 [id number], 3954795327, 3168359133, 4700887, 7907221185, 57764448, 1370991985, 29270318, 9778634 #### [facility] [address] [place] [address] Cholesterol in LDL [Mass/Vol] 120 mg/dL Normal <=129 [facility] Comment on above: Performed By: #### 1 [id number], 2927507621, 2947960135, 2449841, 0664338121, 45605677, 0271660532, 27719534, 0898466 #### [facility] Laboratory [address] [place] [address] Cholesterol in VLDL [Mass/Vol] 27 mg/dL Normal 7-40 [facility] Comment on above: Performed By: #### 1 [id number], 4739204931, 4331580016, 0157415, 7150582784, 86840444, 2521502270, 97181347, 6714085 #### [facility] Laboratory [address] [place] [address] Triglyceride [Mass/Vol] 135 mg/dL Normal <=149 [facility] Comment on above: Performed By: #### 1 [id number], 3862465189, 7362935414, 0587700, 7306959332, 76286921, 8231548446, 06755589, 9415571 #### [facility] Laboratory [address] [place] [address] Physician Orderon 04-30-2022 Physician Order [id number] #1.00CD:127 Normal [facility] Reference Laboratory Testing Ordered By: Herlinda Pendleton on 04-30-2022 Test Code 155543 Invalid Interpretation Code [facility] Test Code 505361 Invalid Interpretation Code [facility] Test Name HIV VIral Load Invalid Interpretation Code [facility] Test Name T-Lymphocyte Invalid Interpretation Code [facility] eGFRon 04-30-2022 GFR/1.73 sq M.predicted among blacks MDRD (S/P/Bld) [Vol rate/Area] mL/min/{1.73_m2} Normal >=59 [facility] Comment on above: Order Comment: Order added by Discern Expert. Result Comment: eGFR is race adjusted. AA=. Performed By: #### 1 [id number], 3459139984, 9456881573, 2915841, 7021419319, 87120790, 6380236142, 09589339, 7806756 #### [facility] Laboratory [address] [place] [address] GFR/1.73 sq M.predicted among non-blacks MDRD (S/P/Bld) [Vol rate/Area] 59 mL/min/1.73 m2 Normal >=59 [facility] Comment on above: Order Comment: Order added by Discern Expert. Result Comment: Mat Inspector cj kidney disease could be indicated at eGFR's of less than 60 mL/min/1.73m2. Kidney failure is indicated at less than 15 mL/min/1.73m2. Performed By: #### 1 [id number], 1686345714, 0742467888, 9686487, 0631873261, 88563596, 5403609916, 95651888, 6541509 #### [facility] Laboratory [address] [place] [address] Family Medicine Office/Clini c Noteon 04-05-2022 Family Medicine Office/Clinic Note Subjective Inmate at the [facility] today for: CC: Psoriasis He is not all sure what parts are the worse right now. Has it all over the body. The other arm spot is not changing much, same size. He was on methotrexate in the past and it did not do much. He was on a shot in [place] that was helpful, [place] [facility]. The cream helps with the scaliness but [...] Bedtime, # 30 tab(s), Refills(s) 0, Pharmacy: [facility], 185.4, cm, 12/25/21 14:39:00 EDT, Height/Length Dosing, 76.3, kg, 12/25/21 14:39:00 EDT, Weight Dosing omeprazole, 20 mg = 1 cap(s), Oral, Daily, # 30 cap(s), Refills(s) 0, Pharmacy: [facility], 185.4, cm, 12/25/21 14:39:00 EDT, Height/Length Dosing, [...] 50 mg, Oral, Daily, 3 refills Normal [facility] Comment on above: Result Comment: Elec tronically Signed By: STEPHANE CABRAL, Scooby Thacker\.br\Date and Time Signed: 04/05/22 17:36 EDT Family Medicine Office/Clini c Noteon 03-16-2022 Family Medicine Office/Clinic Note Subjective Inmate at the [facility] today for: CC: back of the right [...] Oral, BID Tivicay, 50 mg, Oral, Daily [facility] Comment on above: Result Comment: Elec tronically Signed By: Scooby COX\.br\Date and Time Signed: 03/16/22 12:03 EDT Intermediate Documentson 01-23-2022 Intermediate Documents [id number] #1.00CD:127 Normal [facility] Intermediate Documentson 01-09-2022 Intermediate Documents Intermediate Nurse Visit 14 day Health Appraisal Date [...] forearm Date vial opened: 12/24/2021 Lot number: [id number] Expiration date: 04/2023 PPD Comments: _ Inmate [...] you wish to attend AA Meetings? YES Intermediate Assessment 12/25/21 14:37:00 Intermediate Assessment Entered On: 12/25/2021 14:39 EDT Performed [...] No qu (more content not included)... Normal [facility] Intermediate Documentson 01-04-2022 Intermediate Documents [id number]#1.00CD:127 Normal [facility] Intermediate Documents [id number] #1.00CD:127 Normal [facility] Acetaminophenon 12-21-2021 Acetaminophen [Mass/Vol] ug/mL Low 10-30 [facility] Comment on above: Performed By: #### A LCB, ACET #### [facility] [address] [place] [address] [employer] Operator Helper: Ramon Amor MD CBC with Diffon 12-21-2021 Abs. Basophil 0.00 k/uL Normal 0.0-0.2 [facility] Comment on above: Performed By: #### C DP, TSHX, SALI, CP, TROPI #### [facility] [address] [place] [address] [employer] Operator Helper: Ramon Amor MD Abs.Neutrophil (Seg) 11.90 k/uL High 2.1-6.5 [facility] Comment on above: Performed By: #### C DP, TSHX, SALI, CP, TROPI #### [facility] [address] [place] [address] [employer] Operator Helper: Ramon Amor MD Auto Diff Performed YES Normal [facility] Comment on above: Performed By: #### C DP, TSHX, SALI, CP, TROPI #### [facility] [address] [place] [phone] [employer] Operator Helper: Ramon Amor MD Basophils/100 WBC (Bld) 0 % Normal 0-2 [facility] Comment on above: Performed By: #### C DP, TSHX, SALI, CP, TROPI #### [facility] [address] [place] [phone] [employer] Operator Helper: Ramon Amor MD Eosinophils (Bld) [#/Vol] 0.00 10*3/uL Normal 0.0-0.4 [facility] Comment on above: Performed By: #### C DP, TSHX, SALI, CP, TROPI #### [facility] [address] [place] [address] [employer] Operator Helper: Ramon Amor MD Eosinophils/100 WBC (Bld) 0 % Normal 0-5 [facility] Comment on above: Performed By: #### C DP, TSHX, SALI, CP, TROPI #### [facility] [address] [place] [address] [employer] Operator Helper: Ramon Amor MD Erythrocyte distribution width (RBC) [Ratio] 15.1 % Normal 12.1-15.2 [facility] Comment on above: Performed By: #### C DP, TSHX, SALI, CP, TROPI #### [facility] [address] [place] [phone] [employer] Operator Helper: Ramon Amor MD Hematocrit (Bld) [Volume fraction] 47.6 % Normal 41-53 [facility] Comment on above: Performed By: #### C DP, TSHX, SALI, CP, TROPI #### [facility] [address] [place] [phone] [employer] Operator Helper: Ramon Amor MD Hemoglobin (Bld) [Mass/Vol] 16.0 g/dL Normal 13.5-17.5 [facility] Comment on above: Performed By: #### C DP, TSHX, SALI, CP, TROPI #### [facility] [address] [place] [address] [employer] Operator Helper: Ramon Amor MD Lymphocytes (Bld) [#/Vol] 1.50 10*3/uL Normal 1.0-4.8 [facility] Comment on above: Performed By: #### C DP, TSHX, SALI, CP, TROPI #### [facility] [address] [place] [address] [employer] Operator Helper: Ramon Amor MD Lymphocytes/100 WBC (Bld) 11 % Low 13-44 [facility] Comment on above: Performed By: #### C DP, TSHX, SALI, CP, TROPI #### [facility] [address] [place] [address] [employer] Operator Helper: Ramon Amor MD MCH (RBC) [Entitic mass] 29.0 pg Normal 26-34 [facility] Comment on above: Performed By: #### C DP, TSHX, SALI, CP, TROPI #### [facility] [address] [place] [phone] [employer] Operator Helper: Ramon Amor MD MCHC (RBC) [Mass/Vol] 33.6 g/dL Normal 31-37 [facility] Comment on above: Performed By: #### C DP, TSHX, SALI, CP, TROPI #### [facility] [address] [place] [address] [employer] Operator Helper: Ramon Amor MD MCV (RBC) [Entitic vol] 86.4 fL Normal 80-100 [facility] Comment on above: Performed By: #### C DP, TSHX, SALI, CP, TROPI #### [facility] [address] [place] [phone] [employer] Operator Helper: Ramon Amor MD Monocytes (Bld) [#/Vol] 0.80 10*3/uL Normal 0.0-1.0 [facility] Comment on above: Performed By: #### C DP, TSHX, SALI, CP, TROPI #### [facility] [address] [place], [place] [phone] [employer] Operator Helper: Ramon Amor MD Monocytes/100 WBC (Bld) 6 % Normal 5-9 [facility] Comment on above: Performed By: #### C DP, TSHX, SALI, CP, TROPI #### [facility] [address] [place] [address] [employer] Operator Helper: Ramon Amor MD Neutrophil (Seg) 83 % High 39-75 [facility] Comment on above: Performed By: #### C DP, TSHX, SALI, CP, TROPI #### [facility] [address] [place] [phone] [employer] Operator Helper: Ramon Amor MD Platelets (Bld) [#/Vol] 341 10*3/uL Normal 140-450 [facility] Comment on above: Performed By: #### C DP, TSHX, SALI, CP, TROPI #### [facility] [address] [place], [place] [phone] ([phone] [employer] Operator Helper: Ramon Amor MD RBC (Bld) [#/Vol] 5.51 10*6/uL Normal 4.5-5.9 [facility] Comment on above: Performed By: #### C DP, TSHX, SALI, CP, TROPI #### [facility] [address] [place], [place] [phone] ([phone] [employer] Operator Helper: Ramon Amor MD WBC (Bld) [#/Vol] 14.3 10*3/uL High 3.5-11.0 [facility] Comment on above: Performed By: #### C DP, TSHX, SALI, CP, TROPI #### [facility] [address] [place] [phone] [employer] Operator Helper: Ramon Amro MD Comp Metabolic Profon 2021 Albumin [Mass/Vol] 5.0 g/dL Normal 3.5-5.2 [facility] Comment on above: Performed By: #### C DP, TSHX, SALI, CP, TROPI #### [facility] [address] [place] [phone] [employer] Operator Helper: Ramon Amor MD Alkaline Phos 137 U/L High 40-129 [facility] Comment on above: Performed By: #### C DP, TSHX, SALI, CP, TROPI #### [facility] [address] [place] [address] [employer] Operator Helper: Ramon Amor MD ALT [Catalytic activity/Vol] 69 U/L High 5-41 [facility] Comment on above: Performed By: #### C DP, TSHX, SALI, CP, TROPI #### [facility] [address] [place] [phone] [employer] Operator Helper: Ramon Amor MD Anion gap [Moles/Vol] 32 mmol/L High 9-17 [facility] Comment on above: Performed By: #### C DP, TSHX, SALI, CP, TROPI #### [facility] [address] [place] [address] [employer] Operator Helper: Ramon Amor MD AST [Catalytic activity/Vol] 68 U/L High <40 [facility] Comment on above: Performed By: #### C DP, TSHX, SALI, CP, TROPI #### [facility] [address] [place] [phone] [employer] Operator Helper: Ramon Amor MD Bilirubin [Mass/Vol] 0.84 mg/dL Normal 0.30-1.20 [facility] Comment on above: Performed By: #### C DP, TSHX, SALI, CP, TROPI #### [facility] [address] [place] [address] [employer] Operator Helper: Ramon Amor MD Calcium [Mass/Vol] 10.6 mg/dL High 8.6-10.4 [facility] Comment on above: Performed By: #### C DP, TSHX, SALI, CP, TROPI #### [facility] [address] [place] [address] [employer] Operator Helper: Ramon Amor MD Chloride [Moles/Vol] 97 mmol/L Low 98-107 [facility] Comment on above: Performed By: #### C DP, TSHX, SALI, CP, TROPI #### [facility] [address] [place] [address] [employer] Operator Helper: Ramon Amor MD CO2 [Moles/Vol] 14 mmol/L Low 20-31 [facility] Comment on above: Performed By: #### C DP, TSHX, SALI, CP, TROPI #### [facility] [address] [place] [address] [employer] Operator Helper: Ramon Amor MD Creatinine [Mass/Vol] 1.82 mg/dL High 0.70-1.20 [facility] Comment on above: Performed By: #### C DP, TSHX, SALI, CP, TROPI #### [facility] [address] [place] [address] [employer] Operator Helper: Ramon Amor MD GFR, Amer 49 mL/min Low >60 [facility] Comment on above: Performed By: #### C DP, TSHX, SALI, CP, TROPI #### [facility] [address] [place] [address] [employer] Operator Helper: Ramon Amor MD GFR,non Amer 40 mL/min Low >60 [facility] Comment on above: Performed By: #### C DP, TSHX, SALI, CP, TROPI #### [facility] [address] [place], [place] [phone] [employer] Operator Helper: Ramon Amor MD Glucose [Mass/Vol] 164 mg/dL High 70-99 [facility] Comment on above: Performed By: #### C DP, TSHX, SALI, CP, TROPI #### [facility] [address] [place], [place] [phone] [employer] Operator Helper: Ramon Amor MD Potassium [Moles/Vol] 3.4 mmol/L Low 3.7-5.3 [facility] Comment on above: Performed By: #### C DP, TSHX, SALI, CP, TROPI #### [facility] [address] [place], [place] [phone] [employer] Operator Helper: Ramon Amor MD Protein [Mass/Vol] 8.5 g/dL High 6.4-8.3 [facility] Comment on above: Performed By: #### C DP, TSHX, SALI, CP, TROPI #### [facility] [address] [place], [place] [phone] [employer] Operator Helper: Ramon Amor MD Sodium [Moles/Vol] 143 mmol/L Normal 135-144 [facility] Comment on above: Performed By: #### C DP, TSHX, SALI, CP, TROPI #### [facility] [address] [place], [place] [phone] [employer] Operator Helper: Ramon Amor MD Urea nitrogen [Mass/Vol] 20 mg/dL Normal 6-20 [facility] Comment on above: Performed By: #### C DP, TSHX, SALI, CP, TROPI #### [facility] [address] [place], [place] [phone] [employer] Operator Helper: Ramon Amor MD (cont.) [facility] Comment on above: Result Comment: Aver age GFR for 40-49 years old: 99 mL/min/1.73sq m Chronic Kidney Disease: <60 mL/min/1.73sq m Kidney failure: <15 mL/min/1.73sq m eGFR calculated using average adult body mass. Additional eGFR calculator available at: http://[email or web address]/multiple_crcl_2012.htm Performed By: #### C DP, TSHX, SALI, CP, TROPI #### [facility] [address] [place], [place] [phone] [employer] Operator Helper: Ramon Amor MD Ethanol Alcoholon 12-21-2021 Ethanol [Mass/Vol] mg/dL Normal <10 [facility] Comment on above: Performed By: #### A LCB, ACET #### [facility] [address] [place], [place] [phone] [employer] Operator Helper: Ramon Amor MD Ethanol percent <0.010 Normal [facility] Comment on above: Performed By: #### A LCB, ACET #### [facility] [address] [place], [place] [phone] [employer] Operator Helper: Ramon Amor MD Salicylateon 12-21-2021 Salicylate <1 Low 3-10 [facility] Comment on above: Performed By: #### C DP, TSHX, SALI, CP, TROPI #### [facility] [address] [place], [place] [phone] [employer] Operator Helper: Ramon Amor MD TSH w/reflex to FT4on 2021 Thyroid Stim. Horm. 1.79 uIU/mL Normal 0.30-5.00 [facility] Comment on above: Performed By: #### C DP, TSHX, SALI, CP, TROPI #### [facility] [address] [place], [place] [phone] [employer] Operator Helper: Ramon Amor MD Troponinon 12-21-2021 Troponin, High Sens 33 ng/L High 0-22 [facility] Comment on above: Result Comment: High Sensitivity Troponin values cannot be compared with other Troponin methodologies. Patients with high levels of Biotin oral intake (i.e >5mg/day) may have falsely decreased Troponin levels. Samples collected within 8 hours of biotin intake may require additional information for diagnosis. Performed By: #### C DP, SAMMY, DARSHANA KAUFFMAN, [place] #### [facility] [address] [place] [address] [employer] Operator Helper: Ramon Amor MD Acetaminophen Levelon 2021 Acetaminophen Level <5 Low 10 - 30 ug/mL [facility] Interpretation and review of laboratory results Abnormal [facility] CBC with Auto Differentialon 12-20-2021 Absolute Eos # 0.00 [facility] Absolute Lymph # 1.50 [facility] Absolute [place] # 0.80 [facility] Basophils (Bld) [#/Vol] 0.00 10*3/uL [facility] Basophils/100 WBC (Bld) 0 % 0 - 2 % [facility] Differential Type YES [facility] Eosinophils/100 WBC (Bld) 0 % 0 - 5 % [facility] Hematocrit (Bld) [Volume fraction] 47.6 % 41 - 53 % [facility] Hemoglobin (Bld) [Mass/Vol] 16.0 g/dL 13.5 - 17.5 g/dL [facility] Interpretation and review of laboratory results Abnormal [facility] Lymphocytes/100 WBC (Bld) 11 % Low 13 - 44 % [facility] [facility] MCH (RBC) [Entitic mass] 29.0 pg 26 - 34 pg [facility] MCHC (RBC) [Mass/Vol] 33.6 g/dL 31 - 37 g/dL [facility] MCV (RBC) [Entitic vol] 86.4 fL 80 - 100 fL [facility] Monocytes/100 WBC (Bld) 6 % 5 - 9 % [facility] Platelet distribution width (Bld) [Ratio] 15.1 % 12.1 - 15.2 % [facility] Platelets (Bld) [#/Vol] 341 10*3/uL [facility] RBC (Bld) [#/Vol] 5.51 10*6/uL 4.5 - 5.9 m/uL [facility] Segmented neutrophils/100 WBC (Bld) 83 % High 39 - 75 % [facility] Segs Absolute 11.90 High [facility] WBC (Bld) [#/Vol] 14.3 10*3/uL High [facility] CMPon 12-20-2021 Albumin [Mass/Vol] 5 g/dL 3.5 - 5.2 g/dL [facility] ALP (Bld) [Catalytic activity/Vol] 137 U/L High 40 - 129 U/L [facility] ALT [Catalytic activity/Vol] 69 U/L High 5 - 41 U/L [facility] Anion gap [Moles/Vol] 32 mmol/L High 9 - 17 mmol/L [facility] AST [Catalytic activity/Vol] 68 U/L High NINF - 40 U/L [facility] Bilirubin [Mass/Vol] 0.84 mg/dL 0.3 - 1 .2 mg/dL [facility] Calcium [Mass/Vol] 10.6 mg/dL High 8.6 - 10. 4 mg/dL [facility] Chloride [Moles/Vol] 97 mmol/L Low 98 - 10 7 mmol/L [facility] CO2 [Moles/Vol] 14 mmol/L Low 20 - 31 mmol/L [facility] Creatinine [Mass/Vol] 1.82 mg/dL High 0.7 - 1.2 mg/dL [facility] Free PSA/Total PSA [Mass fraction] 8.5 g/dL High 6.4 - 8.3 g/dL [facility] GFR 49 mL/min Low 60 - PI NF mL/min [facility] GFR Non- 40 mL/min Low 60 - PINF mL/min [facility] GFR/1.73 sq M.predicted MDRD (S/P/Bld) [Vol rate/Area] [facility] Comment on above: Average GFR for 40-4 9 years old: 99 mL/min/1.73sq m Chronic Kidney Disease: <60 mL/min/1.73sq m Kidney failure: <15 mL/min/1.73sq m eGFR calculated using average adult body mass. Additional eGFR calculator available at: http://www.[employer]/multiple_crcl_2012.htm Glucose [Mass/Vol] 164 mg/dL High 70 - 99 mg/dL [facility] Potassium [Moles/Vol] 3.4 mmol/L Low 3.7 - 5.3 mmol/L [facility] Sodium [Moles/Vol] 143 mmol/L 135 - 144 mmol/L [facility] Urea nitrogen (BldV) [Mass/Vol] 20 mg/dL 6 - 20 mg/dL [facility] EKG Rhythm Stripon 2 QRS 0.10 [facility] ETOHon 12-20-2021 Ethanol [Mass/Vol] mg/dL NINF - 10 mg/dL [facility] Ethanol percent <0.010 % [facility] No Panel Informationon 12-20 Interpretation and review of laboratory results Abnormal [facility] Salicylateon 12-20-2021 Salicylate Lvl mg/dL Low 3 - 10 mg/dL [facility] TSH with Reflexon 12-20-2021 TSH Qn 1.79 m[IU]/L [facility] Troponinon 12-20-2021 Interpretation and review of laboratory results Abnormal [facility] Troponin, High Sensitivity 33 ng/L High 0 - 22 ng/L [facility] Comment on above: High Sensitivity Troponin values cannot be compared with other Troponin methodologies. Patients with high levels of Biotin oral intake (i.e >5mg/day) may have falsely decreased Troponin levels. Samples collected within 8 hours of biotin intake may require additional information for diagnosis. [facility] .Auto Diffon 10-01-2021 Basophil, Absolute 0.00 10 3/mcL Normal 0.00-0.27 Aul [facility] ([place]) Comment on above: Performed By: #### P RO, CMP, GFR, RPR, CBC, ADIFF, ANEU, HIVRNA, HELP1, HCQPCR, HEPGEN #### [address] [address] Basophils/100 WBC (Bld) 0.6 % Normal 0.0-2.5 [facility] ([place]) Comment on above: Performed By: #### P RO, CMP, GFR, RPR, CBC, ADIFF, ANEU, HIVRNA, HELP1, HCQPCR, HEPGEN #### [address] [address] Eosinophil, Absolute 0.40 10 3/mcL Normal 0.00-0.65 [facility] ([place]) Comment on above: Performed By: #### P RO, CMP, GFR, RPR, CBC, ADIFF, ANEU, HIVRNA, HELP1, HCQPCR, HEPGEN #### [address] [address] Eosinophils/100 WBC (Bld) 7.5 % High 0.0-6.0 [facility] ([place]) Comment on above: Performed By: #### P RO, CMP, GFR, RPR, CBC, ADIFF, ANEU, HIVRNA, HELP1, HCQPCR, HEPGEN #### [address] [address] Lymphocyte, Absolute 2.50 10 3/mcL Normal 0.90-4.32 [facility] ([place]) Comment on above: Performed By: #### P RO, CMP, GFR, RPR, CBC, ADIFF, ANEU, HIVRNA, HELP1, HCQPCR, HEPGEN #### [address] [address] Lymphocytes/100 WBC (Bld) 43.9 % High 20.0-40.0 [facility] ([place]) Comment on above: Performed By: #### P RO, CMP, GFR, RPR, CBC, ADIFF, ANEU, HIVRNA, HELP1, HCQPCR, HEPGEN #### [address] [address] Monocyte, Absolute 0.40 10 3/mcL Normal 0.09-1.40 [facility] ([place]) Comment on above: Performed By: #### P RO, CMP, GFR, RPR, CBC, ADIFF, ANEU, HIVRNA, HELP1, HCQPCR, HEPGEN #### [address] [address] Monocytes/100 WBC (Bld) 6.5 % Normal 2.0-13.0 [facility] ([place]) Comment on above: Performed By: #### P RO, CMP, GFR, RPR, CBC, ADIFF, ANEU, HIVRNA, HELP1, HCQPCR, HEPGEN #### [address] [address] Neutrophils/100 WBC (Bld) 41.5 % Low 50.0-75.0 [facility] ([place]) Comment on above: Performed By: #### P RO, CMP, GFR, RPR, CBC, ADIFF, ANEU, HIVRNA, HELP1, HCQPCR, HEPGEN #### [address] [address] .GFRon 10-01-2021 GFR >60 Normal [facility] ([place]) Comment on above: Result Comment: GFR Population [...] ADIFF, ANEU, HIVRNA, HELP1, HCQPCR, HEPGEN #### [address] [address] GFR Non- >60 Normal [facility] ([place]) Comment on above: Result Comment: GFR Population [...] ADIFF, ANEU, HIVRNA, HELP1, HCQPCR, HEPGEN #### [address] [address] .NEUABSon 10-01-2021 Neutrophil, Absolute 2.40 10 3/mcL Normal 2.25-8.10 [facility] ([place]) Comment on above: Performed By: #### P RO, CMP, GFR, RPR, CBC, ADIFF, ANEU, HIVRNA, HELP1, HCQPCR, HEPGEN #### [place] [address] CBCon 10-01-2021 Erythrocyte distribution width (RBC) [Ratio] 13.6 % Normal 11.5-15.5 [facility] ([place]) Comment on above: Performed By: #### P RO, CMP, GFR, RPR, CBC, ADIFF, ANEU, HIVRNA, HELP1, HCQPCR, HEPGEN #### [place] [address] Hematocrit (Bld) [Volume fraction] 46.3 % Normal 40.0-52.0 [facility] ([place]) Comment on above: Performed By: #### P RO, CMP, GFR, RPR, CBC, ADIFF, ANEU, HIVRNA, HELP1, HCQPCR, HEPGEN #### [place] [address] Hgb 15.6 G/dL Normal 13.0-17.5 [facility] ([place]) Comment on above: Performed By: #### P RO, CMP, GFR, RPR, CBC, ADIFF, ANEU, HIVRNA, HELP1, HCQPCR, HEPGEN #### [place] [id number] MCH (RBC) [Entitic mass] 29.3 pg Normal 27.0-33.0 [facility] ([place]) Comment on above: Performed By: #### P RO, CMP, GFR, RPR, CBC, ADIFF, ANEU, HIVRNA, HELP1, HCQPCR, HEPGEN #### [place] [address] MCHC 33.7 G/dL Normal 32.0-36.0 [facility] ([place]) Comment on above: Performed By: #### P RO, CMP, GFR, RPR, CBC, ADIFF, ANEU, HIVRNA, HELP1, HCQPCR, HEPGEN #### [place] [address] MCV (RBC) [Entitic vol] 86.9 fL Normal 81.0-100.0 [facility] ([place]) Comment on above: Performed By: #### P RO, CMP, GFR, RPR, CBC, ADIFF, ANEU, HIVRNA, HELP1, HCQPCR, HEPGEN #### [place] [address] Platelet 234 10 3/mcL Normal 150-450 [facility] ([place]) Comment on above: Performed By: #### P RO, CMP, GFR, RPR, CBC, ADIFF, ANEU, HIVRNA, HELP1, HCQPCR, HEPGEN #### [place] [address] Platelet mean volume (Bld) [Entitic vol] 7.9 fL Normal 6.4-10.5 [facility] ([place]) Comment on above: Performed By: #### P RO, CMP, GFR, RPR, CBC, ADIFF, ANEU, HIVRNA, HELP1, HCQPCR, HEPGEN #### [place] [address] RBC 5.33 10 6/mcL Normal 4.50-6.00 [facility] ([place]) Comment on above: Performed By: #### P RO, CMP, GFR, RPR, CBC, ADIFF, ANEU, HIVRNA, HELP1, HCQPCR, HEPGEN #### [place] [id number] WBC 5.70 10 3/mcL Normal 4.50-10.80 [facility] ([place]) Comment on above: Performed By: #### P RO, CMP, GFR, RPR, CBC, ADIFF, ANEU, HIVRNA, HELP1, HCQPCR, HEPGEN #### [place] [address] CMPon 10-01-2021 Albumin Level 3.9 G/dL Normal 3.2-4.8 [facility] ([place]) Comment on above: Performed By: #### P RO, CMP, GFR, RPR, CBC, ADIFF, ANEU, HIVRNA, HELP1, HCQPCR, HEPGEN #### [place] [id number] Albumin/Globulin [Mass ratio] 1.3 {ratio} Normal 0.9-1.6 [facility] ([place]) Comment on above: Performed By: #### P RO, CMP, GFR, RPR, CBC, ADIFF, ANEU, HIVRNA, HELP1, HCQPCR, HEPGEN #### [address] [address] ALP [Catalytic activity/Vol] 137 U/L High 38-126 [facility] ([place]) Comment on above: Performed By: #### P RO, CMP, GFR, RPR, CBC, ADIFF, ANEU, HIVRNA, HELP1, HCQPCR, HEPGEN #### [address] [address] ALT [Catalytic activity/Vol] 61 U/L High 12-55 [facility] ([place]) Comment on above: Performed By: #### P RO, CMP, GFR, RPR, CBC, ADIFF, ANEU, HIVRNA, HELP1, HCQPCR, HEPGEN #### [address] [address] AST [Catalytic activity/Vol] 55 U/L High 8-34 [facility] ([place]) Comment on above: Performed By: #### P RO, CMP, GFR, RPR, CBC, ADIFF, ANEU, HIVRNA, HELP1, HCQPCR, HEPGEN #### [address] [address] Bili Total 0.50 mg/dL Normal 0.20-1.20 [facility] ([place]) Comment on above: Result Comment: Use of this assay is not recommended for patients undergoing treatment with eltrombopag due to the potential for falsely elevated results. Performed By: #### P RO, CMP, GFR, RPR, CBC, ADIFF, ANEU, HIVRNA, HELP1, HCQPCR, HEPGEN #### [address] [address] BUN/Creatinine Ratio 15.5 ratio Normal 10.0-22.0 [facility] ([place]) Comment on above: Performed By: #### P RO, CMP, GFR, RPR, CBC, ADIFF, ANEU, HIVRNA, HELP1, HCQPCR, HEPGEN #### [address] [address] Calcium [Mass/Vol] 9.8 mg/dL Normal 8.7-10.4 [facility] ([place]) Comment on above: Result Comment: No te - New Reference Range in effect 19 Performed By: #### P RO, CMP, GFR, RPR, CBC, ADIFF, ANEU, HIVRNA, HELP1, HCQPCR, HEPGEN #### [address] [address] Chloride [Moles/Vol] 110 mmol/L Normal 98-110 [facility] ([place]) Comment on above: Performed By: #### P RO, CMP, GFR, RPR, CBC, ADIFF, ANEU, HIVRNA, HELP1, HCQPCR, HEPGEN #### [address] [address] CO2 [Moles/Vol] 29 mmol/L Normal 22-32 [facility] ([place]) Comment on above: Performed By: #### P RO, CMP, GFR, RPR, CBC, ADIFF, ANEU, HIVRNA, HELP1, HCQPCR, HEPGEN #### [address] [address] Creatinine [Mass/Vol] 1.03 mg/dL Normal 0.60-1.40 [facility] [place] Comment on above: Performed By: #### P RO, CMP, GFR, RPR, CBC, ADIFF, ANEU, HIVRNA, HELP1, HCQPCR, HEPGEN #### [address] [address] Electrolyte Balance 0.0 mEq/L Low 4.0-15.0 [facility] ([place]) Comment on above: Performed By: #### P RO, CMP, GFR, RPR, CBC, ADIFF, ANEU, HIVRNA, HELP1, HCQPCR, HEPGEN #### [address] [address] Globulin 3.0 G/dL Normal 1.5-3.8 [facility] ([place]) Comment on above: Performed By: #### P RO, CMP, GFR, RPR, CBC, ADIFF, ANEU, HIVRNA, HELP1, HCQPCR, HEPGEN #### [address] [address] Glucose [Mass/Vol] 94 mg/dL Normal 70-110 [facility] ([place]) Comment on above: Performed By: #### P RO, CMP, GFR, RPR, CBC, ADIFF, ANEU, HIVRNA, HELP1, HCQPCR, HEPGEN #### [address] [address] Potassium [Moles/Vol] 3.7 mmol/L Normal 3.5-5.0 [facility] [place] Comment on above: Performed By: #### P RO, CMP, GFR, RPR, CBC, ADIFF, ANEU, HIVRNA, HELP1, HCQPCR, HEPGEN #### [address] [address] Sodium [Moles/Vol] 139 mmol/L Normal 136-145 [facility] ([place]) Comment on above: Performed By: #### P RO, CMP, GFR, RPR, CBC, ADIFF, ANEU, HIVRNA, HELP1, HCQPCR, HEPGEN #### [place] [address] [place] [address] Total Protein 6.9 G/dL Normal 5.7-8.2 [facility] ([place]) Comment on above: Result Comment: No te - New Reference Range in effect 19 Performed By: #### P RO, CMP, GFR, RPR, CBC, ADIFF, ANEU, HIVRNA, HELP1, HCQPCR, HEPGEN #### [facility] [address] [place] [address] Urea nitrogen [Mass/Vol] 16.0 mg/dL Normal 8.0-22.0 [facility] ([place]) Comment on above: Performed By: #### P RO, CMP, GFR, RPR, CBC, ADIFF, ANEU, HIVRNA, HELP1, HCQPCR, HEPGEN #### [place] [address] [place] [address] LABORATORYOrdered By: SYSTEM SYSTEM on 10-01-2021 Albumin [...] 09-18-2021 Alpha2 Macroglobulin 295 mg/dL High 106-279 [facility] ([place]) Comment on above: Performed By: #### P RO, CMP, GFR, RPR, CBC, ADIFF, ANEU, HIVRNA, HELP1, HCQPCR, HEPGEN #### [place] [address] ALT [Catalytic activity/Vol] 69 U/L High 9-46 [facility] ([place]) Comment on above: Performed By: #### P RO, CMP, GFR, RPR, CBC, ADIFF, ANEU, HIVRNA, HELP1, HCQPCR, HEPGEN #### [place] [address] Apolipoprotein A1 127 mg/dL Normal 94-176 [facility] ([place]) Comment on above: Performed By: #### P RO, CMP, GFR, RPR, CBC, ADIFF, ANEU, HIVRNA, HELP1, HCQPCR, HEPGEN #### [place] [address] Bilirubin [Mass/Vol] 0.6 mg/dL Normal 0.2-1.2 [facility] ([place]) Comment on above: Performed By: #### P RO, CMP, GFR, RPR, CBC, ADIFF, ANEU, HIVRNA, HELP1, HCQPCR, HEPGEN #### [place] [address] Fibrosis Interp SEE NOTE Normal [facility] ([place]) Comment on above: Result Comment: mini [facility] fibrosis Fibro Test Score (f) Metavir Score [...] ADIFF, ANEU, HIVRNA, HELP1, HCQPCR, HEPGEN #### [place] [address] Fibrosis Score 0.41 Normal [facility] ([place]) Comment on above: Performed By: #### P RO, CMP, GFR, RPR, CBC, ADIFF, ANEU, HIVRNA, HELP1, HCQPCR, HEPGEN #### [facility] [address] [place] [address] Fibrosis Stage F1-F2 Normal [facility] ([place]) Comment on above: Performed By: #### P RO, CMP, GFR, RPR, CBC, ADIFF, ANEU, HIVRNA, HELP1, HCQPCR, HEPGEN #### [facility] [address] [place] [address] Footnote SEE NOTE Normal [facility] ([place]) Comment on above: Result Comment: The reliability [...] The performance characteristics have been determined by [facility]. It has not been cleared or approved by the U.S. Food and Drug Administration. Performance characteristics refer to the analytical performance of the test. i[employer], the associated logo, [employer] and all associated [employer] rodriguez are the registered trademarks of [employer]. All third constitution party rodriguez - (R) and (TM) - are the property of their respective owners. ([phone] [id number] [employer]. All rights reserved. TEST PERFORMED AT: [id number] [facility] [address] [place] [address] Clinical Researcher: Mili Sullivan MD, PhD, CYN Performed By: #### P RO, CMP, GFR, RPR, CBC, ADIFF, ANEU, HIVRNA, HELP1, HCQPCR, HEPGEN #### [place] [address] GGT Lvl 16 U/L Normal 3-95 [facility] ([place]) Comment on above: Performed By: #### P RO, CMP, GFR, RPR, CBC, ADIFF, ANEU, HIVRNA, HELP1, HCQPCR, HEPGEN #### [place] [address] Haptoglobin Lvl 98 mg/dL Normal 43-212 [facility] ([place]) Comment on above: Performed By: #### P RO, CMP, GFR, RPR, CBC, ADIFF, ANEU, HIVRNA, HELP1, HCQPCR, HEPGEN #### [place] [address] NecroinflamAct Grade A1-A2 Normal [facility] ([place]) Comment on above: Performed By: #### P RO, CMP, GFR, RPR, CBC, ADIFF, ANEU, HIVRNA, HELP1, HCQPCR, HEPGEN #### [place] [address] NecroinflamAct Score 0.45 Normal [facility] ([place]) Comment on above: Performed By: #### P RO, CMP, GFR, RPR, CBC, ADIFF, ANEU, HIVRNA, HELP1, HCQPCR, HEPGEN #### [place] [address] Necroinflamm Interp SEE NOTE Normal [facility] ([place]) Comment on above: Result Comment: mini mal [...] ADIFF, ANEU, HIVRNA, HELP1, HCQPCR, HEPGEN #### [place] [address] Reference ID [id number] Normal [facility] ([place]) Comment on above: Performed By: #### P RO, CMP, GFR, RPR, CBC, ADIFF, ANEU, HIVRNA, HELP1, HCQPCR, HEPGEN #### [place] [address] HCGENon 09-04-2021 Hepatitis C Genotype Genotype 1a Abnormal [facility] [place] Comment on above: Result Comment: Perf ormed By: [facility] [address] [place] [address] [employer] Operator Helper: Lizzy Sun III#: [id number] Performed By: #### P RO, CMP, GFR, RPR, CBC, ADIFF, ANEU, HIVRNA, HELP1, HCQPCR, HEPGEN #### [place] [address] .Auto Diffon 08-29-2021 Basophil, Absolute 0.10 10 3/mcL Normal 0.00-0.27 [facility] [place] Comment on above: Performed By: #### P RO, CMP, GFR, RPR, CBC, ADIFF, ANEU, HIVRNA, HELP1, HCQPCR, HEPGEN #### [place] [address] Basophils/100 WBC (Bld) 0.8 % Normal 0.0-2.5 [facility] ([place]) Comment on above: Performed By: #### P RO, CMP, GFR, RPR, CBC, ADIFF, ANEU, HIVRNA, HELP1, HCQPCR, HEPGEN #### [facility] [address] [place] [address] Eosinophil, Absolute 0.80 10 3/mcL High 0.00-0.65 A [facility] ([place]) Comment on above: Performed By: #### P RO, CMP, GFR, RPR, CBC, ADIFF, ANEU, HIVRNA, HELP1, HCQPCR, HEPGEN #### [address] [address] Eosinophils/100 WBC (Bld) 10.6 % High 0.0-6.0 [facility] ([place]) Comment on above: Performed By: #### P RO, CMP, GFR, RPR, CBC, ADIFF, ANEU, HIVRNA, HELP1, HCQPCR, HEPGEN #### [address] [address] Lymphocyte, Absolute 2.30 10 3/mcL Normal 0.90-4.32 [facility] ([place]) Comment on above: Performed By: #### P RO, CMP, GFR, RPR, CBC, ADIFF, ANEU, HIVRNA, HELP1, HCQPCR, HEPGEN #### [address] [address] Lymphocytes/100 WBC (Bld) 31.3 % Normal 20.0-40.0 [facility] ([place]) Comment on above: Performed By: #### P RO, CMP, GFR, RPR, CBC, ADIFF, ANEU, HIVRNA, HELP1, HCQPCR, HEPGEN #### [address] [address] Monocyte, Absolute 0.40 10 3/mcL Normal 0.09-1.40 [facility] [place] Comment on above: Performed By: #### P RO, CMP, GFR, RPR, CBC, ADIFF, ANEU, HIVRNA, HELP1, HCQPCR, HEPGEN #### [address] [address] Monocytes/100 WBC (Bld) 5.1 % Normal 2.0-13.0 [facility] ([place]) Comment on above: Performed By: #### P RO, CMP, GFR, RPR, CBC, ADIFF, ANEU, HIVRNA, HELP1, HCQPCR, HEPGEN #### [address] [address] Neutrophils/100 WBC (Bld) 52.2 % Normal 50.0-75.0 [facility] ([place]) Comment on above: Performed By: #### P RO, CMP, GFR, RPR, CBC, ADIFF, ANEU, HIVRNA, HELP1, HCQPCR, HEPGEN #### [address] [address] .NEUABSon 08-29-2021 Neutrophil, Absolute 52.20 10 3/mcL High 2.25-8.10 [facility] ([place]) Comment on above: Performed By: #### P RO, CMP, GFR, RPR, CBC, ADIFF, ANEU, HIVRNA, HELP1, HCQPCR, HEPGEN #### [address] [address] CBCon 08-29-2021 Erythrocyte distribution width (RBC) [Ratio] 13.7 % Normal 11.5-15.5 [facility] ([place]) Comment on above: Performed By: #### P RO, CMP, GFR, RPR, CBC, ADIFF, ANEU, HIVRNA, HELP1, HCQPCR, HEPGEN #### [place] [id number] Hematocrit (Bld) [Volume fraction] 44.5 % Normal 40.0-52.0 [facility] ([place]) Comment on above: Performed By: #### P RO, CMP, GFR, RPR, CBC, ADIFF, ANEU, HIVRNA, HELP1, HCQPCR, HEPGEN #### [address] [address] Hgb 15.3 G/dL Normal 13.0-17.5 [facility] ([place]) Comment on above: Performed By: #### P RO, CMP, GFR, RPR, CBC, ADIFF, ANEU, HIVRNA, HELP1, HCQPCR, HEPGEN #### [address] [address] MCH (RBC) [Entitic mass] 29.8 pg Normal 27.0-33.0 [facility] ([place]) Comment on above: Performed By: #### P RO, CMP, GFR, RPR, CBC, ADIFF, ANEU, HIVRNA, HELP1, HCQPCR, HEPGEN #### [place] [id number] MCHC 34.4 G/dL Normal 32.0-36.0 [facility] ([place]) Comment on above: Performed By: #### P RO, CMP, GFR, RPR, CBC, ADIFF, ANEU, HIVRNA, HELP1, HCQPCR, HEPGEN #### [place] [address] MCV (RBC) [Entitic vol] 86.5 fL Normal 81.0-100.0 [facility] ([place]) Comment on above: Performed By: #### P RO, CMP, GFR, RPR, CBC, ADIFF, ANEU, HIVRNA, HELP1, HCQPCR, HEPGEN #### [place] [address] Platelet 276 10 3/mcL Normal 150-450 [facility] ([place]) Comment on above: Performed By: #### P RO, CMP, GFR, RPR, CBC, ADIFF, ANEU, HIVRNA, HELP1, HCQPCR, HEPGEN #### [place] [id number] Platelet mean volume (Bld) [Entitic vol] 8.4 fL Normal 6.4-10.5 [facility] ([place]) Comment on above: Performed By: #### P RO, CMP, GFR, RPR, CBC, ADIFF, ANEU, HIVRNA, HELP1, HCQPCR, HEPGEN #### [place] [id number] RBC 5.15 10 6/mcL Normal 4.50-6.00 [facility] ([place]) Comment on above: Performed By: #### P RO, CMP, GFR, RPR, CBC, ADIFF, ANEU, HIVRNA, HELP1, HCQPCR, HEPGEN #### [place] [address] WBC 7.30 10 3/mcL Normal 4.50-10.80 [facility] ([place]) Comment on above: Performed By: #### P RO, CMP, GFR, RPR, CBC, ADIFF, ANEU, HIVRNA, HELP1, HCQPCR, HEPGEN #### [address] [address] HCQPCRon 08-29-2021 HCQPCR Quant Log Value 6.60 LogCopies/mL [facility] ([place]) Comment on above: Result Comment: The Linear Range of this assay is 15 IU/ml to 100,000,000 IU/ml Performed By: [place] [id number] [employer] Operator Helper: Corky Guzman III, M.D. CLIA#: [id number] Performed By: #### P RO, CMP, GFR, RPR, CBC, ADIFF, ANEU, HIVRNA, HELP1, HCQPCR, HEPGEN #### [place] [address] HCV RNA (IU/mL) [id number] IU/mL [facility] ([place]) Comment on above: Result Comment: Perf ormed By: [place] [address] [employer]ity Prospecting Operator Helper: Corky Guzman III, M.D. CLIA#: [id number] Performed By: #### P RO, CMP, GFR, RPR, CBC, ADIFF, ANEU, HIVRNA, HELP1, HCQPCR, HEPGEN #### [place] [address] Hepatitis C RNA Detected Abnormal See Comment [facility] ([place]) Comment on above: Result Comment: Perf ormed By: [place] [id number] [employer] Operator Helper: Corky Guzman III, M.D. CLIA#: [id number] Reference Range: HCV RNA not detected by PCR. Performed By: #### P RO, CMP, GFR, RPR, CBC, ADIFF, ANEU, HIVRNA, HELP1, HCQPCR, HEPGEN #### [address] [address] [id number] 08-29-2021 % B Cells 23 % Normal 5-25 [facility] ([place]) Comment on above: Performed By: #### P RO, CMP, GFR, RPR, CBC, ADIFF, ANEU, HIVRNA, HELP1, HCQPCR, HEPGEN #### [address] [address] % CD4 Cells 31 % Normal 30-61 [facility] ([place]) Comment on above: Performed By: #### P RO, CMP, GFR, RPR, CBC, ADIFF, ANEU, HIVRNA, HELP1, HCQPCR, HEPGEN #### [address] [address] % CD56+/16+ 4 % Low 5-30 [facility] ([place]) Comment on above: Performed By: #### P RO, CMP, GFR, RPR, CBC, ADIFF, ANEU, HIVRNA, HELP1, HCQPCR, HEPGEN #### [address] [address] % CD8 Cells 42 % Normal 12-42 [facility] ([place]) Comment on above: Performed By: #### P RO, CMP, GFR, RPR, CBC, ADIFF, ANEU, HIVRNA, HELP1, HCQPCR, HEPGEN #### [address] [address] % T Cells 74 % Normal 52-84 [facility] ([place]) Comment on above: Performed By: #### P RO, CMP, GFR, RPR, CBC, ADIFF, ANEU, HIVRNA, HELP1, HCQPCR, HEPGEN #### [address] [address] B Cells (CD 19) 456 /uL Normal 71-567 [facility] ([place]) Comment on above: Performed By: #### P RO, CMP, GFR, RPR, CBC, ADIFF, ANEU, HIVRNA, HELP1, HCQPCR, HEPGEN #### [address] [address] CD4 Cells 630 /uL Normal 401-1532 [facility] ([place]) Comment on above: Performed By: #### P RO, CMP, GFR, RPR, CBC, ADIFF, ANEU, HIVRNA, HELP1, HCQPCR, HEPGEN #### [address] [address] CD4/CD8 Ratio 0.75 ratio Low 0.88-3.84 [facility] ([place]) Comment on above: Performed By: #### P RO, CMP, GFR, RPR, CBC, ADIFF, ANEU, HIVRNA, HELP1, HCQPCR, HEPGEN #### [address] [address] CD56+/16+ NK Cells 86 /uL Normal 80-597 [facility] ([place]) Comment on above: Performed By: #### P RO, CMP, GFR, RPR, CBC, ADIFF, ANEU, HIVRNA, HELP1, HCQPCR, HEPGEN #### [address] [address] CD8 Cells 838 /uL Normal 152-838 [facility] ([place]) Comment on above: Performed By: #### P RO, CMP, GFR, RPR, CBC, ADIFF, ANEU, HIVRNA, HELP1, HCQPCR, HEPGEN #### [address] [address] Lymphocytes (Bld) [#/Vol] 2.03 10*3/uL Normal 660-4600 [facility] ([place]) Comment on above: Performed By: #### P RO, CMP, GFR, RPR, CBC, ADIFF, ANEU, HIVRNA, HELP1, HCQPCR, HEPGEN #### [address] [address] T Cells 1488 /uL Normal 582-1992 [facility] ([place]) Comment on above: Performed By: #### P RO, CMP, GFR, RPR, CBC, ADIFF, ANEU, HIVRNA, HELP1, HCQPCR, HEPGEN #### [address] [address] HIVLDon 08-29-2021 HIV RNA (log copies/mL) 1.45 LogCopies/mL High [facility] ([place]) Comment on above: Result Comment: Line ar range of assay: 20 copies/mL to 10,000,000 copies/mL. HIV Information: [place] Rev. Code 3701.243(E): This information has been [...] HIV test results or diagnoses. Performed By: [place] [address] [employer] Operator Helper: Corky Guzman III, M.D. CLIA#: [id number] Performed By: #### P RO, CMP, GFR, RPR, CBC, ADIFF, ANEU, HIVRNA, HELP1, HCQPCR, HEPGEN #### [place] [address] HIV RNA Detection Quantitative 28.2 COPIES/ML High [facility] ([place]) Comment on above: Result Comment: Posi tive for HIV-1 RNA by PCR Performed By: [place] [address] [employer] Operator Helper: Corky Guzman III, M.D. CLIA#: [id number] Performed By: #### P RO, CMP, GFR, RPR, CBC, ADIFF, ANEU, HIVRNA, HELP1, HCQPCR, HEPGEN #### [place] [id number] HIV RNA Qual Detected Abnormal See Comment [facility] ([place]) Comment on above: Result Comment: Perf ormed By: [facility] [employer] [address] [place] [address] [employer] Operator Helper: Corky Guzman III, M.D. CLIA#: [id number] Reference Range: HIV-1 RNA not detected by PCR. Performed By: #### P RO, CMP, GFR, RPR, CBC, ADIFF, ANEU, HIVRNA, HELP1, HCQPCR, HEPGEN #### [place] [id number] .GFRon 08-28-2021 GFR >60 Normal [facility] ([place]) Comment on above: Result Comment: GFR Population [...] ADIFF, ANEU, HIVRNA, HELP1, HCQPCR, HEPGEN #### [address] [address] GFR Non- >60 Normal [facility] ([place]) Comment on above: Result Comment: GFR Population [...] ADIFF, ANEU, HIVRNA, HELP1, HCQPCR, HEPGEN #### [address] [address] [facility] 08-28-2021 Albumin Level 3.7 G/dL Normal 3.2-4.8 [facility] ([place]) Comment on above: Performed By: #### P RO, CMP, GFR, RPR, CBC, ADIFF, ANEU, HIVRNA, HELP1, HCQPCR, HEPGEN #### [address] [address] Albumin/Globulin [Mass ratio] 1.3 {ratio} Normal 0.9-1.6 [facility] ([place]) Comment on above: Performed By: #### P RO, CMP, GFR, RPR, CBC, ADIFF, ANEU, HIVRNA, HELP1, HCQPCR, HEPGEN #### [address] [address] ALP [Catalytic activity/Vol] 102 U/L Normal 38-126 [facility] ([place]) Comment on above: Performed By: #### P RO, CMP, GFR, RPR, CBC, ADIFF, ANEU, HIVRNA, HELP1, HCQPCR, HEPGEN #### [address] [address] ALT [Catalytic activity/Vol] 94 U/L High 12-55 [facility] ([place]) Comment on above: Performed By: #### P RO, CMP, GFR, RPR, CBC, ADIFF, ANEU, HIVRNA, HELP1, HCQPCR, HEPGEN #### [address] [address] AST [Catalytic activity/Vol] 74 U/L High 8-34 [facility] ([place]) Comment on above: Performed By: #### P RO, CMP, GFR, RPR, CBC, ADIFF, ANEU, HIVRNA, HELP1, HCQPCR, HEPGEN #### [address] [address] Bili Total 0.40 mg/dL Normal 0.20-1.20 [facility] ([place]) Comment on above: Result Comment: Use of this assay is not recommended for patients undergoing treatment with eltrombopag due to the potential for falsely elevated results. Performed By: #### P RO, CMP, GFR, RPR, CBC, ADIFF, ANEU, HIVRNA, HELP1, HCQPCR, HEPGEN #### [address] [address] BUN/Creatinine Ratio 19.5 ratio Normal 10.0-22.0 [facility] ([place]) Comment on above: Performed By: #### P RO, CMP, GFR, RPR, CBC, ADIFF, ANEU, HIVRNA, HELP1, HCQPCR, HEPGEN #### [address] [address] Calcium [Mass/Vol] 9.5 mg/dL Normal 8.7-10.4 [facility] ([place]) Comment on above: Result Comment: No te - New Reference Range in effect 19 Performed By: #### P RO, CMP, GFR, RPR, CBC, ADIFF, ANEU, HIVRNA, HELP1, HCQPCR, HEPGEN #### [address] [address] Chloride [Moles/Vol] 108 mmol/L Normal 98-110 [facility] ([place]) Comment on above: Performed By: #### P RO, CMP, GFR, RPR, CBC, ADIFF, ANEU, HIVRNA, HELP1, HCQPCR, HEPGEN #### [address] [address] CO2 [Moles/Vol] 26 mmol/L Normal 22-32 [facility] ([place]) Comment on above: Performed By: #### P RO, CMP, GFR, RPR, CBC, ADIFF, ANEU, HIVRNA, HELP1, HCQPCR, HEPGEN #### [address] [address] Creatinine [Mass/Vol] 1.23 mg/dL Normal 0.60-1.40 [facility] ([place]) Comment on above: Performed By: #### P RO, CMP, GFR, RPR, CBC, ADIFF, ANEU, HIVRNA, HELP1, HCQPCR, HEPGEN #### [address] [address] Electrolyte Balance 6.0 mEq/L Normal 4.0-15.0 [facility] ([place]) Comment on above: Performed By: #### P RO, CMP, GFR, RPR, CBC, ADIFF, ANEU, HIVRNA, HELP1, HCQPCR, HEPGEN #### [address] [address] Globulin 2.9 G/dL Normal 1.5-3.8 [facility] ([place]) Comment on above: Performed By: #### P RO, CMP, GFR, RPR, CBC, ADIFF, ANEU, HIVRNA, HELP1, HCQPCR, HEPGEN #### [address] [address] Glucose [Mass/Vol] 83 mg/dL Normal 70-110 [facility] ([place]) Comment on above: Performed By: #### P RO, CMP, GFR, RPR, CBC, ADIFF, ANEU, HIVRNA, HELP1, HCQPCR, HEPGEN #### [address] [address] Potassium [Moles/Vol] 4.5 mmol/L Normal 3.5-5.0 [facility] ([place]) Comment on above: Result Comment: Spec imen slightly hemolyzed. Performed By: #### P RO, CMP, GFR, RPR, CBC, ADIFF, ANEU, HIVRNA, HELP1, HCQPCR, HEPGEN #### [address] [address] Sodium [Moles/Vol] 140 mmol/L Normal 136-145 [facility] ([place]) Comment on above: Performed By: #### P RO, CMP, GFR, RPR, CBC, ADIFF, ANEU, HIVRNA, HELP1, HCQPCR, HEPGEN #### [address] [address] Total Protein 6.6 G/dL Normal 5.7-8.2 [facility] ([place]) Comment on above: Result Comment: No te - New Reference Range in effect 19 Performed By: #### P RO, CMP, GFR, RPR, CBC, ADIFF, ANEU, HIVRNA, HELP1, HCQPCR, HEPGEN #### [address] [address] Urea nitrogen [Mass/Vol] 24.0 mg/dL High 8.0-22.0 [facility] ([place]) Comment on above: Performed By: #### P RO, CMP, GFR, RPR, CBC, ADIFF, ANEU, HIVRNA, HELP1, HCQPCR, HEPGEN #### [place] [address] [place] [address] RPRon 08-28-2021 Reagin Ab RPR Ql (S) Non-Reactive Normal Non-Reactive [facility] ([place]) Comment on above: Result Comment: The RPR [...] ADIFF, ANEU, HIVRNA, HELP1, HCQPCR, HEPGEN #### [address] [address] PROon 08-27-2021 INR Coag (PPP) [Relative time] 1.0 {INR} Normal [facility] ([place]) Comment on above: Result Comment: [employer] (CHEST, 1992, 102:312S-25S) recommended therapeutic range for oral anticoagulant therapy is: LOW RISK: Prophylaxis of venous thrombosis INR: 2.0-3.0 Treatment of pulmonary embolism 2.0-3.0 Prevention of systemic embolism 2.0-3.0 HIGH RISK: Mechanical prosthetic valves 2.5-3.5 Performed By: #### P RO, CMP, GFR, RPR, CBC, ADIFF, ANEU, HIVRNA, HELP1, HCQPCR, HEPGEN #### [facility] [address] [place] [address] PT Coag (PPP) [Time] 11.8 s Normal 9.0-14.9 [facility] ([place]) Comment on above: Result Comment: Effe ctive 12/22/07, Protime results may be affected by some antibiotics (i.e. Ciprofloxacin, Azithromycin, Bactrim) which may potentiate the action of oral anticoagulants, with further increases in Protime/INR. Performed By: #### P RO, CMP, GFR, RPR, CBC, ADIFF, ANEU, HIVRNA, HELP1, HCQPCR, HEPGEN #### [place] [address] [place] [address] Lavender Topon 10-13-2017 Extra Tube Hold for add-ons. Invalid Interpretation Code [facility] [place] Drawon 10-13-2017 Creatinine The following orders were created for panel order [place] Draw. Procedure Abnormality Status --------- ------ Lavender Top[[id number]] Final result Mint Green Top[[id number]] Final result Gold Top[[id number]] Final result Light Blue Top[[id number]] Final result Please view results for these [...] evidence of DVT within the left lower extremity.[employer] kstation ID: [id number] Normal [facility] US DUPLEX VENOUS LEG LEFT EXAMINATION:US DUPLEX VENOUS LEG LEFTHISTORY:Left lower extremity pain.COMPARISON:None .TECHNIQUE:Venous duplex examination performed using B-mode, color flow and spectral analysis.FINDINGS:Ap propriate venous waveforms, compressibility and augmentation with compression are noted within the left lower extremity venous system.IMPRESSION:No evidence of DVT within the left lower extremity.[employer] kstation ID: [id number] ed by: HAI BUNN on FriOctober 13, 2017 4:17:00 PM EDTTranscribed by: SHILPI AGUILA IN [employer] on FriOctober 13, 2017 4:26:43 PM EDTFinalized by: HAI BUNN on FriOctober 13, 2017 4:26:43 PM EDT Normal [facility] Ultrasound Duplex Venous Leg LEFTon 10-13-2017 Ultrasound Duplex Venous Leg LEFT No evidence of DVT within the left lower extremity. [employer] Workstation ID: [id number] Invalid Interpretation Code [facility] Ultrasound Duplex Venous Leg LEFT EXAMINATION: US DUPLEX VENOUS LEG LEFT HISTORY: Left lower extremity pain. COMPARISON: None. TECHNIQUE: Venous duplex examination performed using B-mode, color flow and spectral analysis. FINDINGS: Appropriate venous waveforms, compressibility and augmentation with compression are noted within the left lower extremity venous system. Invalid Interpretation Code [facility] Ultrasound Duplex Venous Leg LEFT Interface, Rad [...] the left lower extremity. TJL/jcw Workstation ID: [id number] Invalid Interpretation Code [facility] XR KNEE LEFT 2 VIEWS ([address])on [...] FriOctober 13, 2017 10:34:04 PM EDT Normal [facility] Comment on above: Order Comment: Reaso n for exam?:lt knee pain and swelling x 3 weeksInjury/Trauma or Illness?:Injury/TraumaHow long have you had these symptoms (acute/chronic)?:AcuteHistory of cancer?:nSurgeries, chemotherapy, or radiation?:nType of Exam?:InitialMechanism of injury?:hurt playing ball Vital Signs Date Time Vital Sign Value Performing Clinician Silvestre long 12-05-2023 23:00-0400 Diastolic blood pressure 88 mm[Hg] Jasson Abernathy MD Work Phone: [facility] 12-05-2023 23:00-0400 Heart rate 79 /min Jasson Abernathy MD Work Phone: [facility] 12-05-2023 23:00-0400 SaO2% (BldA) [Mass fraction] 100 % Jasson Abernathy MD Work Phone: [facility] 12-05-2023 23:00-0400 Systolic blood pressure 147 mm[Hg] Jasson Abernathy MD Work Phone: [facility] 12-05-2023 18:02-0400 Body height 188 cm Jasson Abernathy MD Work Phone: [facility] 12-05-2023 18:01-0400 Body temperature 99.81 [degF] Jasson Abernathy MD Work Phone: [facility] 12-05-2023 18:01-0400 Respiratory rate 16 /min Jsason Abernathy MD Work Phone: [facility] 03-16-2022 11:51-0400 Body temperature 97.34 [degF] Scooby CALDERÓN [facility] 03-16-2022 11:51-0400 Diastolic blood pressure 86 mm[Hg] Scooby CALDERÓN [facility] 03-16-2022 11:51-0400 Heart rate 55 /min Scooby CALDERÓN [facility] 03-16-2022 11:51-0400 Mean blood pressure 97 mm[Hg] Scooby CALDERÓN [facility] 03-16-2022 11:51-0400 SaO2% (BldA) [Mass fraction] 96 % Scooby CALDERÓN [facility] 03-16-2022 11:51-0400 Systolic blood pressure 119 mm[Hg] Scooby CALDERÓN [facility] 12-25-2021 14:37-0400 Blood Pressure Location Scooby CALDERÓN [facility] 12-25-2021 14:37-0400 Body temperature 97.16 [degF] [facility] 12-25-2021 14:37-0400 Diastolic blood pressure 83 mm[Hg] Scooby [facility]DER[facility]N [facility] 12-25-2021 14:37-0400 Heart rate 77 /min [facility]DER[facility] 12-25-2021 14:37-0400 Respiratory rate 14 /min [facility] 12-25-2021 14:37-0400 SaO2% (BldA) [Mass fraction] 99 % [facility] 12-25-2021 14:37-0400 Systolic blood pressure 115 mm[Hg] Scooby CALDERÓN [facility] 12-21-2021 01:39-0400 Body temperature 98.91 [degF] Tomasa Deleon MD Work Phone: [facility] 12-21-2021 01:39-0400 Diastolic blood pressure 74 mm[Hg] Tomasa Deleon MD Work Phone: [facility] [email or web address] 12-21-2021 01:39-0400 Heart rate 100 /min Tomasa Deleon MD Work Phone: [facility] [employer] 12-21-2021 01:39-0400 Respiratory rate 20 /min Tomasa Deleon MD Work Phone: [facility] [email or web address] 12-21-2021 01:39-0400 SaO2% (BldA) [Mass fraction] 96 % Tomasa Deleon MD Work Phone: [facility] [email or web address] 12-21-2021 01:39-0400 Systolic blood pressure 120 mm[Hg] Tomasa Deleon MD Work Phone: [facility] [email or web address] 12-20-2021 22:44-0400 Body height 182.9 cm Tomasa Deleon MD Work Phone: [facility] [employer] 12-20-2021 22:44-0400 Body mass index (BMI) [Ratio] 23.06 kg/m2 Tomasa Deleon MD Work Phone: [facility] [employer] 12-20-2021 22:44-0400 Body weight 77.11 kg Tomasa Deleon MD Work Phone: [facility] 10-13-2017 16:00-0400 BP Diastolic 80 mm[Hg] [...] patient visit Jasson Abernathy MD Work Phone: [facility] Emergency Department Start: 04-30-2022 End: 05-01-2022 ambulatory SANNA TAN Facility:[facility] Start: 04-30-2022 End: 04-30-2022 Patient encounter procedure SANNA TAN [facility] Start: 04-05-2022 End: 04-06-2022 ambulatory Scooby CALDERÓN Facility:[facility] Start: 03-16-2022 End: 03-17-2022 ambulatory Scooby CALDERÓN Facility:[facility] Start: 03-16-2022 End: 03-16-2022 Off-Site [facility] Start: 12-25-2021 End: 12-26-2021 ambulatory Scooby CALDERÓN Facility:[facility] Start: 12-25-2021 End: 12-25-2021 Off-Site [facility] Start: 12-21-2021 ambulatory Scooby CALDERÓN Facility:[facility] Start: 12-21-2021 End: 12-21-2021 Emergency department patient visit TOMASA DELEON [facility] Start: 12-20-2021 End: 12-21-2021 Emergency department patient visit Tomasa Deleon MD Work Phone: [facility] ED Comment on above: Overdose of sympatho mimetic agent, undetermined intent, initial encounter (Primary Dx); History of HIV infection (HCC) Start: 11-02-2021 End: 11-02-[address] DARIUSZ HOLGUIN Facility: Start: 10-24-2021 End: 10-25-2021 ambulatory UNKNOWN PROVIDER Facility:[facility] Start: 10-01-2021 End: 10-01-2021 Patient encounter procedure CYNTHIA DUPREE PA-C [facility] Start: 04-29-2018 End: 04-29-2018 Office outpatient visit 25 minutes Piotr Nava Work Phone: [facility] Comment on above: HIV (human immunodef iciency virus infection) (Primary Dx); Hep C w/o coma, chronic Start: 10-13-2017 End: 10-13-2017 Emergency department patient visit JACOB UGARTEEN PENG [facility] Start: 10-13-2017 End: 10-13-2017 Emergency department patient visit Jacob Peng Work Phone: [facility] Emergency Department Procedures Date Procedure Procedure Detail [...] Influenza vaccination INFLUENZ A VACCINE (Season Ended) [facility] Start: 02-07-2022 Influenza vaccination Flu vaccine (# 1) [facility] Start: 2020 Screening for malign ant neoplasm of colon COLORECTAL CANCER SCREENING DISCUSSION [facility] Start: 02-07-2018 Influenza vaccination [facility] Start: 2015 Fasting lipid profile LIPID SCREENIN G [facility] Work Phone: Start: 2015 Lipid panel LIPID SCREENING [facility] Start: 1994 DTaP/Tdap/Td vaccine (1 - Tdap) DTaP/Tdap/Td vaccine (1 - Tdap) [facility] Start: 1994 Hepatitis B vaccination HEP B VACCINE (1 of 3 - 19+ 3-dose series) [facility] Start: 1994 Third diphtheria, tetanus and acellular pertussis (DTaP) vaccination TDAP (ADULT) [facility] Start: 1994 Zoster vaccine hzv l rocael for subcutaneous use ZOSTER (SHINGLES) VACCINE (1 of 2) [facility] Start: 1993 Tetanus vaccination TETANUS [facility] Work Phone: Start: 1981 PNEUMOCOCCAL VACCINE SERIES (1 of 2 - PCV) PNEUMOCOCCAL VACCINE SERIES (1 of 2 - PCV) [facility] Start: 1980 COVID-19 Vaccine (#1) COVID-19 Vacci ne (#1) [facility] Start: 1975 Hepatitis C screening HEPATITI S C VIRUS SCREENING [facility] Start: 1975 Tetanus vaccination [facility] End: 12-20-2021 Drug screen multi urine Drug screen multi urine Lab STAT One Time for 1 Occurrences starting 12/20/2021 until 12/20/2021 [employer] Phone: Comment on above: One Time for 1 Occur rences starting 12/20/2021 until 12/20/2021 EKG 12 Lead EKG 12 Lead ECG STAT 12/20/2021 10:52 PM EDT [email or web address] Work Phone: End: 12-20-2021 Oxygen therapy [Minimum Data Set] Initiate Oxygen Therapy Protocol Respiratory Care STAT One Time for 1 Occurrences starting 12/20/2021 until 12/20/2021 [employer] Phone: Comment on above: One Time for 1 Occur rences starting 12/20/2021 until 12/20/2021 End: 12-05-2023 Standard ECG [facility] Comment on above: One Time for 1 Occur rences starting 12/05/2023 until 12/05/2023 XR Knee Left 2 Views (Standard) XR Knee Left 2 Views (Standard) AILEEN 10/13/2017 3:04 PM EDT [facility] Immunizations Immunization Date Immunization Notes Care Provider Maryanne pina 03-08-2021 influenza virus vaccine, unspecified formulation Scooby CALDERÓN [facility] 10-10-2020 SARS-CoV-2 (COVID-19 ) mRNA-1273 vaccine Scooby CALDERÓN [facility] 09-04-2020 SARS-CoV-2 (COVID-19 ) mRNA-1273 vaccine Scooby CALDERÓN [facility] Payers Date Payer Category Payer Unknown [id number] 2022 Unknown [id number] 1975 Unknown [id number] 1975 Unknown [id number] 1975 Unknown [id number] 1975 Unknown [id number] 1975 Unknown [id number] 1975 Unknown [id number] 1975 Unknown [id number] 1959 Medicaid [id number] Unknown [facility] [id number] Effective for all dates [phone] [facility] [address] [place] [address] [id number] Unknown [id number] Social History Date Type Detail Facility Start: 11-22-2015 End: 10-13-2017 Tobacco smoking status UTIS Former smoker [facility] Start: 1975 [facility] End: 06-15-2014 History of tobacco use Current smoker [facility] Work Phone: End: 06-15-2014 History of tobacco use Cigarette Smoker [facility] Work Phone: Start: 12-01-2015 End: 12-05-2023 Cigarettes smoked current (pack per day) - Reported [facility] Work Phone: Sex Assigned At [facility] Start: 12-20-2021 Tobacco smoking stat [facility] Tobacco smoking consumption unknown [facility] Work Phone: Start: 12-10-2021 End: 12-21-2021 Exposure to SARS-CoV-2 (event) Unable to assess ASHLIE DUTTA [facility] [employer] Work Phone: Start: 12-25-2021 Tobacco smoking status Heavy t obacco smoker (finding) [facility] Comment on above: STATES HE QUIT FOR 9 YEARS DUE TO BEING IN [facility] AND HAS BEEN SMOKING AGAIN FOR THE PAST 4 MONTHS Start: 12-05-2023 Sex Assigned At Male [facility] Start: 12-05-2023 Alcoholic beverage intake Current non-drinker of alcohol (finding) [facility] Start: 07-11-2017 Gender identity Identifies as male gender (finding) [facility] Functional Status Date Assessment Result Facility 12-25-2021 Functional Status N/A [facility] Clinical Notes 12-21-2021 to 12-06-2023 Starr Hodge, [...] Disposition: -Discharge Starr Hodge DO Resident 12/06/236 [facility] 12-06-2023 Emergency department Note ED Interval [...] for panic vs poisoning from water at [facility]; no other inmates with sx's; missed psych [...] plan of care. Jasson Abernathy MD 12/05/23 4789 EMERGENCY DEPARTMENT ENCOUNTER CHIEF COMPLAINT Chief Complaint [...] later, he was offered water by the traffic officer and again had similar thoughts. He [...] Dr. Abernathy. Linwood Givens MD Resident 12/05/23 1399 C/o panic attack. Per pt, had panic [...] a panic attack. documented in this encounter [facility] 12-06-2023 Hospital Discharg e instructions Starr [...] work-up & mangement documented in this encounter [facility] 12-05-2023 Note Acute Coronary Syndr ome (ACS): Initial Evaluation and Management: [email or web address] [facility] 12-05-2023 Physician Emergency department Note ED Attending Chief Complaint Patient presents with Anxiety Past Medical History: Diagnosis Date Depressive disorder, not elsewhere classified Hepatitis HIV (human immunodeficiency virus infection) Orbit fracture Rigoberto Ha Jr. is a 48 y.o. male. Concern for panic vs poisoning from water at [facility]; no other inmates with sx's; missed psych [...] plan of care. Jasson Abernathy MD 12/05/23 8074 [facility] Work Phone: 12-05-2023 Physician Emergency department [...] later, he was offered water by the traffic officer and again had similar thoughts. He [...] Dr. Abernathy. Linwood Givens MD Resident 12/05/23 6287 [facility] Work Phone: 12-05-2023 Emergency department Note C/o panic attack. Per pt, had panic attack then drank water, then had another panic attack due to believing someone put something in the water. Pt has had similar beliefs in the past. Per report pt has multiple mental health Dx. RR even/unlabored at this time. NAD noted. [facility] 12-05-2023 Emergency department Note Patient is coming from [facility] for anxiety. Per RN patient is having a panic attack. [facility] 04-30-2022 Evaluation + Plan note Diagnostic Tests PendingHCV RNA by PCR, Qn Rfx Hetal 04/30/22HCV Antibody RFX to Quant PCR 04/30/22 [facility] 12-21-2021 History of Presen t illness Narrative Patient in bed with eyes open, takes oral fluids without c/o, talking in full sentences Patient resting with eyes closed, resp regular and unlabored documented in this encounter [facility] Phone: Evaluation + Plan note Future Appointments Appointment Date:10/11/2021 10:00:00 AM Scheduled Provider: Location:[facility] [place] Appointment Type:US Elastography Liver w/ABD Complete Diagnostic Tests PendingTB Quantiferon, Incubated 10/01/21 Future Scheduled TestsUS Elastography Liver w/ABD Complete 09/20/21 [facility] Evaluation note Diagnosis Overdose of sympathomimetic agent, undetermined intent, initial encounter- Primary History of HIV infection (HCC) Personal history of other infectious and parasitic disease documented in this encounter [facility]: evaluation note* Diagnosis Anxiety- Primary Anxiety state, unspecified [facility] N[facility] No data available for this section [facility] Hospital Discharge instructions No data available for this section [facility] Progress note No data available for this section [facility] Discharge Instructions The following attachments cannot be sent through Care Everywhere. * Knee Pain or Injury (Ghanaian) * Bursitis (Ghanaian) * Kneecap Bursitis (Ghanaian) in this encounter Assessments Diagnosis Prepatellar bursitis [...] [facility]. Pt was last seen by [...] MD [address] [place] [address] Referral ID Status Reason Start Date Expiration Date V isits Requested Visits Authorized [id number] New Request 12/05/2023 12/29/2024 1 1 Additional Source Comments ED Notes - Valerie Singh RN - 10/13/2017 2:21 PM EDTED Notes - Simran Meza RN - 10/13/2017 2:21 PM EDT Miscellaneous Notes (unrecog nized section and content) Patient arrived via van with [place] from [facility]. Patient states he fell a few weeks ago and his leg has been hurting since. Patient had a D-Dimer drawn on Friday and it was elevated so AGRICULTURAL SERVICES DIRECTOR wanted him seen to R/O blood clot. [...] section and content) DATE CREATED AUTHOR 11/27/2017 [facility] DATE CREATED AUTHOR AUTHOR'S ORGANIZ ATION 10/04/2021 [facility] ([place]) DATE CREATED AUTHOR AUTHOR'S ORGANIZ ATION 10/26/2021 [facility] DATE CREATED AUTHOR AUTHOR'S ORGANIZ ATION 11/06/2021 [facility] DATE CREATED AUTHOR AUTHOR'S ORGANIZ ATION 12/27/2021 [facility] DATE CREATED AUTHOR AUTHOR'S ORGANIZ ATION 06/26/2022 Lenard Nolasco [facility] DATE CREATED AUTHOR AUTHOR'S ORGANIZ ATION 12/11/2023 [facility] DATE CREATED AUTHOR AUTHOR'S ORGANIZ ATION 02/11/2024 [facility] DATE CREATED AUTHOR AUTHOR'S ORGANIZ ATION 02/22/2024 APJOSÉ REDJASON El Reason for Visit (unrecogniz ed section and content) Reason Comments [facility] Reason Comments Drug Overdose EMS is called out to night for patient c/o chest pain and having aggressive behavior at [facility]. Patient arrives in ambulance combative and spitting in EMS face. Patient is physically restrained by 3 EMS, 1 policeman, and 2 healthcare providers. Aggressive Behavior Reason Comments Anxiety Care Team (unrecognized sect ion and content) Crts Relationship Specialty Start Date End Date [facility] ([facility] Other [address] [place] [address] PCP - General Other 01/13/15 Scheduled Active and Recently Administ ered Medications (unrecognized section and content) Medication Order 12/19/2021 12/20/2021 12/21/2021 0.9 % sodium chloride bolus (COMPLETED) 1,000 mL (13 mL/kg), IntraVENous, at 983.6 mL/hr, Administer over 61 Minutes, ONCE, On Fri12/21/21 at 0100, For 1 dose 0056 (New Bag - Prov ider: Matt Esteban RN)0155 (Stopped - Provider: aRkan Vera RN) FOR RECORDS PERTAINING TO PATIENTS [...] BE BASED ON THE PRIMARY CLINICAL RECORDS. [facility]. provides no warranty or guarantee of the accuracy or completeness of information in this document.
== END 2024-03-03 05:14 | disposition home or self-care (01) ==
PROVIDERS: Emergency Provider Emergency Medicine
DX: F19.10 Other psychoactive substance abuse, uncomplicated (principal); F17.200 Nicotine dependence, unspecified, uncomplicated
CPT/HCPCS: 80048; 81001; 84484; 93005; 99283

== ENCOUNTER 2024-03-03 07:39 | Emergency (ER) | payer OTHER, SELFPAY ==
[2024-03-03] VITALS (11 sets, daily range): BP systolic 122–152; BP diastolic 68–100; PULSE 68–91; TEMP 36.9–37.3; O2SAT 95–99; BMI 23.1
--- NOTE | 2024-03-03 07:45 | ECG_ITS ---
The [facility] Test Date: 2024-03-03 Pat Name: ELLEN HA Department: Room: - Gender: Male Clinical Laboratory Medical Director: : 1975 Requested By: Order Number: [id number] Reading MD: MELONY BARBER Measurements Intervals [place] Rate: 83 P: 70 [place]: 146 QRS: 88 QRSD: 92 T: 58 QT: 370 QTc: 410 Interpretive Statements 1100 Sinus rhythm 9110 normal ECG Compared to ECG 03/03/2024 04:35:59 No significant changes Electronically Signed On 03-03-2024 22:59:59 EDT by MELONY BARBER
--- NOTE | 2024-03-03 08:04 | XR_ITS ---
The [address] [address] Patient Name: ELLEN HA MRN: [id number] date: 1975 Sex: M Assigned Patient Location: ED.MAIN Current Patient Location: ER Accession/Order Number: [id number] Exam Date: 03/03/2024 08:00 Report Date: 03/03/2024 08:35 At the request of: RADHA HODGE Procedure: XR chest 1V EXAMINATION: XR chest 1V HISTORY: cp COMPARISON: XR chest 02/27/2024 FINDINGS: LUNGS: Trace amount stranding within right lung base. VASCULATURE: No increased pulmonary vasculature. PLEURA: No pneumothorax, effusion, or pleural thickening. CARDIAC: No cardiomegaly or cardiac silhouette abnormality. MEDIASTINUM: No visible mass or adenopathy. BONES: No fracture or visible bone lesion. OTHER: Negative. XR/XR chest 1V IMPRESSION: 1. Trace amount of new right basilar stranding; infiltrates versus discoid atelectasis. Electronically authenticated by: GRACE RASHID Date: 03/03/2024 08:35
--- OUTSIDE RECORDS SUMMARY | 2024-03-03 08:13 | XMS_ITS | CCD ---
Author Organization [facility] Care Team Providers Care Tie Man Name Role Phone No, Physician Unavailable Unavailable JACOB PENG Unavailable Unavailciara mendoza NO, PHYSICIAN Unavailable Unavailable [facility] ([facility]), Other Unav ailable RYNE TAN MD Primary [...] TAN Admitting Unavailable SANNA TAN Attending Unavailable [facility] ([facility]), Other Prim ollie Care Provider EMILY FENG Attending Unavailable [facility] [place] OTHER Prim ollie Care Unavailable RYNE TAN MD Attending Unava ilRYNE Cui MD Primary Care Unava RYNE Woo MD Primary Care Unava ilRYNE Cui MD Attending Unava ilable Allergies Allergy Classification Reported Allergen(s) Allergy Type Date of Onset Reaction(s) Facility (2 sources) *PEAS - FOOD ALLERGY Propensity to adverse reactions to drug 5 Shortness of Breath [facility] Work Phone: (1 source) Food Propensity to adverse reactions to drug 5 Shortness Of Breath [facility] Medications Current Medications Medication Drug Class(es) Dates [...] glen, Topical, BID, 45 gram, Refill(s) 0, [facility], 185.4, cm, 12/25/21 14:39:00 EDT, Height/Length Dosing, 76.3, kg, 12/25/21 14:39:00 EDT, Weight Dosing Start Date: 03/16/22 Status: Ordered cetirizine hydrochloride 10 mg oral tablet (1 source) Histamine-1 Receptor Antagonist Start: 04-05-2022 take 1 tablet by mouth at bedtime cetirizine 10 mg Tab 10 mg = 1 tab(s), Oral, Bedtime, # 30 tab(s), Refills(s) 0, Pharmacy: [facility], 185.4, cm, 12/25/21 14:39:00 EDT, Height/Length Dosing, 76.3, kg, 12/25/21 14:39:00 EDT, Weight Dosing Start Date: 04/05/22 Status: Ordered clobetasol propionate 0.0005 mg/mg topical ointment (2 sources) Corticosteroid Start: 12-29-2021 clobetasol propionate 0.05% top oint 1 glen, Topical, BID, 45 gram, Refill(s) 0, [facility], 185.4, cm, 12/25/21 14:39:00 EDT, Height/Length Dosing, 76.3, kg, 12/25/21 14:39:00 EDT, Weight Dosing Start Date: 12/29/21 Status: Ordered coal tar 0.02 mg/mg topical ointment (2 sources) Start: 04-22-2022 coal tar topical 2% ointment 1 glen, Topical, BID, 120 gram, Refill(s) 0, Apply thin layer to affected are of skin, [facility], 185.4, cm, 12/25/21 14:39:00 EDT, Height/Length [...] take 1 tablet by mouth once daily dpmdhtbswsnw-axsalgwfec-kmjcsdhdmqmbo-te nofovir (STRIBILD) [id number] MG tablet Take 1 tablet by mouth [...] # 30 tab(s), Refills(s) 3, Pharmacy: [facility]/pharmacy #[id number], 185.4, cm, 12/25/21 14:39:00 EDT, Height/Length [...] BID., # 60 tab(s), Refills(s) 0, Pharmacy: [facility], 185.4, cm, 12/25/21 14:39:00 EDT, Height/Length Dosing, 76.3, kg, 12/25/21 14:39:00 EDT, Weight Dosing Start Date: 03/06/22 Status: Ordered DULoxetine 20 mg Cap-EC (1 source) Start: 03-06-2022 DULoxetine 20 mg Cap-EC See Instructions, 1 cap daily for 7 days then increase to BID., # 60 tab(s), Refills(s) 0, Pharmacy: [facility], 185.4, cm, 12/25/21 14:39:00 EDT, Height/Length Dosing, 76.3, kg, 12/25/21 14:39:00 EDT, Weight Dosing Start Date: 03/06/22 Status: Ordered emtricitabine 200 mg / tenofovir alafenamide 25 mg oral tablet (4 sources) Human Immunodeficiency Virus Nucleoside Analog Reverse Transcriptase Inhibitor Start: 03-25-2022 Descovy 200 mg-25 mg oral tablet 1 tab(s), Oral, Daily, 30 tab(s), Refill(s) 3, [facility]/pharmacy #[id number], 185.4, cm, 12/25/21 14:39:00 EDT, Height/Length [...] BID, # 60 tab(s), Refills(s) 0, Pharmacy: [facility], 185.4, cm, 12/25/21 14:39:00 EDT, Height/Length Dosing, [...] Daily, # 30 cap(s), Refills(s) 0, Pharmacy: [facility], 185.4, cm, 12/25/21 14:39:00 EDT, Height/Length Dosing, [...] days, # 33 tab(s), Refills(s) 0, Pharmacy: [facility], 185.4, cm, 12/25/21 14:39:00 EDT, Height/Length Dosing, 76.3, kg, 12/25/21 14:39:00 EDT,... Start Date: 04/12/22 Status: Ordered propranolol hydrochloride 20 mg oral tablet (5 sources) beta-Adrenergic Franco Start: 01-23-2022 take 1 tablet by mouth twice daily propranolol 20 mg Tab 20 mg = 1 tab(s), Oral, BID, # 60 tab(s), Refills(s) 0, Pharmacy: [facility], 185.4, cm, 12/25/21 14:39:00 EDT, Height/Length Dosing, [...] 11-06-2021 Chronic Other aftercare (1 source) Other [facility] (current) drug therapy; Translations: [OTH [facility] CURRENT DRUG THERAPY] Onset: 11-06-2021 Episodic Other [...] Results Test Name Value Interpretation Reference Range [address] 02-20-2024 % B Cells 16 % Normal 5-25 [facility] Comment on above: Performed By: #### A SONJA, RPR, [id number], CBC, CMP, TRIG, CHOL, GFR, ADIFF #### [address] [address] % CD4 Cells 30 % Normal 30-61 [facility] Comment on above: Performed By: #### A SONJA, RPR, [id number], CBC, CMP, TRIG, CHOL, GFR, ADIFF #### [facility] [address] [place] [address] % CD56+/16+ 8 % Normal 5-30 [facility] Comment on above: Performed By: #### A SONJA, RPR, [id number], CBC, CMP, TRIG, CHOL, GFR, ADIFF #### [address] [address] % CD8 Cells 45 % High 12-42 [facility] Comment on above: Performed By: #### A SONJA, RPR, 583751, CBC, CMP, TRIG, CHOL, GFR, ADIFF #### [address] [address] % T Cells 76 % Normal 52-84 [facility] Comment on above: Performed By: #### A SONJA, RPR, 866548, CBC, CMP, TRIG, CHOL, GFR, ADIFF #### [address] [address] B Cells (CD 19) 243 /uL Normal 71-567 [facility] Comment on above: Performed By: #### A SONJA, RPR, 398430, CBC, CMP, TRIG, CHOL, GFR, ADIFF #### [address] [address] CD4 Cells 575 /uL Normal 401-1532 [facility] Comment on above: Performed By: #### A SONJA, RPR, 274582, CBC, CMP, TRIG, CHOL, GFR, ADIFF #### [address] [address] CD4/CD8 Ratio 0.68 ratio Low 0.88-3.84 [facility] Comment on above: Performed By: #### A SONJA, RPR, 555600, CBC, CMP, TRIG, CHOL, GFR, ADIFF #### [address] [address] CD56+/16+ NK Cells 120 /uL Normal 80-597 AULTMA N [facility] Comment on above: Performed By: #### A SONJA, RPR, 212428, CBC, CMP, TRIG, CHOL, GFR, ADIFF #### [address] [address] CD8 Cells 850 /uL High 152-838 [facility] Comment on above: Performed By: #### A SONJA, RPR, 329823, CBC, CMP, TRIG, CHOL, GFR, ADIFF #### [address] [address] Lymphocytes (Bld) [#/Vol] 1.676 10*3/uL Normal 660-4600 [facility] Comment on above: Performed By: #### A SONJA, RPR, 576793, CBC, CMP, TRIG, CHOL, GFR, ADIFF #### [place] [id number] T Cells 1313 /uL Normal 582-1992 [facility] Comment on above: Performed By: #### A SONJA, RPR, 901433, CBC, CMP, TRIG, CHOL, GFR, ADIFF #### [place] [address] HIVLDon 02-18-2024 HIV 1 RNA PCR <20 Normal [facility] Comment on above: Result Comment: HIV- 1 RNA not detected The reportable range for this assay is 20 to 10,000,000 copies HIV-1 RNA/mL. Performed By: #### A SONJA, RPR, 590157, CBC, CMP, TRIG, CHOL, GFR, ADIFF #### [place] [address] log10 HIV1 RNA COMMENT Normal [facility] Comment on above: Result Comment: Unab le to calculate result since non-numeric result obtained for component test. Performed At: [address] [id number] Iván Gaspar MD Ph:[phone] Performed By: #### A SONJA, RPR, [id number], CBC, CMP, TRIG, CHOL, GFR, ADIFF #### [place] [address] TCANCon 02-18-2024 Test cancelled: HELP1 Normal [facility] Comment on above: Order Comment: No al iquot received for HELP1 testing. Performed By: #### T CANC #### [place] [address] RPRon 02-17-2024 Reagin Ab RPR Ql (S) Non-Reactive Normal Non-Reactive [facility] Comment on above: Result Comment: The [...] globulins. Performed By: #### A SONJA, RPR, 379865, CBC, CMP, TRIG, CHOL, GFR, ADIFF #### [address] [address] .Auto Diffon 02-16-2024 Basophil, Absolute 0.1 10 3/mcL Normal 0.0-0.3 [facility] Comment on above: Performed By: #### A SONJA, RPR, 373519, CBC, CMP, TRIG, CHOL, GFR, ADIFF #### [place] [address] Basophils/100 WBC (Bld) 1.1 % Normal 0.0-2.5 [facility] Comment on above: Performed By: #### A SONJA, RPR, 189137, CBC, CMP, TRIG, CHOL, GFR, ADIFF #### [address] [address] Eosinophil, Absolute 0.4 10 3/mcL Normal 0.0-0.7 AU LTMAN [facility] Comment on above: Performed By: #### A SONJA, RPR, 501228, CBC, CMP, TRIG, CHOL, GFR, ADIFF #### [address] [address] Eosinophils/100 WBC (Bld) 8.6 % High 0.0-6.0 [facility] Comment on above: Performed By: #### A SONJA, RPR, 192600, CBC, CMP, TRIG, CHOL, GFR, ADIFF #### [address] [address] Lymphocyte, Absolute 1.5 10 3/mcL Normal 0.9-4.3 [facility] L[facility] Comment on above: Performed By: #### A SONJA, RPR, 261631, CBC, CMP, TRIG, CHOL, GFR, ADIFF #### [address] [address] Lymphocytes/100 WBC (Bld) 31.5 % Normal 20.0-40.0 [facility] Comment on above: Performed By: #### A SONJA, RPR, 618009, CBC, CMP, TRIG, CHOL, GFR, ADIFF #### [facility] [address] [place] [address] Monocyte, Absolute 0.4 10 3/mcL Normal 0.1-1.4 [facility] Comment on above: Performed By: #### A SONJA, RPR, 739609, CBC, CMP, TRIG, CHOL, GFR, ADIFF #### [place] [address] [place] [address] Monocytes/100 WBC (Bld) 9.1 % Normal 2.0-13.0 [facility] Comment on above: Performed By: #### A SONJA, RPR, 279750, CBC, CMP, TRIG, CHOL, GFR, ADIFF #### [place] [address] [place] [address] Neutrophils/100 WBC (Bld) 49.7 % Low 50.0-75.0 [facility] Comment on above: Performed By: #### A SONJA, RPR, 981942, CBC, CMP, TRIG, CHOL, GFR, ADIFF #### [address] [address] .GFRon 02-16-2024 GFR >60 Normal [facility] [...] meters Performed By: #### A SONJA, RPR, 451070, CBC, CMP, TRIG, CHOL, GFR, ADIFF #### [address] [address] GFR Non- >60 Normal [facility] Comment [...] meters Performed By: #### A SONJA, RPR, 536606, CBC, CMP, TRIG, CHOL, GFR, ADIFF #### [address] [address] .NEUABSon 02-16-2024 Neutrophil, Absolute 2.4 10 3/mcL Normal 2.3-8.1 [facility] Comment on above: Performed By: #### A SONJA, RPR, 346875, CBC, CMP, TRIG, CHOL, GFR, ADIFF #### [address] [address] CBCon 02-16-2024 Erythrocyte distribution width (RBC) [Ratio] 13.8 % Normal 11.5-15.5 [facility] Comment on above: Performed By: #### A SONJA, RPR, 088443, CBC, CMP, TRIG, CHOL, GFR, ADIFF #### [address] [address] Hematocrit (Bld) [Volume fraction] 46.1 % Normal 40.0-52.0 [facility] Comment on above: Performed By: #### A SONJA, RPR, 940913, CBC, CMP, TRIG, CHOL, GFR, ADIFF #### [address] [address] Hgb 15.3 G/dL Normal 13.0-17.5 [facility] Comment on above: Performed By: #### A SONJA, RPR, 946922, CBC, CMP, TRIG, CHOL, GFR, ADIFF #### [place] [address] MCH (RBC) [Entitic mass] 31.6 pg Normal 27.0-33.0 [facility] Comment on above: Performed By: #### A SONJA, RPR, 908240, CBC, CMP, TRIG, CHOL, GFR, ADIFF #### [place] [address] MCHC 33.3 G/dL Normal 32.0-36.0 [facility] Comment on above: Performed By: #### A SONJA, RPR, 168502, CBC, CMP, TRIG, CHOL, GFR, ADIFF #### [place] [address] MCV (RBC) [Entitic vol] 95.0 fL Normal 81.0-100.0 [facility] Comment on above: Performed By: #### A SONJA, RPR, 245284, CBC, CMP, TRIG, CHOL, GFR, ADIFF #### [place] [address] Platelet 209 10 3/mcL Normal 150-450 [facility] Comment on above: Performed By: #### A SONJA, RPR, 954263, CBC, CMP, TRIG, CHOL, GFR, ADIFF #### [place] [address] Platelet mean volume (Bld) [Entitic vol] 8.5 fL Normal 6.4-10.5 [facility] Comment on above: Performed By: #### A SONJA, RPR, 752423, CBC, CMP, TRIG, CHOL, GFR, ADIFF #### [place] [address] RBC 4.86 10 6/mcL Normal 4.50-6.00 [facility] Comment on above: Performed By: #### A SONJA, RPR, 325562, CBC, CMP, TRIG, CHOL, GFR, ADIFF #### [address] [address] WBC 4.9 10 3/mcL Normal 4.5-10.8 [facility] Comment on above: Performed By: #### A SONJA, RPR, 095511, CBC, CMP, TRIG, CHOL, GFR, ADIFF #### [address] [address] CHOLon 02-16-2024 Cholesterol [Mass/Vol] 130 mg/dL Normal 50-199 [facility] Comment on above: Result Comment: Chol esterol Reference Interval: Less than 200 Desirable 200-239 Borderline high risk 240 and above High risk Performed By: #### A SONJA, RPR, 269618, CBC, CMP, TRIG, CHOL, GFR, ADIFF #### [address] [address] CMPon 02-16-2024 Albumin Level 3.8 G/dL Normal 3.2-4.8 [facility] Comment on above: Performed By: #### A SONJA, RPR, 393429, CBC, CMP, TRIG, CHOL, GFR, ADIFF #### [address] [address] Albumin/Globulin [Mass ratio] 1.3 {ratio} Normal 0.9-1.6 [facility] Comment on above: Performed By: #### A SONJA, RPR, 133156, CBC, CMP, TRIG, CHOL, GFR, ADIFF #### [address] [address] ALP [Catalytic activity/Vol] 106 U/L Normal 38-126 [facility] Comment on above: Performed By: #### A SONJA, RPR, 605284, CBC, CMP, TRIG, CHOL, GFR, ADIFF #### [address] [address] ALT [Catalytic activity/Vol] 69 U/L High 12-55 [facility] Comment on above: Performed By: #### A SONJA, RPR, 578195, CBC, CMP, TRIG, CHOL, GFR, ADIFF #### [address] [address] AST [Catalytic activity/Vol] 36 U/L High 8-34 [facility] Comment on above: Performed By: #### A SONJA, RPR, 344227, CBC, CMP, TRIG, CHOL, GFR, ADIFF #### [address] [address] Bili Total 0.40 mg/dL Normal 0.20-1.20 [facility] Comment on above: Result Comment: Use of this assay is not recommended for patients undergoing treatment with eltrombopag due to the potential for falsely elevated results. Performed By: #### A SONJA, RPR, 534334, CBC, CMP, TRIG, CHOL, GFR, ADIFF #### [place] [id number] BUN/Creatinine Ratio 17.7 ratio Normal 10.0-22.0 [facility] Comment on above: Performed By: #### A SONJA, RPR, 666850, CBC, CMP, TRIG, CHOL, GFR, ADIFF #### [address] [address] Calcium [Mass/Vol] 9.8 mg/dL Normal 8.7-10.4 [facility] Comment on above: Performed By: #### A SONJA, RPR, 672001, CBC, CMP, TRIG, CHOL, GFR, ADIFF #### [address] [address] Chloride [Moles/Vol] 107 mmol/L Normal 98-110 [facility] Comment on above: Performed By: #### A SONJA, RPR, 722537, CBC, CMP, TRIG, CHOL, GFR, ADIFF #### [address] [address] CO2 [Moles/Vol] 30 mmol/L Normal 22-32 [facility] Comment on above: Performed By: #### A SONJA, RPR, 364330, CBC, CMP, TRIG, CHOL, GFR, ADIFF #### [address] [address] Creatinine [Mass/Vol] 0.96 mg/dL Normal 0.60-1.40 AUL TMAN [facility] Comment on above: Result Comment: Test ing performed on [employer] analyzer using enzymatic creatinine methodology. Performed By: #### A SONJA, RPR, 017673, CBC, CMP, TRIG, CHOL, GFR, ADIFF #### [address] [address] Electrolyte Balance 6.0 mEq/L Normal 4.0-15.0 AULTM AN [facility] Comment on above: Performed By: #### A SONJA, RPR, 579046, CBC, CMP, TRIG, CHOL, GFR, ADIFF #### [address] [address] Globulin 3.0 G/dL Normal 1.5-3.8 [facility] Comment on above: Performed By: #### A SONJA, RPR, 858495, CBC, CMP, TRIG, CHOL, GFR, ADIFF #### [address] [address] Glucose [Mass/Vol] 88 mg/dL Normal 70-110 [facility] Comment on above: Performed By: #### A SONJA, RPR, 677658, CBC, CMP, TRIG, CHOL, GFR, ADIFF #### [address] [address] Potassium [Moles/Vol] 4.4 mmol/L Normal 3.5-5.0 AUL TMAN [facility] Comment on above: Performed By: #### A SONJA, RPR, 232448, CBC, CMP, TRIG, CHOL, GFR, ADIFF #### [address] [address] Sodium [Moles/Vol] 143 mmol/L Normal 136-145 [facility] N [facility] Comment on above: Performed By: #### A SONJA, RPR, 026814, CBC, CMP, TRIG, CHOL, GFR, ADIFF #### [address] [address] Total Protein 6.8 G/dL Normal 5.7-8.2 [facility] Comment on above: Result Comment: No te - New Reference Range in effect 19 Performed By: #### A SONJA, RPR, 313862, CBC, CMP, TRIG, CHOL, GFR, ADIFF #### [address] [address] Urea nitrogen [Mass/Vol] 17.0 mg/dL Normal 8.0-22.0 [facility] Comment on above: Performed By: #### A SONJA, RPR, 514154, CBC, CMP, TRIG, CHOL, GFR, ADIFF #### [address] [address] TRIGon 02-16-2024 Triglyceride [Mass/Vol] 93 mg/dL Normal 3-149 [facility] Comment on above: Performed By: #### A SONJA, RPR, 044924, CBC, CMP, TRIG, CHOL, GFR, ADIFF #### [address] [address] 36on 02-10-2024 36 Received a message from patient. He indicated that he was not coming to this area and cancelled his appointment with Yoanna for Feb 16. Travel Med Surg Rn contacted Ava Kilgore, Community Linkage Coordinator at [facility] to make her aware. She will follow up with the patient. Normal [facility] Telephoneon 02-10-2024 Telephone [phone] ChinyereEupora 1975 M Date Provider Department Center 02/10/2024 LUNA MEADOWS [facility] Chart Close Cosign Required by: Yoanna Wilkinson NP[[id number]] No family history on file Normal [facility] Orders Onlyon 01-23-2024 Orders Only [id number] ChinyereEupora 1975 M Date Provider Department Center 01/23/2024 92413-OHDYNEW WERNER [facility] No family history on file Normal [facility] URINE DRUG SCREEN 10Ordered By: Simran Will on 12-06-2023 Amphetamine+Methamphe tamine Screen (U) [Mass/Vol] Positive Abnormal Cutoff: 500 ng/mL [facility] Barbiturates Ql (U) Not detected Cutoff: 200 ng/mL [facility] Benzodiazepines Ql (U) Not detected Cutoff: 200 ng/mL [facility] Buprenorphine Ql (U) Not detected Cutoff: 5 ng/mL [facility] Cannabinoids Screen Ql (U) Not detected Cutoff: 50 ng/mL [facility] Cocaine Ql (U) Not detected Cutoff: 150 ng/mL [facility] fentaNYL Ql (U) Not detected Cutoff: 1 ng/mL [facility] Interpretation and review of laboratory results Abnormal [facility] Methadone Ql (U) Not detected Cutoff: 300 ng/mL [facility] Opiates Ql (U) Not detected Cutoff: 300 ng/mL [facility] oxyCODONE Ql (U) Not detected Cutoff: 100 ng/mL [facility] For medical purposes only. Positive results are unconfirmed unless otherwise noted. [facility] URINE DRUG SCREEN 12-05 Amphetamine/Methamphe tamine Positive Abnormal Cutoff: 500 ng/mL [facility] Comment on above: Order Comment: For edical purposes only. Positive results are unconfirmed unless otherwise noted. Performed By: #### 1 0DRUG #### [facility] (DEFAULT) [address] [address] Barbiturates Not detected Normal Cutoff: 200 ng/mL [facility] Comment on above: Order Comment: For edical purposes only. Positive results are unconfirmed unless otherwise noted. Performed By: #### 1 0DRUG #### [facility] (DEFAULT) [address] [address] Benzodiazepines Not detected Normal Cutoff: 200 ng/mL [facility] Comment on above: Order Comment: For m edical purposes only. Positive results are unconfirmed unless otherwise noted. Performed By: #### 1 0DRUG #### [facility] (DEFAULT) [address] [address] Buprenorphine Not detected Normal Cutoff: 5 ng/mL [facility] Comment on above: Order Comment: For m edical purposes only. Positive results are unconfirmed unless otherwise noted. Performed By: #### 1 0DRUG #### [facility] (DEFAULT) [address] [address] Cannabinoids Screen Ql (U) Not detected Normal Cutoff: 50 ng/mL [facility] Comment on above: Order Comment: For m edical purposes only. Positive results are unconfirmed unless otherwise noted. Performed By: #### 1 0DRUG #### [facility] (DEFAULT) [address] [address] Cocaine Not detected Normal Cutoff: 150 ng/mL [facility] Comment on above: Order Comment: For m edical purposes only. Positive results are unconfirmed unless otherwise noted. Performed By: #### 1 0DRUG #### [facility] (DEFAULT) [address] [address] Fentanyl Not detected Normal Cutoff: 1 ng/mL [facility] Comment on above: Order Comment: For m edical purposes only. Positive results are unconfirmed unless otherwise noted. Performed By: #### 1 0DRUG #### [facility] (DEFAULT) [address] [address] Methadone Not detected Normal Cutoff: 300 ng/mL [facility] Comment on above: Order Comment: For m edical purposes only. Positive results are unconfirmed unless otherwise noted. Performed By: #### 1 0DRUG #### [facility] (DEFAULT) [address] [address] Opiates Not detected Normal Cutoff: 300 ng/mL [facility] Comment on above: Order Comment: For m edical purposes only. Positive results are unconfirmed unless otherwise noted. Performed By: #### 1 0DRUG #### [facility] (DEFAULT) [address] [address] Oxycodone Not detected Normal Cutoff: 100 ng/mL [facility] Comment on above: Order Comment: For m edical purposes only. Positive results are unconfirmed unless otherwise noted. Performed By: #### 1 0DRUG #### [facility] (DEFAULT) [address] [place] [address] CBC AND ELECTRONIC DIFFon Basophils (Bld) [#/Vol] K/uL 0.00 - 0.09 K/uL [facility] Basophils/100 WBC (Bld) 0.4 % [facility] Differential cell count method Nom (Bld) Electronic Differential [facility] Eosinophils (Bld) [#/Vol] 0.06 10*3/uL 0.00 - 0.48 K/uL [facility] Eosinophils/100 WBC (Bld) 0.8 % [facility] Erythrocyte distribution width (RBC) [Ratio] 13.7 % 10.9 - 14.3 % [facility] Hematocrit (Bld) [Volume fraction] 42.4 % 39.6 - 48.8 % [facility] Hemoglobin (Bld) [Mass/Vol] 14.9 g/dL 13.4 - 16.8 g/dL [facility] Immature granulocytes (Bld) [#/Vol] K/uL NINF - 0.07 K/uL [facility] Immature granulocytes/100 WBC (Bld) 0.3 % [facility] Lymphocytes (Bld) [#/Vol] 2.43 10*3/uL 0.83 - 3.57 K/uL [facility] Lymphocytes/100 WBC (Bld) 31.4 % [facility] MCH (RBC) [Entitic mass] 31.6 pg 26.1 - 33.3 pg [facility] MCHC (RBC) [Mass/Vol] 35.1 g/dL 31.9 - 36.5 g/dL [facility] MCV (RBC) [Entitic vol] 89.8 fL 79.0 - 94.5 fL [facility] Monocytes (Bld) [#/Vol] 0.57 10*3/uL 0.24 - 0.93 K/uL [facility] Monocytes/100 WBC (Bld) 7.4 % [facility] Neutrophils (Bld) [#/Vol] 4.62 10*3/uL 1.57 - 6.19 K/uL [facility] Nucleated RBC/100 WBC (Bld) [Ratio] 0.0 % NINF [facility] Platelet mean volume (Bld) [Entitic vol] 9.3 fL 8.7 - 12.3 fL [facility] Platelets (Bld) [#/Vol] 218 10*3/uL 146 - 337 K/uL [facility] RBC (Bld) [#/Vol] 4.72 10*6/uL [facility] Segmented neutrophils/100 WBC (Bld) 59.7 % [facility] WBC (Bld) [#/Vol] 7.73 10*3/uL 3.73 - 10. 10 K/uL [facility] Abs Baso Auto < Normal 0.00-0.09 [facility] Comment on above: Performed By: #### L [id number] #### [facility] (DEFAULT) [address] [address] Basophils/100 WBC (Bld) 0.4 % Normal [facility] Comment on above: Performed By: #### L [id number] #### [facility] (DEFAULT) [address] [address] DIFF STATUS Electronic Differential Normal [facility] Comment on above: Performed By: #### L [id number] #### [facility] (DEFAULT) [address] [address] Eosinophils (Bld) [#/Vol] 0.06 10*3/uL Normal 0.00-0.48 [facility] Comment on above: Performed By: #### L [id number] #### [facility] (DEFAULT) [address] [address] Eosinophils/100 WBC (Bld) 0.8 % Normal [facility] Comment on above: Performed By: #### L [id number] #### [facility] (DEFAULT) [address] [address] Hematocrit (Bld) [Volume fraction] 42.4 % Normal 39.6-48.8 [facility] Comment on above: Performed By: #### L [id number] #### [facility] (DEFAULT) [address] [address] Hemoglobin (Bld) [Mass/Vol] 14.9 g/dL Normal 13.4-16.8 [facility] Comment on above: Performed By: #### L [id number] #### [facility] (DEFAULT) [address] [address] Immature Grans % 0.3 % Normal [facility] Comment on above: Performed By: #### L [id number] #### [facility] (DEFAULT) [address] [address] Immature Grans Absolute < Normal <=0.07 [facility] Comment on above: Performed By: #### L [id number] #### [facility] (DEFAULT) [address] [address] Lymphocytes (Bld) [#/Vol] 2.43 10*3/uL Normal 0.83-3.57 [facility] Comment on above: Performed By: #### L [id number] #### [facility] (DEFAULT) [address] [address] Lymphocytes/100 WBC (Bld) 31.4 % Normal [facility] Comment on above: Performed By: #### L [id number] #### [facility] (DEFAULT) [address] [address] MCV (RBC) [Entitic vol] 89.8 fL Normal 79.0-94.5 [facility] Comment on above: Performed By: #### L [id number] #### [facility] (DEFAULT) [address] [address] Mean Cell Hgb 31.6 pg Normal 26.1-33.3 [facility] Comment on above: Performed By: #### L [id number] #### [facility] (DEFAULT) [address] [address] Mean Cell Hgb Conc 35.1 g/dL Normal 31.9-36.5 [facility] Comment on above: Performed By: #### L [id number] #### [facility] (DEFAULT) [address] [address] Monocytes (Bld) [#/Vol] 0.57 10*3/uL Normal 0.24-0.93 [facility] Comment on above: Performed By: #### L [id number] #### [facility] (DEFAULT) [address] [address] Monocytes/100 WBC (Bld) 7.4 % Normal [facility] Comment on above: Performed By: #### L [id number] #### [facility] (DEFAULT) [address] [address] Nucleated RBC 0.0 /100 WBC Normal <=0.2 [facility] Comment on above: Performed By: #### L [id number] #### [facility] (DEFAULT) [address] [place] [address] Platelet mean volume (Bld) [Entitic vol] 9.3 fL Normal 8.7-12.3 [facility] Comment on above: Performed By: #### L [id number] #### [facility] (DEFAULT) [address] [address] Platelets (Bld) [#/Vol] 218 10*3/uL Normal 146-337 [facility] Comment on above: Performed By: #### L [id number] #### [facility] (DEFAULT) [address] [address] RBC (Bld) [#/Vol] 4.72 10*6/uL Normal 4.38-5.83 [facility] Comment on above: Performed By: #### L [id number] #### [facility] (DEFAULT) [address] [place] [address] RBC Distribution 13.7 % Normal 10.9-14.3 [facility] Comment on above: Performed By: #### L [id number] #### [facility] (DEFAULT) [address] [place] [address] Segs + Bands Auto 59.7 % Normal [facility] Comment on above: Performed By: #### L [id number] #### [facility] (DEFAULT) [address] [place] [address] Segs + Bands,Absolute Auto 4.62 K/uL Normal 1.57-6.19 [facility] Comment on above: Performed By: #### L [id number] #### [facility] (DEFAULT) [address] [address] WBC (Bld) [#/Vol] 7.73 10*3/uL Normal 3.73-10.10 [facility] Comment on above: Performed By: #### L [id number] #### [facility] (DEFAULT) [address] [place] [address] [facility] 7 - EDon 12-05-2023 Anion gap [Moles/Vol] 15 mmol/L 7 - 17 mmol/L [facility] Chloride [Moles/Vol] 108 mmol/L 98 - 10 8 mmol/L [facility] CO2 [Moles/Vol] 21 mmol/L 21 - 31 mmol/L [facility] Creatinine [Mass/Vol] 1.09 mg/dL 0.70 - 1.30 mg/dL [facility] eGFR, CKD-EPI, Male 84 - PINF [facility] Comment on above: Reported eGFR is bas ed on the CKD-EPI 2020 equation using creatinine, age, and sex. Glucose [Mass/Vol] 100 mg/dL High 70 - 99 mg/dL [facility] Interpretation and review of laboratory results Abnormal [facility] Osmolality Calc [Osmolality] 293 [facility] Potassium [Moles/Vol] 4.3 mmol/L 3.5 - 5.0 mmol/L [facility] Sodium [Moles/Vol] 140 mmol/L 135 - 145 mmol/L [facility] Urea nitrogen [Mass/Vol] 13 mg/dL 7 - 25 mg/dL [facility] Urea nitrogen/Creatinine [Mass ratio] 12 mg/mg [facility] Anion gap [Moles/Vol] 15 mmol/L Normal 7-17 [facility] Comment on above: Performed By: #### C 7ED #### [facility] (DEFAULT) [address] [place] [address] Chloride [Moles/Vol] 108 mmol/L Normal 98-108 [facility] Comment on above: Performed By: #### C 7ED #### [facility] (DEFAULT) [address] [place] [address] CO2 [Moles/Vol] 21 mmol/L Normal 21-31 [facility] Comment on above: Performed By: #### C 7ED #### [facility] (DEFAULT) [address] [place] [address] Creatinine [Mass/Vol] 1.09 mg/dL Normal 0.70-1.30 [facility] Comment on above: Performed By: #### C 7ED #### [facility] (DEFAULT) [address] [place] [address] GFR/1.73 sq M.predicted among non-blacks MDRD (S/P/Bld) [Vol rate/Area] 84 mL/min/{1.73_m2} Normal >=60 [facility] Comment on above: Result Comment: Repo rted eGFR is based on the CKD-EPI 2020 equation using creatinine, age, and sex. Performed By: #### C 7ED #### [facility] (DEFAULT) [address] [place] [address] Glucose [Mass/Vol] 100 mg/dL High 70-99 [facility] Comment on above: Performed By: #### C 7ED #### [facility] (DEFAULT) [address] [place] [address] Osmolality [Osmolality] 293 mosm/kg Normal 278-305 [facility] Comment on above: Performed By: #### C 7ED #### [facility] (DEFAULT) [address] [place] [address] Potassium [Moles/Vol] 4.3 mmol/L Normal 3.5-5.0 [facility] Comment on above: Performed By: #### C 7ED #### [facility] (DEFAULT) [address] [place] [address] Sodium [Moles/Vol] 140 mmol/L Normal 135-145 [facility] Comment on above: Performed By: #### C 7ED #### [facility] (DEFAULT) [address] [place] [address] Urea nitrogen [Mass/Vol] 13 mg/dL Normal 7-25 [facility] Comment on above: Performed By: #### C 7ED #### [facility] (DEFAULT) [address] [place] [address] Urea nitrogen/Creatinine [Mass ratio] 12 mg/mg Normal [facility] Comment on above: Performed By: #### C 7ED #### [facility] (DEFAULT) [address] [place] [address] HIGH SENSITIVITY TROPONIN I - SINGLE ORDERon 12-05-2023 Interpretation and review of laboratory results Normal [facility] Troponin I.cardiac High sensitivity method [Mass/Vol] 48 ng/L NINF - 53 ng/L [facility] hs-Troponin I 48 ng/L Normal <53 [facility] Comment on above: Order Comment: Acute Coronary Syndrome (ACS): Initial Evaluation and Management: [email or web address] Performed By: #### L [id number] #### [facility] (DEFAULT) [address] [place] [address] Intermediate Documentson 06-25-2022 Intermediate Documents [id number] Normal [facility] .HCV RT-PCR, Quant (Non-Grap h)on 05-08-2022 Diagnostic impression Molgen Tony (Unsp spec) [Interp] COMMENT Invalid Interpretation Code [facility] Comment on above: Result Comment: Test not performed. Insufficient specimen to perform or complete analysis. contacted Merary at your facility on 05-08-2022 Performed at: [facility] [id number] MD Iván Gaspar Performed By: #### 1 [id number], [id number], [id number], 9486943, [id number], [id number], [id number], 13035037, 7913752 #### [facility] Laboratory [address] [place] [address] HCV RNA RAFAELA+probe Qn COMMENT Invalid Interpretation Code [facility] Comment on above: Result Comment: Test not performed. Insufficient specimen to perform or complete analysis. contacted Merary at your facility on 05-08-2022 Performed By: #### 1 [id number], [id number], [id number], 2406286, [id number], 70684838, [id number], 57750392, 0861432 #### [facility] Laboratory [address] [place] [address] Reference Lab Test Reference Range Comment Invalid Interpretation Code [facility] Comment on above: Result Comment: The quantitative range of this assay is 15 IU/mL to 100 million IU/mL. Performed By: #### 1 [id number], [id number], [id number], 9896484, 1794435979, 21724287, 4636682120, 10152229, 1666234 #### [facility] Laboratory [address] [place] [address] HCV Antibody RFX to Quant PC David 05-08-2022 HCV Ab Signal/Cutoff IA [Rel units/Vol] {ratio} High 0.0-0.9 [facility] Comment on above: Result Comment: Perf ormed at: [address] [id number] PhD Jaleesa Perez Performed By: #### 1 [id number], [id number], [id number], [id number], [id number], 38646513, [id number], 37211950, 9321498 #### [facility] Laboratory [address] [place] [address] SPEC. STATUS REPORTon 2021 Specimen Status Report COMMENT Invalid Interpretation Code [facility] Comment on above: Result Comment: Test not performed. Insufficient specimen to perform or complete analysis. TEST: [id number] Hepatitis C Quantitation Panel: [id number] Interpretation: Panel: [id number] adan Reagan at your facility on 05-08-2022 Performed at: [address] [id number] PhD Jaleesa Perez Performed By: #### 1 [id number] #### [facility] Laboratory [address] [place] [address] Lab Miscellaneous-LCon 05-04 Lab Miscellaneous COMMENT Invalid Interpretation Code [facility] Comment on above: Result Comment: Test Ordered: [id number] RNA, Real Time PCR (Graph) HIV-1 RNA by PCR 40 BN Units of Measure: copies/mL The reportable range for this assay is 20 to 10,000,000 copies HIV-1 RNA/mL. log10 HIV-1 RNA 1.602 BN Units of Measure: ryo19gfnl/mL Performed at: [address] [id number] PhD Jaleesa Perez Performed By: #### 1 [id number] #### [facility] Laboratory [address] [place] [address] .HCV RNA (International Unit s)on 05-03-2022 HCV RNA RAFAELA+probe [Log units/Vol] 7.064 Invalid Interpretation Code [facility] Comment on above: Result Comment: Perf ormed at: [address] [place] [id number] MD Iván Gaspar Performed By: #### 1 [id number], [id number], [id number], [id number], [id number], 46971433, 4808012657, 83024418, 2061356 #### [facility] Laboratory [address] [place] [address] HCV RNA RAFAELA+probe Qn [id number] International_Unit/m L Invalid Interpretation Code [facility] Comment on above: Performed By: #### 1 [id number], [id number], [id number], 4055912, 8129270582, 66184460, [id number], 65071332, [id number] #### [facility] Laboratory [address] [place] [address] Coding Summary.on 05-03-2022 Coding Summary. CD:[id number]:[id number] Gh0bWw+PGhlYWQ+PE1FV GEnD34baPXrpM8WD8wHJ L0FKMHZCFUBKQ7GRU8hn RH0SIieN6RuenJf YbvooEReBZ50RJw3FHO1 kDkzZSbbtP3elNIvV0w8 BpMwLN60hM38BQldUWBz GmC5CoHmebjuuQGb B0ogIzXlmFSlCyy+PHRh YmxlIHdpZHRoPScxMDAl FtOkiXruVF3hHq0gVPYa LWNvbGxhcHNlOiBj d3qnSPYjFYtxYA2spWxa E5WjzCT2JKAbg8e4Yc96 dHI+VMDvHJB3iGcpQViw w455AjCgm9jfYSF1 xJLsJCeiLLB4J32zz5G0 GSSfCNPjASV4sQF6jA0n xWveqlaxI2NxvWLgQlI7 PEC6lLCctR8foUnz payrqP9gOqs+L96VVN8I MQDPXM1GSxs4F2HlYjic dHI+AK87GRQuTV56sYLo oSBes2cirFb3NxQx SYZsAKD6xOytGHtle2Rs VQOcT88alDYlo0O8EFYk kIrvyHXdKyOcvTL6cC5l GSujkndix7ctjsey Jdsvy5koal13mF98C28n YIuyWSRqLHF9UHAfMPZu eNnbyz2rfL7oEu9+IDxj o4dec5pjoHz1GgIs QQTueaBkeRlqYCU0l7Ch Ve33R7NegWxrj2RqQwd1 vf13hXTan8D1eKD6QJsi UFOenP3eILspHmA9 IUKpTgPlfU60kYCcAYav Gp8csVhvmZvaVF6oFLZg hdlfCOBnwK0nXAXmlSUi aFgoRV2eHLGjzhha u154SwHaGWF6XFIfvJLo D2AqlM5xGeKySLVsVJJc K2QoxHOiYVybJ070SFzz FiT9CUZrpsEbM6Et UBHlwUtuCpH6g8E8Co4V x3WztdabGZX8ZBicZZYt NaO3ArNnClG8P9JlEjd5 ACQldIyaOS9xV6Gz HLHqkvmhrkmbfMW2GDTp KOXjaX81iZCvAQmiUt1t l1U5s557HDHiMAAekV63 Ww6lwEjcXJQlaWPF qP5isuzmb9lfezbuRtXs ZUAaWWz6IHt2GUTriDcg AbOqMZH5EjZ5GUF8nBTe sI4thJpuvynabZ9h Oyc+T59tkD8hNXP3LVQ7 iefjPGBzutCwDG81FZ64 S3WzWhvltWZtzVP+PGRp hjQmkHsmFT1tMvEj z7mdo5CvSGxoE6LdUAPt JQszGel9SLQdKTC7kRP2 yG2nRARdPDaqu5A4mZN0 K4QtuuAvzb7ee5ry ZEYeUPxoY43okLGwq9O6 VSYsdYM1TOZfuKvkAwVo eR24Etu+TBZsuVxrw8Bw Knqdk2evr6nneHi3 IjMwJSIgdmFsaWduPSJ0 s1VeYv56Z62qMPfaRDOh VXAmMVOcJLGdaAkqka3k rW4jGb6+PGNvbCB3 xOH4uH0lTMRgAzC8STkl H066YiVnkMNkHwyao7bi v9smhTa3QvRcKGSowzDp cRxxSDQ3l4EtYu72 A38zLNmjWQOgEQJyELLs GBTuuFoaat5hfH1sPp7+ TT4di5ugyc75lI76vNH+ EMMqNOU7lCtdYXrg EYGclW6lBCgmLoE2RNZm LfHtzW11mBHtXIatJf7h oFshuSpyUN2uVDQmusrt t934OuCgq3asGSKl kGVeLRiwPKR1E76oi1Y5 ZKXmONRiAYR8zPG1hM4l bGlnbjogbGVmdDsgdmVy sIgoZFfnNZihA458 IHRvcDsnPlBhdGllbnQg OoPzCIo1X9MdIwu5IYLm zUjjHS1ogHKvZGvpDu2a hVxdmMfkTL1qTOPk wmjfo531CtSat9xkTWJt hSYoTRvlRXE4I45qb5K1 XULaTPJoAQU6fZN2iY8m bGlnbjogbGVmdDsg mcEutStfGGdsCKbsI901 IHRvcDsnPkJpcnRoIERh zWI8GQ31GD36xEEax1O3 rUI3Q3TdXLAafpny skinwCO3KUMpNBSizS26 Km1rhNbhSw1hSQCgHWC3 IUItsUZpZ7BuaF0mRwMp VKUxELLrR3XowIKj DRrqP232JRgwEoS9AXXz yhZfG4KjXHRqmJjsPtB3 x9T3Mo8RS6Y4YF71NQ92 uXVoo7D5iGF0G7Cb HCAuclrglpvkzVR8JQAu FZFmfA41Vq5hxQqyJf6j ALKoIJX0VINdmLPoQ2Wi yQ5oQcPqTRUeVZPx Q3HlrRZwAChlJ284ZGxr IhH1NZCemcMhB3LpHNKh rCszJmW8l4E4Yc4YOAu6 WI55YF96gAHow6T7 rLR8Q6SmGSPpvzzkvfcn gRC8TLQmKOTioV75Cx2k hCvrJg6lAOIcMFR8MSWb dKWsX1LpsV0rVzLp WXDbUYZaT7VvbRAyRSvr V112CUtzOhR1JSZwjiPp V3YrNKVtlSisOcN9f5K0 Hh4LXCUlIJ31YEC1 wAE1BN76TU69G3NmAtxf dGFibGU+PHRhYmxlIHdp ZHRoPScxMDAlJyBzdHls IA5yZu7bQZIaZISq zGpkiCInZdZfo8piEJFq QAnnHF6tlNtpW1CguBG8 AGZxn2s4At47D61wC7Oe dXA+EIAkhMN6nKK5 vX4xCdZyXqC5HUwhX500 NwCzgCMbPosch3zec0eo dZo7LnI8GYKddaIooWlt AFS9w3KzNn09F59g IHdpZHRoPSIxNSUiIHZh kGpjym0pcG0oPz6+PGNv cQG7sMP1zK9fNrSxXxR5 OMvtU412ObMaeRXu Phyvd1jxk1tccPj9EcPz MWQoarHnvGvxZHF4h0Ue Mu04M7IhiTitg0VdEwh4 me02jUEpj7S7rKW9 V4RtIGDicxgscFYpmXel MO9vHPFevhneRNQndJ8e PCNvK7f8SuPvDcK6UWqv P6NjwmT7AYHjySCu BOjdVSE3V16qs6Z5QRRv AUEeSJR6lTM1aW5srCge bjogbGVmdDsgdmVydGlj BUjmOPzpZ646HXDw tSgzXNVrqQ3gCIPaoBZz gBqzFF7rAAKujqtoKinF V3EINJtnTTEVBkNQQO68 ZJ16fHVlb5D8wCD4 F2JoGVWgohamuqrrwWY6 IJUdPVCllT84gIFkRWtw Ym8sw3P1k769QCFkUUUn rL87Yq9puXwnFRLg qMSLjC2rlehvp7ufiqps FhCkZGQgJHg3TPs9WQQn rJzcBtPeOHW6HuZ4CZZ4 jCXpcB6lxCjonndb rL0qXrn+MDIvMjQvMTk3 NjwvdGQ+YPPhNQV5mJdq QMuwDDQfyG5xTREoZ4x7 MbPkNhK9ITanH5Qj QGDjbqtsWb66kT7eFhPf NhT4GRmvU2ZrftT2BRYc oJGkZFjdXQD6M45rs9I5 BUNqCMWcETR5mWC6 eB1bcFawpepfvPQahQgm leRjvKdhFDwbWXhhW424 POJptUzxKyW7NOsbMQYp RJ02XS05qNQej4W3 iRU8L6KcVDRzbhtaasga iCV7JXNsNRYdtK35kSYd SVkrIz3cj1Z1y735TDWn VVWteR06Ms1hmSyc ZSSuiAODsV1cllcam4hx xfyuFcOdLIObKKf0ICa2 XNXsuDldUtFjKCO3WqE1 DKL2hEHnrT7yoFrx haiedB4wTyb+TWFsZTwv dGQ+DCRsOGW3wNfuLHzo AWZmoS1uPMKxP5n3EsHn MgZ8VYwzF1GwKKSt ititNr38qB8oRbSrYrJ0 NHcqU9BekwZ6LSTpjIUr JMsmDQD2J05yr2U7KFOx SHSfJRU1iDB8cI7l bGlnbjogbGVmdDsgdmVy lCfrEKcxQOpeE324CDYg xWjkJp98kBCzzZclvuM4 Y3LaVnkatHF+PC90 GJTpDU05uGXdgCYwg6by tWt0ZaIcLHTvHAE7jKvi OAncm4YnTJAuO00anQQz z0Y2XAQrqJmhtQXi NdEheNH5wZ7tWAobhzmm y2lwguwqVmjit9vmvy60 yO39A32zTKgcCBVpFJPt BAKxJCRxuBwweh0t vZ2jEd0+NHIwpYL3fJW4 nF7pQbIzVnO9JUcvY622 UqEjeHFqTtgqf1pxy6ev zZg7VkBcSTAhujWr fQapZZN5b8YcJp86N77p IHdpZHRoPSIyMCUiIHZh aYlkpi5ylU5fWr7+PC9j b3lrym60uH03qJW+ SCPmYKR2zRbpOCrgQGSp pE2qSUfdTgU9UDMgEeNm jL50oYHwSAyaQj8jeItv lBmvER0aTRLjjncu y416JxAcp5ogLQRpnULo HWxjSDV9C17iz6G6BDBo UUHzLEP4oEB2yI2teBmv bjogbGVmdDsgdmVy tRdxAQrtYAhwW329CUAk pYtqAsInrLZkO6gclxIE DB5nPelekCB+PHRkIHN0 lKdvLSzrYDEawR6n GFNdW2u1LlWgWzE4OYcm M6MpwmT9HKEdhOSsHLMw mKKHrV3svjmtu7sgjvvn HuYuGTCzSHq1SGd4 XOCrvVttYiMeDIM7TpL0 NES9lTRmfF8xlXmhjsel tE1rBhv+RklOOjwvdGQ+ DKChTRY6iVixNHtq KSEbxI3wSSZeA8d5SuVi IhA2BGheP0SaawE1RAGv qVCiPFNtrNRVgL6qlwtk u5afrhriRdUoGRRo AGh5BQe5WDYwiEhfRtTq USI2TjU2VDV8aGTnpX7k oSgewpmnoU5eOvp+TVJO OjwvdGQ+PHRkIHN0 vHlbSPevGTEejS4mZBDd E0j4XvIdWfQ1JBccJ4Wn azU3LCBvcPNvSRNbvQQW oP0zeysax1tbjrfv GvFbLJZzZHb0KXq4WAXy rOiuVqIfMYZ6UcT9EJQ1 uVDwtF0kzXlunjgjhI9w Oyc+ORA5DOA6XH93 AO93Z7QeLhouiYDwtRC+ PHRhYmxlIHdpZHRoPScx JJKpUkKwrQdxMJ1uRi4r ZGVyLWNvbGxhcHNl OiBj (more content not included)... Normal [facility] HCV RNA by PCR, n x Genjacob n 05-03-2022 HCV genotype RAFAELA+probe Nom Comment Invalid Interpretation Code [facility] Comment on above: Result Comment: To b e performed on this specimen. Performed at: [address] [id number] MD Iván Gaspar Performed By: #### 1 [id number], [id number], [id number], 0167356, [id number], 95923652, 3907725350, 33580484, 7804227 #### [facility] Laboratory [address] [place] [address] Laboratory comment Tony (Report) Comment Invalid Interpretation Code [facility] Comment on above: Result Comment: The quantitative range of this assay is 15 IU/mL to 100 million IU/mL. Performed By: #### 1 [id number], [id number], [id number], 7598329, 5748359449, 83797642, 6645430221, 48990928, 6827652 #### [facility] Laboratory [address] [place] [address] HCV RNA RAFAELA+probe Qn See Final Results Invalid Interpretation Code [facility] Comment on above: Result Comment: Perf ormed at: [address] [id number] MD Iván Gaspar Performed By: #### 1 [id number], [id number], [id number], 0550468, [id number], 83001915, [id number], 91237421, 0849970 #### [facility] Laboratory [address] [place] [address] Hepatitis C Genotypeon 05-03 HCV genotype RAFAELA+probe Nom 1a Invalid Interpretation Code [facility] Comment on above: Performed By: #### 1 [id number], [id number], [id number], 5874501, [id number], 36630022, 3498838295, 43879562, 1086450 #### [facility] Laboratory [address] [place] [address] Laboratory comment Tony (Report) Comment Invalid Interpretation Code [facility] Comment on above: Result Comment: This test was developed and its performance characteristics determined by [facility]. It has not been cleared or approved by the U.S. Food and Drug Administration. The FDA has determined that such clearance or approval is not necessary. This test is used for clinical purposes. It should not be regarded as investigational or for research. Performed at: [address] [id number] MD Iván Gaspar Performed By: #### 1 [id number], [id number], [id number], 5325399, [id number], 47064489, 7935355864, 01078440, 0201291 #### [facility] Laboratory [address] [place] [address] Lab Miscellaneous-LCon 05-02 Lab Miscellaneous COMMENT Invalid Interpretation Code [facility] Comment on above: Result Comment: Test Ordered: [id number] T-Lymphocyte [place]/Suppressor Absolute CD 3 1227 /uL CB Reference Range: 622-2402 Absolute CD 4 [place] 386 /uL CB Reference Range: 359-1519 Abs. [...] Reference Range: 0.0-0.1 Performed at: [facility] [address] [id number] PhD Jaleesa Perez Performed By: #### 1 [id number] #### [facility] [address] [place] [address] CHEMISTRYOrdered By: SYSTEM SYSTEM on 04-30-2022 Albumin [...] 1.3 mg/dL Normal 0.5 - 1.3 mg/dL [facility] Remisol GFR/1.73 sq M.predicted among blacks MDRD (S/P/Bld) [Vol rate/Area] mL/min/1.73 m2 Normal >=59mL/min/1. 73 m2 [facility] Chem S GFR/1.73 sq M.predicted among non-blacks MDRD (S/P/Bld) [Vol rate/Area] 59 mL/min/1.73 m2 Normal >=59mL/min/1. 73 m2 [facility] Chem S Globulin (S) [Mass/Vol] 3.4 g/dL Normal 1.4 - 4.0 gm/dL [facility] Remisol Glucose [Mass/Vol] 107 mg/dL Normal 55 - 199 mg/dL [facility] Remisol Potassium [Moles/Vol] 4.3 mmol/L Normal 3.5 - 5.3 mmol/L [facility] Remisol Protein [Mass/Vol] 7.6 g/dL Normal 6.0 - 7.8 gm/dL [facility]isol Sodium [Moles/Vol] 137 mmol/L Normal 135 - 145 mmol/L [facility] Triglyceride [Mass/Vol] 135 mg/dL Normal <=149mg/dL [facility] Urea nitrogen [Mass/Vol] 15 mg/dL Normal 5 - 21 mg/dL [facility] [place] Urea nitrogen/Creatinine [Mass ratio] 12 mg/mg Normal 10 - 20 [facility] [place]isol CMPon 04-30-2022 Albumin [Mass/Vol] 4.2 g/dL Normal 3.3-5.0 [facility] Comment on above: Performed By: #### 1 [id number], [id number], [id number], [id number], [id number], 79842947, [id number], 48944162, 2631888 #### [facility] [address] [place] [address] Albumin/Globulin (S) [Mass conc ratio] 1.2 Normal 1.1-2.2 [facility] Comment on above: Performed By: #### 1 [id number], [id number], [id number], 5617209, [id number], 47775529, 6969066909, 38312945, 7963808 #### [facility] [address] [place] [address] ALP [Catalytic activity/Vol] 74 Int._Unit/L Normal 21-98 [facility] Comment on above: Performed By: #### 1 [id number], [id number], [id number], 5741801, [id number], 18845688, [id number], 06791667, 8780561 #### [facility] [address] [place] [address] ALT No additional P-5'-P [Catalytic activity/Vol] 83 Int._Unit/L High 6-46 [facility] Comment on above: Performed By: #### 1 [id number], [id number], [id number], 1582196, 8177544566, 41588228, 6430898921, 79398869, 7242390 #### [facility] [address] [place] [address] Anion gap [Moles/Vol] 9 mmol/L Normal 6-16 [facility] Comment on above: Performed By: #### 1 [id number], [id number], [id number], 3727961, 6796956424, 69726540, 2400979156, 57504897, 1753947 #### [facility] [address] [place] [address] AST [Catalytic activity/Vol] 44 Int._Unit/L High 5-43 [facility] Comment on above: Performed By: #### 1 [id number], [id number], [id number], 6330857, 7348994033, 98328417, 9635045216, 53034472, 3105928 #### [facility] [address] [place] [address] Bilirubin [Mass/Vol] 0.7 mg/dL Normal 0.0-1.1 [facility] Comment on above: Performed By: #### 1 [id number], [id number], 2927249040, 9073443, 9918666135, 61465383, 7865115525, 58059646, 3785612 #### [facility] [address] [place] [address] Calcium [Mass/Vol] 9.4 mg/dL Normal 8.9-11.1 [facility] Comment on above: Performed By: #### 1 [id number], [id number], 7854176972, 1356461, 5148467658, 94519315, 5731712841, 09006988, 2944255 #### [facility] [address] [place] [address] Chloride [Moles/Vol] 103 mmol/L Normal 101-111 [facility] Comment on above: Performed By: #### 1 [id number], [id number], 5995674676, 9457126, 0832186624, 97309299, 2885392169, 22642598, 9066032 #### [facility] [address], [place] [address] CO2 [Moles/Vol] 29 mmol/L Normal 21-31 [facility] Comment on above: Performed By: #### 1 [id number], [id number], [id number], 2570057, 2771964877, 65437587, 0191534788, 01658120, 7504050 #### [facility] [address] [place] [address] Creatinine [Mass/Vol] 1.3 mg/dL Normal 0.5-1.3 [facility] Comment on above: Performed By: #### 1 [id number], [id number], [id number], 5478439, 0294923074, 51760769, 7102730114, 80912372, 3548920 #### [facility] [address] [place] [address] Globulin (S) [Mass/Vol] 3.4 g/dL Normal 1.4-4.0 [facility] Comment on above: Performed By: #### 1 [id number], [id number], 4658133647, 8792139, 0049660640, 45692955, 5033398276, 18012402, 7650658 #### [facility] [address] [place] [address] Glucose [Mass/Vol] 107 mg/dL Normal 55-199 [facility] Comment on above: Result Comment: If t his glucose result represents a fasting glucose, interpretation should refer to the following reference range: 55-99 mg/dL Performed By: #### 1 [id number], [id number], 1317744350, 4063504, 3802304761, 74390387, 5784642007, 47709660, 2333425 #### [facility] [address] [place] [address] Potassium [Moles/Vol] 4.3 mmol/L Normal 3.5-5.3 [facility] Comment on above: Performed By: #### 1 [id number], 7736164145, 1682009828, 3538512, 8778981796, 54916969, 2054274642, 61491423, 5400282 #### [facility] [address] [place] [address] Protein [Mass/Vol] 7.6 g/dL Normal 6.0-7.8 [facility] Comment on above: Performed By: #### 1 [id number], 3525338827, 2630470751, 2703175, 3033235196, 37707374, 8168642842, 99153114, 4576489 #### [facility] [address] [place] [address] Sodium [Moles/Vol] 137 mmol/L Normal 135-145 [facility] Comment on above: Performed By: #### 1 [id number], 3291789011, 2843464723, 5059239, 2532328005, 37244859, 1960766074, 07335657, 6629370 #### [facility] [address] [place] [address] Urea nitrogen [Mass/Vol] 15 mg/dL Normal 5-21 [facility] Comment on above: Performed By: #### 1 [id number], 9140876696, 3424906989, 1179349, 9270216949, 76598938, 7853733770, 49238065, 3958527 #### [facility] [address] [place] [address] Urea nitrogen/Creatinine [Mass ratio] 12 No Units Normal 10-20 [facility] Comment on above: Performed By: #### 1 [id number], 4834598665, 7120400707, 5957799, 8183683061, 42236787, 9862397936, 23439645, 6685670 #### [facility] [address] [place] [address] Consent for Treatmenton 04-10 Consent for Treatment [id number] #1.00CD:127 Normal [facility] Miscellaneous-LCon 04-30 Test Code 765868 Invalid Interpretation Code [facility] Comment on above: Performed By: #### 1 [id number] #### [facility] [address] [place] [address] Test Code 713870 Invalid Interpretation Code [facility] Comment on above: Performed By: #### 1 [id number] #### [facility] [address] [place] [address] Test Name T-Lymphocyte Invalid Interpretation Code [facility] Comment on above: Performed By: #### 1 [id number] #### [facility] [address] [place] [address] Test Name HIV VIral Load Invalid Interpretation Code [facility] Comment on above: Performed By: #### 1 [id number] #### [facility] [address] [place] [address] Lipid Panelon 04-30-2022 Cholesterol [Mass/Vol] 181 mg/dL Normal 120-200 [facility] Comment on above: Performed By: #### 1 [id number], 2386264859, 8313178898, 5334633, 2324848435, 56946896, 7786205088, 35518670, 7006247 #### [facility] [address] [place] [address] Cholesterol in HDL [Mass/Vol] 39 mg/dL Invalid Interpretation Code [facility] Comment on above: Result Comment: HDL > or equal to 60 mg/dL: Low cardiovascular risk HDL < 40 mg/dL : High cardiovascular risk Performed By: #### 1 [id number], 6117880564, 3807306500, 8421680, 0468209010, 27480031, 4952460123, 02870371, 5555127 #### [facility] [address] [place] [address] Cholesterol in LDL [Mass/Vol] 120 mg/dL Normal <=129 [facility] Comment on above: Performed By: #### 1 [id number], 7674144798, 6780447744, 4771132, 2686584201, 14591906, 8949056475, 09633970, 3125737 #### [facility] [address] [place] [address] Cholesterol in VLDL [Mass/Vol] 27 mg/dL Normal 7-40 [facility] Comment on above: Performed By: #### 1 [id number], 7910752587, 8960519735, 0061333, 7799606189, 22110450, 5778580342, 18162326, 8494787 #### [facility] [address] [place] [address] Triglyceride [Mass/Vol] 135 mg/dL Normal <=149 [facility] Comment on above: Performed By: #### 1 [id number], 9457643673, 7630632571, 4586753, 9788880963, 59068608, 5167046067, 73446889, 1444807 #### [facility] [address] [place] [address] Physician Orderon 04-30-2022 Physician Order [id number] #1.00CD:127 Normal [facility] Reference Laboratory Testing Ordered By: Herlinda Pendleton on 04-30-2022 Test Code 816954 Invalid Interpretation Code [facility] Test Code 748618 Invalid Interpretation Code [facility] Test Name HIV VIral Load Invalid Interpretation Code [facility] Test Name T-Lymphocyte Invalid Interpretation Code [facility] eGFRon 04-30-2022 GFR/1.73 sq M.predicted among blacks MDRD (S/P/Bld) [Vol rate/Area] mL/min/{1.73_m2} Normal >=59 [facility] Comment on above: Order Comment: Order added by Discern Expert. Result Comment: eGFR is race adjusted. AA=. Performed By: #### 1 [id number], 4932517873, 6728449566, 2468077, 1355888678, 79394529, 6499291918, 20031834, 4680698 #### [facility] [address] [place] [address] GFR/1.73 sq M.predicted among non-blacks MDRD (S/P/Bld) [Vol rate/Area] 59 mL/min/1.73 m2 Normal >=59 [facility] Comment on above: Order Comment: Order added by Discern Expert. Result Comment: Store Coordinator cj kidney disease could be indicated at eGFR's of less than 60 mL/min/1.73m2. Kidney failure is indicated at less than 15 mL/min/1.73m2. Performed By: #### 1 [id number], 9925911000, 9479743965, 4300705, 1077291619, 81263739, 6352423653, 51461635, 3323331 #### [facility] [address] [place] [address] Family Medicine Office/Clini c Noteon 04-05-2022 Family Medicine Office/Clinic Note Subjective Inmate at the [facility] today for: CC: Psoriasis He is not all sure what parts are the worse right now. Has it all over the body. The other arm spot is not changing much, same size. He was on methotrexate in the past and it did not do much. He was on a shot in [place] that was helpful, this was a mcc. The cream helps with the scaliness but [...] Bedtime, # 30 tab(s), Refills(s) 0, Pharmacy: [facility], 185.4, cm, 12/25/21 14:39:00 EDT, Height/Length Dosing, 76.3, kg, 12/25/21 14:39:00 EDT, Weight Dosing omeprazole, 20 mg = 1 cap(s), Oral, Daily, # 30 cap(s), Refills(s) 0, Pharmacy: [facility], 185.4, cm, 12/25/21 14:39:00 EDT, Height/Length Dosing, [...] Oral, Daily, 3 refills Normal [facility] Comment on above: Result Comment: Elec tronically Signed By: STEPHANE CABRAL, Scooby Thacker\.br\Date and Time Signed: 04/05/22 17:36 EDT Family Medicine Office/Clini c Noteon 03-16-2022 Family Medicine Office/Clinic Note Subjective Inmate at the [facility] today for: CC: back of the right [...] Oral, BID Tivicay, 50 mg, Oral, Daily [facility] Comment on above: Result Comment: Elec tronically Signed By: Scooby COX\.br\Date and Time Signed: 03/16/22 12:03 EDT Intermediate Documentson 01-23-2022 Intermediate Documents [id number] #1.00CD:127 Normal [facility] Intermediate Documentson 01-09-2022 Intermediate Documents Intermediate Nurse [...] forearm Date vial opened: 12/24/2021 Lot number: [id number] Expiration date: 04/2023 PPD Comments: _ Inmate [...] (more content not included)... Normal [facility] Intermediate Documentson 01-04-2022 Intermediate Documents [id number]#1.00CD:127 Normal [facility] Intermediate Documents [id number] #1.00CD:127 Normal [facility] Acetaminophenon 12-21-2021 Acetaminophen [Mass/Vol] ug/mL Low 10-30 [facility] Comment on above: Performed By: #### A LCB, ACET #### [facility] [address] [place] [address] Americanization Teacher: Ramon Amor MD CBC with Diffon 12-21-2021 Abs. Basophil 0.00 k/uL Normal 0.0-0.2 [facility] Comment on above: Performed By: #### C DP, TSHX, SALI, CP, TROPI #### [facility] [address] [place] [address] Americanization Teacher: Ramon Amor MD Abs.Neutrophil (Seg) 11.90 k/uL High 2.1-6.5 [facility] Comment on above: Performed By: #### C DP, TSHX, SALI, CP, TROPI #### [facility] [address] [place] [address] Americanization Teacher: Ramon Amor MD Auto Diff Performed YES Normal [facility] Comment on above: Performed By: #### C DP, TSHX, SALI, CP, TROPI #### [facility] [address] [place] [id number] Americanization Teacher: Ramon Amor MD Basophils/100 WBC (Bld) 0 % Normal 0-2 [facility] Comment on above: Performed By: #### C DP, TSHX, SALI, CP, TROPI #### [facility] [address] [place] [phone] Americanization Teacher: Ramon Amor MD Eosinophils (Bld) [#/Vol] 0.00 10*3/uL Normal 0.0-0.4 [facility] Comment on above: Performed By: #### C DP, TSHX, SALI, CP, TROPI #### [facility] [address] [place] [address] Americanization Teacher: Ramon Amor MD Eosinophils/100 WBC (Bld) 0 % Normal 0-5 [facility] Comment on above: Performed By: #### C DP, TSHX, SALI, CP, TROPI #### [facility] [address] [place] [address] Americanization Teacher: Ramon Amor MD Erythrocyte distribution width (RBC) [Ratio] 15.1 % Normal 12.1-15.2 [facility] Comment on above: Performed By: #### C DP, TSHX, SALI, CP, TROPI #### [facility] [address] [place] [phone] Americanization Teacher: Ramon Amor MD Hematocrit (Bld) [Volume fraction] 47.6 % Normal 41-53 [facility] Comment on above: Performed By: #### C DP, TSHX, SALI, CP, TROPI #### [facility] [address] [place] [phone] Americanization Teacher: Ramon Amor MD Hemoglobin (Bld) [Mass/Vol] 16.0 g/dL Normal 13.5-17.5 [facility] Comment on above: Performed By: #### C DP, TSHX, SALI, CP, TROPI #### [facility] [address] [place] [address] Americanization Teacher: Ramon Amor MD Lymphocytes (Bld) [#/Vol] 1.50 10*3/uL Normal 1.0-4.8 [facility] Comment on above: Performed By: #### C DP, TSHX, SALI, CP, TROPI #### [facility] [address] [place] [address] Americanization Teacher: Ramon Amor MD Lymphocytes/100 WBC (Bld) 11 % Low 13-44 [facility] Comment on above: Performed By: #### C DP, TSHX, SALI, CP, TROPI #### [facility] [address] [place] [address] Americanization Teacher: Ramon Amor MD MCH (RBC) [Entitic mass] 29.0 pg Normal 26-34 [facility] Comment on above: Performed By: #### C DP, TSHX, SALI, CP, TROPI #### [facility] [address] [place] [phone] Americanization Teacher: Ramon Amor MD MCHC (RBC) [Mass/Vol] 33.6 g/dL Normal 31-37 [facility] Comment on above: Performed By: #### C DP, TSHX, SALI, CP, TROPI #### [facility] [address] [place] [address] Americanization Teacher: Ramon Amor MD MCV (RBC) [Entitic vol] 86.4 fL Normal 80-100 [facility] Comment on above: Performed By: #### C DP, TSHX, SALI, CP, TROPI #### [facility] [address] [place] [phone] Americanization Teacher: Ramon Amor MD Monocytes (Bld) [#/Vol] 0.80 10*3/uL Normal 0.0-1.0 [facility] Comment on above: Performed By: #### C DP, TSHX, SALI, CP, TROPI #### [facility] [address] [place], [place] [id number] Americanization Teacher: Ramon Amor MD Monocytes/100 WBC (Bld) 6 % Normal 5-9 [facility] Comment on above: Performed By: #### C DP, TSHX, SALI, CP, TROPI #### [facility] [address] [place] [address] Americanization Teacher: Ramon Amor MD Neutrophil (Seg) 83 % High 39-75 [facility] Comment on above: Performed By: #### C DP, TSHX, SALI, CP, TROPI #### [facility] [address] [place] [phone] Americanization Teacher: Ramon Amor MD Platelets (Bld) [#/Vol] 341 10*3/uL Normal 140-450 [facility] Comment on above: Performed By: #### C DP, TSHX, SALI, CP, TROPI #### [facility] [address] [place], [place] [phone] Americanization Teacher: Ramon Amor MD RBC (Bld) [#/Vol] 5.51 10*6/uL Normal 4.5-5.9 [facility] Comment on above: Performed By: #### C DP, TSHX, SALI, CP, TROPI #### [facility] [address] [place], [place] [phone] Americanization Teacher: Ramon Amor MD WBC (Bld) [#/Vol] 14.3 10*3/uL High 3.5-11.0 [facility] Comment on above: Performed By: #### C DP, TSHX, SALI, CP, TROPI #### [facility] [address] [place] [phone] Americanization Teacher: Ramon Amor MD Comp Metabolic Profon 2021 Albumin [Mass/Vol] 5.0 g/dL Normal 3.5-5.2 [facility] Comment on above: Performed By: #### C DP, TSHX, SALI, CP, TROPI #### [facility] [address] [place] [phone] Americanization Teacher: Ramon Amor MD Alkaline Phos 137 U/L High 40-129 [facility] Comment on above: Performed By: #### C DP, TSHX, SALI, CP, TROPI #### [facility] [address] [place] [address] Americanization Teacher: Ramon Amor MD ALT [Catalytic activity/Vol] 69 U/L High 5-41 [facility] Comment on above: Performed By: #### C DP, TSHX, SALI, CP, TROPI #### [facility] [address] [place] [phone] Americanization Teacher: Ramon Amor MD Anion gap [Moles/Vol] 32 mmol/L High 9-17 [facility] Comment on above: Performed By: #### C DP, TSHX, SALI, CP, TROPI #### [facility] [address] [place] [address] Americanization Teacher: Ramon Amor MD AST [Catalytic activity/Vol] 68 U/L High <40 [facility] Comment on above: Performed By: #### C DP, TSHX, SALI, CP, TROPI #### [facility] [address] [place] [phone] Americanization Teacher: Ramon Amor MD Bilirubin [Mass/Vol] 0.84 mg/dL Normal 0.30-1.20 [facility] Comment on above: Performed By: #### C DP, TSHX, SALI, CP, TROPI #### [facility] [address] [place] [address] Americanization Teacher: Ramon Amor MD Calcium [Mass/Vol] 10.6 mg/dL High 8.6-10.4 [facility] Comment on above: Performed By: #### C DP, TSHX, SALI, CP, TROPI #### [facility] [address] [place] [address] Americanization Teacher: Ramon Amor MD Chloride [Moles/Vol] 97 mmol/L Low 98-107 [facility] Comment on above: Performed By: #### C DP, TSHX, SALI, CP, TROPI #### [facility] [address] [place] [address] Americanization Teacher: Ramon Amor MD CO2 [Moles/Vol] 14 mmol/L Low 20-31 [facility] Comment on above: Performed By: #### C DP, TSHX, SALI, CP, TROPI #### [facility] [address] [place] [address] Americanization Teacher: Ramon Amor MD Creatinine [Mass/Vol] 1.82 mg/dL High 0.70-1.20 [facility] Comment on above: Performed By: #### C DP, TSHX, SALI, CP, TROPI #### [facility] [address] [place] [address] Americanization Teacher: Ramon Amor MD GFR, Amer 49 mL/min Low >60 [facility] Comment on above: Performed By: #### C DP, TSHX, SALI, CP, TROPI #### [facility] [address] [place] [address] Americanization Teacher: Ramon Amor MD GFR,non Amer 40 mL/min Low >60 [facility] Comment on above: Performed By: #### C DP, TSHX, SALI, CP, TROPI #### [facility] [address] [place], [place] [phone] Americanization Teacher: Ramon Amor MD Glucose [Mass/Vol] 164 mg/dL High 70-99 [facility] Comment on above: Performed By: #### C DP, TSHX, SALI, CP, TROPI #### [facility] [address] [place], [place] [id number] Americanization Teacher: Ramon Amor MD Potassium [Moles/Vol] 3.4 mmol/L Low 3.7-5.3 [facility] Comment on above: Performed By: #### C DP, TSHX, SALI, CP, TROPI #### [facility] [address] [place], [place] [id number] Americanization Teacher: Ramon Amor MD Protein [Mass/Vol] 8.5 g/dL High 6.4-8.3 [facility] Comment on above: Performed By: #### C DP, TSHX, SALI, CP, TROPI #### [facility] [address] [place], [place] [id number] Americanization Teacher: Ramon Amor MD Sodium [Moles/Vol] 143 mmol/L Normal 135-144 [facility] Comment on above: Performed By: #### C DP, TSHX, SALI, CP, TROPI #### [facility] [address] [place], [place] [phone] Americanization Teacher: Ramon Amor MD Urea nitrogen [Mass/Vol] 20 mg/dL Normal 6-20 [facility] Comment on above: Performed By: #### C DP, TSHX, SALI, CP, TROPI #### [facility] [address] [place], [place] [address] Americanization Teacher: Ramon Amor MD (cont.) [facility] Comment on above: Result Comment: Aver age GFR for 40-49 years old: 99 mL/min/1.73sq m Chronic Kidney Disease: <60 mL/min/1.73sq m Kidney failure: <15 mL/min/1.73sq m eGFR calculated using average adult body mass. Additional eGFR calculator available at: http://www.[employer]/multiple_crcl_2012.htm Performed By: #### C DP, TSHX, SALI, CP, TROPI #### [facility] [address] [place], [place] [id number] Americanization Teacher: Ramon Amor MD Ethanol Alcoholon 12-21-2021 Ethanol [Mass/Vol] mg/dL Normal <10 [facility] Comment on above: Performed By: #### A LCB, ACET #### [facility] [address] [place], [place] [id number] Americanization Teacher: Ramon Amor MD Ethanol percent <0.010 Normal [facility] Comment on above: Performed By: #### A LCB, ACET #### [facility] [address] [place], [place] [id number] Americanization Teacher: Ramon Amor MD Salicylateon 12-21-2021 Salicylate <1 Low 3-10 [facility] Comment on above: Performed By: #### C DP, TSHX, SALI, CP, TROPI #### [facility] [address] [place], [place] [id number] Americanization Teacher: Ramon Amor MD TSH w/reflex to FT4on 2021 Thyroid Stim. Horm. 1.79 uIU/mL Normal 0.30-5.00 [facility] Comment on above: Performed By: #### C DP, TSHX, SALI, CP, TROPI #### [facility] [address] [place], [place] [id number] Americanization Teacher: Ramon Amor MD Troponinon 12-21-2021 Troponin, High Sens 33 ng/L High 0-22 [facility] Comment on above: Result Comment: High Sensitivity Troponin values cannot be compared with other Troponin methodologies. Patients with high levels of Biotin oral intake (i.e >5mg/day) may have falsely decreased Troponin levels. Samples collected within 8 hours of biotin intake may require additional information for diagnosis. Performed By: #### C DP, SAMMY, DARSHANA KAUFFMAN, [place] #### [facility] [address] [place] [address] Americanization Teacher: Ramon Amor MD Acetaminophen Levelon 2021 Acetaminophen Level <5 Low 10 - 30 ug/mL [facility] Interpretation and review of laboratory results Abnormal [facility] CBC with Auto Differentialon 12-20-2021 Absolute Eos # 0.00 [facility] Absolute Lymph # 1.50 [facility] Absolute [place] # 0.80 [facility] Basophils (Bld) [#/Vol] 0.00 10*3/uL [facility] Basophils/100 WBC (Bld) 0 % 0 - 2 % [facility] Differential Type YES [facility] Eosinophils/100 WBC (Bld) 0 % 0 - 5 % [facility] Hematocrit (Bld) [Volume fraction] 47.6 % 41 - 53 % [facility] Hemoglobin (Bld) [Mass/Vol] 16.0 g/dL 13.5 - 17.5 g/dL [facility] Interpretation and review of laboratory results Abnormal [facility] Lymphocytes/100 WBC (Bld) 11 % Low 13 - 44 % [facility] MCH (RBC) [Entitic mass] 29.0 pg 26 - 34 pg [facility] MCHC (RBC) [Mass/Vol] 33.6 g/dL 31 - 37 g/dL [facility] MCV (RBC) [Entitic vol] 86.4 fL 80 - 100 fL [facility] Monocytes/100 WBC (Bld) 6 % 5 - 9 % [facility] Platelet distribution width (Bld) [Ratio] 15.1 % 12.1 - 15.2 % [facility] Platelets (Bld) [#/Vol] 341 10*3/uL [facility] RBC (Bld) [#/Vol] 5.51 10*6/uL 4.5 - 5.9 m/uL [facility] Segmented neutrophils/100 WBC (Bld) 83 % High 39 - 75 % [facility] Segs Absolute 11.90 High [facility] WBC (Bld) [#/Vol] 14.3 10*3/uL High [facility] CMPon 12-20-2021 Albumin [Mass/Vol] 5 g/dL 3.5 - 5.2 g/dL [facility] ALP (Bld) [Catalytic activity/Vol] 137 U/L High 40 - 129 U/L [facility] ALT [Catalytic activity/Vol] 69 U/L High 5 - 41 U/L [facility] Anion gap [Moles/Vol] 32 mmol/L High 9 - 17 mmol/L [facility] AST [Catalytic activity/Vol] 68 U/L High NINF - 40 U/L [facility] Bilirubin [Mass/Vol] 0.84 mg/dL 0.3 - 1 .2 mg/dL [facility] Calcium [Mass/Vol] 10.6 mg/dL High 8.6 - 10. 4 mg/dL [facility] Chloride [Moles/Vol] 97 mmol/L Low 98 - 10 7 mmol/L [facility] CO2 [Moles/Vol] 14 mmol/L Low 20 - 31 mmol/L [facility] Creatinine [Mass/Vol] 1.82 mg/dL High 0.7 - 1.2 mg/dL [facility] Free PSA/Total PSA [Mass fraction] 8.5 g/dL High 6.4 - 8.3 g/dL [facility] GFR 49 mL/min Low 60 - PI NF mL/min [facility] GFR Non- 40 mL/min Low 60 - PINF mL/min [facility] GFR/1.73 sq M.predicted MDRD (S/P/Bld) [Vol rate/Area] [facility] Comment on above: Average GFR for 40-4 9 years old: 99 mL/min/1.73sq m Chronic Kidney Disease: <60 mL/min/1.73sq m Kidney failure: <15 mL/min/1.73sq m eGFR calculated using average adult body mass. Additional eGFR calculator available at: http://www.[employer]/multiple_crcl_2012.htm Glucose [Mass/Vol] 164 mg/dL High 70 - 99 mg/dL [facility] Potassium [Moles/Vol] 3.4 mmol/L Low 3.7 - 5.3 mmol/L [facility] Sodium [Moles/Vol] 143 mmol/L 135 - 144 mmol/L [facility] Urea nitrogen (BldV) [Mass/Vol] 20 mg/dL 6 - 20 mg/dL [facility] EKG Rhythm Stripon 2 QRS 0.[address] [facility] ETOHon 12-20-2021 Ethanol [Mass/Vol] mg/dL NINF - 10 mg/dL [facility] Ethanol percent <0.010 % [facility] No Panel Informationon 12-20 Interpretation and review of laboratory results Abnormal [facility] Salicylateon 12-20-2021 Salicylate Lvl mg/dL Low 3 - 10 mg/dL [facility] TSH with Reflexon 12-20-2021 TSH Qn 1.79 m[IU]/L [facility] Troponinon 12-20-2021 Interpretation and review of laboratory results Abnormal [facility] Troponin, High Sensitivity 33 ng/L High 0 - 22 ng/L [facility] Comment on above: High Sensitivity Troponin values cannot be compared with other Troponin methodologies. Patients with high levels of Biotin oral intake (i.e >5mg/day) may have falsely decreased Troponin levels. Samples collected within 8 hours of biotin intake may require additional information for diagnosis. [facility] .Auto Diffon 10-01-2021 Basophil, Absolute 0.00 10 3/mcL Normal 0.00-0.27 [facility] ([place]) Comment on above: Performed By: #### P RO, CMP, GFR, RPR, CBC, ADIFF, ANEU, HIVRNA, HELP1, HCQPCR, HEPGEN #### [address] [address] Basophils/100 WBC (Bld) 0.6 % Normal 0.0-2.5 [facility] ([place]) Comment on above: Performed By: #### P RO, CMP, GFR, RPR, CBC, ADIFF, ANEU, HIVRNA, HELP1, HCQPCR, HEPGEN #### [address] [address] Eosinophil, Absolute 0.40 10 3/mcL Normal 0.00-0.65 [facility] ([place]) Comment on above: Performed By: #### P RO, CMP, GFR, RPR, CBC, ADIFF, ANEU, HIVRNA, HELP1, HCQPCR, HEPGEN #### [address] [address] Eosinophils/100 WBC (Bld) 7.5 % High 0.0-6.0 [facility] ([place]) Comment on above: Performed By: #### P RO, CMP, GFR, RPR, CBC, ADIFF, ANEU, HIVRNA, HELP1, HCQPCR, HEPGEN #### [address] [address] Lymphocyte, Absolute 2.50 10 3/mcL Normal 0.90-4.32 [facility] ([place]) Comment on above: Performed By: #### P RO, CMP, GFR, RPR, CBC, ADIFF, ANEU, HIVRNA, HELP1, HCQPCR, HEPGEN #### [address] [address] Lymphocytes/100 WBC (Bld) 43.9 % High 20.0-40.0 [facility] ([place]) Comment on above: Performed By: #### P RO, CMP, GFR, RPR, CBC, ADIFF, ANEU, HIVRNA, HELP1, HCQPCR, HEPGEN #### [address] [address] Monocyte, Absolute 0.40 10 3/mcL Normal 0.09-1.40 [facility] ([place]) Comment on above: Performed By: #### P RO, CMP, GFR, RPR, CBC, ADIFF, ANEU, HIVRNA, HELP1, HCQPCR, HEPGEN #### [address] [address] Monocytes/100 WBC (Bld) 6.5 % Normal 2.0-13.0 [facility] ([place]) Comment on above: Performed By: #### P RO, CMP, GFR, RPR, CBC, ADIFF, ANEU, HIVRNA, HELP1, HCQPCR, HEPGEN #### [address] [address] Neutrophils/100 WBC (Bld) 41.5 % Low 50.0-75.0 [facility] ([place]) Comment on above: Performed By: #### P RO, CMP, GFR, RPR, CBC, ADIFF, ANEU, HIVRNA, HELP1, HCQPCR, HEPGEN #### [address] [address] .GFRon 10-01-2021 GFR >60 Normal [facility] ([place]) Comment on above: Result Comment: GFR Population [...] ADIFF, ANEU, HIVRNA, HELP1, HCQPCR, HEPGEN #### [address] [address] GFR Non- >60 Normal [facility] ([place]) Comment on above: Result Comment: GFR Population [...] ADIFF, ANEU, HIVRNA, HELP1, HCQPCR, HEPGEN #### [address] [address] .NEUABSon 10-01-2021 Neutrophil, Absolute 2.40 10 3/mcL Normal 2.25-8.10 [facility] ([place]) Comment on above: Performed By: #### P RO, CMP, GFR, RPR, CBC, ADIFF, ANEU, HIVRNA, HELP1, HCQPCR, HEPGEN #### [place] [address] CBCon 10-01-2021 Erythrocyte distribution width (RBC) [Ratio] 13.6 % Normal 11.5-15.5 [facility] ([place]) Comment on above: Performed By: #### P RO, CMP, GFR, RPR, CBC, ADIFF, ANEU, HIVRNA, HELP1, HCQPCR, HEPGEN #### [place] [address] Hematocrit (Bld) [Volume fraction] 46.3 % Normal 40.0-52.0 [facility] ([place]) Comment on above: Performed By: #### P RO, CMP, GFR, RPR, CBC, ADIFF, ANEU, HIVRNA, HELP1, HCQPCR, HEPGEN #### [place] [address] Hgb 15.6 G/dL Normal 13.0-17.5 [facility] ([place]) Comment on above: Performed By: #### P RO, CMP, GFR, RPR, CBC, ADIFF, ANEU, HIVRNA, HELP1, HCQPCR, HEPGEN #### [place] [id number] MCH (RBC) [Entitic mass] 29.3 pg Normal 27.0-33.0 [facility] ([place]) Comment on above: Performed By: #### P RO, CMP, GFR, RPR, CBC, ADIFF, ANEU, HIVRNA, HELP1, HCQPCR, HEPGEN #### [place] [address] MCHC 33.7 G/dL Normal 32.0-36.0 [facility] ([place]) Comment on above: Performed By: #### P RO, CMP, GFR, RPR, CBC, ADIFF, ANEU, HIVRNA, HELP1, HCQPCR, HEPGEN #### [place] [address] MCV (RBC) [Entitic vol] 86.9 fL Normal 81.0-100.0 [facility] ([place]) Comment on above: Performed By: #### P RO, CMP, GFR, RPR, CBC, ADIFF, ANEU, HIVRNA, HELP1, HCQPCR, HEPGEN #### [place] [address] Platelet 234 10 3/mcL Normal 150-450 [facility] ([place]) Comment on above: Performed By: #### P RO, CMP, GFR, RPR, CBC, ADIFF, ANEU, HIVRNA, HELP1, HCQPCR, HEPGEN #### [place] [address] Platelet mean volume (Bld) [Entitic vol] 7.9 fL Normal 6.4-10.5 [facility] ([place]) Comment on above: Performed By: #### P RO, CMP, GFR, RPR, CBC, ADIFF, ANEU, HIVRNA, HELP1, HCQPCR, HEPGEN #### [place] [address] RBC 5.33 10 6/mcL Normal 4.50-6.00 [facility] ([place]) Comment on above: Performed By: #### P RO, CMP, GFR, RPR, CBC, ADIFF, ANEU, HIVRNA, HELP1, HCQPCR, HEPGEN #### [place] [id number] WBC 5.70 10 3/mcL Normal 4.50-10.80 [facility] ([place]) Comment on above: Performed By: #### P RO, CMP, GFR, RPR, CBC, ADIFF, ANEU, HIVRNA, HELP1, HCQPCR, HEPGEN #### [place] [address] CMPon 10-01-2021 Albumin Level 3.9 G/dL Normal 3.2-4.8 [facility] ([place]) Comment on above: Performed By: #### P RO, CMP, GFR, RPR, CBC, ADIFF, ANEU, HIVRNA, HELP1, HCQPCR, HEPGEN #### [place] [id number] Albumin/Globulin [Mass ratio] 1.3 {ratio} Normal 0.9-1.6 [facility] ([place]) Comment on above: Performed By: #### P RO, CMP, GFR, RPR, CBC, ADIFF, ANEU, HIVRNA, HELP1, HCQPCR, HEPGEN #### [address] [address] ALP [Catalytic activity/Vol] 137 U/L High 38-126 [facility] ([place]) Comment on above: Performed By: #### P RO, CMP, GFR, RPR, CBC, ADIFF, ANEU, HIVRNA, HELP1, HCQPCR, HEPGEN #### [address] [address] ALT [Catalytic activity/Vol] 61 U/L High 12-55 [facility] ([place]) Comment on above: Performed By: #### P RO, CMP, GFR, RPR, CBC, ADIFF, ANEU, HIVRNA, HELP1, HCQPCR, HEPGEN #### [address] [address] AST [Catalytic activity/Vol] 55 U/L High 8-34 [facility] ([place]) Comment on above: Performed By: #### P RO, CMP, GFR, RPR, CBC, ADIFF, ANEU, HIVRNA, HELP1, HCQPCR, HEPGEN #### [address] [address] Bili Total 0.50 mg/dL Normal 0.20-1.20 [facility] ([place]) Comment on above: Result Comment: Use of this assay is not recommended for patients undergoing treatment with eltrombopag due to the potential for falsely elevated results. Performed By: #### P RO, CMP, GFR, RPR, CBC, ADIFF, ANEU, HIVRNA, HELP1, HCQPCR, HEPGEN #### [address] [address] BUN/Creatinine Ratio 15.5 ratio Normal 10.0-22.0 [facility] ([place]) Comment on above: Performed By: #### P RO, CMP, GFR, RPR, CBC, ADIFF, ANEU, HIVRNA, HELP1, HCQPCR, HEPGEN #### [address] [address] Calcium [Mass/Vol] 9.8 mg/dL Normal 8.7-10.4 [facility] ([place]) Comment on above: Result Comment: No te - New Reference Range in effect 19 Performed By: #### P RO, CMP, GFR, RPR, CBC, ADIFF, ANEU, HIVRNA, HELP1, HCQPCR, HEPGEN #### [address] [address] Chloride [Moles/Vol] 110 mmol/L Normal 98-110 [facility] ([place]) Comment on above: Performed By: #### P RO, CMP, GFR, RPR, CBC, ADIFF, ANEU, HIVRNA, HELP1, HCQPCR, HEPGEN #### [address] [address] CO2 [Moles/Vol] 29 mmol/L Normal 22-32 [facility] ([place]) Comment on above: Performed By: #### P RO, CMP, GFR, RPR, CBC, ADIFF, ANEU, HIVRNA, HELP1, HCQPCR, HEPGEN #### [address] [address] Creatinine [Mass/Vol] 1.03 mg/dL Normal 0.60-1.40 [facility] ([place]) Comment on above: Performed By: #### P RO, CMP, GFR, RPR, CBC, ADIFF, ANEU, HIVRNA, HELP1, HCQPCR, HEPGEN #### [address] [address] Electrolyte Balance 0.0 mEq/L Low 4.0-15.0 [facility] ([place]) Comment on above: Performed By: #### P RO, CMP, GFR, RPR, CBC, ADIFF, ANEU, HIVRNA, HELP1, HCQPCR, HEPGEN #### [address] [address] Globulin 3.0 G/dL Normal 1.5-3.8 [facility] ([place]) Comment on above: Performed By: #### P RO, CMP, GFR, RPR, CBC, ADIFF, ANEU, HIVRNA, HELP1, HCQPCR, HEPGEN #### [address] [address] Glucose [Mass/Vol] 94 mg/dL Normal 70-110 [facility] ([place]) Comment on above: Performed By: #### P RO, CMP, GFR, RPR, CBC, ADIFF, ANEU, HIVRNA, HELP1, HCQPCR, HEPGEN #### [address] [address] Potassium [Moles/Vol] 3.7 mmol/L Normal 3.5-5.0 [facility] ([place]) Comment on above: Performed By: #### P RO, CMP, GFR, RPR, CBC, ADIFF, ANEU, HIVRNA, HELP1, HCQPCR, HEPGEN #### [address] [address] Sodium [Moles/Vol] 139 mmol/L Normal 136-145 [facility] ([place]) Comment on above: Performed By: #### P RO, CMP, GFR, RPR, CBC, ADIFF, ANEU, HIVRNA, HELP1, HCQPCR, HEPGEN #### [place] [address] [place] [address] Total Protein 6.9 G/dL Normal 5.7-8.2 [facility] ([place]) Comment on above: Result Comment: No te - New Reference Range in effect 19 Performed By: #### P RO, CMP, GFR, RPR, CBC, ADIFF, ANEU, HIVRNA, HELP1, HCQPCR, HEPGEN #### [facility] [address] [place] [address] Urea nitrogen [Mass/Vol] 16.0 mg/dL Normal 8.0-22.0 [facility] ([place]) Comment on above: Performed By: #### P RO, CMP, GFR, RPR, CBC, ADIFF, ANEU, HIVRNA, HELP1, HCQPCR, HEPGEN #### [place] [address] [place] [address] LABORATORYOrdered By: SYSTEM SYSTEM on 10-01-2021 Albumin [...] 09-18-2021 Alpha2 Macroglobulin 295 mg/dL High 106-279 [facility] ([place]) Comment on above: Performed By: #### P RO, CMP, GFR, RPR, CBC, ADIFF, ANEU, HIVRNA, HELP1, HCQPCR, HEPGEN #### [place] [address] ALT [Catalytic activity/Vol] 69 U/L High 9-46 [facility] ([place]) Comment on above: Performed By: #### P RO, CMP, GFR, RPR, CBC, ADIFF, ANEU, HIVRNA, HELP1, HCQPCR, HEPGEN #### [place] [address] Apolipoprotein A1 127 mg/dL Normal 94-176 [facility] ([place]) Comment on above: Performed By: #### P RO, CMP, GFR, RPR, CBC, ADIFF, ANEU, HIVRNA, HELP1, HCQPCR, HEPGEN #### [place] [address] Bilirubin [Mass/Vol] 0.6 mg/dL Normal 0.2-1.2 [facility] ([place]) Comment on above: Performed By: #### P RO, CMP, GFR, RPR, CBC, ADIFF, ANEU, HIVRNA, HELP1, HCQPCR, HEPGEN #### [place] [address] Fibrosis Interp SEE NOTE Normal [facility] ([place]) Comment on above: Result Comment: mini [facility] fibrosis Fibro Test Score (f) Metavir Score [...] ADIFF, ANEU, HIVRNA, HELP1, HCQPCR, HEPGEN #### [place] [address] Fibrosis Score 0.41 Normal [facility] ([place]) Comment on above: Performed By: #### P RO, CMP, GFR, RPR, CBC, ADIFF, ANEU, HIVRNA, HELP1, HCQPCR, HEPGEN #### [facility] [address] [place] [address] Fibrosis Stage F1-F2 Normal [facility] ([place]) Comment on above: Performed By: #### P RO, CMP, GFR, RPR, CBC, ADIFF, ANEU, HIVRNA, HELP1, HCQPCR, HEPGEN #### [facility] [address] [place] [address] Footnote SEE NOTE Normal [facility] ([place]) Comment on above: Result Comment: The reliability [...] The performance characteristics have been determined by [facility]. It has not been cleared or approved by the U.S. Food and Drug Administration. Performance characteristics refer to the analytical performance of the test. Takes, the associated logo, [employer] and all associated [employer] are the registered trademarks of [employer]. All third republican rodriguez - (R) and (TM) - are the property of their respective owners. (C) [id number] [employer]. All rights reserved. TEST PERFORMED AT: [id number] [employer] [address] [place] [address] Lehr Attendant: Mili Sullivan MD, PhD, CYN Performed By: #### P RO, CMP, GFR, RPR, CBC, ADIFF, ANEU, HIVRNA, HELP1, HCQPCR, HEPGEN #### [place] [address] GGT Lvl 16 U/L Normal 3-95 [facility] ([place]) Comment on above: Performed By: #### P RO, CMP, GFR, RPR, CBC, ADIFF, ANEU, HIVRNA, HELP1, HCQPCR, HEPGEN #### [place] [address] Haptoglobin Lvl 98 mg/dL Normal 43-212 [facility] ([place]) Comment on above: Performed By: #### P RO, CMP, GFR, RPR, CBC, ADIFF, ANEU, HIVRNA, HELP1, HCQPCR, HEPGEN #### [place] [address] NecroinflamAct Grade A1-A2 Normal [facility] ([place] Comment on above: Performed By: #### P RO, CMP, GFR, RPR, CBC, ADIFF, ANEU, HIVRNA, HELP1, HCQPCR, HEPGEN #### [place] [address] NecroinflamAct Score 0.45 Normal [facility] ([place]) Comment on above: Performed By: #### P RO, CMP, GFR, RPR, CBC, ADIFF, ANEU, HIVRNA, HELP1, HCQPCR, HEPGEN #### [place] [address] Necroinflamm Interp SEE NOTE Normal [facility] ([place]) Comment on above: Result Comment: mini mal [...] ADIFF, ANEU, HIVRNA, HELP1, HCQPCR, HEPGEN #### [place] [address] Reference ID [id number] Normal [facility] ([place]) Comment on above: Performed By: #### P RO, CMP, GFR, RPR, CBC, ADIFF, ANEU, HIVRNA, HELP1, HCQPCR, HEPGEN #### [place] [address] HCGENon 09-04-2021 Hepatitis C Genotype Genotype 1a Abnormal [facility] ([place]) Comment on above: Result Comment: Perf ormed By: [facility] [address] [place] [address] Americanization Teacher: Lizzy Sun III#: [id number] Performed By: #### P RO, CMP, GFR, RPR, CBC, ADIFF, ANEU, HIVRNA, HELP1, HCQPCR, HEPGEN #### [place] [address] .Auto Diffon 08-29-2021 Basophil, Absolute 0.10 10 3/mcL Normal 0.00-0.27 [facility] ([place]) Comment on above: Performed By: #### P RO, CMP, GFR, RPR, CBC, ADIFF, ANEU, HIVRNA, HELP1, HCQPCR, HEPGEN #### [place] [address] Basophils/100 WBC (Bld) 0.8 % Normal 0.0-2.5 [facility] ([place]) Comment on above: Performed By: #### P RO, CMP, GFR, RPR, CBC, ADIFF, ANEU, HIVRNA, HELP1, HCQPCR, HEPGEN #### [facility] [address] [place], [place] [address] Eosinophil, Absolute 0.80 10 3/mcL High 0.00-0.65 [facility] ([place]) Comment on above: Performed By: #### P RO, CMP, GFR, RPR, CBC, ADIFF, ANEU, HIVRNA, HELP1, HCQPCR, HEPGEN #### [address] [address] Eosinophils/100 WBC (Bld) 10.6 % High 0.0-6.0 [facility] ([place]) Comment on above: Performed By: #### P RO, CMP, GFR, RPR, CBC, ADIFF, ANEU, HIVRNA, HELP1, HCQPCR, HEPGEN #### [address] [address] Lymphocyte, Absolute 2.30 10 3/mcL Normal 0.90-4.32 [facility] ([place]) Comment on above: Performed By: #### P RO, CMP, GFR, RPR, CBC, ADIFF, ANEU, HIVRNA, HELP1, HCQPCR, HEPGEN #### [address] [address] Lymphocytes/100 WBC (Bld) 31.3 % Normal 20.0-40.0 [facility] ([place]) Comment on above: Performed By: #### P RO, CMP, GFR, RPR, CBC, ADIFF, ANEU, HIVRNA, HELP1, HCQPCR, HEPGEN #### [address] [address] Monocyte, Absolute 0.40 10 3/mcL Normal 0.09-1.40 [facility] ([place]) Comment on above: Performed By: #### P RO, CMP, GFR, RPR, CBC, ADIFF, ANEU, HIVRNA, HELP1, HCQPCR, HEPGEN #### [address] [address] Monocytes/100 WBC (Bld) 5.1 % Normal 2.0-13.0 [facility] ([place]) Comment on above: Performed By: #### P RO, CMP, GFR, RPR, CBC, ADIFF, ANEU, HIVRNA, HELP1, HCQPCR, HEPGEN #### [address] [address] Neutrophils/100 WBC (Bld) 52.2 % Normal 50.0-75.0 [facility] ([place]) Comment on above: Performed By: #### P RO, CMP, GFR, RPR, CBC, ADIFF, ANEU, HIVRNA, HELP1, HCQPCR, HEPGEN #### [address] [address] .NEUABSon 08-29-2021 Neutrophil, Absolute 52.20 10 3/mcL High 2.25-8.10 [facility] ([place]) Comment on above: Performed By: #### P RO, CMP, GFR, RPR, CBC, ADIFF, ANEU, HIVRNA, HELP1, HCQPCR, HEPGEN #### [address] [address] CBCon 08-29-2021 Erythrocyte distribution width (RBC) [Ratio] 13.7 % Normal 11.5-15.5 [facility] ([place]) Comment on above: Performed By: #### P RO, CMP, GFR, RPR, CBC, ADIFF, ANEU, HIVRNA, HELP1, HCQPCR, HEPGEN #### [place] [id number] Hematocrit (Bld) [Volume fraction] 44.5 % Normal 40.0-52.0 [facility] ([place]) Comment on above: Performed By: #### P RO, CMP, GFR, RPR, CBC, ADIFF, ANEU, HIVRNA, HELP1, HCQPCR, HEPGEN #### [address] [address] Hgb 15.3 G/dL Normal 13.0-17.5 [facility] ([place] Comment on above: Performed By: #### P RO, CMP, GFR, RPR, CBC, ADIFF, ANEU, HIVRNA, HELP1, HCQPCR, HEPGEN #### [address] [address] MCH (RBC) [Entitic mass] 29.8 pg Normal 27.0-33.0 [facility] ([place]) Comment on above: Performed By: #### P RO, CMP, GFR, RPR, CBC, ADIFF, ANEU, HIVRNA, HELP1, HCQPCR, HEPGEN #### [place] [id number] MCHC 34.4 G/dL Normal 32.0-36.0 [facility] ([place]) Comment on above: Performed By: #### P RO, CMP, GFR, RPR, CBC, ADIFF, ANEU, HIVRNA, HELP1, HCQPCR, HEPGEN #### [place] [address] MCV (RBC) [Entitic vol] 86.5 fL Normal 81.0-100.0 [facility] ([place]) Comment on above: Performed By: #### P RO, CMP, GFR, RPR, CBC, ADIFF, ANEU, HIVRNA, HELP1, HCQPCR, HEPGEN #### [place] [address] Platelet 276 10 3/mcL Normal 150-450 [facility] ([place]) Comment on above: Performed By: #### P RO, CMP, GFR, RPR, CBC, ADIFF, ANEU, HIVRNA, HELP1, HCQPCR, HEPGEN #### [place] [id number] Platelet mean volume (Bld) [Entitic vol] 8.4 fL Normal 6.4-10.5 [facility] ([place]) Comment on above: Performed By: #### P RO, CMP, GFR, RPR, CBC, ADIFF, ANEU, HIVRNA, HELP1, HCQPCR, HEPGEN #### [place] [id number] RBC 5.15 10 6/mcL Normal 4.50-6.00 [facility] ([place]) Comment on above: Performed By: #### P RO, CMP, GFR, RPR, CBC, ADIFF, ANEU, HIVRNA, HELP1, HCQPCR, HEPGEN #### [place] [address] WBC 7.30 10 3/mcL Normal 4.50-10.80 [facility] ([place]) Comment on above: Performed By: #### P RO, CMP, GFR, RPR, CBC, ADIFF, ANEU, HIVRNA, HELP1, HCQPCR, HEPGEN #### [address] [address] HCQPCRon 08-29-2021 HCQPCR Quant Log Value 6.60 LogCopies/mL [facility] [place] ([place]) Comment on above: Result Comment: The Linear Range of this assay is 15 IU/ml to 100,000,000 IU/ml Performed By: [place] [id number] Americanization Teacher: Corky Guzman III, M.D. CLIA#: [id number] Performed By: #### P RO, CMP, GFR, RPR, CBC, ADIFF, ANEU, HIVRNA, HELP1, HCQPCR, HEPGEN #### [place] [address] HCV RNA (IU/mL) [id number] IU/mL [facility] ([place]) Comment on above: Result Comment: Perf ormed By: [place] [address] Americanization Teacher: Corky Guzman III, M.D. CLIA#: [id number] Performed By: #### P RO, CMP, GFR, RPR, CBC, ADIFF, ANEU, HIVRNA, HELP1, HCQPCR, HEPGEN #### [place] [address] Hepatitis C RNA Detected Abnormal See Comment [facility] ([place]) Comment on above: Result Comment: Perf ormed By: [place] [id number] Americanization Teacher: Corky Guzman III, M.D. CLIA#: [id number] Reference Range: HCV RNA not detected by PCR. Performed By: #### P RO, CMP, GFR, RPR, CBC, ADIFF, ANEU, HIVRNA, HELP1, HCQPCR, HEPGEN #### [address] [address] [id number] 08-29-2021 % B Cells 23 % Normal 5-25 [facility] ([place]) Comment on above: Performed By: #### P RO, CMP, GFR, RPR, CBC, ADIFF, ANEU, HIVRNA, HELP1, HCQPCR, HEPGEN #### [address] [address] % CD4 Cells 31 % Normal 30-61 [facility] ([place]) Comment on above: Performed By: #### P RO, CMP, GFR, RPR, CBC, ADIFF, ANEU, HIVRNA, HELP1, HCQPCR, HEPGEN #### [address] [address] % CD56+/16+ 4 % Low 5-30 [facility] ([place]) Comment on above: Performed By: #### P RO, CMP, GFR, RPR, CBC, ADIFF, ANEU, HIVRNA, HELP1, HCQPCR, HEPGEN #### [address] [address] % CD8 Cells 42 % Normal 12-42 [facility] ([place]) Comment on above: Performed By: #### P RO, CMP, GFR, RPR, CBC, ADIFF, ANEU, HIVRNA, HELP1, HCQPCR, HEPGEN #### [address] [address] % T Cells 74 % Normal 52-84 [facility] ([place]) Comment on above: Performed By: #### P RO, CMP, GFR, RPR, CBC, ADIFF, ANEU, HIVRNA, HELP1, HCQPCR, HEPGEN #### [address] [address] B Cells (CD 19) 456 /uL Normal 71-567 [facility] ([place] Comment on above: Performed By: #### P RO, CMP, GFR, RPR, CBC, ADIFF, ANEU, HIVRNA, HELP1, HCQPCR, HEPGEN #### [address] [address] CD4 Cells 630 /uL Normal 401-1532 [facility] ([place]) Comment on above: Performed By: #### P RO, CMP, GFR, RPR, CBC, ADIFF, ANEU, HIVRNA, HELP1, HCQPCR, HEPGEN #### [address] [address] CD4/CD8 Ratio 0.75 ratio Low 0.88-3.84 [facility] ([place]) Comment on above: Performed By: #### P RO, CMP, GFR, RPR, CBC, ADIFF, ANEU, HIVRNA, HELP1, HCQPCR, HEPGEN #### [address] [address] CD56+/16+ NK Cells 86 /uL Normal 80-597 [facility] ([place]) Comment on above: Performed By: #### P RO, CMP, GFR, RPR, CBC, ADIFF, ANEU, HIVRNA, HELP1, HCQPCR, HEPGEN #### [address] [address] CD8 Cells 838 /uL Normal 152-838 [facility] ([place]) Comment on above: Performed By: #### P RO, CMP, GFR, RPR, CBC, ADIFF, ANEU, HIVRNA, HELP1, HCQPCR, HEPGEN #### [address] [address] Lymphocytes (Bld) [#/Vol] 2.03 10*3/uL Normal 660-4600 [facility] ([place]) Comment on above: Performed By: #### P RO, CMP, GFR, RPR, CBC, ADIFF, ANEU, HIVRNA, HELP1, HCQPCR, HEPGEN #### [address] [address] T Cells 1488 /uL Normal 582-1992 [facility] ([place]) Comment on above: Performed By: #### P RO, CMP, GFR, RPR, CBC, ADIFF, ANEU, HIVRNA, HELP1, HCQPCR, HEPGEN #### [address] [address] HIVLDon 08-29-2021 HIV RNA (log copies/mL) 1.45 LogCopies/mL High [facility] ([place]) Comment on above: Result Comment: Line ar range of assay: 20 copies/mL to 10,000,000 copies/mL. HIV Information: [place] Rev. Code 3701.243(E): This information has been [...] HIV test results or diagnoses. Performed By: [place] [address] [employer] Teacher: Corky Guzman III, M.D. CLIA#: [id number] Performed By: #### P RO, CMP, GFR, RPR, CBC, ADIFF, ANEU, HIVRNA, HELP1, HCQPCR, HEPGEN #### [place] [address] HIV RNA Detection Quantitative 28.2 COPIES/ML High [facility] ([place]) Comment on above: Result Comment: Posi tive for HIV-1 RNA by PCR Performed By: [place] [address] [employer] Teacher: Corky Guzman III, M.D. CLIA#: [id number] Performed By: #### P RO, CMP, GFR, RPR, CBC, ADIFF, ANEU, HIVRNA, HELP1, HCQPCR, HEPGEN #### [place] [id number] HIV RNA Qual Detected Abnormal See Comment [facility] ([place]) Comment on above: Result Comment: Perf ormed By: [facility] [address] [place] [address] [employer] Teacher: Corky Guzman III, M.D. CLIA#: [id number] Reference Range: HIV-1 RNA not detected by PCR. Performed By: #### P RO, CMP, GFR, RPR, CBC, ADIFF, ANEU, HIVRNA, HELP1, HCQPCR, HEPGEN #### [place] [id number] .GFRon 08-28-2021 GFR >60 Normal [facility] ([place] Comment on above: Result Comment: GFR Population [...] ADIFF, ANEU, HIVRNA, HELP1, HCQPCR, HEPGEN #### [address] [address] GFR Non- >60 Normal [facility] ([place] Comment on above: Result Comment: GFR Population [...] ADIFF, ANEU, HIVRNA, HELP1, HCQPCR, HEPGEN #### [address] [address] [facility] Albumin Level 3.7 G/dL Normal 3.2-4.8 [facility] ([place] Comment on above: Performed By: #### P RO, CMP, GFR, RPR, CBC, ADIFF, ANEU, HIVRNA, HELP1, HCQPCR, HEPGEN #### [address] [address] Albumin/Globulin [Mass ratio] 1.3 {ratio} Normal 0.9-1.6 [facility] ([place] Comment on above: Performed By: #### P RO, CMP, GFR, RPR, CBC, ADIFF, ANEU, HIVRNA, HELP1, HCQPCR, HEPGEN #### [address] [address] ALP [Catalytic activity/Vol] 102 U/L Normal 38-126 [facility] ([place] Comment on above: Performed By: #### P RO, CMP, GFR, RPR, CBC, ADIFF, ANEU, HIVRNA, HELP1, HCQPCR, HEPGEN #### [address] [address] ALT [Catalytic activity/Vol] 94 U/L High 12-55 [facility] ([place] Comment on above: Performed By: #### P RO, CMP, GFR, RPR, CBC, ADIFF, ANEU, HIVRNA, HELP1, HCQPCR, HEPGEN #### [address] [address] AST [Catalytic activity/Vol] 74 U/L High 8-34 [facility] ([place] Comment on above: Performed By: #### P RO, CMP, GFR, RPR, CBC, ADIFF, ANEU, HIVRNA, HELP1, HCQPCR, HEPGEN #### [address] [address] Bili Total 0.40 mg/dL Normal 0.20-1.20 [facility] ([place] Comment on above: Result Comment: Use of this assay is not recommended for patients undergoing treatment with eltrombopag due to the potential for falsely elevated results. Performed By: #### P RO, CMP, GFR, RPR, CBC, ADIFF, ANEU, HIVRNA, HELP1, HCQPCR, HEPGEN #### [address] [address] BUN/Creatinine Ratio 19.5 ratio Normal 10.0-22.0 [facility] ([place] Comment on above: Performed By: #### P RO, CMP, GFR, RPR, CBC, ADIFF, ANEU, HIVRNA, HELP1, HCQPCR, HEPGEN #### [address] [address] Calcium [Mass/Vol] 9.5 mg/dL Normal 8.7-10.4 [facility] ([place]) Comment on above: Result Comment: No te - New Reference Range in effect 19 Performed By: #### P RO, CMP, GFR, RPR, CBC, ADIFF, ANEU, HIVRNA, HELP1, HCQPCR, HEPGEN #### [address] [address] Chloride [Moles/Vol] 108 mmol/L Normal 98-110 [facility] ([place] Comment on above: Performed By: #### P RO, CMP, GFR, RPR, CBC, ADIFF, ANEU, HIVRNA, HELP1, HCQPCR, HEPGEN #### [address] [address] CO2 [Moles/Vol] 26 mmol/L Normal 22-32 [facility] ([place] Comment on above: Performed By: #### P RO, CMP, GFR, RPR, CBC, ADIFF, ANEU, HIVRNA, HELP1, HCQPCR, HEPGEN #### [address] [address] Creatinine [Mass/Vol] 1.23 mg/dL Normal 0.60-1.40 [facility] ([place]) Comment on above: Performed By: #### P RO, CMP, GFR, RPR, CBC, ADIFF, ANEU, HIVRNA, HELP1, HCQPCR, HEPGEN #### [address] [address] Electrolyte Balance 6.0 mEq/L Normal 4.0-15.0 [facility] ([place]) Comment on above: Performed By: #### P RO, CMP, GFR, RPR, CBC, ADIFF, ANEU, HIVRNA, HELP1, HCQPCR, HEPGEN #### [address] [address] Globulin 2.9 G/dL Normal 1.5-3.8 [facility] ([place] Comment on above: Performed By: #### P RO, CMP, GFR, RPR, CBC, ADIFF, ANEU, HIVRNA, HELP1, HCQPCR, HEPGEN #### [address] [address] Glucose [Mass/Vol] 83 mg/dL Normal 70-110 [facility] ([place]) Comment on above: Performed By: #### P RO, CMP, GFR, RPR, CBC, ADIFF, ANEU, HIVRNA, HELP1, HCQPCR, HEPGEN #### [address] [address] Potassium [Moles/Vol] 4.5 mmol/L Normal 3.5-5.0 [facility] ([place] Comment on above: Result Comment: Spec imen slightly hemolyzed. Performed By: #### P RO, CMP, GFR, RPR, CBC, ADIFF, ANEU, HIVRNA, HELP1, HCQPCR, HEPGEN #### [address] [address] Sodium [Moles/Vol] 140 mmol/L Normal 136-145 [facility] ([place] Comment on above: Performed By: #### P RO, CMP, GFR, RPR, CBC, ADIFF, ANEU, HIVRNA, HELP1, HCQPCR, HEPGEN #### [address] [address] Total Protein 6.6 G/dL Normal 5.7-8.2 [facility] ([place] Comment on above: Result Comment: No te - New Reference Range in effect 19 Performed By: #### P RO, CMP, GFR, RPR, CBC, ADIFF, ANEU, HIVRNA, HELP1, HCQPCR, HEPGEN #### [address] [address] Urea nitrogen [Mass/Vol] 24.0 mg/dL High 8.0-22.0 [facility] ([place] Comment on above: Performed By: #### P RO, CMP, GFR, RPR, CBC, ADIFF, ANEU, HIVRNA, HELP1, HCQPCR, HEPGEN #### [place] [address] [place] [address] RPRon 08-28-2021 Reagin Ab RPR Ql (S) Non-Reactive Normal Non-Reactive [facility] ([place] Comment on above: Result Comment: The RPR [...] ADIFF, ANEU, HIVRNA, HELP1, HCQPCR, HEPGEN #### [address] [address] PROon 08-27-2021 INR Coag (PPP) [Relative time] 1.0 {INR} Normal [facility] ([place] Comment on above: Result Comment: The [employer] (CHEST, 1992, 102:312S-25S) recommended therapeutic range for oral anticoagulant therapy is: LOW RISK: Prophylaxis of venous thrombosis INR: 2.0-3.0 Treatment of pulmonary embolism 2.0-3.0 Prevention of systemic embolism 2.0-3.0 HIGH RISK: Mechanical prosthetic valves 2.5-3.5 Performed By: #### P RO, CMP, GFR, RPR, CBC, ADIFF, ANEU, HIVRNA, HELP1, HCQPCR, HEPGEN #### [facility] [address] [place] [address] PT Coag (PPP) [Time] 11.8 s Normal 9.0-14.9 [facility] ([place]) Comment on above: Result Comment: Effe ctive 12/22/07, Protime results may be affected by some antibiotics (i.e. Ciprofloxacin, Azithromycin, Bactrim) which may potentiate the action of oral anticoagulants, with further increases in Protime/INR. Performed By: #### P RO, CMP, GFR, RPR, CBC, ADIFF, ANEU, HIVRNA, HELP1, HCQPCR, HEPGEN #### [place] [address] [place] [address] Lavender Topon 10-13-2017 Extra Tube Hold for add-ons. Invalid Interpretation Code [facility] [place] Drawon 10-13-2017 Creatinine The following orders were created for panel order [place] Draw. Procedure Abnormality Status --------- ------ Lavender Top[[id number]] Final result Mint Green Top[[id number]] Final result Gold Top[[id number]] Final result Light Blue Top[[id number]] Final result Please view results for these tests on the individual orders. Invalid Interpretation Code [facility] US DUPLEX VENOUS LEG LEFTon 10-13-2017 US DUPLEX VENOUS LEG LEFT EXAMINATION:US DUPLEX VENOUS LEG LEFTHISTORY:Left lower extremity pain.COMPARISON:None .TECHNIQUE:Venous duplex examination performed using B-mode, color flow and spectral analysis.FINDINGS:Ap propriate venous waveforms, compressibility and augmentation with compression are noted within the left lower extremity venous system.No evidence of DVT within the left lower extremity.[employer] kstation ID: [id number] Normal [facility] US DUPLEX VENOUS LEG LEFT EXAMINATION:US DUPLEX VENOUS LEG LEFTHISTORY:Left lower extremity pain.COMPARISON:None .TECHNIQUE:Venous duplex examination performed using B-mode, color flow and spectral analysis.FINDINGS:Ap propriate venous waveforms, compressibility and augmentation with compression are noted within the left lower extremity venous system.IMPRESSION:No evidence of DVT within the left lower extremity.[employer] kstation ID: [id number] ed by: HAI BUNN on FriOctober 13, 2017 4:17:00 PM EDTTranscribed by: SHILPI AGUILA IN [employer] on FriOctober 13, 2017 4:26:43 PM EDTFinalized by: HAI BUNN on FriOctober 13, 2017 4:26:43 PM EDT Normal [facility] Ultrasound Duplex Venous Leg LEFTon 10-13-2017 Ultrasound Duplex Venous Leg LEFT No evidence of DVT within the left lower extremity. [employer] Workstation ID: [id number] Invalid Interpretation Code [employer] Ultrasound Duplex Venous Leg LEFT EXAMINATION: US DUPLEX VENOUS LEG LEFT HISTORY: Left lower extremity pain. COMPARISON: None. TECHNIQUE: Venous duplex examination performed using B-mode, color flow and spectral analysis. FINDINGS: Appropriate venous waveforms, compressibility and augmentation with compression are noted within the left lower extremity venous system. Invalid Interpretation Code [employer] Ultrasound Duplex Venous Leg LEFT Interface, Rad [...] the left lower extremity. TJL/jcw Workstation ID: [id number] Invalid Interpretation Code [employer] XR KNEE LEFT 2 VIEWS ([address] RD)on [...] FriOctober 13, 2017 10:34:04 PM EDT Normal [facility] Comment on above: Order Comment: Reaso n for exam?:lt knee pain and swelling x 3 weeksInjury/Trauma or Illness?:Injury/TraumaHow long have you had these symptoms (acute/chronic)?:AcuteHistory of cancer?:nSurgeries, chemotherapy, or radiation?:nType of Exam?:InitialMechanism of injury?:hurt playing ball Vital Signs Date Time Vital Sign Value Performing Clinician Silvestre long 12-05-2023 23:00-0400 Diastolic blood pressure 88 mm[Hg] Jasson Abernathy MD Work Phone: [facility] 12-05-2023 23:00-0400 Heart rate 79 /min Jasson Abernathy MD Work Phone: [facility] 12-05-2023 23:00-0400 SaO2% (BldA) [Mass fraction] 100 % Jasson Abernathy MD Work Phone: [facility] 12-05-2023 23:00-0400 Systolic blood pressure 147 mm[Hg] Jasson Abernathy MD Work Phone: [facility] 12-05-2023 18:02-0400 Body height 188 cm Jasson Abernathy MD Work Phone: [facility] 12-05-2023 18:01-0400 Body temperature 99.81 [degF] Jasson Abernathy MD Work Phone: [facility] 12-05-2023 18:01-0400 Respiratory rate 16 /min Jasson Abernathy MD Work Phone: [facility] 03-16-2022 11:51-0400 Body temperature 97.34 [degF] Scooby CALDERÓN [facility] 03-16-2022 11:51-0400 Diastolic blood pressure 86 mm[Hg] Scooby CALDERÓN [facility] 03-16-2022 11:51-0400 Heart rate 55 /min Scooby CALDERÓN [facility] 03-16-2022 11:51-0400 Mean blood pressure 97 mm[Hg] Scooby CALDERÓN [facility] 03-16-2022 11:51-0400 SaO2% (BldA) [Mass fraction] 96 % Scooby CALDERÓN [facility] 03-16-2022 11:51-0400 Systolic blood pressure 119 mm[Hg] Scooby CALDERÓN [facility] 12-25-2021 14:37-0400 Blood Pressure Location Scooby CALDERÓN [facility] 12-25-2021 14:37-0400 Body temperature 97.16 [degF] [facility] 12-25-2021 14:37-0400 Diastolic blood pressure 83 mm[Hg] Scooby CALDERÓN [facility] 12-25-2021 14:37-0400 Heart rate 77 /min Scooby CALDERÓN [facility] 12-25-2021 14:37-0400 Respiratory rate 14 /min Scooby CALDERÓN [facility] 12-25-2021 14:37-0400 SaO2% (BldA) [Mass fraction] 99 % Scooby CALDERÓN [facility] 12-25-2021 14:37-0400 Systolic blood pressure 115 mm[Hg] Scooby CALDERÓN [facility] 12-21-2021 01:39-0400 Body temperature 98.91 [degF] Tomasa Deleon MD Work Phone: [facility] 12-21-2021 01:39-0400 Diastolic blood pressure 74 mm[Hg] Tomasa Deleon MD Work Phone: [facility] 12-21-2021 01:39-0400 Heart rate 100 /min Tomasa Deleon MD Work Phone: [facility] 12-21-2021 01:39-0400 Respiratory rate 20 /min Tomasa Deleon MD Work Phone: [facility] 12-21-2021 01:39-0400 SaO2% (BldA) [Mass fraction] 96 % Tomasa Deleon MD Work Phone: [facility] 12-21-2021 01:39-0400 Systolic blood pressure 120 mm[Hg] Tomasa Deleon MD Work Phone: [facility] 12-20-2021 22:44-0400 Body height 182.9 cm Tomasa Deleon MD Work Phone: [facility] 12-20-2021 22:44-0400 Body mass index (BMI) [Ratio] 23.06 kg/m2 Tomasa Deleon MD Work Phone: [facility] 12-20-2021 22:44-0400 Body weight 77.11 kg Tomasa Deleon MD Work Phone: [facility] 10-13-2017 16:00-0400 BP Diastolic 80 mm[Hg] Jacob Peng [facility] 10-13-2017 16:00-0400 BP Systolic 123 mm[Hg] Jacob Peng [facility] 10-13-2017 16:00-0400 Pulse (Heart Rate) 54 /min Jacob Peng [facility] 10-13-2017 16:00-0400 Pulse Oximetry 97 % Jacob Peng [facility] 10-13-2017 16:00-0400 Respiratory Rate 18 /min Jacob Peng [facility] 10-13-2017 14:25-0400 BMI (Body Mass Index) 23.06 kg/m2 Jacob Peng [facility] 10-13-2017 14:25-0400 Body Temperature 98.2 [degF] Jacob Peng [facility] 10-13-2017 14: Height 182.9 cm Jacob Peng [facility] 10-13-2017 14: Weight 77.11 kg Jacob Peng [facility] Encounters Encounter Date Encounter Type Care Provider Facility Start: 02-19-2024 End: 02-19-2024 ambulatory RYNE TAN MD Facility:A Start: 02-16-2024 End: 02-16-2024 ambulatory RYNE TAN MD Facility:A Start: 12-05-2023 End: 12-06-2023 Emergency department patient visit Jasson Abernathy MD Work Phone: [facility] Start: 04-30-2022 End: 05-01-2022 ambulatory SANNA TAN [facility] Start: 04-30-2022 End: 04-30-2022 Patient encounter procedure SANNA TAN [facility] Start: 04-05-2022 End: 04-06-2022 ambulatory Scooby CALDERÓN Facility[facility] Start: 03-16-2022 End: 03-17-2022 ambulatory Scooby CALDERÓN Facility:[facility] Start: 03-16-2022 End: 03-16-2022 Off-Site [facility]oby CALDER[facility]N [facility] Start: 12-25-2021 End: 12-26-2021 ambulatory Scooby CALDERÓN Facility:[facility] Start: 12-25-2021 End: 12-25-2021 Off-Site Scooby CALDERÓN [facility] Start: 12-21-2021 ambulatory Scooby CALDERÓN Facility:[facility] Start: 12-21-2021 End: 12-21-2021 Emergency department patient visit TOMASA DELEON [facility] Start: 12-20-2021 End: 12-21-2021 Emergency department patient visit Tomasa Deleon MD Work Phone: [facility] ED Comment on above: Overdose of sympatho mimetic agent, undetermined intent, initial encounter (Primary Dx); History of HIV infection (HCC) Start: 11-02-2021 End: 11-02-[address] DARIUSZ HOLGUIN Facility: Start: 10-24-2021 End: 10-25-2021 ambulatory UNKNOWN PROVIDER Facility:[facility] Start: 10-01-2021 End: 10-01-2021 Patient encounter procedure CYNTHIA DUPREE PA-C [facility] Start: 04-29-2018 End: 04-29-2018 Office outpatient visit 25 minutes Piotr Nava Work Phone: [facility] Comment on above: HIV (human immunodef iciency virus infection) (Primary Dx); Hep C w/o coma, chronic Start: 10-13-2017 End: 10-13-2017 Emergency department patient visit JACOB UGARTEEN PENG [facility] Start: 10-13-2017 End: 10-13-2017 Emergency department patient visit Jacob Peng Work Phone: [facility] Emergency Department Procedures Date Procedure Procedure Detail [...] Influenza vaccination INFLUENZ A VACCINE (Season Ended) [facility] Start: 02-07-2022 Influenza vaccination Flu vaccine (# 1) [facility] Start: 2020 Screening for malign ant neoplasm of colon [facility] SCREENING DISCUSSION [facility] Start: 02-07-2018 Influenza vaccination [facility] Start: 2015 Fasting lipid profile LIPID SCREENIN G [facility] Work Phone: Start: 2015 Lipid panel LIPID SCREENING [facility] Start: 1994 DTaP/Tdap/Td vaccine (1 - Tdap) DTaP/Tdap/Td vaccine (1 - Tdap) [facility] Start: 1994 Hepatitis B vaccination HEP B VACCINE (1 of 3 - 19+ 3-dose series) [facility] Start: 1994 Third diphtheria, tetanus and acellular pertussis (DTaP) vaccination TDAP (ADULT) [facility] Start: 1994 Zoster vaccine hzv l rocael for subcutaneous use ZOSTER (SHINGLES) VACCINE (1 of 2) [facility] Start: 1993 Tetanus vaccination TETANUS [facility] Work Phone: Start: 1981 PNEUMOCOCCAL VACCINE SERIES (1 of 2 - PCV) PNEUMOCOCCAL VACCINE SERIES (1 of 2 - PCV) [facility] Start: 1980 COVID-19 Vaccine (#1) COVID-19 Vacci ne (#1) [facility] Start: 1975 Hepatitis C screening HEPATITI S C VIRUS SCREENING [facility] Start: 1975 Tetanus vaccination [facility] End: 12-20-2021 Drug screen multi urine Drug screen multi urine Lab STAT One Time for 1 Occurrences starting 12/20/2021 until 12/20/2021 [employer] Phone: Comment on above: One Time for 1 Occur rences starting 12/20/2021 until 12/20/2021 EKG 12 Lead EKG 12 Lead ECG STAT 12/20/2021 10:52 PM EDT [employer] Work Phone: End: 12-20-2021 Oxygen therapy [Minimum Data Set] Initiate Oxygen Therapy Protocol Respiratory Care STAT One Time for 1 Occurrences starting 12/20/2021 until 12/20/2021 [employer] Phone: Comment on above: One Time for 1 Occur rences starting 12/20/2021 until 12/20/2021 End: 12-05-2023 Standard ECG [facility] Comment on above: One Time for 1 Occur rences starting 12/05/2023 until 12/05/2023 XR Knee Left 2 Views (Standard) XR Knee Left 2 Views (Standard) AILEEN 10/13/2017 3:04 PM EDT [facility] Immunizations Immunization Date Immunization Notes Care Provider Maryanne pina 03-08-2021 influenza virus vaccine, unspecified formulation Scooby CALDERÓN [facility] 10-10-2020 SARS-CoV-2 (COVID-19 ) mRNA-1273 vaccine Scooby CALDERÓN [facility] 09-04-2020 SARS-CoV-2 (COVID-19 ) mRNA-1273 vaccine Scooby CALDERÓN [facility] Payers Date Payer Category Payer Unknown [id number] 2022 Unknown [id number] 1975 Unknown [id number] 1975 Unknown [id number] 1975 Unknown [id number] 1975 Unknown [id number] 1975 Unknown [id number] 1975 Unknown [id number] 1975 Unknown [id number] 1959 Medicaid [id number] Unknown [facility] [id number] Effective for all dates [phone] [facility] [address] [place] [address] [id number] Unknown [id number] Social History Date Type Detail Facility Start: 11-22-2015 End: 10-13-2017 Tobacco smoking status RIIS Former smoker [facility] Start: 1975 [facility] End: 06-15-2014 History of tobacco use Current smoker [facility] Work Phone: End: 06-15-2014 History of tobacco use Cigarette Smoker [facility] Work Phone: Start: 12-01-2015 End: 12-05-2023 Cigarettes smoked current (pack per day) - Reported [facility] Work Phone: Sex Assigned At [facility] Start: 12-20-2021 Tobacco smoking stat [facility] Tobacco smoking consumption unknown [facility] Work Phone: Start: 12-10-2021 End: 12-21-2021 Exposure to SARS-CoV-2 (event) Unable to assess ASH[facility]UT[facility] [employer] Work Phone: Start: 12-25-2021 Tobacco smoking status Heavy t obacco smoker (finding) [facility] Comment on above: STATES HE QUIT FOR 9 YEARS DUE TO BEING IN [facility] AND HAS BEEN SMOKING AGAIN FOR THE PAST 4 MONTHS Start: 12-05-2023 Sex Assigned At Male [facility] Start: 12-05-2023 Alcoholic beverage intake Current non-drinker of alcohol (finding) [facility] Start: 07-11-2017 Gender identity Identifies as male gender (finding) [facility] Functional Status Date Assessment Result Facility 12-25-2021 Functional Status N/A [facility] Clinical Notes 12-21-2021 to 12-06-2023 [...] Disposition: -Discharge Starr Hodge DO Resident 12/06/236 [facility] 12-06-2023 Emergency department Note ED Interval Note: [...] for panic vs poisoning from water at [facility]; no other inmates with sx's; missed psych [...] plan of care. Jasson Abernathy MD 12/05/23 0811 EMERGENCY DEPARTMENT ENCOUNTER CHIEF COMPLAINT Chief Complaint [...] later, he was offered water by the student liaison officer and again had similar thoughts. He [...] Dr. Abernathy. Linwood Givens MD Resident 12/05/23 8597 C/o panic attack. Per pt, had panic [...] a panic attack. documented in this encounter [facility] 12-06-2023 Hospital Discharg e instructions Starr Hodge [...] work-up & mangement documented in this encounter [facility] 12-05-2023 Note Acute Coronary Syndr ome (ACS): Initial Evaluation and Management: [email or web address] [facility] 12-05-2023 Physician Emergency department Note ED Attending Chief Complaint Patient presents with Anxiety Past Medical History: Diagnosis Date Depressive disorder, not elsewhere classified Hepatitis HIV (human immunodeficiency virus infection) Orbit fracture Rigoberto Ha Jr. is a 48 y.o. male. Concern for panic vs poisoning from water at [facility]; no other inmates with sx's; missed psych [...] plan of care. Jasson Abernathy MD 12/05/23 5727 [facility] Work Phone: 12-05-2023 Physician Emergency department Note [...] later, he was offered water by the student liaison officer and again had similar thoughts. He [...] Dr. Abernathy. Linwood Givens MD Resident 12/05/23 2110 [facility] Work Phone: 12-05-2023 Emergency department Note C/o panic attack. Per pt, had panic attack then drank water, then had another panic attack due to believing someone put something in the water. Pt has had similar beliefs in the past. Per report pt has multiple mental health Dx. RR even/unlabored at this time. NAD noted. [facility] 12-05-2023 Emergency department Note Patient is coming from [facility] for anxiety. Per RN patient is having a panic attack. [facility] 04-30-2022 Evaluation + Plan note Diagnostic Tests PendingHCV RNA by PCR, Qn Rfx Hetal 04/30/22HCV Antibody RFX to Quant PCR 04/30/22 [facility] 12-21-2021 History of Presen t illness Narrative Patient in bed with eyes open, takes oral fluids without c/o, talking in full sentences Patient resting with eyes closed, resp regular and unlabored documented in this encounter [facility] Phone: Evaluation + Plan note Future Appointments Appointment Date:10/11/2021 10:00:00 AM Scheduled Provider: Location:[facility] Appointment Type:US Elastography Liver w/ABD Complete Diagnostic Tests PendingTB Quantiferon, Incubated 10/01/21 Future Scheduled TestsUS Elastography Liver w/ABD Complete 09/20/21 [facility] Evaluation note Diagnosis Overdose of sympathomimetic agent, undetermined intent, initial encounter- Primary History of HIV infection (HCC) Personal history of other infectious and parasitic disease documented in this encounter [facility]: evaluation note* Diagnosis Anxiety- Primary Anxiety state, unspecified [facility] N[facility] No data available for this section [facility] Hospital Discharge instructions No data available for this section [facility] Progress note No data available for this section [facility] Discharge Instructions The following attachments cannot be sent through Care Everywhere. * Knee Pain or Injury (Congolese) * Bursitis (Congolese) * Kneecap Bursitis (Congolese) in this encounter Assessments Diagnosis Prepatellar bursitis [...] up patient for [facility]. Pt was last seen by [...] MD [address] [place] [address] Referral ID Status Reason Start Date Expiration Date V isits Requested Visits Authorized [id number] New Request 12/05/2023 12/29/2024 1 1 Additional Source Comments ED Notes - Valerie Singh RN - 10/13/2017 2:21 PM EDTED Notes - Simran Meza RN - 10/13/2017 2:21 PM EDT Miscellaneous Notes (unrecog nized section and content) Patient arrived via van with CO from [facility]. Patient states he fell a few weeks ago and his leg has been hurting since. Patient had a D-Dimer drawn on Friday and it was elevated so PLUMBING DRAFTER wanted him seen to R/O blood clot. [...] section and content) DATE CREATED AUTHOR 11/27/2017 [facility] DATE CREATED AUTHOR AUTHOR'S ORGANIZ ATION 10/04/2021 [facility] ([place]) DATE CREATED AUTHOR AUTHOR'S ORGANIZ ATION 10/26/2021 [facility] DATE CREATED AUTHOR AUTHOR'S ORGANIZ ATION 11/06/2021 [facility] DATE CREATED AUTHOR AUTHOR'S ORGANIZ ATION 12/27/2021 [facility] DATE CREATED AUTHOR AUTHOR'S ORGANIZ ATION 06/26/2022 Lenard Nolasco [facility] DATE CREATED AUTHOR AUTHOR'S ORGANIZ ATION 12/11/[address] [facility] DATE CREATED AUTHOR AUTHOR'S ORGANIZ ATION 02/11/2024 [facility] DATE CREATED AUTHOR AUTHOR'S ORGANIZ ATION 02/22/2024 APJOSÉ REDJASON El Reason for Visit (unrecogniz ed section and content) Reason Comments [facility] Reason Comments Drug Overdose EMS is called out to night for patient c/o chest pain and having aggressive behavior at [place]. Patient arrives in ambulance combative and spitting in EMS face. Patient is physically restrained by 3 EMS, 1 launch [employer] [place] police, and 2 healthcare providers. Aggressive Behavior Reason Comments Anxiety Care Team (unrecognized sect ion and content) Tie Man Relationship Specialty Start Date End Date [facility] ([facility] Other [address] [place] [address] PCP - General Other 01/13/15 Scheduled Active [...] BE BASED ON THE PRIMARY CLINICAL RECORDS. [facility] [employer]. provides no warranty or guarantee of the accuracy or completeness of information in this document.
[2024-03-03 08:27] LABS: Basophils Percent Auto 0.7 % (0.2-2.0); Eosinophils Percent Auto 0.2 % (0.9-7.0); Hematocrit 40.3 % (42.0-54.0); Hemoglobin 14.4 g/dL (14.0-18.0); Immature Granulocytes Abs Auto 0.01 10^3/uL (0.00-0.03); Immature Granulocytes Pct Auto 0.2 % (0.0-0.5); Lymphocytes Absolute Auto 0.9 10^3/uL (1.2-3.8); Lymphocytes Percent Auto 15.2 % (20.5-60.0); Mean Corpuscular HGB Conc 35.7 g/dL (29.9-35.2); Mean Corpuscular Hemoglobin 31.4 pg (25.9-34.0); Mean Platelet Volume 9.4 fL (9.5-13.5); Monocytes Absolute Auto 0.5 10^3/uL (0.3-0.8); Neutrophils Absolute Auto 4.5 10^3/uL (1.4-6.5); Neutrophils Percent Auto 74.7 % (43.0-75.0); Platelet Count 248 10^3/uL (150-450); Red Blood Count 4.58 10^6/uL (4.70-6.10); Red Cell Distribution Width 12.1 % (11.0-15.0)
--- NOTE | 2024-03-03 08:35 | ED.MEDCLEAR1 ---
HPI - Medical Clearance General Chief complaint: Medical Clearance Stated complaint: SUICIDAL/ CHEST PAIN Time Seen by Provider: 03/03/24 07:43 Source: patient and other Source comment: per ems patient complains of chest pain and suicidal thoughts Mode of arrival: ambulance Limitations: no limitations History of Present Illness HPI Narrative: Patient presents to ED complaining of chest pain and suicidal ideation. He reports he has a plan to overdose and he has been injecting with meth and heroin since yesterday. He states he is not sure if there is anything else mixed into it. He denies any alcohol. He denies any self-harm other than injecting the drugs. Patient states he just does not want to live anymore. He reports left-sided chest and rib pain. He denies any injury to the area. Patient has hypertension, mild tachycardia and temp of 99.1 on arrival. He is calm and cooperative at this time but is slightly paranoid. Denies abdominal pain or vomiting. Denies headache. Patient has been in the ER multiple times recently with similar complaints. Will be consulting psych for placement Related Information Home Medications ?Medication ?Instructions ?Recorded ?Confirmed risperidone 2 mg tablet (Risperdal) 2 mg PO DAILY 03/03/24 03/03/24 Previous Rx's ?Medication ?Instructions ?Recorded buspirone 15 mg tablet 15 mg PO BID #60 tabs 02/28/24 triamcinolone acetonide 0.1 % 1 applic topical BID #15 grams 02/28/24 topical cream Allergies Allergy/AdvReac Type Severity Reaction Status Date / Time No Known Drug Allergies Allergy Verified 03/03/24 04:35 Review of Systems ROS Status of ROS 10 or more systems reviewed and unremarkable except as noted in history and below [facility] Medical History (Updated 03/03/24 @ 15:37 by Sadia Merino DO) Psoriasis ?L40.9 - Psoriasis, unspecified (ICD-10) Paranoid type schizophrenia ?F20.0 - Paranoid schizophrenia (ICD-10) Opioid use disorder in remission ?F11.91 - Opioid use, unspecified, in remission (ICD-10) Released from assisted Schizo-affective schizophrenia, chronic condition ?F25.9 - Schizoaffective disorder, unspecified (ICD-10) Bipolar 1 disorder, depressed ?F31.9 - Bipolar disorder, unspecified (ICD-10) Hep C w/o coma, chronic ?B18.2 - Chronic viral hepatitis C (ICD-10) HIV (human immunodeficiency virus infection) ?Z21 - Asymptomatic human immunodeficiency virus [HIV] infection status (ICD-10) Panic attack ?F41.0 - Panic disorder [episodic paroxysmal anxiety] (ICD-10) Social History (Updated 02/28/24 @ 11:04 by Shaikh Naren MD) Within the past year, how often did you have a drink containing alcohol: monthly or less Within the past year, how many standard drinks containing alcohol did you have on a typical day: 1 or 2 Within the past year, how often did you have six or more drinks on one occasion: never Total score: 0 Score interpretation: A score less than 4 is consistent with normal alcohol consumption. Smoking status: Current every day smoker Non-prescribed substance use: former substance user Little interest or pleasure in doing things: several days Feeling down, depressed, or hopeless: several days Exam Narrative Exam Narrative: General: alert, no acute distress Cardiovascular: regular rate and rhythm, normal peripheral perfusion. Respiratory: Lungs CTA, respirations non labored. Left chest wall tenderness Extremities: no deformity, no trauma. Neurological: oriented x 4, LOC appropriate for age. Paranoid, suicidal ideation Constitutional Vital Signs, click to edit/add: Last Vital Signs Temp 99.1 F 03/03/24 07:46 Pulse 74 03/03/24 13:47 Resp 17 03/03/24 13:47 BP 134/68 03/03/24 13:47 Pulse Ox 99 03/03/24 13:47 O2 Del Method Room Air 03/03/24 10:51 Course Vital Signs Vital signs: Vital Signs Temperature 99.1 F 03/03/24 07:46 Pulse Rate 91 H 03/03/24 07:46 Respiratory Rate 25 H 03/03/24 07:46 Blood Pressure 152/100 H 03/03/24 07:46 Pulse Oximetry 97 03/03/24 07:46 Oxygen Delivery Method Room Air 03/03/24 07:46 Temperature 99.1 F 03/03/24 07:46 Pulse Rate 74 03/03/24 13:47 Respiratory Rate 17 03/03/24 13:47 Blood Pressure 134/68 03/03/24 13:47 Pulse Oximetry 99 03/03/24 13:47 Oxygen Delivery Method Room Air 03/03/24 10:51 MDM - Medical Clearance MDM Narrative Medical decision making narrative: Patient started to escalate and become aggressive. He needed to be placed in restraints. He was aggressive towards staff verbally and also physically. I ordered Ativan as well as Haldol IM injections for medical intervention as well. Patient was removed from restraints once medication kicked in. He was only wearing restraints for about 15 minutes. Patient will be sent over to 1 S. Patient is excepted over to [facility] for further psychiatric care. He is stable here in ED. Patient had a questionable pneumonia on the x-ray however there is been no cough no shortness of breath. No hypoxia. Patient has no elevated white blood cell count. Flu and COVID are negative. I do not feel he needs antibiotics at this time however follow-up chest x-ray is recommended. Patient is comfortable care plan for transfer and further psychiatric care. Patient was placed on the pink slip. Differential Diagnosis Differential diagnosis: Likely other (Acute psychosis, suicidal ideation, chest pain, paranoia, schizophrenia) Lab Data Attestation: I reviewed the patient's lab results. Labs: Lab Results 03/03/24 03/03/24 03/03/24 Range/Units 08:13 08:40 08:54 WBC 6.0 (4.0-11.0) 10^3/uL RBC 4.58 L (4.70-6.10) 10^6/uL Hgb 14.4 (14.0-18.0) g/dL Hct 40.3 L (42.0-54.0) % MCV 88.0 (80.0-94.0) fL MCH 31.4 (25.9-34.0) pg MCHC 35.7 H (29.9-35.2) g/dL RDW 12.1 (11.0-15.0) % Plt Count 248 (150-450) 10^3/uL MPV 9.4 L (9.5-13.5) fL Neut % (Auto) 74.7 (43.0-75.0) % Lymph % (Auto) 15.2 L (20.5-60.0) % [place] % (Auto) 9.0 (1.7-12.0) % Eos % (Auto) 0.2 L (0.9-7.0) % Baso % (Auto) 0.7 (0.2-2.0) % Neut # (Auto) 4.5 (1.4-6.5) 10^3/uL Lymph # (Auto) 0.9 L (1.2-3.8) 10^3/uL [place] # (Auto) 0.5 (0.3-0.8) 10^3/uL Eos # (Auto) 0.0 (0.0-0.7) 10^3/uL Baso # (Auto) 0.0 (0.0-0.1) 10^3/uL Abs Immat Gran (auto) 0.01 (0.00-0.03) 10^3/uL Imm/Tot Granulo (auto) 0.2 (0.0-0.5) % Sodium 137 (136-145) mmol/L Potassium 3.3 L (3.5-5.1) mmol/L Chloride 103 (98-107) mmol/L Carbon Dioxide 24.0 (21.0-32.0) mmol/L Anion Gap 13.3 BUN 14.0 (7.0-18.0) mg/dL Creatinine 1.00 (0.70-1.30) mg/dL Est GFR ( Amer) >60 (>=60) Est GFR (Non-Af Amer) >60 (>=60) BUN/Creatinine Ratio 14.0 Glucose 110 H (74-106) mg/dL Calcium 9.0 (8.5-10.1) mg/dL Total Bilirubin 0.8 (0.2-1.0) mg/dL AST 97 H (15-37) U/L ALT 59 (16-63) U/L Alkaline Phosphatase 96 (46-116) U/L Troponin I High Sens 8.4 (4.0-76.1) pg/mL Total Protein 7.1 (6.4-8.2) g/dL Albumin 3.8 (3.4-5.0) g/dL Globulin 3.3 g/dL Albumin/Globulin Ratio 1.2 Urine Color Yellow (YELLOW) Urine Clarity Clear (CLEAR) Urine pH 6.5 (5.0-9.0) Ur Specific [place] 1.020 (1.005-1.025) Urine Protein Trace (NEG/TRACE) mg/dL Urine Glucose (UA) Negative (NEGATIVE) mg/dL Urine Ketones Trace A (NEGATIVE) mg/dL Urine Occult Blood Negative (NEGATIVE) Urine Nitrite Negative (NEGATIVE) Urine Bilirubin Negative (NEGATIVE) Urine Urobilinogen 1.0 (0.2-1.0) EU/dL Ur Leukocyte Esterase Negative (NEGATIVE) Urine Opiates Screen Negative (NEGATIVE) Ur Buprenorphine Scrn Negative (NEGATIVE) Ur Oxycodone Screen Negative (NEGATIVE) Urine Methadone Screen Negative (NEGATIVE) Ur Barbiturates Screen Negative (NEGATIVE) U Tricyclic Antidepress Negative (NEGATIVE) Ur Phencyclidine Scrn Negative (NEGATIVE) Ur Amphetamines Screen Positive A (NEGATIVE) U Methamphetamines Scrn Positive A (NEGATIVE) U Benzodiazepines Scrn Negative (NEGATIVE) Urine Cocaine Screen Positive A (NEGATIVE) U Cannabinoids Screen Positive A (NEGATIVE) Ethanol Quant <3 mg/dL Influenza Type A Ag Negative Influenza Type B Ag Negative SARS-CoV-2 Ag (CV2AG) Negative (NEGATIVE) Imaging Data Chest x-ray: Radiologist's impression: ITS Impressions Chest X-Ray 03/03/24 08:04 IMPRESSION: 1. Trace amount of new right basilar stranding; infiltrates versus discoid atelectasis. Electronically authenticated by: GRACE RASHID Date: 03/03/2024 08:35 ECG Data Attestation: I personally reviewed and interpreted this ECG as follows: Interpretation: EKG INTERPRETATION Time: []742 Rate: []83 Rhythm: _ []Normal sinus rhythm ST segments: _ []No acute ST elevation or depression T waves: _ [] Ectopy: _ [] P wave/UT interval: _ [] QRS interval: _ [] QT interval: _ [] Comparison: _ [] Comparison EKG date: [] Performed by: [self] Discharge Plan Discharge Chief Complaint: Medical Clearance Clinical Impression: Substance abuse, Paranoia, Suicidal ideation Patient Disposition: [facility] Time of Disposition Decision: 15:37 Discharge Location: [facility] Discharge location: Condition: Fair Mode of Transportation: EMS Prescriptions / Home Meds: No Action buspirone 15 mg tablet 15 mg PO BID Qty: 60 0RF triamcinolone acetonide 0.1 % cream 1 applic topical BID Qty: 15 0RF risperidone [Risperdal] 2 mg tablet 2 mg PO DAILY Print Language: Samoan Referrals: Physician,Non-Staff, [Primary Care Provider] - 1 week
[2024-03-03 08:43] LABS: Alanine Aminotransferase 59 U/L (16-63); Albumin Globulin Ratio 1.2; Albumin Level 3.8 g/dL (3.4-5.0); Alkaline Phosphatase 96 U/L (46-116); Anion Gap 13.3; Aspartate Amino Transferase 97 U/L (15-37); Bilirubin Total 0.8 mg/dL (0.2-1.0); Chloride 103 mmol/L (98-107); Estimated GFR (African America >60 (>=60); Estimated GFR (Non-African Ame >60 (>=60); Globulin 3.3 g/dL; Glucose 110 mg/dL (74-106); Potassium 3.3 mmol/L (3.5-5.1); Sodium 137 mmol/L (136-145); Total Protein 7.1 g/dL (6.4-8.2); Troponin I High Sensitivity 8.4 pg/mL (4.0-76.1)
[2024-03-03 08:49] LABS: Bilirubin Urine NEGATIVE (NEGATIVE); Blood Urine NEGATIVE (NEGATIVE); Clarity Urine CLEAR (CLEAR); Color Urine YELLOW (YELLOW); Glucose Urine UA NEGATIVE (NEGATIVE); Ketones Urine TRACE mg/dL (NEGATIVE); Leukocyte Esterase Urine NEGATIVE (NEGATIVE); Nitrite Urine NEGATIVE (NEGATIVE); Protein Urine TRACE mg/dL (NEG/TRACE); pH Urine 6.5 (5.0-9.0)
[2024-03-03 08:51] LABS: Urine Microscopic Indicated NO
[2024-03-03 09:05] LABS: Cannabinoid Screen Urine POSITIVE (NEGATIVE); Phencyclidine Screen Urine NEGATIVE (NEGATIVE)
[2024-03-03 09:06] LABS: Amphetamine Screen Urine POSITIVE (NEGATIVE); Barbiturates Screen Urine NEGATIVE (NEGATIVE); Benzodiazepines Screen Urine NEGATIVE (NEGATIVE); Buprenorphine Screen Urine NEGATIVE (NEGATIVE); Cocaine Screen Urine POSITIVE (NEGATIVE); Methadone Screen Urine NEGATIVE (NEGATIVE); Methamphetamines Screen Urine POSITIVE (NEGATIVE); Opiate Screen Urine NEGATIVE (NEGATIVE); Oxycodone Screen Urine NEGATIVE (NEGATIVE); Tricyclic Antidepressant Urine NEGATIVE (NEGATIVE)
[2024-03-03 09:14] LABS: Influenza Virus A Antigen Negative; Influenza Virus B Antigen Negative; Internal Control Within Normal Limits
[2024-03-03 09:15] LABS: Internal Control Within Normal Limits; SARS-CoV-2 Ag NEGATIVE (NEGATIVE)
[2024-03-03] MEDS: LORAZEPAM 2 MG/ML VIAL 1 MG IM (09:34)
[2024-03-03] MEDS: HALOPERIDOL LACTATE 5 MG/ML VIAL IM (09:35)
--- NOTE | 2024-03-03 09:56 | PC.NURSE ---
this patient arrives via ems but this patient walked into the ER dept, this patient's gait steady. per ems report this patient was found at [facility], this patient complains of chest pain and thought of hurting himself. at this time this patient voices to me of chest pain 10/10 sharp and thoughts of suicidal thoughts but no plan. this patient is following
--- NOTE | 2024-03-03 10:05 | PC.NURSE ---
this patient arrives EMS but patient walked into the room, this patient's gait steady and patient shows no signs of distress. per ems report this was found at [facility] with complaints of chest pain and thoughts of suicidal thoughts. this patient states his chest pain 10/10 and sharp and no real plan of suicidal thoughts. this patient is calm and follow directions at this time
[2024-03-03 10:50] LABS: Ethanol <3 mg/dL
--- NOTE | 2024-03-03 11:49 | PC.NURSE ---
this patient sleeping on his right side at this time
== END 2024-03-03 16:09 ==
PROVIDERS: Emergency Provider Emergency Medicine
DX: F19.10 Other psychoactive substance abuse, uncomplicated (principal); R45.851 Suicidal ideations; F22 Delusional disorders; F17.200 Nicotine dependence, unspecified, uncomplicated; Z20.822 Contact with and (suspected) exposure to COVID-19
CPT/HCPCS: 36415; 71045; 80053; 80307; 80320; 81003; 84484; 85025; 87804; 87811; 93005; 96372; 99283; 99285; J1630; J2060